=== PATIENT | male | born 1945 | race Caucasian/White ===

== ENCOUNTER 2019-09-28 17:00 | Emergency (ER) | payer MEDICARE, MEDICAID, SELFPAY ==
[2019-09-28] VITALS (25 sets, daily range): BP systolic 133–163; BP diastolic 53–72; PULSE 58–71; RESP 16–20; TEMP 37.1; O2SAT 89–98; BMI 41.8
--- NOTE | 2019-09-28 17:25 | ED_ITS ---
Entered by Viktoriya Rosado, acting as scribe for Samuel Philip DO Sep 28, 2019 17:00 HPI - General Adult General: Chief complaint: General Medical Stated complaint: Joint Pain / Hallucinations Time Seen by Provider: 09/28/19 17:14 Source: patient Mode of arrival: wheelchair Limitations: no limitations History of Present Illness: HPI narrative: 74 yo Male presents to ED with complaint of joint pain. Pt states the pain in his feet, ankles and knees. Pt states that his beavers bones hurt so bad he can barely walk. Pt states that this started years ago. Pt states that he has been having hallucinations that he thinks is from the hydrocodone he is taking for pain. Pt's family states that the patient has been having difficulty sleeping at night and has increased confusion at night. Pt's family states that the patient has had increased confusion the past few days as well. Pt states that he was seen by Dr. Alvares a few days ago and was told that it could be medication interaction. MD complaint: Joint Pain Onset (ago): year(s) Location: lower extremity Radiation: non-radiation Severity scale (1-10): 5 Quality: constant Pain Consistency: constant Relieving factors: none Exacerbating factors: none Associated symptoms: Reports other (hallucinations); Deny chest pain, dyspnea, headache(s), nausea, rash, palpitations or vomiting Review of Systems General: Reports: 10 or more systems reviewed and unremarkable except in HPI and below Const: Reports: body aches; Denies: fever or chills Eyes: Denies: change in vision, blurry vision or blind spots ENMT: Denies: throat pain, enlarged tonsils, painful swallowing, hoarseness or mouth pain Card: Reports: swelling of feet/ankles; Denies: chest pain, palpitations or irregular heart rhythm Resp: Denies: shortness of breath, productive cough or non-productive cough GI: Denies: abdominal pain, nausea or vomiting : Denies: flank pain, difficulty urinating, painful urination, urinary frequency or urinary urgency Musc: Reports: extremity pain and joint pain; Denies: neck pain or back pain Skin/Breast: Denies: rash, itching or redness Neuro: Denies: headache, numbness in extremities or weakness in extremities Psych: Reports: visual hallucinations PFSH ED PFSH: Statuses (acute, chronic, etc) shown below reflect problem list status as previously entered and may not be historically accurate Medical History (Updated 09/28/19 @ 21:27 by Samuel Philip DO) CAD (coronary artery disease) (Acute) Chronic back pain (Acute) COPD (chronic obstructive pulmonary disease) (Acute) Diabetes (Acute) Gout (Acute) Neuropathy (Acute) Renal insufficiency (Acute) Substance abuse (Acute) Surgical History (Updated 09/28/19 @ 17:32 by Viktoriya Rosado) History of cholecystectomy (Acute) History of heart artery stent (Acute) Social History (Updated 09/28/19 @ 17:50 by Viktoriya Rosado) Smoking and tobacco status: former smoker Quit status (tobacco): has quit using tobacco Year quit tobacco: 2016 Physical Exam Const: COMMON NORMALS: no apparent distress, average body habitus, oriented x3, no limitations, healthy appearing, alert and well nourished HENMT: COMMON NORMALS: normocephalic, head/scalp atraumatic, hearing grossly normal bilaterally, external ears normal, EAC's normal, TM's normal bilaterally, external nose normal, nasal mucous membranes and turbinates normal, moist oral mucous membranes, oropharynx normal, dentition normal and gingiva normal HEAD & SCALP: normocephalic and atraumatic NOSE: external nose normal and nasal mucous membranes and turbinates normal EXTERNAL EAR: Yes external ears normal EXTERNAL AUDITORY CANAL: EAC's normal TYMPANIC MEMBRANE: TM's normal bilaterally Eye: COMMON NORMALS: PERRL, EOMs intact bilaterally, conjunctivae normal, no scleral icterus, no papilledema, normal visual choudhury by confrontation and fundi normal bilaterally CONJUNCTIVA: Yes conjunctivae normal PUPIL: Yes PERRL DIRECT OPHTHALMOSCOPY: Yes no papilledema and Yes fundi normal bilaterally Neck/C-Spine: COMMON NORMALS: full ROM, no lymphadenopathy, supple, no meningeal signs, no JVD, thyroid normal and no carotid bruits THYROID: thyroid normal Chest: COMMONS NORMALS: inspection of chest normal and palpation of chest normal Resp: COMMON NORMALS: normal respiratory effort, no retractions, no use of accessory muscles, clear to auscultation bilaterally and percussion normal AUSCULTATION: clear to auscultation bilaterally PERCUSSION: percussion normal Cardio: COMMON NORMALS: no JVD, regular rate, regular rhythm, S1 normal heart sound, S2 normal heart sound, no gallops, no clicks, no murmurs, no rub and peripheral pulses 2+ throughout RATE: regular rate RHYTHM: regular rhythm HEART SOUNDS: S1 normal and S2 normal PERIPHERAL PULSES: pulses 2+ throughout GI: COMMON NORMALS: normal to inspection, nondistended, normoactive bowel sounds, soft to palpation, non-tender, no hepatosplenomegaly, no masses and no bruits PALPATION: Yes soft and Yes no hepatosplenomegaly : COMMON NORMALS: Yes no CVA tenderness BLADDER/KIDNEY EXAM: Yes no CVA tenderness Back/Pelvis: COMMON NORMALS: no CVA tenderness, thoracic and lumbar spine normal to inspection, no thoracic nor lumbar tenderness, thoraco-lumbar ROM normal and straight leg raise negative bilaterally Extremity: COMMON NORMALS: full ROM, normal capillary refill, no joint enlargement, no clubbing, cyanosis or edema and no calf tenderness; negative for normal to inspection and negative for no pedal edema GENERAL: Yes normal exam except as noted and Yes edema Neuro: COMMON NORMALS: oriented x3 SENSORIUM/ORIENTATION: Yes alert MENINGEAL SIGNS: Yes no meningeal signs Skin: COMMON NORMALS: no rashes or lesions noted, no wounds, skin turgor normal, no jaundice, no petechiae and no mottling GENERAL SKIN EXAM: no rashes or lesions noted and turgor normal Course Vital Signs: Vital signs: Vital Signs Temperature 98.7 F 09/28/19 17:14 Pulse Rate 61 09/28/19 20:45 Respiratory Rate 16 09/28/19 20:10 Blood Pressure 143/53 09/28/19 20:45 Pulse Oximetry 90 09/28/19 21:10 [facility] - General Adult Lab Data: Labs: Lab Results 09/28/19 09/28/19 09/28/19 Range/Units 18:07 18:07 18:07 WBC 8.5 (4.0-10.0) 10^3/ uL RBC 4.07 L (4.1-5.3) 10^6/u L Hgb 11.0 L (11.7-16.6) g/dL Hct 36.2 L (42.0-52.0) % MCV 88.9 (80-94) fL MCH 27.0 L (28.0-34.0) pg MCHC 30.4 (30.0-36.0) g/dL RDW 14.9 (12.1-15.1) % Plt Count 217 (130-400) 10^3/c mm MPV 10.3 (7.4-10.4) fL Neut % (Auto) 71.3 % Lymph % (Auto) 14.8 % [place] % (Auto) 9.1 % Eos % (Auto) 4.2 % Baso % (Auto) 0.4 % Neut # (Auto) 6.1 (1.8-7.7) 10^3/u L Lymph # (Auto) 1.3 (0.8-4.8) 10^3/u L [place] # (Auto) 0.8 (0.2-0.9) 10^3/u L Eos # (Auto) 0.4 (0.0-0.8) 10^3/u L Baso # (Auto) 0.0 (0.0-0.1) 10^3/u L Nucleated RBC % (a uto) 0 % Nucleated RBCs # 0.0 /100WBC Sodium 138 (136-145) mmol/L Potassium 4.0 (3.5-5.1) mmol/L Chloride 98 (98-107) mmol/L Carbon Dioxide 27 (22-29) mmol/L Anion Gap 17.0 (5-19) BUN 11 (8-23) mg/dL Creatinine 1.3 H (0.7-1.2) mg/dL Glucose 144 H (74-106) mg/dL Lactate 1.5 (0.5-2.2) mmol/L Calcium 9.4 (8.8-10.2) mg/Dl Total Bilirubin 0.3 (0.15-1.2) mg/dL AST 20 (0-40) U/L ALT 15 (0-41) U/L Alkaline Phosphata se 100 (40-130) IU/L Troponin T Baselin e (0-15) ng/mL Troponin T 120 Min humble (0-15) ng/mL Delta Troponin T (0-10) ABS# NT-Pro-B Natriuret Pep 288 H (0-125) pg/mL Total Protein 7.2 (6.6-8.7) g/dL Albumin 3.6 (3.5-5.2) g/dL Globulin 3.6 (1.3-4.6) g/dL Lipase 9 L (13-60) U/L TSH 2.72 (0.27-4.20) uIU/ mL Urine Color (Yellow) Urine Appearance (CLEAR) Urine pH (5-7) Ur Specific Gravit y (1.005-1.030) Urine Protein (Negative) Urine Glucose (UA) (Normal) Urine Ketones (Negative) Urine Occult Blood (Negative) Urine Nitrate (Negative) Urine Bilirubin (NEGATIVE) Urine Urobilinogen (Negative) mg/dL Ur Leukocyte Estephanie ase (Negative) 09/28/19 09/28/19 09/28/19 Range/Units 18:07 19:35 19:55 WBC (4.0-10.0) 10^3/ uL RBC (4.1-5.3) 10^6/u L Hgb (11.7-16.6) g/dL Hct (42.0-52.0) % MCV (80-94) fL MCH (28.0-34.0) pg MCHC (30.0-36.0) g/dL RDW (12.1-15.1) % Plt Count (130-400) 10^3/c mm MPV (7.4-10.4) fL Neut % (Auto) % Lymph % (Auto) % [place] % (Auto) % Eos % (Auto) % Baso % (Auto) % Neut # (Auto) (1.8-7.7) 10^3/u L Lymph # (Auto) (0.8-4.8) 10^3/u L [place] # (Auto) (0.2-0.9) 10^3/u L Eos # (Auto) (0.0-0.8) 10^3/u L Baso # (Auto) (0.0-0.1) 10^3/u L Nucleated RBC % (a uto) % Nucleated RBCs # /100WBC Sodium (136-145) mmol/L Potassium (3.5-5.1) mmol/L Chloride (98-107) mmol/L Carbon Dioxide (22-29) mmol/L Anion Gap (5-19) BUN (8-23) mg/dL Creatinine (0.7-1.2) mg/dL Glucose (74-106) mg/dL Lactate (0.5-2.2) mmol/L Calcium (8.8-10.2) mg/Dl Total Bilirubin (0.15-1.2) mg/dL AST (0-40) U/L ALT (0-41) U/L Alkaline Phosphata se (40-130) IU/L Troponin T Baselin e 17 H (0-15) ng/mL Troponin T 120 Min humble 16.77 H (0-15) ng/mL Delta Troponin T -0.23 L (0-10) ABS# NT-Pro-B Natriuret Pep (0-125) pg/mL Total Protein (6.6-8.7) g/dL Albumin (3.5-5.2) g/dL Globulin (1.3-4.6) g/dL Lipase (13-60) U/L TSH (0.27-4.20) uIU/ mL Urine Color Yellow (Yellow) Urine Appearance Clear (CLEAR) Urine pH 6 (5-7) Ur Specific Gravit y 1.010 (1.005-1.030) Urine Protein Neg (Negative) Urine Glucose (UA) Norm (Normal) Urine Ketones Negative (Negative) Urine Occult Blood Neg (Negative) Urine Nitrate Negative (Negative) Urine Bilirubin Neg (NEGATIVE) Urine Urobilinogen 1 H (Negative) mg/dL Ur Leukocyte Estephanie ase Negative (Negative) Imaging Data^: CXR: Radiologist's impression: [address] [address] XRay Report Signed Patient: Vega Clarke #: [id number] : 5Acct#:[id number] Age/Sex: 74 / MADM Date: 09/28/19 Loc: ERRoom/Bed: Attending Dr: Ordering Provider/Ordering MD: Samuel Philip DO Date of Service: 09/28/19 Procedure(s): XR chest 1V portable [id number] Accession Number(s): [id number] Report Number: [id number] PROCEDURE INFORMATION: Exam: XR Chest, 1 View Exam date and time: 09/28/2019 6:29 PM Age: 74 years old Clinical indication: Shortness of breath; Additional info: Chf TECHNIQUE: Imaging protocol: XR of the chest Views: 1 view. COMPARISON: CR Chest 1 [place] [id number] 07/15/2019 3:01 PM FINDINGS: Lungs: Unremarkable. No consolidation. Pleural space: Unremarkable. No pleural effusion. No pneumothorax. Heart/Mediastinum: Unremarkable. No cardiomegaly. Bones/joints: Unremarkable. XR/XR chest 1V portable [id number] IMPRESSION: No acute findings. Dictated By:Valerio White Signed By:Ana Whiteigned Date/Time:09/28/191899 DD/ 99 CT Head: Radiologist's impression: [place] [address] CT Scan Report Signed Patient: Vega Clarke #: [id number] : 5Acct#:[id number] Age/Sex: 74 / MADM Date: 09/28/19 Loc: ERRoom/Bed: Attending Dr: Ordering Provider/Ordering MD: Samuel Philip DO Date of Service: 09/28/19 Procedure(s): CT head wo con* [id number] Accession Number(s): [id number] Report Number: [id number] PROCEDURE INFORMATION: Exam: CT Head Without Contrast Exam date and time: 09/28/2019 5:55 PM Age: 74 years old Clinical indication: Altered mental status/memory loss; Age related cognitive decline; Additional info: AMS TECHNIQUE: Imaging protocol: Computed tomography of the head without contrast. Total DLP: 835.36 mGy-cm Radiation optimization: All CT scans at this facility use at least one of these dose optimization techniques: automated exposure control; mA and/or kV adjustment per patient size (includes targeted exams where dose is matched to clinical indication); or iterative reconstruction. COMPARISON: CT head wo con* [id number] 07/15/2019 5:59 PM FINDINGS: Brain: There is moderate cortical atrophy not significantly changed from previous. There is some mild patchy low-density in the white matter regions in keeping with nonspecific small vessel chronic ischemic change. There is no intracranial mass or hemorrhage. Midline shift: There is no shift of midline structures. Ventricles: Ventricles within normal limits. Bones/joints: Unremarkable. No acute fracture. Sinuses: Visualized sinuses are unremarkable. No fluid levels. Mastoid air cells: Visualized mastoid air cells are well aerated. Soft tissues: Unremarkable. CT/CT head wo con* [id number] IMPRESSION: No acute intracranial finding. Radiation Dose CTDIVOL = (mGy): DLP = 835.36 (mGy-cm) Dictated By:Valerio White Signed By:Ana Whiteigned Date/Time:09/28/191905 DD/ 05 Discharge Plan Discharge Patient Disposition: Home, Self-Care Clinical Impression: Diabetic neuropathy Qualifiers: Diabetes mellitus type: type 1 Diabetes mellitus complication detail: diabetic polyneuropathy Qualified Code(s): E10.42 - Type 1 diabetes mellitus with diabetic polyneuropathy Altered mental status Qualifiers: Altered mental status type: disorientation Qualified Code(s): R41.0 - Disorientation, unspecified Condition: Stable Discharge Orders: Discharge Order (Routine); Ordered 09/28/19 Ordered By: Samuel Philip Referrals: Christa Montes DO [Primary Care Provider] - Discharge Diet: Diabetic Activity Restrictions/Additional Instructions: DO NOT sit with your feet on the floor to help relieve peripheral edema Coding Level of Care Code ED Wet End Helper for Chg Fwd Exam Problem Focused The documentation recorded by the Alonzo pastor Carmen, accurately reflects the service I personally performed and the decisions made by Tamera lópez Donald P, DO Sep 28, 2019 17:00
--- NOTE | 2019-09-28 17:51 | CTR_ITS ---
PROCEDURE INFORMATION: Exam: CT Head Without Contrast Exam date and time: 09/28/2019 5:55 PM Age: 74 years old Clinical indication: Altered mental status/memory loss; Age related cognitive decline; Additional info: AMS TECHNIQUE: Imaging protocol: Computed tomography of the head without contrast. Total DLP: 835.36 mGy-cm Radiation optimization: All CT scans at this facility use at least one of these dose optimization techniques: automated exposure control; mA and/or kV adjustment per patient size (includes targeted exams where dose is matched to clinical indication); or iterative reconstruction. COMPARISON: CT head wo con* [id number] 07/15/2019 5:59 PM FINDINGS: Brain: There is moderate cortical atrophy not significantly changed from previous. There is some mild patchy low-density in the white matter regions in keeping with nonspecific small vessel chronic ischemic change. There is no intracranial mass or hemorrhage. Midline shift: There is no shift of midline structures. Ventricles: Ventricles within normal limits. Bones/joints: Unremarkable. No acute fracture. Sinuses: Visualized sinuses are unremarkable. No fluid levels. Mastoid air cells: Visualized mastoid air cells are well aerated. Soft tissues: Unremarkable. CT/CT head wo con* [id number] IMPRESSION: No acute intracranial finding. Radiation Dose CTDIVOL = (mGy): DLP = 835.36 (mGy-cm)
--- NOTE | 2019-09-28 17:51 | XRR_ITS ---
PROCEDURE INFORMATION: Exam: XR Chest, 1 View Exam date and time: 09/28/2019 6:29 PM Age: 74 years old Clinical indication: Shortness of breath; Additional info: Chf TECHNIQUE: Imaging protocol: XR of the chest Views: 1 view. COMPARISON: CR Chest 1 [place] [id number] 07/15/2019 3:01 PM FINDINGS: Lungs: Unremarkable. No consolidation. Pleural space: Unremarkable. No pleural effusion. No pneumothorax. Heart/Mediastinum: Unremarkable. No cardiomegaly. Bones/joints: Unremarkable. XR/XR chest 1V portable [id number] IMPRESSION: No acute findings.
[2019-09-28 18:18] LABS: Basophils % 0.4 %; Eosinophils # 0.4 10^3/uL (0.0-0.8); Eosinophils % 4.2 %; Hematocrit 36.2 % (42.0-52.0); Lymphocytes # 1.3 10^3/uL (0.8-4.8); Lymphocytes % 14.8 %; Mean Corpuscular HGB Conc 30.4 g/dL (30.0-36.0); Mean Corpuscular Volume 88.9 fL (80-94); Mean Platelet Volume 10.3 fL (7.4-10.4); Monocytes # 0.8 10^3/uL (0.2-0.9); Monocytes % 9.1 %; Neutrophils # 6.1 10^3/uL (1.8-7.7); Neutrophils % 71.3 %; Nucleated Red Blood Cells % 0 %; Platelet Count 217 10^3/cmm (130-400); Red Blood Count 4.07 10^6/uL (4.1-5.3); Red Cell Distribution Width 14.9 % (12.1-15.1); White Blood Count 8.5 10^3/uL (4.0-10.0)
[2019-09-28 18:31] LABS: Lactate (Lactic Acid level) 1.5 mmol/L (0.5-2.2)
[2019-09-28 18:42] LABS: Alanine Aminotransferase 15 U/L (0-41); Albumin Level 3.6 g/dL (3.5-5.2); Alkaline Phosphatase 100 IU/L (40-130); Aspartate Amino Transferase 20 U/L (0-40); Blood Urea Nitrogen 11 mg/dL (8-23); Calcium 9.4 mg/Dl (8.8-10.2); Carbon Dioxide 27 mmol/L (22-29); Chloride 98 mmol/L (98-107); Globulin 3.6 g/dL (1.3-4.6); Glucose 144 mg/dL (74-106); Lipase 9 U/L (13-60); NT Pro B Type Natriuretic Pept 288 pg/mL (0-125); Sodium 138 mmol/L (136-145); Thyroid Stimulating Hormone 2.72 uIU/mL (0.27-4.20); Total Bilirubin 0.3 mg/dL (0.15-1.2); Total Protein 7.2 g/dL (6.6-8.7)
[2019-09-28 19:01] LABS: Troponin(5th) Baseline 17 ng/mL (0-15)
--- NOTE | 2019-09-28 19:04 | PC.NURSE ---
REPORT RECEIVED FROM RYAN GALLAGHER AND CARE TRANSFERRED TO RYAN HALL
--- NOTE | 2019-09-28 19:54 | ECG_ITS ---
Measurements Intervals [place] Rate: 60 P: 64 [place]: 163 QRS: 74 QRSD: 97 T: 61 QT: 403 QTc: 403 SINUS RHYTHM Compared to ECG 07/15/2019 14:42:35 Sinus bradycardia no longer present Electronically Signed On 09-29-2019 9:33:45 SANDWICH ARTIST by Vic Holder M.D. [email or web address]
--- NOTE | 2019-09-28 19:55 | PC.NURSE ---
PATIENT REQUESTED BLANKET AND PATIENT GIVEN WARM BLANKET BY NURSE
[2019-09-28 20:00] LABS: Add Urine Microscopic? NO
[2019-09-28 20:24] LABS: Bilirubin Urine Neg (NEGATIVE); Blood Urine Neg (Negative); Glucose Urine UA Norm (Normal); Ketones Urine Negative (Negative); Leukocyte Esterase Urine Negative (Negative); Nitrate Urine Negative (Negative); Protein Urine Neg (Negative); Urine Appearance Clear (CLEAR); Urine Color Yellow (Yellow); Urobilinogen Urine 1 mg/dL (Negative); pH Urine 6 (5-7)
[2019-09-28 20:31] LABS: Troponin 5 2HR 16.77 ng/mL (0-15)
[2019-09-28 20:34] LABS: Troponin 5 2HR Delta -0.23 ABS# (0-10)
--- NOTE | 2019-09-28 23:54 | ECG_ITS ---
Measurements Intervals [place] Rate: 59 P: 58 TN: 190 QRS: 69 QRSD: 99 T: 57 QT: 411 QTc: 409 SINUS BRADYCARDIA Compared to ECG 07/15/2019 14:42:35 No significant changes Electronically Signed On 09-29-2019 9:33:42 ACCOUNT MANAGER SALES REPRESENTATIVE by Vic Holder M.D. [email or web address]
== END 2019-09-28 21:49 | disposition home or self-care (01) ==
PROVIDERS: Emergency Provider Family Medicine; Family Provider Family Medicine; PCP Family Medicine
DX: E10.42 Type 1 diabetes mellitus with diabetic polyneuropathy (principal); R41.0 Disorientation, unspecified; I25.10 Atherosclerotic heart disease of native coronary artery without angina pectoris; J44.9 Chronic obstructive pulmonary disease, unspecified; Z87.891 Personal history of nicotine dependence
CPT/HCPCS: 70450; 71045; 80053; 81003; 83605; 83690; 83880; 84443; 84484; 85025; 93005; 99283; A9270

== ENCOUNTER → 2019-10-14 14:05 | Outpatient (BNVA) | payer MEDICARE, MEDICAID, SELFPAY | PROVIDERS: Family Provider Family Medicine; PCP Family Medicine; Visit Provider Nurse Practitioner | DX: F33.0 Major depressive disorder, recurrent, mild (principal) | CPT/HCPCS: 99213 ==

== ENCOUNTER → 2019-10-15 14:58 | Outpatient (BNVA) | payer MEDICARE, MEDICAID, SELFPAY | PROVIDERS: Family Provider Family Medicine; PCP Family Medicine; Visit Provider Anesthesiology | DX: G89.29 Other chronic pain (principal); M54.5 Low back pain; M79.651 Pain in right thigh; M79.652 Pain in left thigh; F17.220 Nicotine dependence, chewing tobacco, uncomplicated; Z79.891 Long term (current) use of opiate analgesic | CPT/HCPCS: 99214 ==

== ENCOUNTER → 2019-10-31 16:46 | Outpatient (BNVA) | payer MEDICARE, MEDICAID, SELFPAY | PROVIDERS: Family Provider Family Medicine; PCP Nurse Practitioner; Visit Provider Nurse Practitioner | DX: E11.9 Type 2 diabetes mellitus without complications (principal); E78.5 Hyperlipidemia, unspecified | CPT/HCPCS: 80061; 82044; 83036 ==

== ENCOUNTER → 2019-12-11 12:26 | Outpatient (BNVA) | payer MEDICARE, MEDICAID, SELFPAY | PROVIDERS: Family Provider Family Medicine; PCP Nurse Practitioner; Visit Provider Nurse Practitioner | DX: Z76.89 Persons encountering health services in other specified circumstances (principal) | CPT/HCPCS: 99213 ==

== ENCOUNTER 2019-12-30 11:43 | Emergency (ER) | payer MEDICARE, MEDICAID, SELFPAY ==
[2019-12-30 11:47] VITALS: BP 100/84; PULSE 86; RESP 20; TEMP 36.8; O2SAT 95; BMI 43.0
--- NOTE | 2019-12-30 11:49 | XR_ITS ---
WS: [id number] RIBS LEFT WITH CHEST TECHNIQUE: 3 views of the left ribs with PA chest CLINICAL INFORMATION: chest pain COMPARISON: September 28, 2019 FINDINGS: Cardiomegaly. Aortic calcification. Lungs well aerated. No visualized left rib fractures XR/XR ribs LT mn 3V w CXR1V [id number] IMPRESSION: No visualized left rib fractures
--- NOTE | 2019-12-30 12:59 | ED_ITS ---
HPI - General Adult General: Chief complaint: General Medical Stated complaint: LEFT SIDE RIB PAIN Time Seen by Provider: 12/30/19 12:59 Source: patient Mode of arrival: ambulatory Limitations: no limitations History of Present Illness: HPI narrative: Patient comes in today with left anterior rib pain. 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 Patient appears well. Patient appears in moderate pain. Patient does take medication routinely for his diabetic neuropathy, diabetes, hypertension, and coronary artery disease. Patient states that he has been without his pain medicine and cannot get it refilled until the first of the month. Review of Systems General: Reports: 10 or more systems reviewed and unremarkable except in HPI and below PFSH ED PFSH: Medical History (Updated 12/30/19 @ 14:05 by KARINA Rowan) CAD (coronary artery disease) Chronic back pain Encounter for long-term use of opiate analgesic Gout Major depressive disorder, recurrent, mild (Unknown) Neuropathy Opioid contract exists Renal insufficiency Smokeless tobacco use Substance abuse Surgical History History of cholecystectomy History of heart artery stent Social History Smoking and tobacco status: former smoker Alcohol intake: never History of recent travel: No Physical Exam Const: COMMON NORMALS: no apparent distress and oriented x3 GENERAL APPEARANCE: cooperative HENMT: COMMON NORMALS: normocephalic, TM's normal bilaterally and external nose normal HEAD & SCALP: normal to inspection and normocephalic NOSE: external nose normal TYMPANIC MEMBRANE: TM's normal bilaterally MOUTH: oral and palatal mucosa normal THROAT: posterior oropharynx normal Eye: GENERAL EYE: normal appearance of both eyes Neck/C-Spine: COMMON NORMALS: full ROM Lymph: LYMPHATIC: no lymphadenopathy noted Chest: OTHER: Left anterior chest wall tenderness, no crepitus or flailing of the chest. Resp: COMMON NORMALS: normal respiratory effort EFFORT & INSPECTION: Yes able to speak in complete sentences Cardio: COMMON NORMALS: regular rate and regular rhythm RATE: regular rate RHYTHM: regular rhythm GI: COMMON NORMALS: non-tender : COMMON NORMALS: Yes no CVA tenderness BLADDER/KIDNEY EXAM: Yes no CVA tenderness Back/Pelvis: COMMON NORMALS: no CVA tenderness and thoracic and lumbar spine normal to inspection Extremity: COMMON NORMALS: normal to inspection Neuro: COMMON NORMALS: oriented x3 and moves all extremities Psych: COMMON NORMALS: mental status grossly normal and cooperative Skin: COMMON NORMALS: no rashes or lesions noted GENERAL SKIN EXAM: no dolly hes or lesions noted Course Vital Signs: Vital signs: Vital Signs Temperature 98.2 F 12/30/19 11:47 Pulse Rate 86 12/30/19 11:47 Respiratory Rate 20 H 12/30/19 11:47 Blood Pressure 100/84 12/30/19 11:47 Pulse Oximetry 95 12/30/19 11:47 MDM - General Adult MDM Narrative: Medical decision making narrative: Patient comes in for evaluation of left anterior chest wall pain. Patient reports leaning over to get his dog against the back of his chair and felt a pop in the left anterior rib area. Exam notes no abnormalities to the chest wall except tenderness with palpation. Lungs are clear to auscultation. Differential diagnosis includes but not limited to fracture, costochondritis, sprain/strain. X-ray noted no fracture. Reviewed exam with patient recommended treatment with Tylenol and ice and heat. Encourage plenty of fluids and follow-up with primary care. Recommend follow-up with primary care or pain specialist for further medication for pain. Discharge Plan Discharge Patient Disposition: Home, Self-Care Clinical Impression: Costochondritis Condition: Stable Prescriptions: No Action Viibryd 40 mg tablet 40 mg PO DAILY Qty: 30 RF: 2 metformin 1,000 mg tablet 1,000 mg PO BID Qty: 30 RF: 5 albuterol sulfate [ProAir HFA] 90 mcg/actuation HFA aerosol inhaler 1 puff INHALATION Q6H PRN (Reason: shortness of breath or wheezing) Qty: 8.5 RF: 5 carvedilol [Coreg] 12.5 mg tablet 12.5 mg PO BID Qty: 30 RF: 5 furosemide [Lasix] 80 mg tablet 80 mg PO BID Qty: 60 RF: 5 potassium chloride 20 mEq tablet extended release 20 meq PO BID Qty: 60 RF: 2 benazepril 20 mg tablet 20 mg PO QDAY Qty: 30 RF: 5 fluticasone propionate [Flonase Allergy Relief] 50 mcg/actuation spray,suspension 2 spray INTRANASAL DAILY Qty: 18.2 RF: 5 hydrocodone-acetaminophen 7.5-325 mg tablet 1 tab PO .FIVE TIMES DAILY PRN (Reason: pain) 30 Days Qty: 150 RF: 0 pregabalin [Lyrica] 200 mg capsule 200 mg PO TID Qty: 90 RF: 0 aspirin [Adult Aspirin Regimen] 81 mg tablet,delayed release (DR/EC) 81 mg PO DAILY RF: 0 atorvastatin 20 mg tablet 20 mg PO DAILY RF: 0 Narcan 4 mg/actuation spray,non-aerosol 1 spray INTRANASAL .COMPLEX RF: 0 pantoprazole [Protonix] 40 mg tablet,delayed release (DR/EC) 40 mg PO BID Qty: 60 RF: 5 nitroglycerin [Nitrostat] 0.4 mg tablet, sublingual 0.4 mg SUBLINGUAL Q5M PRN (Reason: chest pain) 90 Days Qty: 25 RF: 3 Discharge Orders: Discharge Order (Routine); Ordered 12/30/19 Ordered By: Pete Cast Referrals: Catherine Elena FNP [Primary Care Provider] - Christa Montes DO [Family Provider] - Discharge Diet: Usual diet Discharge Activity: Increase activity as tolerated Patient Instructions: Costochondritis (ED) Activity Restrictions/Additional Instructions: Activity as tolerated Jerilyn stretching and range of motion Use acetaminophen for pain Ice or heat for further comfort Follow-up with primary care as needed Return to ER for worsening symptoms or fever Coding Level of Care Code 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
[2019-12-30] MEDS: HYDROcodone-acetaminophen 10-325 mg Tablet 1 TAB PO (13:14)
[2019-12-30 14:20] VITALS: BP 102/89; PULSE 84; RESP 18; O2SAT 95
== END 2019-12-30 14:22 | disposition home or self-care (01) ==
PROVIDERS: Emergency Provider Nurse Practitioner Family; Family Provider Family Medicine; PCP Nurse Practitioner
DX: M94.0 Chondrocostal junction syndrome [Tietze] (principal); Z79.84 Long term (current) use of oral hypoglycemic drugs; Z79.82 Long term (current) use of aspirin; I25.10 Atherosclerotic heart disease of native coronary artery without angina pectoris; Z87.891 Personal history of nicotine dependence
CPT/HCPCS: 12345; 71101; 99281; 99283

== ENCOUNTER → 2020-01-22 08:31 | Outpatient (BNVA) | payer MEDICARE, MEDICAID, SELFPAY | PROVIDERS: Family Provider Family Medicine; PCP Nurse Practitioner; Visit Provider Nurse Practitioner | DX: F33.0 Major depressive disorder, recurrent, mild (principal) | CPT/HCPCS: 99213 ==

== ENCOUNTER → 2020-02-28 12:15 | Outpatient (BNVA) | payer MEDICARE, MEDICAID, SELFPAY | PROVIDERS: Family Provider Family Medicine; PCP Nurse Practitioner; Visit Provider Anesthesiology | DX: G89.29 Other chronic pain (principal); M54.9 Dorsalgia, unspecified; G62.9 Polyneuropathy, unspecified; Z79.891 Long term (current) use of opiate analgesic | CPT/HCPCS: 99214 ==

== ENCOUNTER 2020-03-04 07:22 | Outpatient (CLI) | payer MEDICARE, MEDICAID, SELFPAY ==
--- NOTE | 2020-03-04 08:55 | NMCV_ITS ---
NM ivanna perf SPECT r/s* [id number] Isaías Clarke Age: 74 Gender: M : 1945 Exam Date: 03/04/2020 09:09 Ordering Phys: Vic Holder MD ([email or web address]) Technologist: JO-ANN Antonio Exam Location: [facility] Indications: Chest pain STRESS TEST Please see separate stress test report in [facility] for full findings IMAGE PROTOCOL Rest/Stress 1 Lexiscan Day Radiopharmaceutical Dose (mCi) Administration Site Administered by Rest: Tc-99m 10.8 IV JO-ANN Antonio Sestamibi Stress:Tc-99m 32.2 IV JO-ANN Antonio Sestamibi Rest: 04-Mar-2020 60 Discovery 630 Stress: 04-Mar-2020 45 Discovery 630 0.4mg Lexiscan. Supine position only as patient was unable to lay prone. SPECT RESULTS Technical Quality: Good Raw Data Analysis: Soft tissue attenuation Image Corrections: No attenuation or motion correction applied Summed Stress Score: 1 Summed Rest Score: 5 Summed Difference Score: 1 PERFUSION FINDINGS Small sized perfusion abnormality of mild severity of basal to mid inferolateral diaz on rest images with improved tracer uptake on stress images. This is suggestive of attenuation artifact. FUNCTIONAL RESULTS (calculated via Gated SPECT) Stress Image LV EF (%): 51 Stress EDV (mL):90 TID: 0.92 Stress ESV (mL):44 FUNCTIONAL FINDINGS: The left ventricle is normal in size. Transient Ischemia Dilatation of 0.92. There is normal left ventricular systolic function. The left ventricular ejection fraction is normal with a value of 51%. There is normal left ventricular wall thickening. Normal end diastolic and end systolic volumes. IMPRESSIONS 1. Myocardial perfusion imaging is normal. Attenuation artifact noted on inferolateral wall. 2. Overall left ventricular systolic function is normal without regional wall motion abnormalities. 3. The left ventricular ejection fraction is normal with a value of 51%. 4. No coronary ischemia noted in this study. Maria Luisa Geller MD (Electronically Signed) Final Date: 04 March 2020 16:41 S
--- NOTE | 2020-03-04 08:55 | ECG_ITS ---
[facility] Test Date: 2020-03-04 Pat Name: Isaías Clarke Department: Room: Gender: Male Director Of Assisted Living: Karlee Thrasher : 1945 Requested By: Vic Holder Order Number: [id number] Beata MD: Vic Holder M.D. Interpretive Statements NAME OF STUDY: LEXISCAN SESTAMIBI STRESS TEST INDICATION: Chest Pain, LEXISCAN STRESS TEST ORDERING PHYSICIAN: Gallo CLINICAL INFORMATION: Chest pain INTERPRETATION: 1. The patient was brought to the laboratory where Lexiscan was infused over 20 seconds. The resting blood pressure was 201/89. Maximum blood pressure was 201/89. The resting heart rate was 81 beats per minute. The maximum heart rate is 87 beats per minute. 2. The baseline electrocardiogram reveals sinus rhythm with poor R wave progression but otherwise a normal tracing 3. With Lexiscan infusion, there were no ST segment changes to suggest ischemia. 4. The patient experienced no symptoms or arrhythmias during the examination. CONCLUSION: 1. Unremarkable Lexiscan infusion. 2. Nuclear imaging to follow. Electronically Signed On 03-04-2020 15:39:51 CDT by Vic Holder M.D. [id number]
[2020-03-04 08:56] VITALS: BMI 47.3
[2020-03-04 10:03] VITALS: BP 142/81; PULSE 81
[2020-03-04] MEDS: regadenoson 0.4 Mg/5 ml Syringe IVP (10:03)
== END 2020-03-04 07:23 | disposition home or self-care (01) ==
LOC: RAD 07:28
PROVIDERS: PCP Nurse Practitioner; Visit Provider Internal Medicine Cardiovascular Disease
DX: R07.9 Chest pain, unspecified (principal)
CPT/HCPCS: 78452; 93017; A9500; J2785

== ENCOUNTER → 2020-05-06 12:55 | Outpatient (BNVA) | payer MEDICARE, MEDICAID, SELFPAY | PROVIDERS: Family Provider Family Medicine; PCP Nurse Practitioner; Visit Provider Anesthesiology | DX: G89.29 Other chronic pain (principal); M54.42 Lumbago with sciatica, left side; M54.41 Lumbago with sciatica, right side; M54.9 Dorsalgia, unspecified; G62.9 Polyneuropathy, unspecified; Z79.891 Long term (current) use of opiate analgesic | CPT/HCPCS: 99213; 99214 ==

== ENCOUNTER 2020-05-25 19:18 | Inpatient (IN) | payer MEDICARE, MEDICAID, SELFPAY ==
[2020-05-25 19:35] VITALS: BP 182/92; PULSE 91; RESP 14; TEMP 36.8; O2SAT 95; BMI 38.0
--- NOTE | 2020-05-25 19:50 | CTR_ITS ---
PROCEDURE INFORMATION: Exam: CT Head Without Contrast Exam date and time: 05/25/2020 7:52 PM Age: 74 years old Clinical indication: Altered mental status/memory loss; Confusion or disorientation; Additional info: AMS TECHNIQUE: Imaging protocol: Computed tomography of the head without contrast. Radiation optimization: All CT scans at this facility use at least one of these dose optimization techniques: automated exposure control; mA and/or kV adjustment per patient size (includes targeted exams where dose is matched to clinical indication); or iterative reconstruction. COMPARISON: CT head wo con* [id number] 09/28/2019 6:46 PM RADIATION DOSE METRICS: Total DLP (mGy-cm): 622.08 FINDINGS: Brain: Moderate cerebral atrophy and ischemic leukoencephalopathy. Ventricles: No ventriculomegaly. Bones/joints: Unremarkable. No acute fracture. Paranasal sinuses: Visualized sinuses are unremarkable. No fluid levels. Mastoid air cells: Visualized mastoid air cells are well aerated. Vasculature: Severe calcified intracranial atherosclerotic vessel disease. Soft tissues: Unremarkable. CT/CT head wo con* [id number] IMPRESSION: No acute intracranial findings. Radiation Dose CTDIVOL = (mGy): DLP = 622.08 (mGy-cm)
--- NOTE | 2020-05-25 19:50 | XR_ITS ---
WS: [id number] PORTABLE CHEST HISTORY: ams COMPARISON: 12/30/2019 and 09/28/2019 Atelectasis at the LEFT costophrenic angle. No pneumonia. Mild hyperexpansion. No pleural effusion or pneumothorax. Cardiac size: Normal. Mediastinum/Aorta: Mild atherosclerosis aorta. No osseous abnormality seen. XR/XR chest 1V portable [id number] IMPRESSION: Subsegmental atelectasis at the LEFT costophrenic angle. Mild emphysema.
--- NOTE | 2020-05-25 19:51 | ECG_ITS ---
[facility] Test Date: 2020-05-25 Pat Name: Isaías Clarke Department: Room: Gender: Male Cyber Analyst: : 1945 Requested By: Kyle Antony Order Number: [id number] Beata MD: Maria Luisa Geller M.D. Measurements Intervals [place] Rate: 85 P: 35 LA: 160 QRS: 52 QRSD: 97 T: 37 QT: 361 QTc: 432 Interpretive Statements SINUS RHYTHM WITH OCCASIONAL VENTRICULAR PREMATURE COMPLEXES Compared to ECG 09/28/2019 20:05:17 Ventricular premature complex(es) now present Electronically Signed On 05-26-2020 14:49:50 CDT by Maria Luisa Geller M.D. [id number]
--- NOTE | 2020-05-25 20:21 | W.ED.AMS ---
HPI - Altered Mental Status General: Chief Complaint: Altered Mental Status Stated Complaint: AMS; Falls Time Seen by Provider: 05/25/20 19:49 Source: patient Mode of arrival: ambulatory Limitations: no limitations History of Present Illness: HPI narrative: 74-year-old male that states has been altered over the last 6 to 7 hours. She states that he has been quite confused and try to run off in the story this evening. Patient here is confused. He is able tell me his name but does not know the year or where he is. Denies any fever. Denies any headache. Patient is pleasant here. complaint: altered mental status Associated symptoms: Deny depression Review of Systems Const: Denies: fever(s), chills, body aches or change in appetite Eyes: Denies: blurry vision or eye discomfort ENMT: Denies: throat pain or dental pain Card: Denies: chest pain Resp: Denies: dyspnea GI: Denies: abdominal pain, nausea, vomiting or diarrhea : Denies: dysuria Musc: Denies: neck pain or back pain Skin/Breast: Denies: rash Neuro: Reports: confusion Psych: Denies: depression Bj/Lymph: Denies: easy bruising All/Imm: Denies: urticaria PFSH ED PFSH: Medical History CAD (coronary artery disease) Chronic back pain Dyslipidemia Encounter for long-term use of opiate analgesic Gout Major depressive disorder, recurrent, mild (Unknown) Neuropathy Opioid contract exists MALORIE (obstructive sleep apnea) Renal insufficiency Smokeless tobacco use Substance abuse Surgical History History of cholecystectomy History of heart artery stent Family History (Updated 05/26/20 @ 00:33 by Mehreen Magaña MD) Other Cancer Hypertension Social History Smoking and tobacco status: former smoker Second hand smoke exposure: No Alcohol intake: never History of recent travel: No Physical Exam Const: COMMON NORMALS: no acute distress and healthy appearing ORIENTATION/CONSCIOUSNESS: Yes oriented to person; not oriented to place and not oriented to time HENMT: COMMON NORMALS: normocephalic and atraumatic HEAD & SCALP: normocephalic and atraumatic Eye: COMMON NORMALS: Equal, round and reactive pupils present and EOMs intact bilaterally PUPIL: Yes Equal, round and reactive pupils present Neck/C-Spine: COMMON NORMALS: full ROM and supple Chest: COMMONS NORMALS: normal inspection of the chest and normal palpation of entire chest wall Resp: COMMON NORMALS: normal respiratory effort, No retractions, No use of accessory muscles and clear to auscultation bilaterally AUSCULTATION: clear to auscultation bilaterally Cardio: COMMON NORMALS: regular rate, regular rhythm and No murmurs present (Cardio) RATE: regular rate RHYTHM: regular rhythm GI: COMMON NORMALS: Normal to inspection, nondistended, normoactive bowel sounds present, Soft to palpation, non-tender and no masses PALPATION: Yes Soft to palpation Extremity: COMMON NORMALS: normal to inspection and full ROM Neuro: COMMON NORMALS: moves all extremities and no focal motor deficits SENSORIUM/ORIENTATION: Yes oriented to person, No oriented to place and No oriented to time Psych: COMMON NORMALS: mental status grossly normal, Normal thought process present and cooperative THOUGHT PROCESS: Normal thought process present Skin: COMMON NORMALS: no rashes or lesions noted and no wounds GENERAL SKIN EXAM: no rashes or lesions noted Course Vital Signs: Vital signs: Vital Signs Temperature 99.0 F 05/26/20 15:34 Pulse Rate 67 05/26/20 15:34 Respiratory Rate 22 H 05/26/20 15:34 Blood Pressure 192/80 05/26/20 15:34 Pulse Oximetry 94 05/26/20 15:34 MDM - Altered Mental Status MDM Narrative: Medical decision making narrative: Patient presents with altered mental status. Patient's head CT here is normal he has no signs of acute stroke. Patient's last known normal was over 12 hours ago. I spoke to hospitalist will admit as patient is still confused at this time. His he has no signs of any infection. Lab Data: Labs: Lab Results 05/25/20 05/25/20 05/25/20 Range/Units 19:29 21:00 21:00 WBC 11.4 H (4.0-10.0) 10^3/ uL RBC 4.69 (4.1-5.3) 10^6/u L Hgb 13.1 (11.7-16.6) g/dL Hct 41.6 L (42.0-52.0) % MCV 88.7 (80-94) fL MCH 27.9 L (28.0-34.0) pg MCHC 31.5 (30.0-36.0) g/dL RDW 14.7 (12.1-15.1) % Plt Count 288 (130-400) 10^3/c mm MPV 10.8 H (7.4-10.4) fL Neut % (Auto) 81.8 % Lymph % (Auto) 12.0 % [place] % (Auto) 5.3 % Eos % (Auto) 0.3 % Baso % (Auto) 0.3 % Neut # (Auto) 9.34 H (1.8-7.7) 10^3/u L Lymph # (Auto) 1.4 (0.8-4.8) 10^3/u L [place] # (Auto) 0.6 (0.2-0.9) 10^3/u L Eos # (Auto) 0.0 (0.0-0.8) 10^3/u L Baso # (Auto) 0.0 (0.0-0.1) 10^3/u L Nucleated RBC % (a uto) 0 % Nucleated RBCs # 0.0 /100WBC Sodium Cancelled Potassium Cancelled Chloride Cancelled Carbon Dioxide Cancelled Anion Gap Cancelled BUN Cancelled Creatinine Cancelled GFR Calculation Cancelled Glucose Cancelled POC Glucose 128 (70-110) mg/dL Calculated Osmolal ity Cancelled Calcium Cancelled Total Bilirubin Cancelled AST Cancelled ALT Cancelled Alkaline Phosphata se Cancelled Ammonia (16-60) umol/L NT-Pro-B Natriuret Pep (0-125) pg/mL Total Protein Cancelled Albumin Cancelled Globulin Cancelled Lipase Cancelled Vitamin B12 (232-1245) pg/mL Ethyl Alcohol Cancelled 05/25/20 05/25/20 05/25/20 Range/Units 21:16 23:53 23:53 WBC (4.0-10.0) 10^3/ uL RBC (4.1-5.3) 10^6/u L Hgb (11.7-16.6) g/dL Hct (42.0-52.0) % MCV (80-94) fL MCH (28.0-34.0) pg MCHC (30.0-36.0) g/dL RDW (12.1-15.1) % Plt Count (130-400) 10^3/c mm MPV (7.4-10.4) fL Neut % (Auto) % Lymph % (Auto) % [place] % (Auto) % Eos % (Auto) % Baso % (Auto) % Neut # (Auto) (1.8-7.7) 10^3/u L Lymph # (Auto) (0.8-4.8) 10^3/u L [place] # (Auto) (0.2-0.9) 10^3/u L Eos # (Auto) (0.0-0.8) 10^3/u L Baso # (Auto) (0.0-0.1) 10^3/u L Nucleated RBC % (a uto) % Nucleated RBCs # /100WBC Sodium 140 Potassium 4.0 Chloride 101 Carbon Dioxide 22 Anion Gap 21.0 H BUN 14 Creatinine 1.2 GFR Calculation Not Reportable Glucose 159 H POC Glucose 120 (70-110) mg/dL Calculated Osmolal ity 290 Calcium 9.9 Total Bilirubin 0.5 AST 24 ALT 20 Alkaline Phosphata se 89 Ammonia 36 (16-60) umol/L NT-Pro-B Natriuret Pep 260 H (0-125) pg/mL Total Protein 8.0 Albumin 4.3 Globulin 3.7 Lipase 11 L Vitamin B12 (232-1245) pg/mL Ethyl Alcohol < 10 05/26/20 Range/Units 00:00 WBC (4.0-10.0) 10^3/ uL RBC (4.1-5.3) 10^6/u L Hgb (11.7-16.6) g/dL Hct (42.0-52.0) % MCV (80-94) fL MCH (28.0-34.0) pg MCHC (30.0-36.0) g/dL RDW (12.1-15.1) % Plt Count (130-400) 10^3/c mm MPV (7.4-10.4) fL Neut % (Auto) % Lymph % (Auto) % [place] % (Auto) % Eos % (Auto) % Baso % (Auto) % Neut # (Auto) (1.8-7.7) 10^3/u L Lymph # (Auto) (0.8-4.8) 10^3/u L [place] # (Auto) (0.2-0.9) 10^3/u L Eos # (Auto) (0.0-0.8) 10^3/u L Baso # (Auto) (0.0-0.1) 10^3/u L Nucleated RBC % (a uto) % Nucleated RBCs # /100WBC Sodium Potassium Chloride Carbon Dioxide Anion Gap BUN Creatinine GFR Calculation Glucose POC Glucose (70-110) mg/dL Calculated Osmolal ity Calcium Total Bilirubin AST ALT Alkaline Phosphata se Ammonia (16-60) umol/L NT-Pro-B Natriuret Pep (0-125) pg/mL Total Protein Albumin Globulin Lipase Vitamin B12 545 (232-1245) pg/mL Ethyl Alcohol Imaging Data^: CT Head: Radiologist's impression: [place] [address] CT Scan Report Signed Patient: Isaías Clarke Unit #: [id number] : 1945 Age/Sex: 74 / M ADM Date: 05/25/20 Loc: ER Room/Bed: Attending Dr: Ordering Provider/Ordering MD: Kyle Antony MD Date of Service: 05/25/20 Procedure(s): CT head wo con* [id number] Accession Number(s): [id number] Report Number: [id number] PROCEDURE INFORMATION: Exam: CT Head Without Contrast Exam date and time: 05/25/2020 7:52 PM Age: 74 years old Clinical indication: Altered mental status/memory loss; Confusion or disorientation; Additional info: AMS TECHNIQUE: Imaging protocol: Computed tomography of the head without contrast. Radiation optimization: All CT scans at this facility use at least one of these dose optimization techniques: automated exposure control; mA and/or kV adjustment per patient size (includes targeted exams where dose is matched to clinical indication); or iterative reconstruction. COMPARISON: CT head wo con* [id number] 09/28/2019 6:46 PM RADIATION DOSE METRICS: Total DLP (mGy-cm): 622.08 FINDINGS: Brain: Moderate cerebral atrophy and ischemic leukoencephalopathy. Ventricles: No ventriculomegaly. Bones/joints: Unremarkable. No acute fracture. Paranasal sinuses: Visualized sinuses are unremarkable. No fluid levels. Mastoid air cells: Visualized mastoid air cells are well aerated. Vasculature: Severe calcified intracranial atherosclerotic vessel disease. Soft tissues: Unremarkable. CT/CT head wo con* [id number] IMPRESSION: No acute intracranial findings. CXR: Attestation: I personally reviewed and interpreted this imaging study as follows: My impression: no acute abnormality EKG Data^: EKG 1: Attestation: I personally reviewed and interpreted this EKG as follows: EKG interpretation date: 05/25/20 EKG interpretation time: 21:34 Interpretation: nsr hr [address] or t wave abnormalities qrs 97 qtc 404 Discharge Plan Discharge Patient Disposition: Admitted As Inpatient Admit Provider: Mehreen Magaña Clinical Impression: Altered mental status Qualifiers: Altered mental status type: unspecified Qualified Code(s): R41.82 - Altered mental status, unspecified Condition: Stable Discharge Date/Time: 05/26/20 04:10 Coding Level of Care Code ED Motion Picture Projectionist Apprentice for Chg Fwd Exam Comprehensive
[2020-05-25 22:00] LABS: Basophils % 0.3 %; Eosinophils % 0.3 %; Hematocrit 41.6 % (42.0-52.0); Hemoglobin 13.1 g/dL (11.7-16.6); Lymphocytes # 1.4 10^3/uL (0.8-4.8); Mean Corpuscular HGB Conc 31.5 g/dL (30.0-36.0); Mean Corpuscular Hemoglobin 27.9 pg (28.0-34.0); Mean Corpuscular Volume 88.7 fL (80-94); Mean Platelet Volume 10.8 fL (7.4-10.4); Monocytes # 0.6 10^3/uL (0.2-0.9); Monocytes % 5.3 %; Neutrophils # 9.34 10^3/uL (1.8-7.7); Neutrophils % 81.8 %; Nucleated Red Blood Cells % 0 %; Platelet Count 288 10^3/cmm (130-400); Red Blood Count 4.69 10^6/uL (4.1-5.3); Red Cell Distribution Width 14.7 % (12.1-15.1); White Blood Count 11.4 10^3/uL (4.0-10.0)
[2020-05-25 23:03] LABS: Glucose Point of Care 128 mg/dL (70-110)
--- NOTE | 2020-05-25 23:12 | PM.HP ---
Providers/Chief Complaint Chief Complaint: AMS; Falls History of Present Illness Isaías Clarke is a 74 year old male who carries history of preserved ejection fraction heart failure, coronary disease, obstructive sleep apnea, came in today with chief complaint of altered mental status. is at the bedside who is endorsing that last night he was in his usual state of health until today when he was found wandering in the story. His noticed that since morning he has not been acting himself, he has not eaten much today, his urine output is decreased, around 2 PM when she came back from a store she found him wandering in the story, he fell multiple times today and in the past as well, he finished antibiotic course for left leg cellulitis. has not noticed any fever, vomiting however patient is endorsing burning on micturition, denying diarrhea, constipation, fever, shortness of breath, chest pain. Because of combative behavior his decided to take him to the hospital Diagnosis in the ER revealed normal CBC and BMP, CT head negative, urinalysis is pending, I have requested stat bladder scan to rule out obstruction, blood gas, ammonia level, pending, EKG showing sinus rhythm, chest x-ray showing mild CHF vascular congestion with possible left lower lobe infiltrate, blood glucose normal Review of Systems Const: Reports: change in appetite; Denies: fever(s), chills, body aches or fatigue Eyes: Denies: change in vision ENMT: Denies: throat pain Card: Denies: chest pain Resp: Denies: dyspnea GI: Denies: abdominal pain, nausea or vomiting : Reports: dysuria and urinary frequency Musc: Denies: neck pain Skin/Breast: Reports: lesions Neuro: Reports: frequent falls Psych: Reports: anxiety and irritability Endo: Denies: polyuria Bj/Lymph: Denies: easy bruising All/Imm: Denies: urticaria Medications/Allergies Home Medications Medication Instructions Recorded Confirmed Last Taken Type aspirin 81 mg tablet,delayed 81 mg PO DAILY 10/15/19 05/25/20 05/25/20 History release atorvastatin 20 mg tablet 20 mg PO DAILY 10/15/19 05/25/20 12/29/19 History naloxone 4 mg/actuation nasal spray 1 spray INTRANASAL .COMPLEX 10/15/19 05/25/20 Unknown History fluticasone propionate 50 2 spray INTRANASAL DAILY #18.2 ml 11/01/19 05/25/20 Unknown Rx mcg/actuation nasal spray,suspension furosemide 80 mg tablet 80 mg PO BID #60 tab 11/01/19 05/25/20 05/25/20 Rx potassium chloride 20 mEq 20 meq PO BID #60 tab 11/01/19 05/25/20 05/25/20 Rx tablet,extended release pantoprazole 40 mg tablet,delayed 40 mg PO BID #60 tab 11/21/19 05/25/20 05/25/20 Rx release benazepril 20 mg PO DAILY 12/30/19 05/25/20 05/25/20 History nitroglycerin 0.4 mg sublingual 0.4 mg SUBLINGUAL Q5M PRN 90 Days 02/03/20 05/25/20 Unknown Rx tablet #25 tab metformin 1,000 mg tablet 1,000 mg PO BID 30 Days #60 tab 02/26/20 05/25/20 05/25/20 Rx carvedilol 12.5 mg tablet 12.5 mg PO BID 30 Days #60 tab 04/20/20 05/25/20 05/25/20 Rx vilazodone 40 mg tablet 40 mg PO DAILY #30 tab 05/04/20 05/25/20 05/25/20 Rx hydrocodone 7.5 mg-acetaminophen 1 tab PO .6 times a day PRN 30 05/06/20 05/25/20 05/25/20 14:00 Rx 325 mg tablet Days #180 tab pregabalin 300 mg capsule 300 mg PO BID 30 Days #60 cap 05/06/20 05/25/20 05/24/20 Rx ProAir HFA 1 - 2 puff INHALATION Q6H PRN 05/25/20 05/25/20 Unknown History Vitamin B-12 1 tab PO DAILY 05/25/20 05/25/20 Unknown History fluticasone propion-salmeterol 1 inh INHALATION BID 05/25/20 05/25/20 Unknown History [Wixela Inhub] trazodone 150 mg PO BEDTIME 05/25/20 05/25/20 Unknown History Allergies Allergy/AdvReac Type Severity Reaction Status Date / Time gabapentin AdvReac Mild ADR-Nausea Verified 05/25/20 20:15 PFSH Acute PFSH: Medical History CAD (coronary artery disease) Chronic back pain Dyslipidemia Encounter for long-term use of opiate analgesic Gout Major depressive disorder, recurrent, mild (Unknown) Neuropathy Opioid contract exists MALORIE (obstructive sleep apnea) Renal insufficiency Smokeless tobacco use Substance abuse Surgical History History of cholecystectomy History of heart artery stent Family History (Updated 05/26/20 @ 00:33 by Mehreen Magaña MD) Other Cancer Hypertension Social History Smoking and tobacco status: former smoker Second hand smoke exposure: No Alcohol intake: never History of recent travel: No Vitals/I&O/Wt Last Vital Signs Temp 98.3 F 05/25/20 19:35 Pulse 91 05/25/20 19:35 Resp 14 05/25/20 19:35 BP 182/92 05/25/20 19:35 Pulse Ox 95 05/25/20 19:35 Weight last 48 hrs Weight 123.831 kg Physical Exam Narrative: EXAM NARRATIVE: elderly male Sitting at the bedside He is able to tell me about burning on micturition/dysuria otherwise irritable mood and behavior, EOMI, PERRLA Oriented to himself Moving his extremities No facial asymmetry noted Short attention Bilateral lower extremity 2+ pitting edema right leg swollen as compared to the left S1, S2 signs of heart failure Bilateral breath sounds without adventitious sounds, no respiratory distress Abdomen soft, distended, visceral obesity, nontender Data : 05/25/20 21:00 05/25/20 21:00 A&P Assessment and plan (1) Acute delirium: Status: Acute (2) Altered mental status: Status: Acute Qualifiers: Altered mental status type: unspecified Qualified Code(s): R41.82 - Altered mental status, unspecified (3) MALORIE (obstructive sleep apnea): Status: Acute (4) Congestive heart failure: Status: Acute (5) Chronic back pain: Status: Acute (6) Diabetes mellitus type 2 in obese: Status: Acute Additional A&P Information Acute hyperactive delirium Likely etiology is UTI, patient is endorsing dysuria, urinanalysis is pending Patient is afebrile no leukocytosis, no signs of sepsis Concerning chest x-ray findings of left lower lobe infiltrate with underlying CHF vascular congestion Start ceftriaxone along azithromycin Check urine antigen, sputum culture, no need of blood culture, urine culture We will follow-up with ABG, lactic acid, ammonia level, urinalysis, TSH 2.7, will check B12 level One-to-one supervision Fall precaution Preserved ejection fraction heart failure without severe decompensation 2+ lower extremity edema active signs of heart failure I would switch his Lasix to Bumex Monitor output, asked nurse to do bladder scan BNP 260 Obstructive sleep apnea Auto CPAP at night Chronic back pain is noticing that he ran out of Lyrica, last dose was given yesterday And he gets 4 to 6 tablets of hydrocodone a day Not complaining of constipation Blood gases pending Full code Cardiac diet DVT prophylaxis Lovenox Attestations Medical Necessity Statement*: Anticipating discharge in less than 48 hours currently need overnight monitoring for hyperactive delirium, urinalysis pending but most likely source is UTI Time Spent in Patient Care: (>than 50% of time spent in counselling and/or direct pt care on unit). 50mins Coding Level of Care Code Acute Finishing Area Supervisor for Chg Fwd Diagnoses Acute delirium R41.0 Altered mental status R41.82 Altered mental status type: unspecified MALORIE (obstructive sleep apnea) G47.33 Congestive heart failure I50.9 Chronic back pain M54.9; G89.29 Diabetes mellitus type 2 in obese E11.69; E66.9
[2020-05-26] VITALS (10 sets, daily range): BP systolic 156–192; BP diastolic 78–90; PULSE 56–96; RESP 18–22; TEMP 36.4–37.2; O2SAT 93–97
[2020-05-26 00:15] LABS: Ammonia 36 umol/L (16-60)
[2020-05-26 00:26] LABS: Alanine Aminotransferase 20 U/L (0-41); Albumin Level 4.3 g/dL (3.5-5.2); Alcohol Level < 10 mg/dL (0-10); Alkaline Phosphatase 89 IU/L (40-130); Aspartate Amino Transferase 24 U/L (0-40); Blood Urea Nitrogen 14 mg/dL (8-23); Calcium 9.9 mg/dL (8.5-10.5); Carbon Dioxide 22 mmol/L (22-29); Chloride 101 mmol/L (98-107); Globulin 3.7 g/dL (1.3-4.6); Glucose 159 mg/dL (65-115); Lipase 11 U/L (13-60); NT Pro B Type Natriuretic Pept 260 pg/mL (0-125); Osmolality Calculated 290 mOsm/kg (285-295); Sodium 140 mmol/L (136-145); Total Bilirubin 0.5 mg/dL (0.15-1.2)
[2020-05-26 02:10] LABS: Vitamin B12 545 pg/mL (232-1245)
[2020-05-26] MEDS: ziprasidone 20 mg/mL SDV IM (02:56)
[2020-05-26] MEDS: enoxaparin 40 mg/0.4 mL Syringe SUBCUT (04:34)
--- NOTE | 2020-05-26 05:12 | PC.NURSE ---
Pt pulled out IV, doctor Gómez notified, okay given to nonadmin meds until Pt is able to be accessed.
[2020-05-26 05:28] LABS: Basophils % 0.4 %; Eosinophils % 0.1 %; Hematocrit 39.8 % (42.0-52.0); Hemoglobin 12.1 g/dL (11.7-16.6); Lymphocytes # 1.4 10^3/uL (0.8-4.8); Lymphocytes % 15.6 %; Mean Corpuscular HGB Conc 30.4 g/dL (30.0-36.0); Mean Corpuscular Hemoglobin 27.5 pg (28.0-34.0); Mean Corpuscular Volume 90.5 fL (80-94); Mean Platelet Volume 10.3 fL (7.4-10.4); Monocytes # 0.5 10^3/uL (0.2-0.9); Monocytes % 5.7 %; Neutrophils # 7.08 10^3/uL (1.8-7.7); Neutrophils % 77.9 %; Nucleated Red Blood Cells % 0 %; Platelet Count 278 10^3/cmm (130-400); Red Cell Distribution Width 14.7 % (12.1-15.1); White Blood Count 9.1 10^3/uL (4.0-10.0)
[2020-05-26 05:56] LABS: Anion Gap 16.7 (5-19); Blood Urea Nitrogen 13 mg/dL (8-23); Calcium 9.6 mg/dL (8.5-10.5); Carbon Dioxide 27 mmol/L (22-29); Chloride 105 mmol/L (98-107); Glucose 144 mg/dL (65-115); Osmolality Calculated 299 mOsm/kg (285-295); Potassium 3.7 mmol/L (3.5-5.1); Sodium 145 mmol/L (136-145)
[2020-05-26] MEDS: cefTRIAXone 1,000 MG in sodium chloride 0.9% (plus) 50 ML 100 MG IV (06:26)
--- NOTE | 2020-05-26 06:29 | PC.NURSE ---
William Christie was able to get a 24G IV in the R hand and rocephin was started.
[2020-05-26] MEDS: pantoprazole DR 40 mg Tablet PO (08:55)
[2020-05-26] MEDS: carvedilol 12.5 mg Tablet PO ×2 (08:55→17:23)
[2020-05-26] MEDS: atorvastatin 40 mg Tablet 20 MG PO (08:55)
[2020-05-26] MEDS: lisinopril 20 mg Tablet PO (08:55)
[2020-05-26] MEDS: FUROsemide 40 mg Tablet PO (08:55)
[2020-05-26] MEDS: azithromycin 250 mg Tablet 500 MG PO (08:55)
[2020-05-26] MEDS: aspirin 81 mg EC Tablet PO (08:55)
[2020-05-26] MEDS: bumetanide 1 mg Tablet PO (08:55)
[2020-05-26 11:33] LABS: Glucose Point of Care 120 mg/dL (70-110)
--- NOTE | 2020-05-26 12:56 | PM.PN ---
Subjective Subjective: Interval history: Admitted last night because of altered mental status. H&P and labs noted. Spoke to patient's myself. States he was at his baseline health since yesterday morning. Yesterday morning when she came back from the market she found him wandering in the story. He has had recurrent falls the last couple of days. He was covered in dirt yesterday and had multiple bruises. She also states he supposed to be only either on Lyrica or gabapentin at one time. But yesterday she found both the bottles of Lyrica and gabapentin were finished. On my examination patient is confused following simple commands intermittently is awake and alert complaining of vague pains more so in the back. Moving all 4 limbs, no facial deformity. Patient has remained hemodynamically stable and afebrile since admission. Vitals/I&O/Wt Last Vital Signs Temp 98.2 F 05/26/20 11:14 Pulse 69 05/26/20 11:14 Resp 19 H 05/26/20 11:14 BP 170/90 05/26/20 11:14 Pulse Ox 94 05/26/20 11:14 05/25/20 05/26/20 05/26/20 22:59 06:59 14:59 Intake Total 360 / 360 Output Total 0 / 0 Balance 0 / 0 360 / 360 Weight last 48 hrs Weight 123.831 kg Physical Exam Narrative: EXAM NARRATIVE: General: No acute distress, awake and alert but not oriented. Oriented only to self. He is not aware where he is, not aware why he is here, not aware. President. Does remember is 2019 on reorienting. HEENT: PERRLA, pupils bilaterally equal and reactive Chest: Normal vesicular breath sounds, no added sounds, equal good air entry bilaterally CVS: S1-S2 regular, no murmurs, no tachycardia, no gallops, no rubs Abdomen: Soft, obese, nontender, no organomegaly, bowel sounds present Neuro: No focal deficits, no facial deformity, AO x3, power 5/5 in all limbs Data : 05/26/20 04:48 05/26/20 04:35 A&P Assessment and plan (1) Gabapentin overdose: Status: Acute (2) Acute delirium: Status: Acute (3) Altered mental status: Status: Acute Qualifiers: Altered mental status type: unspecified Qualified Code(s): R41.82 - Altered mental status, unspecified (4) MALORIE (obstructive sleep apnea): Status: Acute (5) Congestive heart failure: Status: Acute (6) Chronic back pain: Status: Acute (7) Diabetes mellitus type 2 in obese: Status: Acute Additional A&P Information Acute hyperactive delirium: With agitation: Multiple etiologies could be playing here. Most likely because of overdose on gabapentin and Lyrica. Also could be withdrawing from pain medications as his states he takes [place] 7.5/325 at least 6 to 7 tablets/day. Cannot rule out psych disorder like bipolar disease. Patient is moving all [address] head on examination was within normal limits. Patient does not have any facial abnormality. Chances of stroke or less. Patient denies of having any headache, does not have any photophobia, neck is supple and patient has not had any fever since admission. Chances of meningitis are low. Patient was started on ceftriaxone last night for possible UTI. We will check urinalysis, drug screen, alcohol level, TSH, vitamin B12 level, procalcitonin, ABG. Ammonia level done last night within normal limits, liver panel within normal limits. Frequent reorientation. One-to-one supervision Fall precaution. Haldol 2 mg IM every 6 as needed. Continue with home dose of trazodone. We will hold off on Lyrica and gabapentin for now. For now start patient on IV fluid D5 NS at 75 cc/h. Continue to monitor for fluid overload. Cellulitis: Patient was on oral antibiotics for cellulitis recently. Patient does have some residual cellulitis and right beavers area. For now we will continue with ceftriaxone for the same. Patient does not have any concern for pneumonia. Does not have any patch or consolidation on x-ray of chest. Stop azithromycin. Hypernatremia: Sodium level 145 today morning. Most likely because of dehydration. Continue fluid as above. CAD/preserved ejection fraction heart failure without severe decompensation: Patient is euvolemic. Stop both Lasix and Bumex which are continued last night. BNP within normal limits. Monitor for fluid overload. Patient is chest pain-free. Recent stress test appreciated. Continue with home dose of aspirin, atorvastatin, lisinopril, carvedilol. Hypertension: Goal blood pressure less than 140/90 mmHg. Antihypertensives as above. Continue to monitor. Type 2 diabetes mellitus: Monitor blood sugars. Insulin sliding scale. Obstructive sleep apnea Auto CPAP at night Chronic back pain Full code Cardiac diet DVT prophylaxis Lovenox Attestations Medical Necessity Statement*: Altered mental status under evaluation. Time Spent in Patient Care: Greater than 35 minutes (>than 50% of time spent in counselling and/or direct pt care on unit). Coding Level of Care Code Acute Dice Maker for [facility] Fwd Diagnoses Gabapentin overdose T42.6X1A Acute delirium R41.0 Altered mental status R41.82 Altered mental status type: unspecified MALORIE (obstructive sleep apnea) G47.33 Congestive heart failure I50.9 Chronic back pain M54.9; G89.29 Diabetes mellitus type 2 in obese E11.69; E66.9
[2020-05-26 13:11] LABS: ABG PCO2 40.5 mmHg (35-45); ABG PH Result 7.46 (7.35-7.45); Alveolar-Arterial Oxygen Gradi 5.3 mmHg (5-10); Arterial Blood Gas Hematocrit 36.9 % (42-52); Base Excess ABG 4.4 mmol/L (-2.0-2.0); Blood Gas Allen Test Pos; Blood Gas Operator Identificat MONRO; Blood Gas Sample Site Radial, right; Blood Gas Sample Type Arterial; Carboxyhemoglobin 1.2 %THgb (0.4-20.1); HCO3 ABG 28.7 mmol/L (22-26); HGB O2 Sat 91.2 % (95-100); Ionized Calcium Level - ABG 1.2 mmol/L (1.1-1.4); Methemoglobin 0.7 % (0.4-1.5); Oxygen Device ROOM AIR; Potassium Level - ABG 3.2 mmol/L (3.5-5.0)
[2020-05-26] MEDS: sodium chloride 0.9% 1,000 ML 75 ML IV (13:31)
[2020-05-26 13:35] LABS: NT Pro B Type Natriuretic Pept 360 pg/mL (0-125); Thyroid Stimulating Hormone 1.31 uIU/mL (0.27-4.20)
[2020-05-26 14:01] LABS: Add Urine Microscopic? NO
[2020-05-26 14:04] LABS: Bilirubin Urine Neg (Negative); Blood Urine Neg (Negative); Glucose Urine UA Norm (Normal); Ketones Urine 1+ (Negative); Leukocyte Esterase Urine Negative (Negative); Nitrate Urine Negative (Negative); Protein Urine Neg (Negative); Urine Appearance Clear (CLEAR); Urine Color Yellow (Yellow); Urobilinogen Urine Neg (Negative); pH Urine 6 (5-7)
[2020-05-26 14:12] LABS: Amphetamines Screen Urine Negative (Negative); Barbiturates Screen Urine Negative (Negative); Benzodiazepines Screen Urine Negative (Negative); Cocaine Screen Urine Negative (Negative); Opiate Screen Urine Positive (Negative); PCP Screen Urine Negative (Negative); THC Screen Urine Negative (Negative)
[2020-05-26 14:20] LABS: Procalcitonin 0.12 ng/mL (0-0.5)
[2020-05-26 14:31] LABS: Iron 25 ug/dL (59-158); Percent Saturation 8.1 % (20-50); Total Iron Binding Capacity 307 mcg/dl; Unsaturated Iron Binding 282 ug/dL (112-347)
[2020-05-26] MEDS: HYDROcodone-acetaminophen 7.5-325 mg Tablet 1 TAB PO ×2 (15:08→17:23)
--- NOTE | 2020-05-26 15:53 | PC.NURSE ---
Notified Dr Jarvis that patient is aggressive. Per Dr Jarvis order Haldol 2mg IM now. Emissions Testing Technician put order in for Haldol.
--- NOTE | 2020-05-26 15:54 | PC.NURSE ---
pt attempted to get out of bed and was redirected. pt started to kick this nurse in the chest/abdomen. this nurse told the pt to stop and laid pt legs back down on the bed. pt started to aggressively scoot down to the end of the bed, kicking and yelling at this nurse and sitters. this nurse got pt settled back down and repositioned pt. pt then started to get verbally aggressive, sat up, and grabbed this nurses arm and bent it over the side rail backwards, inflicting pain. after telling him to stop, pt threw this nurse's arm back against nurse's chest, causing this nurse to lose balance, and then proceeded to grab this nurse's hand, yanking nurse forward. with pt's other hand, pt pulled on my fingers and arm, again inflicting pain. this nurse instructed pt to stop pulling on my arm and was able to move my arm from underneath pts grasp. pt was reoriented by this nurse and sitters. charge nurse, medsurg nurse biofuels production manager, housekeeping coordinator, and physician notified.
[2020-05-26] MEDS: haloperidol inj 5 mg/mL INJ 1 mL 1 MG IVP (16:07)
--- NOTE | 2020-05-26 16:11 | PC.PT ---
PT note;, PT evaluation on hold, patient remains with one-on-one sitter and is agitated with staff, and appropriate for PT evaluation at this time, will follow
--- NOTE | 2020-05-26 16:11 | PC.NURSE ---
Patient to aggressive for staff to administer IM Haldol. Talent Acquisition Partner notified Dr Jarvis and Per Dr Jarvis, give 1mg IV now.
--- NOTE | 2020-05-26 16:22 | PC.NURSE ---
Rcvd verbal order for Haldol 2mg IM Q^H PRN. Straddle Bug Operator entered order.
[2020-05-26] MEDS: haloperidol inj 5 mg/mL INJ 1 mL 2 MG IM (16:32)
[2020-05-26 16:37] LABS: Glucose Point of Care 149 mg/dL (70-110)
[2020-05-26] MEDS: dextrose 5%-sod chloride 0.9% 1,000 ML 75 ML IV (17:29)
[2020-05-26 20:52] LABS: Glucose Point of Care 181 mg/dL (70-110)
[2020-05-26] MEDS: trazodone 150 mg Tablet PO (21:37)
[2020-05-27] VITALS (8 sets, daily range): BP systolic 152–182; BP diastolic 80–97; PULSE 54–86; RESP 18–22; TEMP 36.3–37.3; O2SAT 94–100
[2020-05-27] MEDS: HYDROcodone-acetaminophen 7.5-325 mg Tablet 1 TAB PO ×4 (01:32→23:09)
[2020-05-27] MEDS: enoxaparin 40 mg/0.4 mL Syringe SUBCUT (02:11)
--- NOTE | 2020-05-27 04:31 | PC.NURSE ---
This aid reported high blood pressure to primary nurse, per primary nurse no action was needed, will continue to monitor.
[2020-05-27 05:19] LABS: Basophils # 0.1 10^3/uL (0.0-0.1); Basophils % 0.7 %; Eosinophils % 0.4 %; Hematocrit 39.2 % (42.0-52.0); Hemoglobin 12.1 g/dL (11.7-16.6); Lymphocytes # 1.7 10^3/uL (0.8-4.8); Lymphocytes % 22.6 %; Mean Corpuscular HGB Conc 30.9 g/dL (30.0-36.0); Mean Corpuscular Hemoglobin 27.8 pg (28.0-34.0); Mean Corpuscular Volume 90.1 fL (80-94); Mean Platelet Volume 10.7 fL (7.4-10.4); Monocytes # 0.6 10^3/uL (0.2-0.9); Monocytes % 8.3 %; Neutrophils # 5.03 10^3/uL (1.8-7.7); Neutrophils % 67.7 %; Nucleated Red Blood Cells % 0 %; Platelet Count 292 10^3/cmm (130-400); Red Blood Count 4.35 10^6/uL (4.1-5.3); Red Cell Distribution Width 14.8 % (12.1-15.1); White Blood Count 7.4 10^3/uL (4.0-10.0)
[2020-05-27 05:59] LABS: Chol HDL Ratio 6.83 mg/dL (1.0-5.00); Cholesterol 157 mg/dL (0-200); HDL Cholesterol 23 mg/dL (60-100); LDL Cholesterol Calculated 82 mg/dL (50-129); Triglycerides 262 mg/dL (0-150); VLDL Cholestrol Calculation 52 mg/dL (0-30)
[2020-05-27 06:03] LABS: Alanine Aminotransferase 16 U/L (0-41); Albumin Level 4.1 g/dL (3.5-5.2); Alkaline Phosphatase 80 IU/L (40-130); Anion Gap 17.2 (5-19); Aspartate Amino Transferase 19 U/L (0-40); Blood Urea Nitrogen 11 mg/dL (8-23); Calcium 9.5 mg/dL (8.5-10.5); Carbon Dioxide 26 mmol/L (22-29); Chloride 104 mmol/L (98-107); Globulin 3.4 g/dL (1.3-4.6); Glucose 149 mg/dL (65-115); Osmolality Calculated 297 mOsm/kg (285-295); Potassium 3.2 mmol/L (3.5-5.1); Sodium 144 mmol/L (136-145); Total Bilirubin 0.5 mg/dL (0.15-1.2); Total Protein 7.5 g/dL (6.6-8.7)
[2020-05-27 06:05] LABS: Estmated Average Glucose 146; Hemoglobin A1C 6.7 % (4.0-6.0)
[2020-05-27 06:32] LABS: Glucose Point of Care 135 mg/dL (70-110)
[2020-05-27] MEDS: lisinopril 20 mg Tablet PO (09:25)
[2020-05-27] MEDS: amlodipine 5 mg Tablet 10 MG PO (09:25)
[2020-05-27] MEDS: carvedilol 12.5 mg Tablet PO ×2 (09:26→17:14)
[2020-05-27] MEDS: pantoprazole DR 40 mg Tablet PO (09:26)
[2020-05-27] MEDS: atorvastatin 40 mg Tablet 20 MG PO (09:26)
[2020-05-27] MEDS: aspirin 81 mg EC Tablet PO (09:27)
[2020-05-27 10:25] LABS: Glucose Point of Care 142 mg/dL (70-110)
--- NOTE | 2020-05-27 15:56 | P.PN_ITS ---
Subjective Subjective: Interval history: No acute events overnight. Patient is a lot more awake and alert and calm today morning. Denies of any nausea, vomiting. He is oriented to self, year but is not oriented to place and is not sure why is in the hospital. On reorienting he states he only takes Lyrica and do not know when and how he took the gabapentin. He states he was prescribed gabapentin in the past. Denies of any nausea, vomiting, headache. Vitals/I&O/Wt Last Vital Signs Temp 97.4 F L 05/27/20 15:26 Pulse 62 05/27/20 15:26 Resp 18 05/27/20 15:26 BP 171/97 05/27/20 15:26 Pulse Ox 96 05/27/20 15:26 05/27/20 05/27/20 05/27/20 06:59 14:59 22:59 Intake Total 837.5 / 1677.5 480 / 480 Output Total 280 / 280 Balance 557.5 / 1397.5 480 / 480 Weight last 48 hrs Weight 123.831 kg Physical Exam Narrative: EXAM NARRATIVE: General: No acute distress,, awake and alert, oriented to self, year but not aware of place. He is a lot more calm today. Not fidgety. HEENT: PERRLA, pupils bilaterally equal and reactive Chest: Normal vesicular breath sounds, no added sounds, equal good air entry bilaterally CVS: S1-S2 regular, no murmurs, no tachycardia, no gallops, no rubs Abdomen: Soft, obese, nontender, no organomegaly, bowel sounds present Neuro: No focal deficits, no facial deformity, AO x3, power 5/5 in all limbs Data : 05/27/20 04:11 05/27/20 04:11 Micro: Microbiology 05/26/20 13:23 Blood Culture - Preliminary Blood NEGATIVE TO DATE 05/26/20 13:27 Blood Culture - Preliminary Blood NEGATIVE TO DATE 05/26/20 14:40 Gram Stain - Final Sputum - Expectorated Sputum Sputum Culture - Preliminary 05/26/20 13:20 Urine Culture - Preliminary Urine Catheterized 05/26/20 13:20 Bacterial Antigens - Final Urine,Voided 05/26/20 13:20 Legionella Urinary Antigen - Final Urine Catheterized A&P Assessment and plan (1) Gabapentin overdose: Status: Acute (2) Acute delirium: Status: Acute (3) Altered mental status: Status: Acute Qualifiers: Altered mental status type: unspecified Qualified Code(s): R41.82 - Altered mental status, unspecified (4) MALORIE (obstructive sleep apnea): Status: Acute (5) Congestive heart failure: Status: Acute (6) Chronic back pain: Status: Acute (7) Diabetes mellitus type 2 in obese: Status: Acute (8) Urinary retention: Status: Acute Additional A&P Information Acute hyperactive delirium: With agitation: Patient looking better today. More alert and oriented today. Not agitated. Most likely because of overdose from gabapentin and Lyrica. Getting complicated by withdrawal from [place]. As per the patient and his he takes around 6 to 7 tablets a day and in the hospital he was given as needed [address] head was negative for any acute ischemia. Patient does not have any facial abnormality and is moving all his limbs appropriately. Drug screen, alcohol level, TSH, vitamin B12 level, procalcitonin, ABG results appreciated. Mostly within normal limits. Ammonia level within normal limits, liver panel within normal limits. Patient denies of having any headache, does not have any photophobia, neck is supple and patient has not had any fever since admission. Chances of meningitis are low. Frequent reorientation. One-to-one supervision Fall precaution. Haldol 2 mg IM every 6 hr as needed. Continue with home dose of trazodone. We will hold off on Lyrica and gabapentin for now. Stop IV fluids as tolerating oral diet well. We will consult psychiatry to rule out bipolar disorder/manic event. Urinary retention: Could be because of over toxicity of gabapentin Lyrica. Frequent bladder scanning. Straight cath if required. Start patient on finasteride 5 mg daily, Flomax 0.4 mg nightly. Will help with blood pressures as well. Cellulitis: Patient was on oral antibiotics for cellulitis recently. Patient does have some residual cellulitis and right beavers area. For now we will continue with ceftriaxone for the same. Patient does not have any concern for pneumonia. Does not have any patch or consolidation on x-ray of chest. Stop azithromycin. Hypernatremia: Improving. 144 today. Most likely because of dehydration. Have encouraged patient to take oral fluids. CAD/preserved ejection fraction heart failure without severe decompensation: Patient is euvolemic. BNP within normal limits. Monitor for fluid overload. No fluids or diuresis for now. Patient is chest pain-free. Recent stress test appreciated. Continue with home dose of aspirin, atorvastatin, lisinopril, carvedilol. Hypertension: Goal blood pressure less than 140/90 mmHg. Pressure mildly elevated. Will increase the dose of lisinopril to 40 mg. Also continue with amlodipine 10 mg daily. Type 2 diabetes mellitus: Monitor blood sugars. Insulin sliding scale. Obstructive sleep apnea Auto CPAP at night Chronic back pain Full code Cardiac diet DVT prophylaxis Lovenox Attestations Medical Necessity Statement*: Hyperactive delirium with agitation, gabapentin toxicity Time Spent in Patient Care: Greater than 35 minutes (>than 50% of time spent in counselling and/or direct pt care on unit) . Coding Level of Care Code Acute Real Estate Firm Manager for [facility] Diagnoses Gabapentin overdose T42.6X1A Acute delirium R41.0 Altered mental status R41.82 Altered mental status type: unspecified MALORIE (obstructive sleep apnea) G47.33 Congestive heart failure I50.9 Chronic back pain M54.9; G89.29 Diabetes mellitus type 2 in obese E11.69; E66.9 Urinary retention R33.9
[2020-05-27 16:41] LABS: Glucose Point of Care 152 mg/dL (70-110)
[2020-05-27] MEDS: finasteride 5 mg Tablet PO (17:14)
--- NOTE | 2020-05-27 17:35 | PC.NURSE ---
notified Dr Jarvis that patient urinated 200ml this shift and had BM.
[2020-05-27 21:15] LABS: Glucose Point of Care 143 mg/dL (70-110)
[2020-05-27] MEDS: trazodone 150 mg Tablet PO (21:27)
[2020-05-27] MEDS: tamsulosin 0.4 mg Capsule PO (21:27)
[2020-05-28] VITALS: BP 154/84; PULSE 55; RESP 20; TEMP 37.1; O2SAT 95
[2020-05-28] MEDS: enoxaparin 40 mg/0.4 mL Syringe SUBCUT (01:49)
[2020-05-28 04:00] VITALS: BP 179/89; PULSE 63; RESP 19; TEMP 36.9; O2SAT 96
[2020-05-28 06:07] LABS: Basophils # 0.1 10^3/uL (0.0-0.1); Basophils % 0.7 %; Eosinophils # 0.1 10^3/uL (0.0-0.8); Eosinophils % 0.8 %; Hematocrit 39.1 % (42.0-52.0); Hemoglobin 11.9 g/dL (11.7-16.6); Lymphocytes # 2.2 10^3/uL (0.8-4.8); Lymphocytes % 26.2 %; Mean Corpuscular HGB Conc 30.4 g/dL (30.0-36.0); Mean Corpuscular Hemoglobin 27.5 pg (28.0-34.0); Mean Corpuscular Volume 90.3 fL (80-94); Mean Platelet Volume 10.3 fL (7.4-10.4); Monocytes # 0.6 10^3/uL (0.2-0.9); Monocytes % 7.2 %; Neutrophils # 5.33 10^3/uL (1.8-7.7); Neutrophils % 64.7 %; Nucleated Red Blood Cells % 0 %; Platelet Count 279 10^3/cmm (130-400); Red Blood Count 4.33 10^6/uL (4.1-5.3); Red Cell Distribution Width 14.6 % (12.1-15.1); White Blood Count 8.2 10^3/uL (4.0-10.0)
[2020-05-28 06:35] LABS: Alanine Aminotransferase 16 U/L (0-41); Alkaline Phosphatase 72 IU/L (40-130); Aspartate Amino Transferase 20 U/L (0-40); Blood Urea Nitrogen 10 mg/dL (8-23); Calcium 8.9 mg/dL (8.5-10.5); Carbon Dioxide 25 mmol/L (22-29); Chloride 103 mmol/L (98-107); Creatinine Clr Calc Pharmacy 95.0047; Globulin 3.5 g/dL (1.3-4.6); Glucose 136 mg/dL (65-115); Osmolality Calculated 289 mOsm/kg (285-295); Sodium 139 mmol/L (136-145); Total Bilirubin 0.5 mg/dL (0.15-1.2); Total Protein 7.5 g/dL (6.6-8.7)
[2020-05-28 06:43] LABS: Glucose Point of Care 136 mg/dL (70-110)
[2020-05-28 08:00] VITALS: BP 152/79; PULSE 62; RESP 18; TEMP 37.1; O2SAT 96
[2020-05-28] MEDS: cefTRIAXone 1,000 MG in sodium chloride 0.9% (plus) 50 ML 100 MG IV (08:49)
[2020-05-28] MEDS: atorvastatin 40 mg Tablet 20 MG PO (08:49)
[2020-05-28] MEDS: lisinopril 20 mg Tablet 40 MG PO (08:50)
[2020-05-28] MEDS: pantoprazole DR 40 mg Tablet PO (08:50)
[2020-05-28] MEDS: tamsulosin 0.4 mg Capsule PO (08:50)
[2020-05-28] MEDS: aspirin 81 mg EC Tablet PO (08:50)
[2020-05-28] MEDS: carvedilol 12.5 mg Tablet PO (08:50)
[2020-05-28] MEDS: HYDROcodone-acetaminophen 7.5-325 mg Tablet 1 TAB PO (08:50)
[2020-05-28] MEDS: finasteride 5 mg Tablet PO (08:51)
[2020-05-28] MEDS: amlodipine 5 mg Tablet 10 MG PO (08:51)
[2020-05-28 11:08] LABS: Glucose Point of Care 171 mg/dL (70-110)
[2020-05-28 11:57] VITALS: BP 191/96; PULSE 77; RESP 18; TEMP 36.6; O2SAT 96
--- NOTE | 2020-05-28 12:48 | PM.DCS ---
Discharge Providers Date of Admission: 05/26/20 12:54 Date of Discharge: May 28, 2020 Attending Provider at Admission: Mehreen Magaña MD Attending Provider at Discharge: Barak Jarvis MD Consults: Psych: Kurtis Briones Diagnoses at Discharge Discharge Diagnosis (1) Gabapentin overdose: Status: Acute (2) Acute delirium: Status: Acute (3) Altered mental status: Status: Acute Qualifiers: Altered mental status type: unspecified Qualified Code(s): R41.82 - Altered mental status, unspecified (4) MALORIE (obstructive sleep apnea): Status: Acute (5) Congestive heart failure: Status: Acute (6) Chronic back pain: Status: Acute (7) Diabetes mellitus type 2 in obese: Status: Acute (8) Urinary retention: Status: Acute Reason for Visit Reason for Visit: AMS; Falls Hospital Course Discharge Summary: Isaías Clarke is a 74 year old male who carries history of preserved ejection fraction heart failure, coronary disease, obstructive sleep apnea, came in today with chief complaint of altered mental status. is at the bedside who is endorsing that last night he was in his usual state of health until today when he was found wandering in the story. His noticed that since morning he has not been acting himself, he has not eaten much today, his urine output is decreased, around 2 PM when she came back from a store she found him wandering in the story, he fell multiple times today and in the past as well, he finished antibiotic course for left leg cellulitis. has not noticed any fever, vomiting however patient is endorsing burning on micturition, denying diarrhea, constipation, fever, shortness of breath, chest pain. Because of combative behavior his decided to take him to the hospital. Patient was admitted for further evaluation of acute hyperactive delirium. Multiple causes were ruled out with a normal drug screen, negative alcohol level, normal TSH, normal vitamin B12 level, normal procalcitonin, CT head negative for any acute ischemia. On further questioning with her she stated that she found 2 bottles empty of Lyrica and gabapentin. Given the history it is quite possible that patient's acute hyperactive delirium is because of gabapentin toxicity. Gabapentin and other pain medications were withheld while [place] was continued every 8 hours to avoid opiate withdrawal. He responded well to the treatment and eventually within next 48 hours have delirium improved and on the day of discharge he is alert oriented to time self and place. Patient has been evaluated by psychiatry to rule out bipolar or kim disorder. During hospitalization patient was found to have elevated blood pressures for which his antihypertensives were adjusted. Amlodipine, hydralazine has been added to his medication treatment. Patient requires further admission for further adjustment of blood pressure medications but he is insisting on being discharged today. Discharge has been clear through psychiatric evaluation as well. Patient is been discharged hemodynamically stable condition with advised to follow-up with pain clinic for further pain management and appointment has been made to follow-up with her primary care provider tomorrow. . Physical Exam Narrative: EXAM NARRATIVE: General: No acute distress,, awake and alert, oriented to self, year and place. He is calm and not fidgety. HEENT: PERRLA, pupils bilaterally equal and reactive Chest: Normal vesicular breath sounds, no added sounds, equal good air entry bilaterally CVS: S1-S2 regular, no murmurs, no tachycardia, no gallops, no rubs Abdomen: Soft, obese, nontender, no organomegaly, bowel sounds present Neuro: No focal deficits, no facial deformity, AO x3, power 5/5 in all limbs Discharge Data Data Completed and Pending: Completed Studies During Hospitalization Category Date Time Status CT head wo con* 7 0450 Urgent Cat Scan 05/25/20 19:50 Completed XR chest 1V ria ble [id number] Urgent Exams 05/25/20 19:50 Completed Pending at discharge Category Date Time Status Blood Culture Sta t Lab 05/26/20 13:27 Results Complete Blood Co unt w/Auto AM LABS Lab 05/29/20 04:00 Ordered Comprehensive Met abolic Panel AM LA BS Lab 05/29/20 04:00 Ordered Sputum Culture an d Gram Stain Routi ne Lab 05/26/20 14:40 Results Labs from last 24 hours 05/28/20 05/28/20 05/28/20 10:54 06:37 05:10 WBC RBC Hgb Hct MCV MCH MCHC RDW Plt Count MPV Neut % (Auto) Lymph % (Auto) [place] % (Auto) Eos % (Auto) Baso % (Auto) Neut # (Auto) Lymph # (Auto) [place] # (Auto) Eos # (Auto) Baso # (Auto) Nucleated RBC % (a uto) Nucleated RBCs # Sodium 139 Potassium 3.0 L Chloride 103 Carbon Dioxide 25 Anion Gap 14.0 BUN 10 Creatinine 0.9 GFR Calculation Not Reportable Glucose 136 H POC Glucose 171 136 Calculated Osmolal ity 289 Calcium 8.9 Total Bilirubin 0.5 AST 20 ALT 16 Alkaline Phosphata se 72 Total Protein 7.5 Albumin 4.0 Globulin 3.5 05/28/20 05/27/20 05/27/20 05:10 21:10 16:32 WBC 8.2 RBC 4.33 Hgb 11.9 Hct 39.1 L MCV 90.3 MCH 27.5 L MCHC 30.4 RDW 14.6 Plt Count 279 MPV 10.3 Neut % (Auto) 64.7 Lymph % (Auto) 26.2 [place] % (Auto) 7.2 Eos % (Auto) 0.8 Baso % (Auto) 0.7 Neut # (Auto) 5.33 Lymph # (Auto) 2.2 [place] # (Auto) 0.6 Eos # (Auto) 0.1 Baso # (Auto) 0.1 Nucleated RBC % (a uto) 0 Nucleated RBCs # 0.0 Sodium Potassium Chloride Carbon Dioxide Anion Gap BUN Creatinine GFR Calculation Glucose POC Glucose 143 152 Calculated Osmolal ity Calcium Total Bilirubin AST ALT Alkaline Phosphata se Total Protein Albumin Globulin Vitals: Last Vital Signs Temp 97.8 F 05/28/20 11:57 Pulse 77 05/28/20 11:57 Resp 18 05/28/20 11:57 BP 191/96 05/28/20 11:57 Pulse Ox 96 05/28/20 11:57 Discharge Plan Discharge Patient Disposition: Home Condition: Stable Prescriptions: New hydralazine 10 mg Tablet 10 mg PO TID Qty: 90 RF: 0 amlodipine 5 mg Tablet 10 mg PO DAILY Qty: 30 RF: 0 finasteride 5 mg Tablet 5 mg PO DAILY Qty: 30 RF: 0 Continued potassium chloride 20 mEq tablet extended release 20 meq PO BID Qty: 60 RF: 2 fluticasone propionate [Flonase Allergy Relief] 50 mcg/actuation spray,suspension 2 spray INTRANASAL DAILY Qty: 18.2 RF: 5 hydrocodone-acetaminophen 7.5-325 mg tablet 1 tab PO .6 times a day PRN (Reason: pain) 30 Days Qty: 180 RF: 0 aspirin [Adult Aspirin Regimen] 81 mg tablet,delayed release (DR/EC) 81 mg PO DAILY RF: 0 atorvastatin 20 mg tablet 20 mg PO DAILY RF: 0 Narcan 4 mg/actuation spray,non-aerosol 1 spray INTRANASAL .COMPLEX RF: 0 pantoprazole [Protonix] 40 mg tablet,delayed release (DR/EC) 40 mg PO BID Qty: 60 RF: 5 nitroglycerin [Nitrostat] 0.4 mg tablet, sublingual 0.4 mg SUBLINGUAL Q5M PRN (Reason: chest pain) 90 Days Qty: 25 RF: 3 metformin 1,000 mg tablet 1,000 mg PO BID 30 Days Qty: 60 RF: 1 carvedilol [Coreg] 12.5 mg tablet 12.5 mg PO BID 30 Days Qty: 60 RF: 1 Viibryd 40 mg tablet 40 mg PO DAILY Qty: 30 RF: 0 Wixela Inhub 500-50 mcg/dose blister with device 1 inh INHALATION BID RF: 0 Vitamin B-12 1 tab PO DAILY RF: 0 ProAir HFA 90 mcg/actuation HFA aerosol inhaler 1 - 2 puff INHALATION Q6H PRN (Reason: shortness of breath or wheezing) RF: 0 Changed furosemide [Lasix] 80 mg tablet 40 mg PO BID Qty: 60 RF: 5 benazepril 20 mg tablet 40 mg PO DAILY Qty: 30 RF: 0 Discontinued pregabalin 300 mg capsule 300 mg PO BID 30 Days Qty: 60 RF: 0 trazodone 150 mg Tablet 150 mg PO BEDTIME RF: 0 Discharge Orders: Discharge Order (Routine); Ordered 05/28/20 Ordered By: Barak Jarvis Referrals: Jesus Manuel Grande MD [Physician] - 4-7 days Andrey Milan MD [Physician] - 05/29/20 11:15 am Discharge Diet: Usual diet, Cardiac and Low Salt Discharge Activity: Resume usual activity Activity Restrictions/Additional Instructions: Patient should not be taking trazodone and Viibryd together. Together they have synergistic effect which can cause him to have elevated blood pressures. Please avoid using pregabalin and Lyrica for next 15 days because he was admitted because of gabapentin/Lyrica over toxicity. Please follow-up with your pain management clinic on the set appointment within next 4 to 7 days. Please follow-up with Dr. Balderas on the set appointment date. Your blood pressure medications have been adjusted. Benzapril has been increased to 40 mg, Lasix have been decreased to 40 mg twice daily, amlodipine has been added and hydralazine has been added for your blood pressures. Discharge Attestations Time Spent in Discharge Care*: greater than 30 min Specific Discharge Activities: Specific discharge activities: educating patient, educating and/or supporting family/caregiver, discussing with pcp/other providers, discussing with case resource manager/social workers/dc planners, documenting/other paperwork and evaluating patient/reviewing data Status at Discharge: Cognitive status at discharge: mildly impaired cognition, Behavioral status at discharge: cooperative and can be uncooperative, Functional status at discharge: independent ambulation Overall status at discharge: patient is back to baseline Quality Metrics Clinical Quality Measures During this hospital stay, did patient experience: None Coding Level of Care Code Acute Firefighting Equipment Specialist for Eric Chid Diagnoses Gabapentin overdose T42.6X1A Acute delirium R41.0 Altered mental status R41.82 Altered mental status type: unspecified MALORIE (obstructive sleep apnea) G47.33 Congestive heart failure I50.9 Chronic back pain M54.9; G89.29 Diabetes mellitus type 2 in obese E11.69; E66.9 Urinary retention R33.9
[2020-05-28] MEDS: hyDRALAzine 10 mg Tablet PO (12:52)
[2020-05-28 14:14] VITALS: BP 191/96; PULSE 77; RESP 18; TEMP 36.6; O2SAT 96
--- NOTE | 2020-05-28 14:49 | PC.CHAP ---
Pastoral Care Encounter/Spiritual Assessment Type of Contact [x] Declined litigation legal assistant visit [] Patient/Family/Request visit [] Outpatient visit [] Follow-up visit [] Physician referral [] Code/Alert [] Routine visit [] Staff referral [] Actively dying [] Patient sleeping [] Family support [] [] Out of room [] Palliative care [] [] Receiving care in room [] Pre-surgical visit [] Trauma [] Long length of stay [] ICU visit [] Other: Relational/Emotional Strength [] Patient feels connected with others/family/visitors/staff [] Distress [] Loneliness/isolation [] Abandonment Spirituality of Patient [] Person of [place] [] Attends Buddhism of their [place] [] Believes in Prayer [] Reads Bible or Methodist materials [] There are Spiritual issues to be addressed General Claims Agent Interventions [] Prayer [] Active listening [] Non-anxious presence [] Spiritual/emotional support [] Crisis/trauma care [] Spiritual counseling [] Bereavement support [] Provided bereavement packet [] Provided Bible/devotional materials [] Provided toy/stuffed animal, coloring book to patient or family member [] Provided Communion [] Anointing/[place] [] Salvation [] Completed spiritual assessment [] Other: Impact on Illness or Injury [] Angry [] Fearful [] Anxious [] Often cries [] Exhaustion [] Unable to work [] Unable to attend congregational [] Unable to walk/stand [] Unable to read [] Unable to drive [] Unable to eat/drink [] Unable to sleep [] Unable to be with family [] Patient intubated [] Other: Summary Declined litigation legal assistant visit Time spent with patient 5 mins
== END 2020-05-28 14:25 | disposition home or self-care (01) | DRG 917 ==
LOC: ER 22:49 → MEDSURG 05-26 07:32
PROVIDERS: Admitting Provider Internal Medicine; Emergency Provider Emergency Medicine; Visit Provider Student in an Organized Health Care Education/Training Program
DX: T42.6X1A Poisoning by other antiepileptic and sedative-hypnotic drugs, accidental (unintentional), initial encounter (principal); I50.31 Acute diastolic (congestive) heart failure; Y92.009 Unspecified place in unspecified non-institutional (private) residence as the place of occurrence of the external cause; G47.33 Obstructive sleep apnea (adult) (pediatric); E66.9 Obesity, unspecified; Z68.38 Body mass index [BMI] 38.0-38.9, adult; E11.9 Type 2 diabetes mellitus without complications; R33.9 Retention of urine, unspecified; G89.29 Other chronic pain; M54.9 Dorsalgia, unspecified; I25.10 Atherosclerotic heart disease of native coronary artery without angina pectoris; Z79.82 Long term (current) use of aspirin; Z79.84 Long term (current) use of oral hypoglycemic drugs; E78.5 Hyperlipidemia, unspecified; Z87.891 Personal history of nicotine dependence
CPT/HCPCS: 12345; 36415; 36416; 36600; 51702; 70450; 71045; 80048; 80051; 80053; 80061; 80306; 80307; 81003; 82140; 82607; 82810; 82962; 83036; 83540; 83550; 83690; 83880; 83986; 84145; 84443; 85025; 86403; 87040; 87070; 87086; 87205; 87449; 87641; 93005; 96372; 96375; 97161; 99283; G0378; J0696; J1630; J1650; J1815; J3486; J7030; Q0144

== ENCOUNTER 2020-07-19 11:30 | Inpatient (IN) | payer MEDICARE, MEDICAID, SELFPAY ==
[2020-07-19] VITALS (15 sets, daily range): BP systolic 147–188; BP diastolic 64–95; PULSE 54–90; RESP 14–25; TEMP 37.1–37.2; O2SAT 91–99; BMI 33.9
--- NOTE | 2020-07-19 11:44 | XRR_ITS ---
PROCEDURE INFORMATION: Exam: XR Chest, 1 View Exam date and time: 07/19/2020 11:46 AM Age: 75 years old Clinical indication: Shortness of breath; Additional info: SOB TECHNIQUE: Imaging protocol: XR of the chest Views: 1 view. 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 No consolidation. Pleural space: Unremarkable. No pleural effusion. No pneumothorax. Heart/Mediastinum: Unremarkable. No cardiomegaly. Bones/joints: Unremarkable. XR/XR chest 1V portable [id number] IMPRESSION: No acute findings.
--- NOTE | 2020-07-19 11:45 | ECG_ITS ---
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 Measurements Intervals [place] Rate: 50 P: 44 VT: 190 QRS: 36 QRSD: 104 T: 9 QT: 463 QTc: 423 Interpretive Statements SINUS BRADYCARDIA Compared to ECG 05/25/2020 21:34:15 Sinus rhythm no longer present Ventricular premature complex(es) no longer present Electronically Signed On 07-20-2020 8:05:14 TECHNICAL BUSINESS ANALYST by Maria Luisa Geller M.D. [id number] f
--- NOTE | 2020-07-19 11:46 | ED_ITS ---
HPI - Altered Mental Status General: Chief Complaint: Altered Mental Status Stated Complaint: RESP DISTRESS Time Seen by Provider: 07/19/20 11:31 Source: patient and EMS Mode of arrival: EMS Limitations: altered mental status History of Present Illness: HPI narrative: Patient is a 75-year-old male who was brought into the emergency department by EMS. The patient is confused and not able to answer all my questions although he is oriented to person and place. Most of my history is obtained from EMS he got history from his family. According to his family the patient has been confused for several days, however they have noticed increased leg and abdominal swelling for several weeks. The patient was apparently left in the driveway unattended at home when EMS found him. MD complaint: altered mental status Onset (ago): day(s) Review of Systems General: Reports: ROS unobtainable due to mental status PFS ED PFSH: Medical History (Updated 07/20/20 @ 11:24 by Dave Mcintyre MD, [facility]) CAD (coronary artery disease) Chronic back pain Diabetes mellitus type 2 in obese Dyslipidemia Encounter for long-term use of opiate analgesic Gabapentin overdose Gout Major depressive disorder, recurrent, mild (Unknown) Neuropathy Opioid contract exists MALORIE (obstructive sleep apnea) Renal insufficiency Smokeless tobacco use Substance abuse Urinary retention Surgical History History of cholecystectomy History of heart artery stent Family History Other Cancer Hypertension Social History Smoking and tobacco status: former smoker Second hand smoke exposure: No Alcohol intake: never History of recent travel: No Physical Exam Narrative: EXAM NARRATIVE: The patient is alert but confused, oriented to place and person only. He is obese, on oxygen at 3 L/min via nasal cannula. He has had amputation of several toes. Const: COMMON NORMALS: no acute distress NUTRITIONAL APPEARANCE: obese ORIENTATION/CONSCIOUSNESS: Yes oriented to person and Yes oriented to place Neck/C-Spine: COMMON NORMALS: full ROM and no meningeal signs Resp: COMMON NORMALS: normal respiratory effort and No use of accessory muscles AUSCULTATION: rales and diminished lung sounds Cardio: COMMON NORMALS: regular rate, regular rhythm, S1 normal heart sound present and S2 normal heart sound present RATE: regular rate RHYTHM: regular rhythm HEART SOUNDS: S1 normal heart sound present and S2 normal heart sound present GI: COMMON NORMALS: Soft to palpation and non-tender INSPECTION: Yes Abdominal wall edema PALPATION: Yes Soft to palpation, No Hepatomegaly present and No Splenomegaly present Extremity: GENERAL: Yes edema (3+ pitting pedal edema) Neuro: SENSORIUM/ORIENTATION: Yes oriented to person and Yes oriented to place MENINGEAL SIGNS: Yes no meningeal signs Course ED course: 75-year-old male who presented to the emergency department with altered mental status. He was also fluid overloaded and was given 80 mg of intravenous furosemide by the ambulance crew. He remained stable in the emergency department although still quite confused. He is admitted to the hospital for further evaluation and management. Consultations: Consultation #1: Discussed the patient with Dr. Marin, hospitalist. She kindly accepted the patient to her service. Time: 17:22 Vital Signs: Vital signs: Vital Signs Temperature 99.3 F 07/20/20 11:12 Pulse Rate 60 07/20/20 11:12 Respiratory Rate 18 07/20/20 11:12 Blood Pressure 156/80 07/20/20 11:12 Pulse Oximetry 96 07/20/20 11:12 MDM - Altered Mental Status MDM Narrative: Medical decision making narrative: 75-year-old male with symptoms consistent with delirium. He is admitted to the hospital for further evaluation and management Medical Records: Attestation: I reviewed the patient's medical records. Lab Data: Attestation: I reviewed the patient's lab results. Labs: Lab Results 07/19/20 07/19/20 07/19/20 Range/Units 11:36 11:36 11:36 WBC 10.2 H (4.0-10.0) 10^3/ uL RBC 4.36 (4.1-5.3) 10^6/u L Hgb 11.9 (11.7-16.6) g/dL Hct 38.4 L (42.0-52.0) % MCV 88.1 (80-94) fL MCH 27.3 L (28.0-34.0) pg MCHC 31.0 (30.0-36.0) g/dL RDW 15.2 H (12.1-15.1) % Plt Count 322 (130-400) 10^3/c mm MPV 10.8 H (7.4-10.4) fL Neut % (Auto) 74.7 % Lymph % (Auto) 17.5 % [place] % (Auto) 6.2 % Eos % (Auto) 0.3 % Baso % (Auto) 0.6 % Neut # (Auto) 7.63 (1.8-7.7) 10^3/u L Lymph # (Auto) 1.8 (0.8-4.8) 10^3/u L [place] # (Auto) 0.6 (0.2-0.9) 10^3/u L Eos # (Auto) 0.0 (0.0-0.8) 10^3/u L Baso # (Auto) 0.1 (0.0-0.1) 10^3/u L Nucleated RBC % (a uto) 0 % Nucleated RBCs # 0.0 /100WBC D-Dimer (0-0.59) ug/mIFE U Sodium Cancelled Potassium Cancelled Chloride Cancelled Carbon Dioxide Cancelled Anion Gap Cancelled BUN Cancelled Creatinine Cancelled GFR Calculation Cancelled Glucose Cancelled Calculated Osmolal ity Cancelled Lactic Acid (Sepsi s) (0.5-2.2) mmol/L Lactate Cancelled Calcium Cancelled Total Bilirubin Cancelled AST Cancelled ALT Cancelled Alkaline Phosphata se Cancelled Troponin T Baselin e Troponin T 120 Min [place] (0-15) ng/L Delta Troponin T (0-10) ABS# C-Reactive Protein Cancelled NT-Pro-B Natriuret Pep Cancelled Total Protein Cancelled Albumin Cancelled Globulin Cancelled Procalcitonin Cancelled Urine Color (Yellow) Urine Appearance (CLEAR) Urine pH (5-7) Ur Specific Gravit y (1.005-1.030) Urine Protein (Negative) Urine Glucose (UA) (Normal) Urine Ketones (Negative) Urine Blood (Negative) Urine Nitrate (Negative) Urine Bilirubin (Negative) Urine Urobilinogen (Negative) mg/dL Ur Leukocyte Estephanie ase (Negative) Urine Opiates Scre en (Negative) ng/mL Ur Barbiturates Sc reen (Negative) ng/mL Ur Phencyclidine S crn (Negative) ng/mL Ur Amphetamines Sc reen (Negative) ng/mL U Benzodiazepines Scrn (Negative) ng/mL Urine Cocaine Scre en (Negative) ng/mL U Marijuana (THC) Screen (Negative) ng/mL 07/19/20 07/19/20 07/19/20 Range/Units 11:36 11:57 11:57 WBC (4.0-10.0) 10^3/ uL RBC (4.1-5.3) 10^6/u L Hgb (11.7-16.6) g/dL Hct (42.0-52.0) % MCV (80-94) fL MCH (28.0-34.0) pg MCHC (30.0-36.0) g/dL RDW (12.1-15.1) % Plt Count (130-400) 10^3/c mm MPV (7.4-10.4) fL Neut % (Auto) % Lymph % (Auto) % [place] % (Auto) % Eos % (Auto) % Baso % (Auto) % Neut # (Auto) (1.8-7.7) 10^3/u L Lymph # (Auto) (0.8-4.8) 10^3/u L [place] # (Auto) (0.2-0.9) 10^3/u L Eos # (Auto) (0.0-0.8) 10^3/u L Baso # (Auto) (0.0-0.1) 10^3/u L Nucleated RBC % (a uto) % Nucleated RBCs # /100WBC D-Dimer (0-0.59) ug/mIFE U Sodium Potassium Chloride Carbon Dioxide Anion Gap BUN Creatinine GFR Calculation Glucose Calculated Osmolal ity Lactic Acid (Sepsi s) (0.5-2.2) mmol/L Lactate Calcium Total Bilirubin AST ALT Alkaline Phosphata se Troponin T Baselin e Cancelled Troponin T 120 [address] [place] (0-15) ng/L Delta Troponin T (0-10) ABS# C-Reactive Protein NT-Pro-B Natriuret Pep Total Protein Albumin Globulin Procalcitonin Urine Color Yellow (Yellow) Urine Appearance Clear (CLEAR) Urine pH 7 (5-7) Ur Specific Gravit y 1.010 (1.005-1.030) Urine Protein Neg (Negative) Urine Glucose (UA) Norm (Normal) Urine Ketones Negative (Negative) Urine Blood Neg (Negative) Urine Nitrate Negative (Negative) Urine Bilirubin Neg (Negative) Urine Urobilinogen Neg (Negative) mg/dL Ur Leukocyte Estephanie ase Negative (Negative) Urine Opiates Scre en Positive H (Negative) ng/mL Ur Barbiturates Sc reen Negative (Negative) ng/mL Ur Phencyclidine S crn Negative (Negative) ng/mL Ur Amphetamines Sc reen Negative (Negative) ng/mL U Benzodiazepines Scrn Negative (Negative) ng/mL Urine Cocaine Scre en Negative (Negative) ng/mL U Marijuana (THC) Screen Positive H (Negative) ng/mL 07/19/20 07/19/20 07/19/20 Range/Units 13:12 13:12 13:12 WBC (4.0-10.0) 10^3/ uL RBC (4.1-5.3) 10^6/u L Hgb (11.7-16.6) g/dL Hct (42.0-52.0) % MCV (80-94) fL MCH (28.0-34.0) pg MCHC (30.0-36.0) g/dL RDW (12.1-15.1) % Plt Count (130-400) 10^3/c mm MPV (7.4-10.4) fL Neut % (Auto) % Lymph % (Auto) % [place] % (Auto) % Eos % (Auto) % Baso % (Auto) % Neut # (Auto) (1.8-7.7) 10^3/u L Lymph # (Auto) (0.8-4.8) 10^3/u L [place] # (Auto) (0.2-0.9) 10^3/u L Eos # (Auto) (0.0-0.8) 10^3/u L Baso # (Auto) (0.0-0.1) 10^3/u L Nucleated RBC % (a uto) % Nucleated RBCs # /100WBC D-Dimer (0-0.59) ug/mIFE U Sodium 143 Potassium 4.0 Chloride 101 Carbon Dioxide 29 Anion Gap 17.0 BUN 18 Creatinine 1.2 GFR Calculation Not Reportable Glucose 162 H Calculated Osmolal ity 301 H Lactic Acid (Sepsi s) (0.5-2.2) mmol/L Lactate 1.7 Calcium 9.6 Total Bilirubin 0.4 AST 20 ALT 24 Alkaline Phosphata se 99 Troponin T Baselin e 18 H Troponin T 120 [address] [place] (0-15) ng/L Delta Troponin T (0-10) ABS# C-Reactive Protein 30.0 H NT-Pro-B Natriuret Pep 679 H Total Protein 7.7 Albumin 4.1 Globulin 3.6 Procalcitonin 0.10 Urine Color (Yellow) Urine Appearance (CLEAR) Urine pH (5-7) Ur Specific Gravit y (1.005-1.030) Urine Protein (Negative) Urine Glucose (UA) (Normal) Urine Ketones (Negative) Urine Blood (Negative) Urine Nitrate (Negative) Urine Bilirubin (Negative) Urine Urobilinogen (Negative) mg/dL Ur Leukocyte Estephanie ase (Negative) Urine Opiates Scre en (Negative) ng/mL Ur Barbiturates Sc reen (Negative) ng/mL Ur Phencyclidine S crn (Negative) ng/mL Ur Amphetamines Sc reen (Negative) ng/mL U Benzodiazepines Scrn (Negative) ng/mL Urine Cocaine Scre en (Negative) ng/mL U Marijuana (THC) Screen (Negative) ng/mL 07/19/20 07/19/20 07/19/20 Range/Units 13:12 15:55 15:55 WBC (4.0-10.0) 10^3/ uL RBC (4.1-5.3) 10^6/u L Hgb (11.7-16.6) g/dL Hct (42.0-52.0) % MCV (80-94) fL MCH (28.0-34.0) pg MCHC (30.0-36.0) g/dL RDW (12.1-15.1) % Plt Count (130-400) 10^3/c mm MPV (7.4-10.4) fL Neut % (Auto) % Lymph % (Auto) % [place] % (Auto) % Eos % (Auto) % Baso % (Auto) % Neut # (Auto) (1.8-7.7) 10^3/u L Lymph # (Auto) (0.8-4.8) 10^3/u L [place] # (Auto) (0.2-0.9) 10^3/u L Eos # (Auto) (0.0-0.8) 10^3/u L Baso # (Auto) (0.0-0.1) 10^3/u L Nucleated RBC % (a uto) % Nucleated RBCs # /100WBC D-Dimer 0.97 H (0-0.59) ug/mIFE U Sodium Potassium Chloride Carbon Dioxide Anion Gap BUN Creatinine GFR Calculation Glucose Calculated Osmolal ity Lactic Acid (Sepsi s) 1.7 (0.5-2.2) mmol/L Lactate Calcium Total Bilirubin AST ALT Alkaline Phosphata se Troponin T Baselin e Troponin T [address] [place] 16.86 H (0-15) ng/L Delta Troponin T -1.14 L (0-10) ABS# C-Reactive Protein NT-Pro-B Natriuret Pep Total Protein Albumin Globulin Procalcitonin Urine Color (Yellow) Urine Appearance (CLEAR) Urine pH (5-7) Ur Specific Gravit y (1.005-1.030) Urine Protein (Negative) Urine Glucose (UA) (Normal) Urine Ketones (Negative) Urine Blood (Negative) Urine Nitrate (Negative) Urine Bilirubin (Negative) Urine Urobilinogen (Negative) mg/dL Ur Leukocyte Estephanie ase (Negative) Urine Opiates Scre en (Negative) ng/mL Ur Barbiturates Sc reen (Negative) ng/mL Ur Phencyclidine S crn (Negative) ng/mL Ur Amphetamines Sc reen (Negative) ng/mL U Benzodiazepines Scrn (Negative) ng/mL Urine Cocaine Scre en (Negative) ng/mL U Marijuana (THC) Screen (Negative) ng/mL Imaging Data^: CXR: Attestation: I personally reviewed and interpreted this imaging study as follows: Radiologist's impression: [address] [address] XRay Report Signed Patient: Vega Clarke #: [id number] : 5Acct#:[id number] Age/Sex: 75 / MADM Date: 07/19/20 Loc: ERRoom/Bed: Attending Dr: Ordering Provider/Ordering MD: Dave Mcintyre MD, [facility] [place] Date of Service: 07/19/20 Procedure(s): XR chest 1V portable [id number] Accession Number(s): [id number] Report Number: [id number] PROCEDURE INFORMATION: Exam: XR Chest, 1 View Exam date and time: 07/19/2020 11:46 AM Age: 75 years old Clinical indication: Shortness of breath; Additional info: SOB TECHNIQUE: Imaging protocol: XR of the chest Views: 1 view. 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 No consolidation. Pleural space: Unremarkable. No pleural effusion. No pneumothorax. Heart/Mediastinum: Unremarkable. No cardiomegaly. Bones/joints: Unremarkable. XR/XR chest 1V portable [id number] IMPRESSION: No acute findings. Dictated By:Samuel Lopez Signed By:Taryn Lopez Date/Time:07/19/20 1302 DD/ 1301 CT Head: Attestation: I personally reviewed and interpreted this imaging study as follows: Radiologist's impression: [place] [address] CT Scan Report Signed Patient: Vega Clarke #: [id number] : 5Acct#:[id number] Age/Sex: 75 / MADM Date: 07/19/20 Loc: [facility]/Bed: Attending Dr: Ordering Provider/Ordering MD: Dave Mcintyre MD, [facility] [place] [facility] Date of Service: 07/19/20 Procedure(s): CT head wo con* [id number] Accession Number(s): [id number] Report Number: [id number] PROCEDURE INFORMATION: Exam: CT Head Without Contrast Exam date and time: 07/19/2020 11:46 AM Age: 75 years old Clinical indication: Altered mental status/memory loss; Additional info: AMS TECHNIQUE: Imaging protocol: Computed tomography of the head without contrast. Radiation optimization: All CT scans at this facility use at least one of these dose optimization techniques: automated exposure control; mA and/or kV adjustment per patient size (includes targeted exams where dose is matched to clinical indication); or iterative reconstruction. COMPARISON: CT head wo con* [id number] 05/25/2020 8:09 PM RADIATION DOSE METRICS: Total DLP (mGy-cm): 587.67 FINDINGS: Brain: There is moderate generalized chronic atrophy. No abnormal parenchymal densities are seen. There is no intracranial hemorrhage edema or other acute abnormality. Cerebral ventricles: Prominence of the ventricles due to atrophy. Bones/joints: Unremarkable. No acute fracture. Paranasal sinuses: Visualized sinuses are unremarkable. No fluid levels. Mastoid air cells: Visualized mastoid air cells are well aerated. Soft tissues: Unremarkable. CT/CT head wo con* [id number] IMPRESSION: Chronic atrophy. No acute abnormality. Radiation Dose CTDIVOL = (mGy): DLP = 587.67 (mGy-cm) Dictated By:Samuel Lopez Signed By:Taryn Lopez Date/Time:07/19/20 1304 DD/ 1302 EKG Data^: EKG 1: Attestation: I personally reviewed and interpreted this EKG as follows: EKG interpretation date: 07/19/20 EKG interpretation time: 12:14 Prior EKG tracings: not available for review Interpretation: Sinus bradycardia. Heart rate [address] changes. Normal axis. Discharge Plan Discharge Patient Disposition: Admitted As Inpatient Admit Provider: Bianka Marin Clinical Impression: Delirium due to general medical condition, Edema Condition: Stable Coding Level of Care Code ED Dealership General Manager for Chg Fwd Exam Detailed
[2020-07-19 12:13] LABS: Basophils # 0.1 10^3/uL (0.0-0.1); Basophils % 0.6 %; Eosinophils % 0.3 %; Hematocrit 38.4 % (42.0-52.0); Hemoglobin 11.9 g/dL (11.7-16.6); Lymphocytes # 1.8 10^3/uL (0.8-4.8); Lymphocytes % 17.5 %; Mean Corpuscular Hemoglobin 27.3 pg (28.0-34.0); Mean Corpuscular Volume 88.1 fL (80-94); Mean Platelet Volume 10.8 fL (7.4-10.4); Monocytes # 0.6 10^3/uL (0.2-0.9); Monocytes % 6.2 %; Neutrophils # 7.63 10^3/uL (1.8-7.7); Neutrophils % 74.7 %; Nucleated Red Blood Cells % 0 %; Platelet Count 322 10^3/cmm (130-400); Red Blood Count 4.36 10^6/uL (4.1-5.3); Red Cell Distribution Width 15.2 % (12.1-15.1); White Blood Count 10.2 10^3/uL (4.0-10.0)
--- NOTE | 2020-07-19 12:18 | PC.NURSE ---
Place a 16 F, peed around it, then placed a 18 F, and peed around it. Waiting for a 20 F .
--- NOTE | 2020-07-19 12:21 | PC.NURSE ---
states he was incontinent beginning at midnight. Not aware he was peeing or having a bowel movement.
[2020-07-19 12:46] LABS: Add Urine Microscopic? NO
[2020-07-19 12:50] LABS: Glucose Urine UA Norm (Normal); Ketones Urine Negative (Negative); Protein Urine Neg (Negative); Urine Appearance Clear (CLEAR); Urine Color Yellow (Yellow); pH Urine 7 (5-7)
[2020-07-19 12:51] LABS: Bilirubin Urine Neg (Negative); Blood Urine Neg (Negative); Leukocyte Esterase Urine Negative (Negative); Nitrate Urine Negative (Negative); Urobilinogen Urine Neg (Negative)
--- NOTE | 2020-07-19 13:05 | PC.NURSE ---
Finishing meal, Sitter at bedside. NO acute distress.
--- NOTE | 2020-07-19 13:06 | PC.NURSE ---
Dr Dowell at bedside
[2020-07-19 13:38] LABS: Lactate (Lactic Acid level) 1.7 mmol/L (0.5-2.2)
[2020-07-19 13:40] LABS: Troponin(5th) Baseline 18 ng/L (0-15)
--- NOTE | 2020-07-19 13:45 | ECG_ITS ---
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 Measurements Intervals [place] Rate: 71 P: 51 RI: 203 QRS: 64 QRSD: 102 T: 42 QT: 393 QTc: 428 Interpretive Statements SINUS RHYTHM Compared to ECG 07/19/2020 12:13:26 Sinus bradycardia no longer present Electronically Signed On 07-20-2020 18:58:27 DIRECTOR HOME HEALTH by Maria Luisa Geller M.D. [id number]
[2020-07-19 13:48] LABS: NT Pro B Type Natriuretic Pept 679 pg/mL (0-450)
[2020-07-19 13:59] LABS: Alanine Aminotransferase 24 U/L (0-41); Albumin Level 4.1 g/dL (3.5-5.2); Alkaline Phosphatase 99 IU/L (40-130); Aspartate Amino Transferase 20 U/L (0-40); Blood Urea Nitrogen 18 mg/dL (8-23); Calcium 9.6 mg/dL (8.5-10.5); Carbon Dioxide 29 mmol/L (22-29); Chloride 101 mmol/L (98-107); Globulin 3.6 g/dL (1.3-4.6); Glucose 162 mg/dL (65-115); Osmolality Calculated 301 mOsm/kg (285-295); Sodium 143 mmol/L (136-145); Total Bilirubin 0.4 mg/dL (0.15-1.2); Total Protein 7.7 g/dL (6.6-8.7)
[2020-07-19 14:35] LABS: D Dimer 0.97 ug/mIFEU (0-0.59)
--- NOTE | 2020-07-19 14:43 | CTR_ITS ---
PROCEDURE INFORMATION: Exam: CT Angiography Chest With Contrast Exam date and time: 07/19/2020 3:55 PM Age: 75 years old Clinical indication: Shortness of breath; Patient HX: SOB w elev d-dimer TECHNIQUE: Imaging protocol: Computed tomographic angiography of the chest with intravenous contrast. 3D rendering (Not supervised by radiologist): MIP and/or 3D reconstructed images were created by the technologist. Radiation optimization: All CT scans at this facility use at least one of these dose optimization techniques: automated exposure control; mA and/or kV adjustment per patient size (includes targeted exams where dose is matched to clinical indication); or iterative reconstruction. Contrast material: VISI 320; Contrast volume: 76 ml; Contrast route: INTRAVENOUS (IV); COMPARISON: CR (CHEST, ) 07/19/2020 12:21 PM RADIATION DOSE METRICS: Total DLP (mGy-cm): 577.62 FINDINGS: Limitations: The study is limited due to patient respiratory motion. Pulmonary arteries: Pulmonary arteries are well opacified. Pulmonary arteries are normal in caliber. No filling defects are demonstrated. No evidence of pulmonary embolism. Aorta: The thoracic aorta is mildly atherosclerotic. No thoracic aortic aneurysm or dissection. Lungs: Mild atelectasis versus fibrosis noted in the anteromedial right upper lobe and in the lingula. No consolidative pulmonary infiltrate noted. Pleural space: No pleural effusion or pneumothorax noted. Heart: No cardiomegaly. No pericardial effusion. Lymph nodes: Unremarkable. No enlarged lymph nodes. Bones/joints: Degenerative spine changes are noted. Degenerative thoracic spine changes. No acute osseous abnormality.The gallbladder is surgically absent. Soft tissues: Mild gynecomastia noted. CT/CT angio chest PE protcl [id number] IMPRESSION: 1. The study is limited due to patient respiratory motion. 2. No evidence of pulmonary embolism. 3. No evidence of aortic dissection. 4. Mild atelectasis versus fibrosis noted in the anteromedial right upper lobe and in the lingula. No consolidative pulmonary infiltrate noted. Radiation Dose CTDIVOL = (mGy): DLP = 577.62 (mGy-cm)
[2020-07-19 15:03] LABS: Reflex Lactate Order REFLEX LACTIC ORDERD
--- NOTE | 2020-07-19 15:49 | PC.NURSE ---
Pt very anxious, placed pt in a recliner for comfort. requested a bedside commode. Pt stands moves from chair to commode, back to chair from commode. very concern and frustrated, states pt has been this since noon today. Informed Dr Jensen of pt and wifes concern.
--- NOTE | 2020-07-19 16:02 | PC.NURSE ---
Pt changes from recliner to BSC. encouraging pt to sit and relax. Restless and anxious
[2020-07-19 16:23] LABS: Lactic Acid level (Lactate) 1.7 mmol/L (0.5-2.2)
[2020-07-19 16:25] LABS: Troponin 5 2HR 16.86 ng/L (0-15)
--- NOTE | 2020-07-19 16:29 | PC.NURSE ---
Pt put on Contact precautions. Placed a Isolation gown on who is at bedside.
[2020-07-19 16:31] LABS: Troponin 5 2HR Delta -1.14 ABS# (0-10)
[2020-07-19] MEDS: iodixanol 320 mg/mL 100mL Btl IV (16:32)
--- NOTE | 2020-07-19 17:45 | ECG_ITS ---
[facility] Test Date: 2020-07-19 Pat Name: Isaías Clarke Department: Room: 279 Gender: Male Rhia: : 1945 Requested By: Dave Mcintyre I Order Number: [id number] Beata MD: Maria Luisa Geller M.D. Measurements Intervals [place] Rate: 59 P: 42 CO: 189 QRS: 62 QRSD: 105 T: 40 QT: 439 QTc: 435 Interpretive Statements SINUS BRADYCARDIA Compared to ECG 07/19/2020 14:37:20 Sinus rhythm no longer present Electronically Signed On 07-20-2020 8:22:56 MANAGER LAN by Maria Luisa Geller M.D. [id number]
--- NOTE | 2020-07-19 17:45 | PC.NURSE ---
Restless, wont keep BP, pulse ox or Oxygen on , at bedside with isolation gown on. Sits and stands , sits and stand, scratches at archibald cath. Moans with pain. Restless and anxious.
--- NOTE | 2020-07-19 17:49 | PC.NURSE ---
informs me that he has not taken any meds today. Lyrica 300 mg x TID, Luxora 7.5mg PRN q 6 hrs.
[2020-07-19 18:19] LABS: Amphetamines Screen Urine Negative (Negative); Barbiturates Screen Urine Negative (Negative); Benzodiazepines Screen Urine Negative (Negative); Cocaine Screen Urine Negative (Negative); Opiate Screen Urine Positive (Negative); PCP Screen Urine Negative (Negative); THC Screen Urine Positive (Negative)
[2020-07-19 19:32] LABS: Troponin 5 6HR 16.61 ng/L (0-15)
[2020-07-19 19:33] LABS: Troponin 5 6HR Delta -1.39 ng/L (0-12)
--- NOTE | 2020-07-19 20:48 | PM.HP ---
Providers/Chief Complaint Admitting Physician: Bianka Marin MD Primary Care Provider: Galindo Carson DO Chief Complaint: RESP DISTRESS History of Present Illness Isaías Clarke is a 75 year old male with a past medical history of insulin-dependent type 2 diabetes mellitus, CAD status post stenting x1, heart failure with preserved ejection fraction, obstructive sleep apnea, hypertension, hyperlipidemia, GERD, bilateral extreme edema, who presents to [facility] due to altered mental status. Currently patient was examined on the general medical floors, he is alert, oriented to person, not to place nor to time, he follows commands, but is quite delayed and somnolent in his responses, he has no particular complaints, does not know why he is at the hospital, denies chest pain, denies shortness of breath, denies lightheadedness, denies dizziness, denies nausea, denies vomiting, all he says is that he is really cold and he wants to be wrapped up back in his blanket. When asked direct questions such as if he is taken too much of his medications, he fails to respond. A significant portion of the history was obtained by patient's , who tells me that for the last few months, patient has had increased generalized weakness, fatigue, weakness, she has to take food to him at bed, denies any history of food poisoning, denies any history of eating spoiled meat, raw food, only reason I asked was stools were positive for Shiga toxin. She does tell me that patient has chronic pain, has severe diabetic peripheral neuropathy, he is always in pain, he is on Lyrica 200 3 times daily, she does admit that he has been using more than prescribed, he takes [place] 5 every 4 hours as needed for chronic pain, and she admits he has been using more than prescribed. Patient had a hospital admission not too long ago for altered mental status secondary to Lyrica overdose. On admissions patient's hemoglobin was 11.9, glucose 162, baseline troponin XVIII, CRP 30, BNP 679, urine positive for opiates, positive for marijuana, head CT showing chronic atrophy, CTA of the chest no acute pulmonary emboli. Review of Systems Const: Denies: fever(s) or chills Eyes: Denies: change in vision or blurry vision ENMT: Denies: nasal congestion Resp: Denies: dyspnea, productive cough, non-productive cough or wheezing GI: Denies: abdominal pain, nausea, vomiting, hematemesis, diarrhea, constipation, hematochezia or melena : Denies: flank pain, difficulty urinating, dysuria or urinary frequency Musc: Denies: neck pain or back pain Skin/Breast: Denies: rash Neuro: Denies: headache(s), dizziness or vertigo Psych: Denies: anxiety or depression Endo: Denies: polyuria or polydipsia Medications/Allergies Home Medications Medication Instructions Recorded Confirmed Last Taken Type aspirin 81 mg tablet,delayed 81 mg PO DAILY 10/15/19 07/19/20 07/18/20 History release atorvastatin 20 mg tablet 20 mg PO DAILY 10/15/19 07/19/20 07/18/20 History naloxone 4 mg/actuation nasal spray 1 spray INTRANASAL .COMPLEX 10/15/19 07/19/20 Unknown History potassium chloride 20 mEq 20 meq PO BID #60 tab 11/01/19 07/19/20 07/18/20 Rx tablet,extended release pantoprazole 40 mg tablet,delayed 40 mg PO BID #60 tab 11/21/19 07/19/20 07/18/20 Rx release nitroglycerin 0.4 mg sublingual 0.4 mg SUBLINGUAL Q5M PRN 90 Days 02/03/20 07/19/20 Unknown Rx tablet #25 tab metformin 1,000 mg tablet 1,000 mg PO BID 30 Days #60 tab 02/26/20 07/19/20 07/18/20 Rx carvedilol 12.5 mg tablet 12.5 mg PO BID 30 Days #60 tab 04/20/20 07/19/20 07/18/20 Rx vilazodone 40 mg tablet 40 mg PO DAILY #30 tab 05/04/20 07/19/20 05/25/20 Rx albuterol sulfate [ProAir HFA] 1 - 2 puff INHALATION Q6H PRN 05/25/20 07/19/20 Unknown History cyanocobalamin (vitamin B-12) 1,000 mcg PO DAILY #0 05/25/20 07/19/20 07/18/20 History [Vitamin B-12] fluticasone propion-salmeterol 1 inh INHALATION BID 05/25/20 07/19/20 07/18/20 History [Wixela Inhub] amlodipine 10 mg PO DAILY #30 tab 05/28/20 07/19/20 07/18/20 Rx benazepril 40 mg PO DAILY #30 tab 05/28/20 07/19/20 07/18/20 Rx finasteride 5 mg PO DAILY #30 tab 05/28/20 07/19/20 07/18/20 Rx furosemide [Lasix] 40 mg PO BID #60 tab 05/28/20 07/19/20 07/18/20 Rx hydralazine 10 mg PO TID #90 tab 05/28/20 07/19/20 07/18/20 Rx fluticasone propionate 50 2 spray INTRANASAL DAILY #15.8 ml 06/29/20 07/19/20 Unknown Rx mcg/actuation nasal spray,suspension Lyrica 200 mg PO TID 07/19/20 07/19/20 07/18/20 History hydrocodone-acetaminophen 1 tab PO Q4H PRN 07/19/20 07/19/20 07/18/20 History Allergies Allergy/AdvReac Type Severity Reaction Status Date / Time gabapentin AdvReac Mild ADR-Nausea Verified 05/29/20 11:36 PFSH Acute PFSH: Medical History CAD (coronary artery disease) Chronic back pain Diabetes mellitus type 2 in obese Dyslipidemia Encounter for long-term use of opiate analgesic Gabapentin overdose Gout Major depressive disorder, recurrent, mild (Unknown) Neuropathy Opioid contract exists MALORIE (obstructive sleep apnea) Renal insufficiency Smokeless tobacco use Substance abuse Urinary retention Surgical History History of cholecystectomy History of heart artery stent Family History Other Cancer Hypertension Social History Smoking and tobacco status: former smoker Second hand smoke exposure: No Alcohol intake: never History of recent travel: No Vitals/I&O/Wt Last Vital Signs Temp 98.7 F 07/19/20 20:00 Pulse 66 07/19/20 20:00 Resp 14 07/19/20 20:00 BP 153/72 07/19/20 20:00 Pulse Ox 96 07/19/20 20:00 Weight last 48 hrs Weight 113.398 kg Physical Exam Const: COMMON NORMALS: no acute distress GENERAL APPEARANCE: cooperative and comfortable NUTRITIONAL APPEARANCE: obese ORIENTATION/CONSCIOUSNESS: Yes awake, Yes oriented to person and Yes confused; not oriented to place and not oriented to time HENMT: COMMON NORMALS: normocephalic HEAD & SCALP: normocephalic Eye: COMMON NORMALS: Equal, round and reactive pupils present, EOMs intact bilaterally and no papilledema GENERAL EYE: appearance normal, both eyes and all related structures PUPIL: Yes Equal, round and reactive pupils present DIRECT OPHTHALMOSCOPY: Yes no papilledema Neck/C-Spine: COMMON NORMALS: full ROM, no lymphadenopathy, no JVD and Thyroid normal THYROID: Thyroid normal Lymph: LYMPHATIC: no lymphadenopathy noted Resp: COMMON NORMALS: normal respiratory effort, No retractions, No use of accessory muscles and clear to auscultation bilaterally AUSCULTATION: clear to auscultation bilaterally Cardio: COMMON NORMALS: no JVD, regular rate, regular rhythm, S1 normal heart sound present, S2 normal heart sound present, No gallops present (Cardio), No clicks present (Cardio) and No murmurs present (Cardio) RATE: regular rate RHYTHM: regular rhythm HEART SOUNDS: S1 normal heart sound present and S2 normal heart sound present GI: COMMON NORMALS: Normal to inspection, nondistended, normoactive bowel sounds present, Soft to palpation, non-tender and No hepatosplenomegaly present PALPATION: Yes Soft to palpation and Yes No hepatosplenomegaly present Extremity: COMMON NORMALS: normal to inspection and full ROM NARRATIVE EXTREMITY EXAM: 2+ pitting edema, right lower extremity, has big toe amputation GENERAL: Yes edema Neuro: COMMON NORMALS: CN's II-XII intact bilaterally, moves all extremities and no focal motor deficits SENSORIUM/ORIENTATION: Yes alert, Yes oriented to person, No oriented to place, No oriented to time and Yes somnolent SPEECH: speech normal Psych: COMMON NORMALS: mental status grossly normal, Normal thought process present and cooperative THOUGHT PROCESS: Normal thought process present Urinary Catheter Management^: Cabrera: Cath Placed During This Visit: yes Reason for Continuing Indwelling Catheter: Accurate Measurement of Urinary Output in Critically Ill Patients Urinary Catheter Date of Insertion: 07/19/20 Urinary Catheter Time of Insertion: 12:10 Data : 07/19/20 11:36 07/19/20 13:12 Micro: Microbiology 07/19/20 11:55 Enteric Pathogens (PCR) - Final Stool - Stool Aspirate 07/19/20 11:55 C.difficile Toxin B Gene (PCR) - Final Stool A&P Assessment and plan (1) Altered mental status: -Secondary to polypharmacy, hypercarbia -Likely Lyrica overdose, [place] overdose -Patient has sleep apnea has COPD,, no ABG was obtained in the ER, but his PCO2 has been 60 in the past, currently on room air PLAN: -Neurochecks -Continue CPAP, obtain ABG -Hold Lyrica, hold [place] -Continue telemetry monitoring, serial EKGs -We will order cardiac echocardiogram, carotid ultrasound -Monitor mental status closely -Lovenox for DVT prophylaxis -Full code Status: Acute (2) Bilateral lower extremity edema: -Bilateral lower extremity edema, 2+ -Lasix 40 mg IV twice daily, monitor urine output, monitor creatinine, monitor potassium Status: Acute (3) Polypharmacy: Status: Acute (4) MALORIE (obstructive sleep apnea): Status: Acute (5) Dyslipidemia: Continue medication Status: Acute (6) Chronic GERD: Continue home medication Status: Acute (7) Hypertension: Continue home medication Status: Acute (8) Congestive heart failure: Status: Acute (9) Diabetes mellitus type 2 in obese: Low-dose sliding scale Status: Acute (10) Chronic back pain: Status: Acute (11) CAD (coronary artery disease): Status: Acute (12) Neuropathy: Status: Acute (13) COPD (chronic obstructive pulmonary disease): Status: Acute Attestations Medical Necessity Statement*: Patient requires hospitalization, outpatient with observation, for altered mental status secondary to polypharmacy, hypercarbia Coding Level of Care Code Acute 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
[2020-07-19 21:23] LABS: ABG PCO2 40.4 mmHg (35-45); ABG PH Result 7.48 (7.35-7.45); Alveolar-Arterial Oxygen Gradi 4.3 mmHg (5-10); Arterial Blood Gas Hematocrit 36.2 % (42-52); Base Excess ABG 6.2 mmol/L (-2.0-2.0); Blood Gas Allen Test Pos; Blood Gas Sample Type Arterial; Carboxyhemoglobin 1.2 %THgb (0.4-20.1); HCO3 ABG 30.2 mmol/L (22-26); HGB O2 Sat 92.2 % (95-100); Ionized Calcium Level - ABG 1.2 mmol/L (1.1-1.4); Methemoglobin 0.9 % (0.4-1.5); Oxygen Saturation ABG 94.2; PO2 ABG 67.5 mmHg (80.0-100.0); Potassium Level - ABG 3.6 mmol/L (3.5-5.0); Total Hemoglobin 11.8 g/dL (14-18)
[2020-07-19 21:24] LABS: Blood Gas Sample Site Radial, left; Oxygen Device ROOM AIR
[2020-07-19] MEDS: enoxaparin 40 mg/0.4 mL Syringe SUBCUT (23:17)
[2020-07-19] MEDS: FUROsemide 10 mg/mL SDV 4mL 40 MG IVP (23:17)
[2020-07-19 23:30] LABS: Procalcitonin 0.08 ng/mL (0-0.5)
[2020-07-19] MEDS: hyDRALAzine 10 mg Tablet PO (23:40)
[2020-07-20] VITALS (10 sets, daily range): BP systolic 138–170; BP diastolic 74–80; PULSE 55–60; RESP 14–19; TEMP 36.7–37.4; O2SAT 93–96
[2020-07-20 05:03] LABS: Alanine Aminotransferase 18 U/L (0-41); Albumin Level 3.7 g/dL (3.5-5.2); Alkaline Phosphatase 85 IU/L (40-130); Anion Gap 14.7 (5-19); Aspartate Amino Transferase 22 U/L (0-40); Blood Urea Nitrogen 19 mg/dL (8-23); Calcium 9.3 mg/dL (8.5-10.5); Carbon Dioxide 30 mmol/L (22-29); Chloride 105 mmol/L (98-107); Globulin 3.1 g/dL (1.3-4.6); Glucose 160 mg/dL (65-115); Magnesium 2.1 mg/dL (1.7-2.3); Osmolality Calculated 308 mOsm/kg (285-295); Phosphorus 3.7 mg/dL (2.5-4.5); Potassium 3.7 mmol/L (3.5-5.1); Sodium 146 mmol/L (136-145); Total Bilirubin 0.4 mg/dL (0.15-1.2); Total Protein 6.8 g/dL (6.6-8.7)
--- NOTE | 2020-07-20 07:00 | USCV_ITS ---
Isaías Clarke Age: 75 Gender: M : 1945 Exam Date: 07/20/2020 06:35 Ordering Phys: Josias Silva MD Technologist: Saji Bojorquez [place]am [place] [facility] [place]: ama BP: 143 / 76 HR: 62 Rhythm: Sinus Technical Quality: Adequate MEASUREMENTS (Male / Female) Normal Values 2D ECHO LV Diastolic Diameter PLAX 3.3 cm 4.2 - 5.9 / 3.9 - 5.3 cm LV Systolic Diameter PLAX 2.5 cm IVS Diastolic Thickness 0.8 cm 0.6 - 1.0 / 0.6 - 0.9 cm IVS Systolic Thickness 1.2 cm LVPW Diastolic Thickness 0.9 cm 0.6 - 1.0 / 0.6 - 0.9 cm LVPW Systolic Thickness 1.2 cm LVOT Diameter 2.0 cm LV Ejection Fraction 2D Teich 32.9 % LV Ejection Fraction MOD 2C 57.3 % LV Ejection Fraction 2C AL 58.4 % LA Diameter 4.7 cm LA Width 4.1 cm LA Height 4.8 cm RA Width 3.4 cm RA Height 4.6 cm M-MODE LV Diastolic Diameter MM 6.1 cm 4.2 - 5.9 / 3.9 - 5.3 cm LV Systolic Diameter MM 4.3 cm LV Ejection Fraction MM Teich 56.7 % IVS Diastolic Thickness MM 1.7 cm 0.6 - 1.0 / 0.6 - 0.9 cm IVS Systolic Thickness MM 1.8 cm LVPW Diastolic Thickness MM 1.4 cm 0.6 - 1.0 / 0.6 - 0.9 cm LVPW Systolic Thickness MM 1.8 cm RV Diastolic Diameter MM 2.5 cm Aortic Annulus Diameter 3.8 cm LA Ao Ratio MM 1.3 MV E Point Septal Separation 0.7 cm DOPPLER AV Peak Velocity 191.3 cm/s LVOT Peak Velocity 114.0 cm/s AV Area Cont Eq vti 2.0 cm squared AV Area Cont Eq pk 2.0 cm squared MV Area PHT 5.0 cm squared Mitral E to A Ratio 1.0 MV E' Velocity 60.5 cm/s Mitral E to LV E' Lateral Ratio 12.4 TR Peak Velocity 149.0 cm/s TR Peak Gradient 8.9 mmHg TV Peak E Velocity 87.0 cm/s Right Atrial Pressure 3.0 mmHg Pulmonary Artery Systolic Pressu 11.9 mmHg PV Peak Velocity 125.0 cm/s FINDINGS Left Ventricle Normal left ventricular size and systolic function, EF 62 %. No regional wall motion abnormalities. Grade I/IV diastolic dysfunction (abnormal relaxation filling pattern), normal to mildly elevated filling pressures. Right Ventricle Normal right ventricular size and systolic function. Right Atrium Normal right atrial size. Left Atrium Mildly increased left atrial size. Mitral Valve Mild mitral annular calcification. Aortic Valve Thickened aortic valve. Tricuspid Valve No gross abnormalities noted Pulmonic Valve Pulmonic valve not well visualized. Pericardium No pericardial effusion. Aorta Normal aortic annulus size. CONCLUSIONS Normal left ventricular size and systolic function, EF 62 %. No regional wall motion abnormalities. Grade I/IV diastolic dysfunction (abnormal relaxation filling pattern), normal to mildly elevated filling pressures. Mildly increased left atrial size. Mild mitral annular calcification. Thickened aortic valve. There is no pericardial effusion. There are no intracardiac masses. No previous study is available for comparison. Dr Alfonso Khan MD FACC (Electronically Signed) Final Date: 20 July 2020 15:31 S
--- NOTE | 2020-07-20 07:00 | USCV_ITS ---
Isaías Clarke Age: 75 Gender: M : 1945 Exam Date: 07/20/2020 06:49 Ordering Phys: Josias Silva MD Technologist: Saji Bojorquez [place] [facility] [place]: ama Risk Factors: Unknown Previous Vascular Surgery: Right Brachial BP: / Left Brachial BP: / Right Left Velocity (cm/s) Spectral Plaque Velocity (cm/s) Spectral Plaque Syst/Diast Broadening Syst/Diast Broadening 105.30/14.30 Prox CCA 79.40 / 11.00 102.50/17.60 Mid CCA 76.60 / 13.20 90.40/ 13.20 Hetro Distal CCA 73.90 / 11.00 Hetro 115.10/12.60 Hetro Prox ICA 76.10 / 15.40 Hetro 76.90/ 12.40 Mid ICA 217.10/ 24.10 Hetro 77.70/ 13.20 Distal ICA 205.10/ 30.20 97.00 ECA 114.70 1.12 ICA/CCA 2.74 Antegrade Vertebral Antegrade 74.60/ 10.10 cm/s 66.20/ 23.20 cm/s Bi Subclavian Tri 120.2 149.9 0 0 FINDINGS Moderate to heavy plaques at the mid and distal internal carotid artery on the left side which was also found to be tortuous. Mild to moderate diffuse plaques at the right bifurcation and proximal internal carotid artery. Antegrade flow in the vertebral arteries bilaterally Normal Doppler flow velocities in the external carotid arteries bilaterally CONCLUSIONS Moderate to heavy plaques at the mid and distal internal carotid artery on the left side suggestive of hemodynamically significant stenosis. Mild to moderate diffuse plaques at the right bifurcation and proximal internal carotid arterywith velocity elevation consistent with 16-49% stenosis. Since the lesion on the left side was in the mid to distal internal carotid artery, degree of stenosis could not be assessed. Consider CTA to better evaluate the distal arteries Dr Alfonso Khan MD FACC (Electronically Signed) Final Date: 20 July 2020 15:37 S
[2020-07-20 07:12] LABS: Basophils % 0.1 %; Hematocrit 36.5 % (42.0-52.0); Hemoglobin 11.1 g/dL (11.7-16.6); Lymphocytes # 1.7 10^3/uL (0.8-4.8); Lymphocytes % 11.2 %; Mean Corpuscular HGB Conc 30.4 g/dL (30.0-36.0); Mean Corpuscular Hemoglobin 27.3 pg (28.0-34.0); Mean Corpuscular Volume 89.9 fL (80-94); Monocytes # 0.9 10^3/uL (0.2-0.9); Monocytes % 6.1 %; Neutrophils # 12.23 10^3/uL (1.8-7.7); Neutrophils % 81.7 %; Nucleated Red Blood Cells % 0 %; Platelet Count 287 10^3/cmm (130-400); Red Blood Count 4.06 10^6/uL (4.1-5.3); Red Cell Distribution Width 15.4 % (12.1-15.1)
[2020-07-20 08:03] LABS: Thyroid Stimulating Hormone 0.49 uIU/mL (0.27-4.20)
[2020-07-20 08:05] LABS: Glucose Point of Care 163 mg/dL (70-110)
[2020-07-20] MEDS: hyDRALAzine 10 mg Tablet PO ×3 (08:10→20:52)
[2020-07-20] MEDS: amlodipine 10 mg Tablet PO (08:10)
[2020-07-20] MEDS: carvedilol 12.5 mg Tablet PO ×2 (08:10→18:18)
[2020-07-20] MEDS: pantoprazole DR 40 mg Tablet PO ×2 (08:10→18:18)
[2020-07-20] MEDS: finasteride 5 mg Tablet PO (08:10)
[2020-07-20] MEDS: potassium chloride ER 20 mEq Tablet PO ×2 (08:10→18:18)
[2020-07-20] MEDS: aspirin 81 mg EC Tablet PO (08:11)
[2020-07-20] MEDS: lisinopril 20 mg Tablet 40 MG PO (08:11)
[2020-07-20] MEDS: cyanocobalamin 1,000 mcg Tablet 1000 MCG PO (08:11)
[2020-07-20] MEDS: atorvastatin 40 mg Tablet 20 MG PO (08:11)
[2020-07-20] MEDS: fluticasone nasal spray 16gm Btl 2 SPRAY INTRANASAL (08:11)
[2020-07-20 08:24] LABS: Add Urine Microscopic? YES; Bilirubin Urine Neg (Negative); Blood Urine 3+ (Negative); Glucose Urine UA Norm (Normal); Ketones Urine 1+ (Negative); Leukocyte Esterase Urine 1+ (Negative); Nitrate Urine Negative (Negative); Protein Urine 2+ (Negative); Specific Gravity, Urine 1.015 (1.005-1.030); Urine Appearance Bloody (CLEAR); Urine Color Yellow (Yellow); Urobilinogen Urine Norm (Negative); pH Urine 5 (5-7)
[2020-07-20 08:26] LABS: Bacteria Urine 1+ /hpf; RBC Urine TOO NUMEROUS TO CNT /hpf (0-2); Squamous Epithelial Cell Urine 0-4 /hpf (0-5)
[2020-07-20 08:27] LABS: Add Urine Culture? Yes; Mucus Urine 1+ /hpf; WBC Urine 25-40 /hpf (0-5)
[2020-07-20] MEDS: albuterol 8 gm MDI INHALATION ×2 (08:37→21:00)
--- NOTE | 2020-07-20 09:20 | US_ITS ---
WS: [id number] RENAL ULTRASOUND REASON FOR EXAM: hematuria TECHNIQUE: Grayscale and Doppler ultrasound examination of the kidneys. FINDINGS: Right kidney: Right kidney measures 9.5 cm x 5.1 cm x 4.3 cm. No mass, calculus, or hydronephrosis. Left kidney: Left kidney measures 11.9 cm x 6.2 cm x 5.5 cm. No mass, calculus, or hydronephrosis. Cabrera catheter within the urinary bladder. US/US renal BI* [id number] IMPRESSION: No renal abnormality identified.
[2020-07-20] MEDS: FUROsemide 10 mg/mL SDV 4mL 40 MG IVP (10:29)
[2020-07-20] MEDS: acetaminophen 325 mg Tablet 650 MG PO (10:41)
[2020-07-20] MEDS: cefTRIAXone 1,000 MG in sodium chloride 0.9% (plus) 50 ML 100 MG IV (10:50)
[2020-07-20 12:04] LABS: Glucose Point of Care 163 mg/dL (70-110)
--- NOTE | 2020-07-20 14:35 | P.PN_ITS ---
Subjective Subjective: Interval history: History and physical reviewed. Patient without any specific complaints currently. States he feels better. Describes some dysuria. Seems slightly confused. Medications: Reviewed: Yes Vitals/I&O/Wt Last Vital Signs Temp 99.3 F 07/20/20 11:12 Pulse 60 07/20/20 11:12 Resp 18 07/20/20 11:12 BP 156/80 07/20/20 11:12 Pulse Ox 96 07/20/20 11:12 07/19/20 07/20/20 07/20/20 22:59 06:59 14:59 Intake Total 60 / 60 1020 / 1020 Output Total 800 / 800 500 / 500 Balance -740 / -740 520 / 520 Weight last 48 hrs Weight 113.398 kg Physical Exam Narrative: EXAM NARRATIVE: General exam is no apparent distress Cardiovascular regular rate and rhythm without murmur Lungs clear Abdomen is soft with positive bowel sounds Extremities no cyanosis clubbing or edema Urinary Catheter Management^: Cabrera: Cath Placed During This Visit: yes Reason for Continuing Indwelling Catheter: Accurate Measurement of Urinary Output in Critically Ill Patients Urinary Catheter Date of Insertion: 07/19/20 Urinary Catheter Time of Insertion: 12:10 Data : 07/20/20 02:53 07/20/20 02:53 Micro: Microbiology 07/19/20 11:55 Enteric Pathogens (PCR) - Final Stool - Stool Aspirate 07/19/20 11:55 C.difficile Toxin B Gene (PCR) - Final Stool A&P Assessment and plan (1) Altered mental status: Concerned this may be related to medication. Lyrica discontinued on admission. Will need to restart this back at a low level. Head CT no acute changes Status: Acute (2) Edema: Placed on Lasix IV on admission. Currently he does not appear to have significant fluid overload. Discontinue IV Lasix and restart his p.o. Status: Acute Qualifiers: Edema type: unspecified Qualified Code(s): R60.9 - Edema, unspecified (3) Diarrhea: Positive Shiga toxin C. difficile negative On Cipro by mouth secondary to UTI Status: Acute (4) UTI (urinary tract infection): Check renal ultrasound Received a dose of Rocephin. Initiate Cipro p.o. Await urine culture results Status: Acute Additional A&P Information Coronary artery disease, asymptomatic Type 2 diabetes. Sliding scale insulin Chronic back pain Depression Obstructive sleep apnea History of urinary retention Chest x-ray no acute findings. CTA no pulmonary embolism. Full code Lovenox for DVT prophylaxis Change to regular admission Attestations Medical Necessity Statement*: Needs continued hospital stay for close monitoring secondary to mental status change, UTI, diarrhea with Shiga toxin positive pending further studies. Coding Level of Care Code Acute Geoint Analyst for Chg Fwd Diagnoses Altered mental status R41.82 Edema R60.9 Edema type: unspecified Diarrhea R19.7 UTI (urinary tract infection) N39.0
[2020-07-20 17:09] LABS: Glucose Point of Care 181 mg/dL (70-110)
[2020-07-20] MEDS: pregabalin 50 mg Capsule PO (18:18)
[2020-07-20] MEDS: HYDROcodone-acetaminophen 5-325 mg Tablet 1 TAB PO (18:18)
[2020-07-20] MEDS: ciprofloxacin 500 mg Tablet PO (18:18)
[2020-07-20 21:28] LABS: Glucose Point of Care 175 mg/dL (70-110)
[2020-07-20] MEDS: enoxaparin 40 mg/0.4 mL Syringe SUBCUT (22:42)
[2020-07-21] VITALS (10 sets, daily range): BP systolic 125–173; BP diastolic 53–84; PULSE 54–68; RESP 16–18; TEMP 36.6–37; O2SAT 94–97
[2020-07-21] MEDS: HYDROcodone-acetaminophen 5-325 mg Tablet 1 TAB PO ×3 (04:18→17:25)
[2020-07-21 05:44] LABS: Basophils % 0.4 %; Eosinophils % 0.1 %; Hematocrit 37.7 % (42.0-52.0); Hemoglobin 11.5 g/dL (11.7-16.6); Lymphocytes # 1.8 10^3/uL (0.8-4.8); Lymphocytes % 15.6 %; Mean Corpuscular HGB Conc 30.5 g/dL (30.0-36.0); Mean Corpuscular Hemoglobin 27.1 pg (28.0-34.0); Mean Corpuscular Volume 88.9 fL (80-94); Mean Platelet Volume 10.6 fL (7.4-10.4); Monocytes # 0.9 10^3/uL (0.2-0.9); Monocytes % 7.8 %; Neutrophils # 8.43 10^3/uL (1.8-7.7); Neutrophils % 75.3 %; Nucleated Red Blood Cells % 0 %; Platelet Count 252 10^3/cmm (130-400); Red Blood Count 4.24 10^6/uL (4.1-5.3); Red Cell Distribution Width 15.4 % (12.1-15.1); White Blood Count 11.2 10^3/uL (4.0-10.0)
[2020-07-21 06:11] LABS: Alanine Aminotransferase 16 U/L (0-41); Albumin Level 3.7 g/dL (3.5-5.2); Alkaline Phosphatase 82 IU/L (40-130); Anion Gap 15.4 (5-19); Aspartate Amino Transferase 21 U/L (0-40); Blood Urea Nitrogen 19 mg/dL (8-23); Calcium 9.4 mg/dL (8.5-10.5); Carbon Dioxide 29 mmol/L (22-29); Chloride 103 mmol/L (98-107); Globulin 3.5 g/dL (1.3-4.6); Glucose 152 mg/dL (65-115); Magnesium 2.1 mg/dL (1.7-2.3); Osmolality Calculated 303 mOsm/kg (285-295); Potassium 3.4 mmol/L (3.5-5.1); Sodium 144 mmol/L (136-145); Total Bilirubin 0.4 mg/dL (0.15-1.2); Total Protein 7.2 g/dL (6.6-8.7)
[2020-07-21 06:27] LABS: Glucose Point of Care 174 mg/dL (70-110)
[2020-07-21] MEDS: lisinopril 20 mg Tablet 40 MG PO (08:59)
[2020-07-21] MEDS: cyanocobalamin 1,000 mcg Tablet 1000 MCG PO (08:59)
[2020-07-21] MEDS: ciprofloxacin 500 mg Tablet PO ×2 (09:00→17:25)
[2020-07-21] MEDS: finasteride 5 mg Tablet PO (09:00)
[2020-07-21] MEDS: aspirin 81 mg EC Tablet PO (09:00)
[2020-07-21] MEDS: albuterol 8 gm MDI INHALATION ×3 (09:00→20:47)
[2020-07-21] MEDS: atorvastatin 40 mg Tablet 20 MG PO (09:00)
[2020-07-21] MEDS: potassium chloride ER 20 mEq Tablet PO ×2 (09:01→17:25)
[2020-07-21] MEDS: FUROsemide 40 mg Tablet PO ×2 (09:01→17:25)
[2020-07-21] MEDS: pregabalin 50 mg Capsule PO ×2 (09:02→17:25)
[2020-07-21] MEDS: carvedilol 12.5 mg Tablet PO ×2 (09:02→17:25)
[2020-07-21] MEDS: pantoprazole DR 40 mg Tablet PO ×2 (09:02→17:25)
[2020-07-21] MEDS: amlodipine 10 mg Tablet PO (09:02)
[2020-07-21] MEDS: fluticasone nasal spray 16gm Btl 2 SPRAY INTRANASAL (11:16)
[2020-07-21] MEDS: hyDRALAzine 10 mg Tablet PO ×3 (11:21→20:58)
[2020-07-21 12:00] LABS: Glucose Point of Care 172 mg/dL (70-110)
--- NOTE | 2020-07-21 16:58 | P.PN_ITS ---
Subjective Subjective: Interval history: Isaías reports he is doing okay. He denies being confused. His catheter was removed this morning. When it was removed he had some significant bleeding. He has urinated one time, although was incontinent during that episode. Bladder scan was done this afternoon with only 150 cc. He has not been able to urinate again since that time. He did pass vicente e blood clots at that time. Medications: Reviewed: Yes Vitals/I&O/Wt Last Vital Signs Temp 97.9 F 07/21/20 14:19 Pulse 60 07/21/20 15:18 Resp 17 07/21/20 15:18 BP 145/81 07/21/20 14:19 Pulse Ox 97 07/21/20 15:18 07/21/20 07/21/20 07/21/20 06:59 14:59 22:59 Intake Total 360 / 360 Output Total 250 / 1100 Balance -250 / 160 360 / 360 Physical Exam Narrative: EXAM NARRATIVE: General exam is no apparent distress Cardiovascular regular rate and rhythm without murmur Lungs clear Abdomen is soft with positive bowel sounds Extremities no cyanosis clubbing or edema Urinary Catheter Management^: Cabrera: Cath Placed During This Visit: yes Reason for Continuing Indwelling Catheter: Accurate Measurement of Urinary Output in Critically Ill Patients Urinary Catheter Date of Insertion: 07/19/20 Urinary Catheter Time of Insertion: 12:10 Data : 07/21/20 04:18 07/21/20 04:18 Micro: Microbiology 07/20/20 06:15 Urine Culture - Preliminary Urine,Clean Catch A&P Assessment and plan (1) Altered mental status: Concerned this may be related to medication. Lyrica was restarted at a lower amount which she is tolerating Head CT no acute changes Overall confusion appears improved Status: Acute (2) Edema: Placed on Lasix IV on admission. Currently he does not appear to have significant fluid overload. He is currently on his p.o. Lasix Status: Acute Qualifiers: Edema type: unspecified Qualified Code(s): R60.9 - Edema, unspecified (3) Diarrhea: Positive Shiga toxin C. difficile negative On Cipro by mouth secondary to UTI Status: Acute (4) UTI (urinary tract infection): Check renal ultrasound Received a dose of Rocephin. Initiate Cipro p.o. Await urine culture results. Preliminary is no growth Status: Acute Additional A&P Information Mild hypokalemia, supplement coronary artery disease, asymptomatic Type 2 diabetes. Sliding scale insulin Chronic back pain Depression Obstructive sleep apnea History of urinary retention. Catheter removed today. We have not been able to ascertain whether he can urinate adequately so discharge will be held. Concern is also that hematuria could impede bladder emtying secondary to clots or preexisting urinary retention. Another bladder scan will be performed around 8 PM. Cabrera may need to be replaced. Discharge likely tomorrow secondary to this. Chest x-ray no acute findings. CTA no pulmonary embolism. Full code SCDs for DVT prophylaxis. 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
[2020-07-21 17:08] LABS: Glucose Point of Care 150 mg/dL (70-110)
[2020-07-22] VITALS: BP 156/78; PULSE 54; RESP 20; TEMP 36.5; O2SAT 92
[2020-07-22] MEDS: HYDROcodone-acetaminophen 5-325 mg Tablet 1 TAB PO ×2 (00:19→08:36)
[2020-07-22 04:00] VITALS: BP 177/91; PULSE 84; RESP 18; TEMP 36.4; O2SAT 93
[2020-07-22 04:51] LABS: Basophils # 0.1 10^3/uL (0.0-0.1); Basophils % 0.6 %; Eosinophils # 0.1 10^3/uL (0.0-0.8); Eosinophils % 0.7 %; Hematocrit 36.5 % (42.0-52.0); Hemoglobin 11.1 g/dL (11.7-16.6); Lymphocytes # 1.7 10^3/uL (0.8-4.8); Lymphocytes % 19.6 %; Mean Corpuscular HGB Conc 30.4 g/dL (30.0-36.0); Mean Corpuscular Hemoglobin 26.7 pg (28.0-34.0); Mean Corpuscular Volume 87.7 fL (80-94); Mean Platelet Volume 10.5 fL (7.4-10.4); Monocytes # 0.9 10^3/uL (0.2-0.9); Monocytes % 10.1 %; Neutrophils # 5.89 10^3/uL (1.8-7.7); Neutrophils % 68.2 %; Nucleated Red Blood Cells % 0 %; Platelet Count 222 10^3/cmm (130-400); Red Blood Count 4.16 10^6/uL (4.1-5.3); Red Cell Distribution Width 15.2 % (12.1-15.1); White Blood Count 8.6 10^3/uL (4.0-10.0)
[2020-07-22 05:18] LABS: Alanine Aminotransferase 14 U/L (0-41); Albumin Level 3.7 g/dL (3.5-5.2); Alkaline Phosphatase 76 IU/L (40-130); Anion Gap 13.5 (5-19); Aspartate Amino Transferase 16 U/L (0-40); Blood Urea Nitrogen 16 mg/dL (8-23); Calcium 8.9 mg/dL (8.5-10.5); Carbon Dioxide 30 mmol/L (22-29); Chloride 102 mmol/L (98-107); Creatinine Clr Calc Pharmacy 82.9826; Globulin 3.1 g/dL (1.3-4.6); Glucose 170 mg/dL (65-115); Osmolality Calculated 299 mOsm/kg (285-295); Potassium 3.5 mmol/L (3.5-5.1); Sodium 142 mmol/L (136-145); Total Bilirubin 0.4 mg/dL (0.15-1.2); Total Protein 6.8 g/dL (6.6-8.7)
[2020-07-22 07:22] LABS: Glucose Point of Care 166 mg/dL (70-110)
[2020-07-22 07:39] VITALS: BP 148/72; PULSE 58; RESP 16; TEMP 37.2; O2SAT 97
[2020-07-22 08:10] VITALS: PULSE 59; RESP 18; O2SAT 94
[2020-07-22 08:20] VITALS: PULSE 61
[2020-07-22] MEDS: finasteride 5 mg Tablet PO (08:36)
[2020-07-22] MEDS: carvedilol 12.5 mg Tablet PO (08:36)
[2020-07-22] MEDS: cyanocobalamin 1,000 mcg Tablet 1000 MCG PO (08:36)
[2020-07-22] MEDS: atorvastatin 40 mg Tablet 20 MG PO (08:36)
[2020-07-22] MEDS: amlodipine 10 mg Tablet PO (08:36)
[2020-07-22] MEDS: ciprofloxacin 500 mg Tablet PO (08:37)
[2020-07-22] MEDS: FUROsemide 40 mg Tablet PO (08:37)
[2020-07-22] MEDS: hyDRALAzine 10 mg Tablet PO (08:37)
[2020-07-22] MEDS: lisinopril 20 mg Tablet 40 MG PO (08:37)
[2020-07-22] MEDS: potassium chloride ER 20 mEq Tablet PO (08:37)
[2020-07-22] MEDS: pantoprazole DR 40 mg Tablet PO (08:37)
[2020-07-22] MEDS: albuterol 8 gm MDI INHALATION (08:43)
[2020-07-22] MEDS: fluticasone nasal spray 16gm Btl 2 SPRAY INTRANASAL (08:52)
[2020-07-22] MEDS: pregabalin 50 mg Capsule PO (09:03)
--- NOTE | 2020-07-22 09:57 | PM.DCS ---
Discharge Providers Date of Admission: 07/20/20 14:46 Date of Discharge: July 22, 2020 Attending Provider at Admission: Bianka Marin MD Attending Provider at Discharge: Xander Carlos MD Primary Care Provider: Galindo Carson DO Diagnoses at Discharge Discharge Diagnosis (1) Altered mental status: Status: Acute Permanent problem details: Resolved. Likely secondary to medication over usage (2) Edema: Status: Acute Qualifiers: Edema type: unspecified Qualified Code(s): R60.9 - Edema, unspecified (3) Diarrhea: Status: Acute Permanent problem details: Tested positive for Shiga toxin. Will receive total of 5 days of Cipro. (4) UTI (urinary tract infection): Status: Acute Permanent problem details: Ultimately urine culture negative Reason for Visit Reason for Visit: RESP DISTRESS Hospital Course Hospital Course Isaías is a 75-year-old white male presenting on July 19 with altered mental status. There was concern about overmedication. He sometimes took more than prescribed for pain according to family and patient. He had had previous hospitalizations for this as well. There was concern of UTI. He was placed in the hospital and Lyrica and Axton held initially. Urinary catheter was placed for urinary retention. Hydration was given. Rocephin is given for UTI. CTA was performed demonstrating no pulmonary embolism. Stool studies were done secondary to diarrhea and this demonstrated Shiga toxin positive. C. difficile was negative. While in the hospital his Rocephin was changed to Cipro. Urine culture ultimately grew an organism. Mental status returned to baseline quickly. Lyrica was readded at a lower dose, as well as Axton to prevent withdrawal. Axton was changed to every 6 hours as needed instead of every 4 hours. Catheter was removed, and patient had some hematuria following this. He was monitored closely overnight until the at which time he was able to go home. At that time his mental status was at baseline. He was able to urinate without difficulty and without any evidence of gross hematuria. He will finish 3 more days of ciprofloxacin. Echocardiogram was performed while in the hospital demonstrating preserved EF, 1/4 diastolic dysfunction. Renal ultrasound demonstrated no abnormality. CTA of neck ordered from admission demonstrated plaque both carotids, unable to estimate on the left the degree of stenosis in CTA could be considered. This will be arranged as an outpatient. Patient will resume low-dose aspirin, as well as statin on discharge. Physical Exam Narrative: EXAM NARRATIVE: General exam no apparent distress Cardiovascular regular rate and rhythm without murmur Lungs clear Abdomen is soft with positive bowel sounds Extremities no cyanosis clubbing. 1+ edema noted. Urinary Catheter Management^: Cabrera: Cath Placed During This Visit: yes, but has since been removed by the nurse Reason for Continuing Indwelling Catheter: Decision to DC Catheter Urinary Catheter Date of Insertion: 07/19/20 Urinary Catheter Time of Insertion: 12:10 Date Urinary Catheter Removed: 07/21/20 Time Urinary Catheter Discontinued: 12:51 Discharge Data Data Completed and Pending: Completed Studies During Hospitalization Category Date Time Status CT angio chest PE protcl [id number] Stat Cat Scan 07/19/20 14:[address] head wo con* [id number] Urgent Cat Scan 07/19/20 11:44 Completed XR chest 1V ria ble [id number] Urgent Exams 07/19/20 11:44 Completed CV carotid duplex BI* [id number] Routine Ultrasound 07/20/20 07:00 Completed CV echo complete* [id number] Routine Ultrasound 07/20/20 07:00 Completed US renal BI* [id number] Routine Ultrasound 07/20/20 09:20 Completed Labs from last 24 hours 07/22/20 07/22/20 07/22/20 07:18 04:38 04:38 WBC 8.6 RBC 4.16 Hgb 11.1 L Hct 36.5 L MCV 87.7 MCH 26.7 L MCHC 30.4 RDW 15.2 H Plt Count 222 MPV 10.5 H Neut % (Auto) 68.2 Lymph % (Auto) 19.6 [place] % (Auto) 10.1 Eos % (Auto) 0.7 Baso % (Auto) 0.6 Neut # (Auto) 5.89 Lymph # (Auto) 1.7 [place] # (Auto) 0.9 Eos # (Auto) 0.1 Baso # (Auto) 0.1 Nucleated RBC % (a uto) 0 Nucleated RBCs # 0.0 Sodium 142 Potassium 3.5 Chloride 102 Carbon Dioxide 30 H Anion Gap 13.5 BUN 16 Creatinine 1.0 GFR Calculation Not Reportable Glucose 170 H POC Glucose 166 Calculated Osmolal ity 299 H Calcium 8.9 Total Bilirubin 0.4 AST 16 ALT 14 Alkaline Phosphata se 76 Total Protein 6.8 Albumin 3.7 Globulin 3.1 07/21/20 07/21/20 17:05 11:52 WBC RBC Hgb Hct MCV MCH MCHC RDW Plt Count MPV Neut % (Auto) Lymph % (Auto) [place] % (Auto) Eos % (Auto) Baso % (Auto) Neut # (Auto) Lymph # (Auto) [place] # (Auto) Eos # (Auto) Baso # (Auto) Nucleated RBC % (a uto) Nucleated RBCs # Sodium Potassium Chloride Carbon Dioxide Anion Gap BUN Creatinine GFR Calculation Glucose POC Glucose 150 172 Calculated Osmolal ity Calcium Total Bilirubin AST ALT Alkaline Phosphata se Total Protein Albumin Globulin Vitals: Last Vital Signs Temp 99.0 F 07/22/20 07:39 Pulse 61 07/22/20 08:20 Resp 18 07/22/20 08:10 BP 148/72 07/22/20 07:39 Pulse Ox 94 07/22/20 08:10 Discharge Plan Discharge Patient Disposition: Home Condition: Stable Prescriptions: New Lyrica 50 mg capsule 50 mg PO TID Qty: 90 RF: 0 ciprofloxacin HCl 500 mg Tablet 500 mg PO BID Qty: 6 RF: 0 Continued potassium chloride 20 mEq tablet extended release 20 meq PO BID Qty: 60 RF: 2 aspirin [Adult Aspirin Regimen] 81 mg tablet,delayed release (DR/EC) 81 mg PO DAILY RF: 0 atorvastatin 20 mg tablet 20 mg PO DAILY RF: 0 Narcan 4 mg/actuation spray,non-aerosol 1 spray INTRANASAL .COMPLEX RF: 0 pantoprazole [Protonix] 40 mg tablet,delayed release (DR/EC) 40 mg PO BID Qty: 60 RF: 5 nitroglycerin [Nitrostat] 0.4 mg tablet, sublingual 0.4 mg SUBLINGUAL Q5M PRN (Reason: chest pain) 90 Days Qty: 25 RF: 3 metformin 1,000 mg tablet 1,000 mg PO BID 30 Days Qty: 60 RF: 1 carvedilol [Coreg] 12.5 mg tablet 12.5 mg PO BID 30 Days Qty: 60 RF: 1 Viibryd 40 mg tablet 40 mg PO DAILY Qty: 30 RF: 0 fluticasone propionate [Flonase Allergy Relief] 50 mcg/actuation spray,suspension 2 spray INTRANASAL DAILY Qty: 15.8 RF: 5 cyanocobalamin (vitamin B-12) [Vitamin B-12] 1,000 mcg Tablet 1,000 mcg PO DAILY Qty: 0 RF: 0 fluticasone propion-salmeterol [Wixela Inhub] 500-50 mcg/dose blister with device 1 inh INHALATION BID RF: 0 albuterol sulfate [ProAir HFA] 90 mcg/actuation HFA aerosol inhaler 1 - 2 puff INHALATION Q6H PRN (Reason: shortness of breath or wheezing) RF: 0 hydralazine 10 mg Tablet 10 mg PO TID Qty: 90 RF: 0 amlodipine 5 mg Tablet 10 mg PO DAILY Qty: 30 RF: 0 finasteride 5 mg Tablet 5 mg PO DAILY Qty: 30 RF: 0 furosemide [Lasix] 80 mg tablet 40 mg PO BID Qty: 60 RF: 5 benazepril 20 mg tablet 40 mg PO DAILY Qty: 30 RF: 0 Changed hydrocodone-acetaminophen 7.5-325 mg tablet 1 tab PO Q6H PRN (Reason: Pain) Qty: 0 RF: 0 Discontinued Lyrica 200 mg capsule 200 mg PO TID RF: 0 Discharge Orders: Discharge Order (Routine); Ordered 07/22/20 Ordered By: Xander Carlos Referrals: [facility] [Outside] Galindo Carson DO [Primary Care Provider] - 4-7 days Discharge Diet: Cardiac and Diabetic Discharge Activity: Increase activity as tolerated Activity Restrictions/Additional Instructions: Take all medicine as prescribed. Note that your Lyrica dose has been reduced. Change her hydrocodone to every 6 hours as needed. Do not take more of your medicine as prescribed. 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
--- NOTE | 2020-07-22 11:55 | PC.NURSE ---
pt iv taken out and intact. Explained pt discharge instructions and all questions answered. pt taken to surgical services entrance via wheelchair.
[2020-07-22 11:57] VITALS: BP 148/72; PULSE 61; RESP 16; TEMP 37.2; O2SAT 97
== END 2020-07-22 11:55 | disposition home health service (06) | DRG 372 ==
LOC: ER 17:31 → MEDSURG 07-20 02:46
PROVIDERS: Family Medicine; Admitting Provider Family Medicine; Emergency Provider Family Medicine; PCP Family Medicine; Visit Provider Internal Medicine
DX: A03.0 Shigellosis due to Shigella dysenteriae (principal); I13.0 Hypertensive heart and chronic kidney disease with heart failure and stage 1 through stage 4 chronic kidney disease, or unspecified chronic kidney disease; I50.30 Unspecified diastolic (congestive) heart failure; N39.0 Urinary tract infection, site not specified; R41.82 Altered mental status, unspecified; T42.6X5A Adverse effect of other antiepileptic and sedative-hypnotic drugs, initial encounter; E11.42 Type 2 diabetes mellitus with diabetic polyneuropathy; Z79.4 Long term (current) use of insulin; I25.10 Atherosclerotic heart disease of native coronary artery without angina pectoris; Z95.5 Presence of coronary angioplasty implant and graft; G47.33 Obstructive sleep apnea (adult) (pediatric); E11.22 Type 2 diabetes mellitus with diabetic chronic kidney disease; N18.9 Chronic kidney disease, unspecified; E78.5 Hyperlipidemia, unspecified; K21.9 Gastro-esophageal reflux disease without esophagitis; G89.29 Other chronic pain; F12.90 Cannabis use, unspecified, uncomplicated; E66.9 Obesity, unspecified; Z68.39 Body mass index [BMI] 39.0-39.9, adult; Z79.891 Long term (current) use of opiate analgesic; M10.9 Gout, unspecified; F32.9 Major depressive disorder, single episode, unspecified; F17.220 Nicotine dependence, chewing tobacco, uncomplicated; R33.9 Retention of urine, unspecified; Z79.82 Long term (current) use of aspirin; R31.9 Hematuria, unspecified; E87.5 Hyperkalemia; R60.0 Localized edema; J44.9 Chronic obstructive pulmonary disease, unspecified; I65.23 Occlusion and stenosis of bilateral carotid arteries
CPT/HCPCS: 12345; 36415; 36416; 36600; 51702; 70450; 71045; 71275; 76770; 80051; 80053; 80306; 81001; 81003; 82330; 82805; 82962; 83605; 83735; 83880; 84100; 84145; 84443; 84484; 85025; 85378; 86140; 87086; 87493; 87506; 93005; 93306; 93880; 94640; 94660; 96372; 96375; 97116; 97161; 97165; 99283; G0378; J0696; J1650; J1815; J1940; J3535; Q9967

== ENCOUNTER 2021-04-07 12:00 | Outpatient (CLI) | payer MEDICARE, MEDICAID, SELFPAY ==
--- NOTE | 2021-04-07 12:07 | US_ITS ---
WS: [id number] ULTRASOUND RENAL TECHNIQUE: Ultrasound examination of both kidneys. CLINICAL INFORMATION: CKD STAGE 3B COMPARISON: None. FINDINGS: RIGHT: Right kidney is normal in size and appearance. Echogenicity: Normal. Cortical thickness: 1.6 cm; Normal. Hydronephrosis: None. Perinephric fluid: None. Right kidney measures: 12.5 cm x 5.4 cm x 4.7 cm. LEFT: Left kidney is normal in size and appearance. Echogenicity: Normal. Cortical thickness: 1.9 cm; Normal. Hydronephrosis: None. Perinephric fluid: None. Left kidney measures: 12.4 cm x 4.8 cm x 3.8 cm. Normal visualized aorta. Bladder is partially decompressed. Prostate measures 4.4 x 4.1 x 3.2 cm US/US renal BI* [id number] IMPRESSION: 1. No hydronephrosis in either kidney. 2. Enlarged prostate measuring 4.4 x 4.1 x 3.2 CM. Recommend correlation PSA.
== END 2021-04-07 12:01 | disposition home or self-care (01) ==
PROVIDERS: PCP Family Medicine; Visit Provider Internal Medicine Nephrology
DX: N18.32 Chronic kidney disease, stage 3b (principal); N40.0 Benign prostatic hyperplasia without lower urinary tract symptoms
CPT/HCPCS: 76770

== ENCOUNTER 2021-05-02 13:07 | Emergency (ER) | payer MEDICARE, MEDICAID, SELFPAY ==
[2021-05-02 13:26] VITALS: BP 142/71; PULSE 84; RESP 22; TEMP 36.8; O2SAT 96; BMI 35.2
--- NOTE | 2021-05-02 13:29 | ECG_ITS ---
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 Measurements Intervals [place] Rate: 80 P: 46 NE: 193 QRS: 52 QRSD: 98 T: 52 QT: 374 QTc: 434 Interpretive Statements SINUS RHYTHM Compared to ECG 07/19/2020 18:29:45 Sinus bradycardia no longer present Electronically Signed On 05-03-2021 13:11:38 CDT by Maria Luisa Geller M.D. [email or web address]
--- NOTE | 2021-05-02 13:29 | XRR_ITS ---
PROCEDURE INFORMATION: Exam: XR Chest Exam date and time: 05/02/2021 1:29 PM Age: 75 years old Clinical indication: Pain; Patient HX: C/O chest pressure; Additional info: Chest pain TECHNIQUE: Imaging protocol: XR of the chest. Views: 1 view. COMPARISON: CR XR chest 1V portable [id number] 07/19/2020 12:21 PM FINDINGS: Lungs: Unremarkable. No consolidation. Pleural spaces: Unremarkable. No pleural effusion. No pneumothorax. Heart/Mediastinum: Unremarkable. No cardiomegaly. Bones/joints: No acute findings. XR/XR chest 1V portable [id number] IMPRESSION: No acute findings.
[2021-05-02 13:38] VITALS: BP 142/71; PULSE 82; RESP 18; O2SAT 96
--- NOTE | 2021-05-02 14:05 | W.ED.CHESTPA ---
HPI - Chest Pain General: Chief Complaint: Chest Pain Stated Complaint: tightness in chest, Time Seen by Provider: 05/02/21 13:29 Source: patient Mode of arrival: ambulatory Limitations: no limitations History of Present Illness: HPI narrative: Patient is a 75-year-old male who presents to ED today with complaints of chest heaviness and anxiety. Patient tells me he ran out of his Lyrica yesterday and began experiencing symptoms when he was due for his next dose. Patient tells me he does have one cardiac stent placed almost a decade ago. He used to see Dr. Holder for cardiology however when he retired he has yet to follow-up with a new provider. Patient has not having any shortness of breath or difficulty breathing. He seems to think that all of his symptoms are related to running out of his Lyrica. MD complaint: chest pain Pertinent past history: coronary artery disease Onset (ago): hour(s) Pain location: substernal Pain radiation: none Quality: heaviness Relieving factors: nothing Exacerbating factors: nothing Associated symptoms: Deny abdominal pain, dyspnea, fever(s), nausea, palpitations, syncope or vomiting Treatment prior to arrival: none Review of Systems Const: Denies: fever(s), chills, body aches, fatigue or malaise Eyes: Denies: change in vision or blurry vision Card: Reports: chest pain; Denies: palpitations, irregular heart rhythm, edema, swelling of feet/ankles, lightheadedness, syncope, pre-syncope, dyspnea on exertion, orthopnea, leg pain with exertion or acrocyanosis Resp: Denies: dyspnea, productive cough or pain on inspiration GI: Denies: abdominal pain, nausea, vomiting, heartburn or diarrhea : Denies: difficulty urinating or dysuria Musc: Denies: neck pain, back pain or joint pain Skin/Breast: Denies: rash Neuro: Denies: headache(s), numbness in extremities, weakness in extremities, sensory changes or dizziness Psych: Reports: anxiety PFS ED PFSH: Medical History (Updated 05/02/21 @ 16:32 by ROSARIO Delacruz) CAD (coronary artery disease) Chronic back pain Diabetes mellitus type 2 in obese Dyslipidemia Encounter for long-term use of opiate analgesic Gabapentin overdose Gout Major depressive disorder, recurrent, mild (Unknown) Neuropathy Opioid contract exists MALORIE (obstructive sleep apnea) Renal insufficiency Smokeless tobacco use Substance abuse Urinary retention Surgical History History of cholecystectomy History of heart artery stent Family History Other Cancer Hypertension Social History Smoking and tobacco status: former smoker Second hand smoke exposure: No Alcohol intake: never History of recent travel: No Physical Exam Const: COMMON NORMALS: patient oriented x3, no limitations and alert GENERAL APPEARANCE: cooperative and anxious NUTRITIONAL APPEARANCE: obese ORIENTATION/CONSCIOUSNESS: Yes awake, Yes oriented to person, Yes oriented to place and Yes oriented to time HENMT: COMMON NORMALS: normocephalic and atraumatic HEAD & SCALP: normocephalic and atraumatic Chest: COMMONS NORMALS: normal inspection of the chest and normal palpation of entire chest wall Resp: COMMON NORMALS: normal respiratory effort and clear to auscultation bilaterally AUSCULTATION: clear to auscultation bilaterally Cardio: COMMON NORMALS: regular rate and regular rhythm RATE: regular rate RHYTHM: regular rhythm GI: COMMON NORMALS: Normal to inspection, nondistended, normoactive bowel sounds present, Soft to palpation, non-tender, No hepatosplenomegaly present and no masses PALPATION: Yes Soft to palpation and Yes No hepatosplenomegaly present Extremity: COMMON NORMALS: capillary refill normal, no joint enlargement, no clubbing, cyanosis or edema, no calf tenderness and no pedal edema Neuro: TREY COMA SCALE: document GCS findings Trey coma scale eye opening: Spontaneous [place] coma scale verbal response: Orientated [place] coma scale motor response: Obey commands [place] coma scale total score: 15 COMMON NORMALS: patient oriented x3, CN's II-XII intact bilaterally, moves all extremities, no focal motor deficits and no sensory deficits noted SENSORIUM/ORIENTATION: Yes alert, Yes oriented to person, Yes oriented to place and Yes oriented to time Skin: COMMON NORMALS: no rashes or lesions noted GENERAL SKIN EXAM: no rashes or lesions noted Course Vital Signs: Vital signs: Vital Signs Temperature 98.3 F 05/02/21 13:26 Pulse Rate 70 05/02/21 15:52 Respiratory Rate 18 05/02/21 15:52 Blood Pressure 145/77 08/22/21 15:52 Pulse Oximetry 95 05/02/21 15:52 MDM - Chest Pain MDM Narrative: Medical decision making narrative: Patient here for chest pain and some anxiety-like symptoms that he feels was secondary to running out of his Lyrica. He states symptoms started when he was due for a dose. Patient does have a prescription waiting at the pharmacy but his pharmacy is closed until tomorrow. Initial troponin was mildly elevated at 21. He has had some mild elevations to his troponins previously. He has a negative delta. EKG without ischemic changes. Patient reports all of his symptoms have completely alleviated after his normal dose of Lyrica (takes 150 mg 3 times daily). Patient will be discharged home with a dose for this evening and recommend he fill his prescription tomorrow. Strict return to ED precautions given. We will have case management set him up with a reliner as he used to see Dr. Holder and has not seen anybody after his snf. Lab Data: Labs: Lab Results 05/02/21 05/02/21 05/02/21 Range/Units 13:49 13:49 13:49 WBC 12.9 H (4.0-10.0) 10^3/ uL RBC 4.01 L (4.1-5.3) 10^6/u L Hgb 11.5 L (11.7-16.6) g/dL Hct 36.8 L (42.0-52.0) % MCV 91.8 (80-94) fl MCH 28.7 (28.0-34.0) pg MCHC 31.3 (30.0-36.0) g/dL RDW 16.5 H (12.1-15.1) % Plt Count 233 (130-400) 10^3/c mm MPV 11.2 H (7.4-10.4) fL Neut % (Auto) 82.9 % Lymph % (Auto) 10.7 % [place] % (Auto) 4.5 % Eos % (Auto) 0.6 % Baso % (Auto) 0.5 % Neut # (Auto) 10.66 H (1.8-7.7) 10^3/u L Lymph # (Auto) 1.4 (0.8-4.8) 10^3/u L [place] # (Auto) 0.6 (0.2-0.9) 10^3/u L Eos # (Auto) 0.1 (0.0-0.8) 10^3/u L Baso # (Auto) 0.1 (0.0-0.1) 10^3/u L Nucleated RBC % (a uto) 0 % Nucleated RBCs # 0.0 /100WBC Sodium 137 (136-145) mmol/L Potassium 4.3 (3.5-5.1) mmol/L Chloride 99 (98-107) mmol/L Carbon Dioxide 23 (22-29) mmol/L Anion Gap 19.3 H (5-19) BUN 18 (8-23) mg/dL Creatinine 1.4 H (0.7-1.2) mg/dL GFR Calculation Not Reportable Glucose 166 H (65-115) mg/dL Calculated Osmolal ity 290 (285-295) mOsm/k g Calcium 8.9 (8.5-10.5) mg/dL Total Bilirubin 0.5 (0.15-1.2) mg/dL AST 15 (0-40) U/L ALT 12 (0-41) U/L Alkaline Phosphata se 115 (40-130) IU/L Troponin T Baselin e 21 H (0-15) ng/L Troponin T 120 Min [place] (0-15) ng/L Delta Troponin T (0-10) ABS# NT-Pro-B Natriuret Pep 145 (0-450) pg/mL Total Protein 7.2 (6.6-8.7) g/dL Albumin 4.1 (3.5-5.2) g/dL Globulin 3.1 (1.3-4.6) g/dL 05/02/21 Range/Units 15:51 WBC (4.0-10.0) 10^3/ uL RBC (4.1-5.3) 10^6/u L Hgb (11.7-16.6) g/dL Hct (42.0-52.0) % MCV (80-94) fl MCH (28.0-34.0) pg MCHC (30.0-36.0) g/dL RDW (12.1-15.1) % Plt Count (130-400) 10^3/c mm MPV (7.4-10.4) fL Neut % (Auto) % Lymph % (Auto) % [place] % (Auto) % Eos % (Auto) % Baso % (Auto) % Neut # (Auto) (1.8-7.7) 10^3/u L Lymph # (Auto) (0.8-4.8) 10^3/u L [place] # (Auto) (0.2-0.9) 10^3/u L Eos # (Auto) (0.0-0.8) 10^3/u L Baso # (Auto) (0.0-0.1) 10^3/u L Nucleated RBC % (a uto) % Nucleated RBCs # /100WBC Sodium (136-145) mmol/L Potassium (3.5-5.1) mmol/L Chloride (98-107) mmol/L Carbon Dioxide (22-29) mmol/L Anion Gap (5-19) BUN (8-23) mg/dL Creatinine (0.7-1.2) mg/dL GFR Calculation Glucose (65-115) mg/dL Calculated Osmolal ity (285-295) mOsm/k g Calcium (8.5-10.5) mg/dL Total Bilirubin (0.15-1.2) mg/dL AST (0-40) U/L ALT (0-41) U/L Alkaline Phosphata se (40-130) IU/L Troponin T Baselin e (0-15) ng/L Troponin T 120 Min [place] 17.28 H (0-15) ng/L Delta Troponin T -3.72 L (0-10) ABS# NT-Pro-B Natriuret Pep (0-450) pg/mL Total Protein (6.6-8.7) g/dL Albumin (3.5-5.2) g/dL Globulin (1.3-4.6) g/dL Imaging Data^: CXR: Radiologist's impression: [address] [id number] ReportSigned Patient: Vega Clarke #: [id number]: 5Acct#:[id number]/Sex: 75 / MADM Date: 05/02/21Loc: ERRoom/Bed:Attending Dr: Ordering Provider/Ordering MD: Faiza Nuñez Date of Service: 05/02/21 Procedure(s): XR chest 1V portable [id number] Accession Number(s): [id number] Report Number: [id number] PROCEDURE INFORMATION: Exam: XR Chest Exam date and time: 05/02/2021 1:29 PM Age: 75 years old Clinical indication: Pain; Patient HX: C/O chest pressure; Additional info: Chest pain TECHNIQUE: Imaging protocol: XR of the chest. Views: 1 view. COMPARISON: CR XR chest 1V portable [id number] 07/19/2020 12:21 PM FINDINGS: Lungs: Unremarkable. No consolidation. Pleural spaces: Unremarkable. No pleural effusion. No pneumothorax. Heart/Mediastinum: Unremarkable. No cardiomegaly. Bones/joints: No acute findings. XR/XR chest 1V portable [id number] IMPRESSION: No acute findings. Dictated By:Simone Dorsey MDSigned By:Simone Dorsey MDSigned Date/Time:05/02/211428DD/ 26 EKG Data^: EKG 1: EKG interpretation date: 05/02/21 EKG interpretation time: 13:38 Interpretation: Sinus rhythm Rate [address] elevation or depression changes noted Also reviewed by Dr. Rose Discharge Plan Discharge Patient Disposition: Home Clinical Impression: Drug withdrawal, Non-cardiac chest pain Condition: Stable Prescriptions: No Action potassium chloride 20 mEq tablet extended release 20 meq PO BID Qty: 60 RF: 2 aspirin [Adult Aspirin Regimen] 81 mg tablet,delayed release (DR/EC) 81 mg PO DAILY RF: 0 atorvastatin 20 mg tablet 20 mg PO DAILY RF: 0 Narcan 4 mg/actuation spray,non-aerosol 1 spray INTRANASAL .COMPLEX RF: 0 pantoprazole [Protonix] 40 mg tablet,delayed release (DR/EC) 40 mg PO BID Qty: 60 RF: 5 nitroglycerin [Nitrostat] 0.4 mg tablet, sublingual 0.4 mg SUBLINGUAL Q5M PRN (Reason: chest pain) 90 Days Qty: 25 RF: 3 metformin 1,000 mg tablet 1,000 mg PO BID 30 Days Qty: 60 RF: 1 carvedilol [Coreg] 12.5 mg tablet 12.5 mg PO BID 30 Days Qty: 60 RF: 1 fluticasone propionate [Flonase Allergy Relief] 50 mcg/actuation spray,suspension 2 spray INTRANASAL DAILY 30 Days Qty: 15.8 RF: 1 hydrocodone-acetaminophen 7.5-325 mg tablet 1 tab PO Q6H PRN (Reason: Pain) Qty: 0 RF: 0 cyanocobalamin (vitamin B-12) [Vitamin B-12] 1,000 mcg Tablet 1,000 mcg PO DAILY Qty: 0 RF: 0 fluticasone propion-salmeterol [Wixela Inhub] 500-50 mcg/dose blister with device 1 inh INHALATION BID RF: 0 albuterol sulfate [ProAir HFA] 90 mcg/actuation HFA aerosol inhaler 1 - 2 puff INHALATION Q6H PRN (Reason: shortness of breath or wheezing) RF: 0 furosemide [Lasix] 80 mg tablet 40 mg PO BID Qty: 60 RF: 5 benazepril 20 mg tablet 40 mg PO DAILY Qty: 30 RF: 0 pregabalin 150 mg capsule 150 mg PO TID RF: 0 allopurinol 300 mg tablet 300 mg PO DAILY RF: 0 Discharge Orders: Discharge ED (Routine); Ordered 05/02/21 Ordered By: Faiza Nuñez Referrals: Galindo Carson DO [Primary Care Provider] - Activity Restrictions/Additional Instructions: As we discussed you need to return to the emergency department for onset of chest pain, shortness of breath, difficulty breathing, vomiting, or any other concerns you may have. As we discussed you may picker packer your Lyrica prescription tomorrow. I will place information with case management to get you set back up with a reliner for routine care. Coding Level of Care Code ED Human Resources Benefits Manager for Eric Fwd Exam Comprehensive
[2021-05-02 14:08] LABS: Basophils # 0.1 10^3/uL (0.0-0.1); Basophils % 0.5 %; Eosinophils # 0.1 10^3/uL (0.0-0.8); Eosinophils % 0.6 %; Hematocrit 36.8 % (42.0-52.0); Hemoglobin 11.5 g/dL (11.7-16.6); Lymphocytes # 1.4 10^3/uL (0.8-4.8); Lymphocytes % 10.7 %; Mean Corpuscular HGB Conc 31.3 g/dL (30.0-36.0); Mean Corpuscular Hemoglobin 28.7 pg (28.0-34.0); Mean Corpuscular Volume 91.8 fl (80-94); Mean Platelet Volume 11.2 fL (7.4-10.4); Monocytes # 0.6 10^3/uL (0.2-0.9); Monocytes % 4.5 %; Neutrophils # 10.66 10^3/uL (1.8-7.7); Neutrophils % 82.9 %; Nucleated Red Blood Cells % 0 %; Platelet Count 233 10^3/cmm (130-400); Red Blood Count 4.01 10^6/uL (4.1-5.3); Red Cell Distribution Width 16.5 % (12.1-15.1); White Blood Count 12.9 10^3/uL (4.0-10.0)
[2021-05-02 14:34] LABS: Troponin(5th) Baseline 21 ng/L (0-15)
[2021-05-02] MEDS: pregabalin 50 mg Capsule PO (14:36)
[2021-05-02 14:43] LABS: Alanine Aminotransferase 12 U/L (0-41); Albumin Level 4.1 g/dL (3.5-5.2); Alkaline Phosphatase 115 IU/L (40-130); Anion Gap 19.3 (5-19); Aspartate Amino Transferase 15 U/L (0-40); Blood Urea Nitrogen 18 mg/dL (8-23); Calcium 8.9 mg/dL (8.5-10.5); Carbon Dioxide 23 mmol/L (22-29); Chloride 99 mmol/L (98-107); Creatinine Clr Calc Pharmacy 60.4433; Globulin 3.1 g/dL (1.3-4.6); Glucose 166 mg/dL (65-115); NT Pro B Type Natriuretic Pept 145 pg/mL (0-450); Osmolality Calculated 290 mOsm/kg (285-295); Potassium 4.3 mmol/L (3.5-5.1); Sodium 137 mmol/L (136-145); Total Bilirubin 0.5 mg/dL (0.15-1.2); Total Protein 7.2 g/dL (6.6-8.7)
[2021-05-02 15:52] VITALS: BP 145/77; PULSE 70; RESP 18; O2SAT 95
[2021-05-02] MEDS: pregabalin 100 mg Capsule PO (15:57)
[2021-05-02 16:00] VITALS: BP 129/88; PULSE 71; RESP 18; O2SAT 94
[2021-05-02 16:23] LABS: Troponin 5 2HR 17.28 ng/L (0-15)
[2021-05-02 16:27] LABS: Troponin 5 2HR Delta -3.72 ABS# (0-10)
[2021-05-02 16:30] VITALS: BP 140/94; PULSE 71; RESP 18; O2SAT 94
[2021-05-02 17:15] VITALS: BP 142/84; PULSE 74; RESP 18; O2SAT 96
[2021-05-02] MEDS: pregabalin 150 mg Capsule PO (17:15)
--- NOTE | 2021-05-04 14:44 | DCPLANNER ---
pharmacy benefit manager had message to schedule a follow up appointment for patient with [facility]. pharmacy benefit manager called [facility], spoke with Kathy, gave clinic patients information. A follow up appointment was scheduled for Monday, May 12, 2021 at 2:[address] Raines. pharmacy benefit manager called and spoke with patients , gave her the appointment information.
--- NOTE | 2021-06-04 09:20 | DCPLANNER ---
Patient had a follow up appointment scheduled for 05.12.21 with [facility] - patient did attend appointment.
== END 2021-05-02 17:15 | disposition home or self-care (01) ==
PROVIDERS: Emergency Provider Physician Assistant; PCP Family Medicine
DX: F19.239 Other psychoactive substance dependence with withdrawal, unspecified (principal); R07.89 Other chest pain; I25.10 Atherosclerotic heart disease of native coronary artery without angina pectoris; E11.9 Type 2 diabetes mellitus without complications; E66.9 Obesity, unspecified; Z68.35 Body mass index [BMI] 35.0-35.9, adult; E78.5 Hyperlipidemia, unspecified; Z79.82 Long term (current) use of aspirin; Z79.84 Long term (current) use of oral hypoglycemic drugs; Z95.5 Presence of coronary angioplasty implant and graft; Z87.891 Personal history of nicotine dependence
CPT/HCPCS: 71045; 80053; 83880; 84484; 85025; 93005; 99284

== ENCOUNTER → 2021-05-26 11:30 | Outpatient (BNVA) | payer MEDICARE, MEDICAID, SELFPAY | PROVIDERS: PCP Family Medicine; Visit Provider Nurse Practitioner | DX: F33.0 Major depressive disorder, recurrent, mild (principal) | CPT/HCPCS: 99214 ==

== ENCOUNTER → 2021-07-07 12:13 | Outpatient (BNVA) | payer MEDICARE, MEDICAID, SELFPAY | PROVIDERS: PCP Family Medicine; Visit Provider Nurse Practitioner | DX: F33.0 Major depressive disorder, recurrent, mild (principal) | CPT/HCPCS: 99214 ==

== ENCOUNTER 2021-08-05 17:34 | Observation (INO) | payer MEDICARE, MEDICAID, SELFPAY ==
[2021-08-05] VITALS (17 sets, daily range): BP systolic 155–197; BP diastolic 72–97; PULSE 71–88; RESP 18–24; TEMP 36.7–37.1; O2SAT 90–97; BMI 40.6
--- NOTE | 2021-08-05 17:36 | CTR_ITS ---
PROCEDURE INFORMATION: Exam: CT Head Without Contrast Exam date and time: 08/05/2021 5:36 PM Age: 76 years old Clinical indication: Altered mental status/memory loss; Additional info: AMS TECHNIQUE: Imaging protocol: Computed tomography of the head without contrast. Total images: 207 Radiation optimization: All CT scans at this facility use at least one of these dose optimization techniques: automated exposure control; mA and/or kV adjustment per patient size (includes targeted exams where dose is matched to clinical indication); or iterative reconstruction. COMPARISON: CT head wo con* [id number] 07/19/2020 12:33 PM RADIATION DOSE METRICS: Total DLP (mGy-cm): 1163.79 FINDINGS: Brain: No evidence of active or acute intracranial pathologic process, hemorrhage, or trauma. No hyperdense MCA or insular ribbon sign. No mass effect. No midline shift. Cerebral arteriosclerosis. Atrophic changes considered greater than that anticipated for patient's chronological age. Cerebral ventricles: No ventriculomegaly. Paranasal sinuses: Visualized sinuses are unremarkable. No fluid levels. Mastoid air cells: Visualized mastoid air cells are well aerated. Bones/joints: Unremarkable. No acute fracture. Soft tissues: Unremarkable. CT/CT head wo con* [id number] IMPRESSION: No evidence of active or acute intracranial pathologic process, hemorrhage, or trauma. Radiation Dose CTDIVOL = (mGy): DLP = 1163.79 (mGy-cm)
--- NOTE | 2021-08-05 17:36 | XRR_ITS ---
PROCEDURE INFORMATION: Exam: XR Chest Exam date and time: 08/05/2021 5:36 PM Age: 76 years old Clinical indication: Other: AMS TECHNIQUE: Imaging protocol: XR of the chest. Views: 1 view. Total images: 1 COMPARISON: CR XR chest 1V portable [id number] 05/02/2021 1:41 PM FINDINGS: Lungs: No visible active interstitial or alveolar airspace disease. Pleural spaces: No pleural effusion. No pneumothorax. Heart/Mediastinum: Cardiac structures and configuration with arteriosclerosis. Bones/joints: Mild scoliotic curvature. Other findings: Obesity. XR/XR chest 1V portable [id number] IMPRESSION: Nonacute. Radiation Dose CTDIVOL = (mGy): DLP = (mGy-cm)
[2021-08-05 17:48] LABS: Basophils # 0.1 10^3/uL (0.0-0.1); Basophils % 0.5 %; Eosinophils % 0.2 %; Hemoglobin 13.1 g/dL (11.7-16.6); Lymphocytes # 3.5 10^3/uL (0.8-4.8); Lymphocytes % 31.2 %; Mean Corpuscular HGB Conc 31.2 g/dL (30.0-36.0); Mean Corpuscular Hemoglobin 28.7 pg (28.0-34.0); Mean Corpuscular Volume 92.1 fl (80-94); Mean Platelet Volume 11.4 fL (7.4-10.4); Monocytes # 0.6 10^3/uL (0.2-0.9); Monocytes % 5.1 %; Neutrophils # 6.96 10^3/uL (1.8-7.7); Neutrophils % 62.6 %; Nucleated Red Blood Cells % 0 %; Platelet Count 302 10^3/cmm (130-400); Red Blood Count 4.56 10^6/uL (4.1-5.3); Red Cell Distribution Width 14.1 % (12.1-15.1); White Blood Count 11.1 10^3/uL (4.0-10.0)
[2021-08-05 18:04] LABS: Troponin(5th) Baseline 24 ng/L (0-15)
[2021-08-05 18:10] LABS: Alanine Aminotransferase 11 U/L (0-41); Albumin Level 4.7 g/dL (3.5-5.2); Alkaline Phosphatase 123 IU/L (40-130); Anion Gap 20.8 (5-19); Aspartate Amino Transferase 13 U/L (0-40); Blood Urea Nitrogen 17 mg/dL (8-23); Carbon Dioxide 26 mmol/L (22-29); Chloride 102 mmol/L (98-107); Globulin 3.1 g/dL (1.3-4.6); Glucose 136 mg/dL (65-115); Lipase 18 U/L (13-60); Osmolality Calculated 304 mOsm/kg (285-295); Potassium 3.8 mmol/L (3.5-5.1); Sodium 145 mmol/L (136-145); Total Bilirubin 0.5 mg/dL (0.15-1.2); Total Protein 7.8 g/dL (6.6-8.7)
[2021-08-05 18:13] LABS: NT Pro B Type Natriuretic Pept 195 pg/mL (0-450)
--- NOTE | 2021-08-05 18:14 | W.ED.GENADLT ---
HPI - General Adult General: Chief complaint: Altered Mental Status Stated complaint: AMS, INCREASED CONFUSION Time Seen by Provider: 08/05/21 17:35 History of Present Illness: HPI narrative: CC: AMS HPI: [76]yo patient w/ hx of chronic pain, DM, HLD, CAD presenting to the emergency room for altered mental status. Patient's , patient has become increasingly confused since Monday at which point time, he has been off of Lyrica because his was in the hospital and he was unable to refill it. Patient is not able to take care of himself and is confused. At baseline, patient is able to perform his ADLs and have cover conversation. Currently, patient is agitated and not following commands. She is unable to obtain. Per family, patient did not have any chest pain, shortness breath, palpitation, fever/chills, diarrhea, abdominal pain or other focal complaints. Family denies any active hallucination, suicidal homicidal ideation. Onset: Unknown Duration: ongoing, unclear duration Location: home Severity: severe Review of Systems Narrative: REVIEW OF SYSTEMS unable to obtain due to current cognitive status PFSH ED PFSH: Medical History CAD (coronary artery disease) Chronic back pain Diabetes mellitus type 2 in obese Dyslipidemia Encounter for long-term use of opiate analgesic Gabapentin overdose Gout Major depressive disorder, recurrent, mild (Unknown) Neuropathy Opioid contract exists MALORIE (obstructive sleep apnea) Psychiatric care Renal insufficiency Smokeless tobacco use Substance abuse Urinary retention Surgical History History of cholecystectomy History of heart artery stent Family History Other Cancer Hypertension Social History Smoking and tobacco status: former smoker Second hand smoke exposure: No Alcohol intake: never History of recent travel: No Physical Exam Narrative: EXAM NARRATIVE: Head: Atraumatic Eyes: PERRL, conjunctiva without injection ENT: Mucous membrane moist NECK: Supple without lymphadenopathy LUNGS: LCTAB CV: RRR ABDOMEN: Soft, nontender EXTREMITY: Normal ROM SKIN: No rash or erythema, no signs of track rodriguez, no visible patches, no noticeable cellulitis NEURO: Somnolent but arousable, moving all extremities, GCS of 13 (confusion and incomprehensible speech) PSYCH: Occasionally agitated and confused, unable to fully assess Course Vital Signs: Vital signs: Vital Signs Temperature 98.1 F 08/05/21 17:35 Pulse Rate 75 08/05/21 17:35 Respiratory Rate 18 08/05/21 17:35 Blood Pressure 197/97 08/05/21 17:35 Pulse Oximetry 96 08/05/21 17:35 MDM - General Adult MDM Narrative: Medical decision making narrative: [76]yo patient w/ hx of chronic pain, CAD, HLD, HTN BIBA for AMS since monday. GCS of 13, rest of exam wnl. EKG: EKG: Normal Sinus Rhythm. No overt ischemic findings and no prolongation of QTc or QRS intervals. No signs of hyperkalemia (peaked T waves, QRS widening, and AK prolongation) Workup: CBC, CMP, acetaminophen level, salicylate level, VBG, CK, UA, ECG, UA/UDS, CT brain, XR Chest Intervention:IVF, observation, and pregabalin 150mg On reassessment, imaging study negative for any acute findings. Laboratory evaluation within normal limit. Patient continues to be confused and altered. I discussed case with Dr. Peña in regards to her Lyrica use and possible withdrawal symptoms. However altered renal status is not been associated with Baird withdrawal. Patient admitted to hospital for AMS work-up. Disposition: admission Lab Data: Labs: Lab Results 08/05/21 08/05/21 08/05/21 17:12 17:12 17:12 WBC 11.1 10^3/uL H 10 ^3/uL (4.0-10.0) RBC 4.56 10^6/uL 10^6 /uL (4.1-5.3) Hgb 13.1 g/dL g/dL (11.7-16.6) Hct 42.0 % % (42.0-52.0) MCV 92.1 fl fl (80-94) MCH 28.7 pg pg (28.0-34.0) MCHC 31.2 g/dL g/dL (30.0-36.0) RDW 14.1 % % (12.1-15.1) Plt Count 302 10^3/cmm 10^3 /cmm (130-400) MPV 11.4 fL H fL (7.4-10.4) Neut % (Auto) 62.6 % % Lymph % (Auto) 31.2 % % [place] % (Auto) 5.1 % % Eos % (Auto) 0.2 % % Baso % (Auto) 0.5 % % Neut # (Auto) 6.96 10^3/uL 10^3 /uL (1.8-7.7) Lymph # (Auto) 3.5 10^3/uL 10^3/ uL (0.8-4.8) [place] # (Auto) 0.6 10^3/uL 10^3/ uL (0.2-0.9) Eos # (Auto) 0.0 10^3/uL 10^3/ uL (0.0-0.8) Baso # (Auto) 0.1 10^3/uL 10^3/ uL (0.0-0.1) Nucleated RBC % (a uto) 0 % % Nucleated RBCs # 0.0 /100WBC /100W BC Sodium 145 mmol/L mmol/L (136-145) Potassium 3.8 mmol/L mmol/L (3.5-5.1) Chloride 102 mmol/L mmol/L (98-107) Carbon Dioxide 26 mmol/L mmol/L (22-29) Anion Gap 20.8 H (5-19) BUN 17 mg/dL mg/dL (8-23) Creatinine 1.4 mg/dL H mg/dL (0.7-1.2) GFR Calculation Not Reportable Glucose 136 mg/dL H mg/dL (65-115) Calculated Osmolal ity 304 mOsm/kg H mOs m/kg (285-295) Calcium 10.0 mg/dL mg/dL (8.5-10.5) Total Bilirubin 0.5 mg/dL mg/dL (0.15-1.2) AST 13 U/L U/L (0-40) ALT 11 U/L U/L (0-41) Alkaline Phosphata se 123 IU/L IU/L (40-130) Troponin T Baselin e 24 ng/L H ng/L (0-15) NT-Pro-B Natriuret Pep 195 pg/mL pg/mL (0-450) Total Protein 7.8 g/dL g/dL (6.6-8.7) Albumin 4.7 g/dL g/dL (3.5-5.2) Globulin 3.1 g/dL g/dL (1.3-4.6) Lipase 18 U/L U/L (13-60) Imaging Data^: Other Imaging: Radiologist's impression: [id number] [place], [place] [address]MU Scan ReportSigned Patient: Isaías ClarkeUnit #: [id number]: 5Acct#:[id number]/Sex: 76 / MADM Date: 08/05/21Loc: ERRoom/Bed:Attending Dr: Ordering Provider/Ordering MD: Juan Rose MD Date of Service: 08/05/21 Procedure(s): CT head wo con* [id number] Accession Number(s): [id number] Report Number: [id number] PROCEDURE INFORMATION: Exam: CT Head Without Contrast Exam date and time: 08/05/2021 5:36 PM Age: 76 years old Clinical indication: Altered mental status/memory loss; Additional info: AMS TECHNIQUE: Imaging protocol: Computed tomography of the head without contrast. Total images: 207 Radiation optimization: All CT scans at this facility use at least one of these dose optimization techniques: automated exposure control; mA and/or kV adjustment per patient size (includes targeted exams where dose is matched to clinical indication); or iterative reconstruction. COMPARISON: CT head wo con* [id number] 07/19/2020 12:33 PM RADIATION DOSE METRICS: Total DLP (mGy-cm): 1163.79 FINDINGS: Brain: No evidence of active or acute intracranial pathologic process, hemorrhage, or trauma. No hyperdense MCA or insular ribbon sign. No mass effect. No midline shift. Cerebral arteriosclerosis. Atrophic changes considered greater than that anticipated for patient's chronological age. Cerebral ventricles: No ventriculomegaly. Paranasal sinuses: Visualized sinuses are unremarkable. No fluid levels. Mastoid air cells: Visualized mastoid air cells are well aerated. Bones/joints: Unremarkable. No acute fracture. Soft tissues: Unremarkable. CT/CT head wo con* [id number] IMPRESSION: No evidence of active or acute intracranial pathologic process, hemorrhage, or trauma. Radiation Dose CTDIVOL = (mGy): DLP = 1163.79 (mGy-cm) Dictated By:Deep Martinez By:Deep Martinez Date/Time:08/05/21 1902DD/ [address] [address]YIfe ReportSigned Patient: Vega Clarke #: [id number]: 5Acct#:[id number]/Sex: 76 / MADM Date: 08/05/21Loc: ERRoom/Bed:Attending Dr: Ordering Provider/Ordering MD: Juan Rose MD Date of Service: 08/05/21 Procedure(s): XR chest 1V portable [id number] Accession Number(s): [id number] Report Number: [id number] PROCEDURE INFORMATION: Exam: XR Chest Exam date and time: 08/05/2021 5:36 PM Age: 76 years old Clinical indication: Other: AMS TECHNIQUE: Imaging protocol: XR of the chest. Views: 1 view. Total images: 1 COMPARISON: CR XR chest 1V portable [id number] 05/02/2021 1:41 PM FINDINGS: Lungs: No visible active interstitial or alveolar airspace disease. Pleural spaces: No pleural effusion. No pneumothorax. Heart/Mediastinum: Cardiac structures and configuration with arteriosclerosis. Bones/joints: Mild scoliotic curvature. Other findings: Obesity. XR/XR chest 1V portable [id number] IMPRESSION: Nonacute. Radiation Dose CTDIVOL = (mGy): DLP = (mGy-cm) Dictated By:Deep Martinez By:Deep Martinez Date/Time:08/05/21 1903DD/ 35 Discharge Plan Discharge Patient Disposition: Admitted As Inpatient Clinical Impression: Altered mental status Condition: Stable Coding Level of Care Code ED Children[employer] Club Attendant for Eric Martin
[2021-08-05 19:18] LABS: Lactate (Lactic Acid level) 1.5 mmol/L (0.5-2.2)
[2021-08-05 19:23] LABS: Acetaminophen < 5.0 ug/mL (10-30); Salicylate < 0.3 mg/dL (3-10)
[2021-08-05 19:36] LABS: Add Urine Microscopic? NO; Charge for UA Resulting for Rev
--- NOTE | 2021-08-05 19:36 | ECG_ITS ---
[facility] Test Date: 2021-08-05 Pat Name: Isaías Clarke Department: Room: Gender: Male Obstetrician Gynecologist: : 1945 Requested By: Juan Rose Order Number: [id number] Reading MD: ADALID CALVO Measurements Intervals [place] Rate: 78 P: 71 [place]: 181 QRS: 63 QRSD: 105 T: 61 QT: 395 QTc: 451 Interpretive Statements SINUS RHYTHM Compared to ECG 05/02/2021 13:38:00 No significant changes Electronically Signed On 08-06-2021 14:35:09 WEB MARKETING ANALYST by ADALID CALVO [id number]
--- NOTE | 2021-08-05 19:36 | PC.NURSE ---
EKG done at 1736
[2021-08-05 19:42] LABS: Bilirubin Urine Neg (Negative); Blood Urine Neg (Negative); Glucose Urine UA Norm (Normal); Ketones Urine Negative (Negative); Leukocyte Esterase Urine Negative (Negative); Nitrate Urine Negative (Negative); Protein Urine Neg (Negative); Specific Gravity, Urine 1.015 (1.005-1.030); Urine Appearance Clear (CLEAR); Urine Color Yellow (Yellow); Urobilinogen Urine Norm (Negative); pH Urine 5 (5-7)
[2021-08-05] MEDS: LORazepam 2 mg/mL INJ 1 mL IVP (19:54)
[2021-08-05] MEDS: sodium chloride 0.9% 1,000 ML 999 ML IV (19:54)
[2021-08-05] MEDS: pregabalin 150 mg Capsule PO (19:56)
[2021-08-05 19:59] LABS: Influenza A by IFA Negative (Negative); Influenza B by IFA Negative (Negative)
[2021-08-05 20:01] LABS: Amphetamines Screen Urine Negative (Negative); Barbiturates Screen Urine Negative (Negative); Benzodiazepines Screen Urine Negative (Negative); Cocaine Screen Urine Negative (Negative); Opiate Screen Urine Positive (Negative); PCP Screen Urine Negative (Negative); THC Screen Urine Positive (Negative)
[2021-08-05 20:35] LABS: Troponin 5 2HR 34.78 ng/L (0-15)
[2021-08-05 20:44] LABS: Troponin 5 2HR Delta 10.78 ABS# (0-10)
--- NOTE | 2021-08-05 22:27 | PM.HP ---
Providers/Chief Complaint Admitting Physician: Erika Doll Primary Care Provider: Galindo Carson DO Chief Complaint: AMS, INCREASED CONFUSION History of Present Illness 76-year-old man with past medical history of coronary artery disease s/p stenting of distal RCA in May [address] Holder, type 2 diabetes mellitus, dyslipidemia, depression, obstructive sleep apnea, chronic back pain who was brought in to ER for altered mental status. Patient was not able to provide history due to this. was not at bedside during my examination. In review of records apparently patient had been confused for past few days. at attributed this to missing Lyrica dose. No reported fevers, respiratory distress or chest pain at home. No nausea or vomiting. Similar admission in the past during which time he was noted to have diarrhea with shiga toxin however no diarrhea was noted this time. Upon arrival to ER His laboratory workup showed a WBC of 11.1, hemoglobin 13.1, hematocrit 42.0 and a platelet count of 302. Sodium 145, potassium 3.8, chloride 102, bicarb 26, BUN 17 and creatinine of 1.4. Similar creatinine in April of 2021. Glucose of 136. Troponin t baseline 24, Repeat at 2hr of 34.7 and 6hr of 57.5. Probnp of 195. UA negative, UDS positive for opiates and marijuana. Flu A/B negative. In ER was given aspirin 325 mg PO x1 and Lyrica 150 mg PO x 1. Review of Systems General: Reports: ROS unobtainable due to mental status Medications/Allergies Home Medications Medication Instructions Recorded Confirmed Last Taken Type aspirin 81 mg tablet,delayed 81 mg PO DAILY 10/15/19 07/07/21 05/02/21 History release atorvastatin 20 mg tablet 20 mg PO DAILY 10/15/19 07/07/21 05/01/21 History naloxone 4 mg/actuation nasal spray 1 spray INTRANASAL .COMPLEX 10/15/19 07/07/21 Unknown History potassium chloride 20 mEq 20 meq PO BID #60 tab 11/01/19 07/07/21 05/02/21 Rx tablet,extended release pantoprazole 40 mg tablet,delayed 40 mg PO BID #60 tab 11/21/19 07/07/21 05/02/21 Rx release nitroglycerin 0.4 mg sublingual 0.4 mg SUBLINGUAL Q5M PRN 90 Days 02/03/20 07/07/21 Unknown Rx tablet #25 tab metformin 1,000 mg tablet 1,000 mg PO BID 30 Days #60 tab 02/26/20 07/07/21 05/02/21 Rx carvedilol 12.5 mg tablet 12.5 mg PO BID 30 Days #60 tab 04/20/20 07/07/21 05/02/21 Rx albuterol sulfate [ProAir HFA] 1 - 2 puff INHALATION Q6H PRN 05/25/20 07/07/21 Unknown History cyanocobalamin (vitamin B-12) 1,000 mcg PO DAILY #0 05/25/20 07/07/21 05/02/21 History [Vitamin B-12] furosemide [Lasix] 40 mg PO BID #60 tab 05/28/20 07/07/21 05/02/21 Rx hydrocodone-acetaminophen 1 tab PO Q6H PRN #0 tab 07/22/20 07/07/21 07/18/20 Rx fluticasone propionate 50 2 spray INTRANASAL DAILY 30 Days 09/16/20 07/07/21 Unknown Rx mcg/actuation nasal #15.8 ml spray,suspension allopurinol 300 mg PO DAILY 05/02/21 07/07/21 05/02/21 History pregabalin 150 mg PO TID 05/02/21 07/07/21 04/29/21 History benazepril 10 mg tablet 10 mg PO DAILY #90 tab 05/12/21 07/07/21 Unknown Rx isosorbide mononitrate 30 mg 30 mg PO DAILY #30 tab 05/12/21 07/07/21 Unknown Rx tablet,extended release 24 hr trazodone 150 mg tablet 150 mg PO .HS #30 tab 07/07/21 07/07/21 Unknown Rx vilazodone 40 mg tablet 40 mg PO DAILY #30 tab 07/07/21 07/07/21 Unknown Rx Allergies Allergy/AdvReac Type Severity Reaction Status Date / Time gabapentin AdvReac Mild ADR-Nausea Verified 07/07/21 12:46 PFSH Acute PFSH: Medical History CAD (coronary artery disease) Chronic back pain Diabetes mellitus type 2 in obese Dyslipidemia Encounter for long-term use of opiate analgesic Gabapentin overdose Gout Major depressive disorder, recurrent, mild (Unknown) Neuropathy Opioid contract exists MALORIE (obstructive sleep apnea) Psychiatric care Renal insufficiency Smokeless tobacco use Substance abuse Urinary retention Surgical History History of cholecystectomy History of heart artery stent Family History Other Cancer Hypertension Social History Smoking and tobacco status: former smoker Second hand smoke exposure: No Alcohol intake: never History of recent travel: No Vitals/I&O/Wt Last Vital Signs Temp 98.4 F 08/06/21 00:00 Pulse 76 08/06/21 00:00 Resp 18 08/06/21 00:00 BP 170/62 08/06/21 00:00 Pulse Ox 97 08/06/21 00:00 08/05/21 08/05/21 08/06/21 14:59 22:59 06:59 Intake Total 1000 / 1000 Balance 1000 / 1000 Weight last 48 hrs Weight 136.078 kg Physical Exam Narrative: EXAM NARRATIVE: General: Sleepy, confused HEENT: Grossly unremarkable CVS; RRR Chest; Non-labored respiration Abd; Soft, NT,ND Ext; No edema Data : 08/05/21 17:12 08/05/21 17:12 Micro: Microbiology 08/05/21 18:45 Blood Culture - Preliminary Blood SPECIMEN COLLECTED 08/05/21 17:50 Blood Culture - Preliminary Blood SPECIMEN COLLECTED A&P Assessment and plan (1) Altered mental status: Status: Acute (2) Elevated troponin: Status: Acute Additional A&P Information Altered Mental Status Etiology unclear Baseline unknown No clear evidence of infectious process UA negative Possible due to THC vs HTN encephalopathy Dysphagia bedside screen NPO Possible drug induced Elevated Troponin hx of CAD s/p dRCA stent Delta trop 33.57 with mild ANAT Heparin drip started Aspirin / Statin / B-nico ECHO ordered Consider cardiology consult in am Cardiac telemetry Acute kidney injury Creatinine 1.4 Likely underlying CKD Repeat BMP in am Monitor u/o NS at 75cc/hr Chronic Obstructive pulmonary disease Stable Supplemental o2 as needed Duoneb q6hr PRN Obstructive sleep apnea Unclear if on CPAP Diabetes Mellitus with neuropathy Sliding scale insulin Q6hr glucose checks while npc A1c in am Lyrica Dyslipidemia Lipid panel Statin DVT ppx Heparin drip. Attestations Medical Necessity Statement*: Less than 2 midnight stay in hospital for eval and treatment Time Spent in Patient Care: Greater than 35 minutes (>than 50% of time spent in counselling and/or direct pt care on unit). Coding Level of Care Code Acute Tin Pourer for [place] Fwd Diagnoses Altered mental status R41.82 Elevated troponin R77.8
--- NOTE | 2021-08-05 23:36 | ECG_ITS ---
[facility] Test Date: 2021-08-05 Pat Name: Isaías Clarke Department: Room: 263 Gender: Male Compensation/Benefits Specialist: : 1945 Requested By: Juan Rose Order Number: [id number] Reading MD: ADALID CALVO Measurements Intervals [place] Rate: 64 P: 62 [place]: 172 QRS: 53 QRSD: 107 T: 37 QT: 418 QTc: 434 Interpretive Statements SINUS RHYTHM Compared to ECG 08/05/2021 19:40:01 No significant changes Electronically Signed On 08-06-2021 14:34:00 METAL TRIM ERECTOR by ADALID CALVO [id number]
[2021-08-06] VITALS: BP 170/62; PULSE 76; RESP 18; TEMP 36.9; O2SAT 97
[2021-08-06 00:16] LABS: Glucose Point of Care 143 mg/dL (70-110)
[2021-08-06 00:23] LABS: Troponin 5 6HR 57.57 ng/L (0-15)
[2021-08-06 00:29] LABS: Troponin 5 6HR Delta 33.57 ng/L (0-12)
--- NOTE | 2021-08-06 02:45 | ECG_ITS ---
Test Date: 2021-08-06 Pat Name: Isaías Clarke Department: Room: 263 Gender: Male Cafe Associate: : 1945 Requested By: Juan Rose Order Number: [id number] Reading MD: ADALID CALVO Measurements Intervals [place] Rate: 66 P: 58 MD: 202 QRS: 66 QRSD: 105 T: 64 QT: 418 QTc: 438 Interpretive Statements SINUS RHYTHM Compared to ECG 08/05/2021 23:34:43 No significant changes Electronically Signed On 08-06-2021 14:31:35 DOPE MIXER by ADALID CALVO [id number]
[2021-08-06 04:27] VITALS: BP 163/74; PULSE 72; RESP 19; TEMP 36.9; O2SAT 94
--- NOTE | 2021-08-06 05:17 | USCV_ITS ---
Isaías Clarke Age: 76 Gender: M : 1945 Exam Date: 08/06/2021 13:00 Ordering Phys: Erika Doll MD Technologist: Riddhi Bedolla [place]am [place] [facility] [place]: NSTEMI BP: 163 / 74 HR: 53 Rhythm: Sinus Technical Quality: Technically difficult study MEASUREMENTS (Male / Female) Normal Values 2D ECHO LV Diastolic Diameter PLAX 3.1 cm 4.2 - 5.9 / 3.9 - 5.3 cm LV Systolic Diameter PLAX 1.6 cm LV Chamber Size 4.1 cm IVS Diastolic Thickness 1.3 cm 0.6 - 1.0 / 0.6 - 0.9 cm IVS Systolic Thickness 1.8 cm LVPW Diastolic Thickness 0.9 cm 0.6 - 1.0 / 0.6 - 0.9 cm LVPW Systolic Thickness 1.2 cm RV Chamber Size 4.0 cm LVOT Diameter 2.1 cm LV Ejection Fraction 2D Teich 80.7 % LV Ejection Fraction MOD 2C 66.4 % LV Ejection Fraction 2C AL 67.9 % LA Diameter 4.3 cm LA Width 3.2 cm LA Height 5.8 cm RA Width 3.6 cm RA Height 5.4 cm Aorta at Sinotubular Diameter 2.8 cm M-MODE LV Diastolic Diameter MM 6.0 cm 4.2 - 5.9 / 3.9 - 5.3 cm LV Systolic Diameter MM 4.5 cm LV Ejection Fraction MM Teich 50.5 % IVS Diastolic Thickness MM 1.6 cm 0.6 - 1.0 / 0.6 - 0.9 cm IVS Systolic Thickness MM 1.6 cm LVPW Diastolic Thickness MM 1.6 cm 0.6 - 1.0 / 0.6 - 0.9 cm LVPW Systolic Thickness MM 1.9 cm RV Diastolic Diameter MM 1.7 cm Aortic Annulus Diameter 3.6 cm LA Ao Ratio MM 1.5 DOPPLER AV Peak Velocity 137.0 cm/s LVOT Peak Velocity 93.0 cm/s AV Area Cont Eq vti 2.5 cm squared AV Area Cont Eq pk 2.3 cm squared MV Area PHT 2.7 cm squared Mitral E to A Ratio 0.7 MV E' Velocity 41.5 cm/s Mitral E to MV E' Ratio 10.5 Mitral E to LV E' Lateral Ratio 8.6 Mitral E to LV E' Septal Ratio 13.7 TV Peak E Velocity 53.0 cm/s Right Atrial Pressure 3.0 mmHg PV Peak Velocity 113.0 cm/s RV Acceleration Time 0.1 s RV Ejection Time 0.4 s RV AcT/ET 0.2 FINDINGS Left Ventricle Normal left ventricular cavity size. Normal left ventricular systolic function. No regional wall motion abnormalities. Left ventricular ejection fraction is estimated at 60 %. Grade I/IV diastolic dysfunction (abnormal relaxation filling pattern), normal to mildly elevated filling pressures. Right Ventricle The right ventricle is normal in size and function. RVSP could not be calculated due to incomplete tricuspid regurgitation velocity profile. Right Atrium The right atrium is normal in size. Left Atrium The left atrium is normal in size. Mitral Valve Moderately thickened mitral valve. No mitral valve stenosis. Mild mitral annular calcification. Trace mitral valve regurgitation. Aortic Valve Moderate aortic valve calcification. No aortic valve stenosis. Trace aortic valve regurgitation. Tricuspid Valve Structurally normal tricuspid valve without significant stenosis or regurgitation. Pulmonic Valve Structurally normal pulmonic valve without significant stenosis. There is no pulmonic regurgitation. Pericardium Normal pericardium without effusion. Aorta Normal ascending aorta dimension. CONCLUSIONS 1-Normal left ventricular cavity size. Normal left ventricular systolic function. No regional wall motion abnormalities. Left ventricular ejection fraction is estimated at 60 %. Grade I/IV diastolic dysfunction (abnormal relaxation filling pattern), normal to mildly elevated filling pressures. 2-Moderately thickened mitral valve. No mitral valve stenosis. Mild mitral annular calcification. Trace mitral valve regurgitation. 3-Moderate aortic valve calcification. No aortic valve stenosis. Trace aortic valve regurgitation. 4-There is no pericardial effusion. 5-Right atrial pressure is around 5 mm of mercury. 6-No significant change since the prior echocardiogram study of 07/20/2020. Mehreen Muñoz MD (Electronically Signed) Final Date: 06 August 2021 14:57 S
[2021-08-06] MEDS: sodium chloride 0.9% 1,000 ML 75 ML IV (05:18)
[2021-08-06] MEDS: heparin 5,000 unit/mL INJ 1 mL IV ×2 (06:28→13:42)
[2021-08-06] MEDS: heparin drip 25,000 UNIT/500 ML PREMIX 34 UNIT IV (06:30)
[2021-08-06 07:05] LABS: Basophils % 0.5 %; Eosinophils % 0.4 %; Hematocrit 37.2 % (42.0-52.0); Hemoglobin 11.7 g/dL (11.7-16.6); Lymphocytes % 25.8 %; Mean Corpuscular HGB Conc 31.5 g/dL (30.0-36.0); Mean Corpuscular Hemoglobin 28.7 pg (28.0-34.0); Mean Corpuscular Volume 91.2 fl (80-94); Mean Platelet Volume 11.3 fL (7.4-10.4); Monocytes # 0.5 10^3/uL (0.2-0.9); Monocytes % 5.7 %; Neutrophils # 5.24 10^3/uL (1.8-7.7); Nucleated Red Blood Cells % 0 %; Platelet Count 224 10^3/cmm (130-400); Red Blood Count 4.08 10^6/uL (4.1-5.3); Red Cell Distribution Width 13.8 % (12.1-15.1); White Blood Count 7.8 10^3/uL (4.0-10.0)
[2021-08-06 07:39] LABS: Partial Thromboplastin Time > 250.0 SECONDS (23.9-36.7)
[2021-08-06 07:44] LABS: Procalcitonin 0.05 ng/mL (0-0.5); Thyroid Stimulating Hormone 0.57 uIU/mL (0.27-4.20)
[2021-08-06 07:57] LABS: Alanine Aminotransferase 9 U/L (0-41); Albumin Level 3.7 g/dL (3.5-5.2); Alkaline Phosphatase 92 IU/L (40-130); Anion Gap 16.6 (5-19); Aspartate Amino Transferase 12 U/L (0-40); Blood Urea Nitrogen 16 mg/dL (8-23); Calcium 8.6 mg/dL (8.5-10.5); Carbon Dioxide 22 mmol/L (22-29); Chloride 110 mmol/L (98-107); Globulin 2.7 g/dL (1.3-4.6); Glucose 111 mg/dL (65-115); Osmolality Calculated 302 mOsm/kg (285-295); Potassium 3.6 mmol/L (3.5-5.1); Sodium 145 mmol/L (136-145); Total Bilirubin 0.4 mg/dL (0.15-1.2); Total Protein 6.4 g/dL (6.6-8.7)
[2021-08-06 08:00] VITALS: BP 189/81; PULSE 70; RESP 18; TEMP 36.8; O2SAT 96
--- NOTE | 2021-08-06 09:17 | PC.PHAR ---
pts calixto [phone] verified pts medications-states she is unsure if the pt is taking coreg 12.5mg bid last filled on 05/03/21 90d/s
[2021-08-06] MEDS: pantoprazole DR 40 mg Tablet PO (10:14)
[2021-08-06] MEDS: carvedilol 12.5 mg Tablet PO ×2 (10:14→17:12)
[2021-08-06 11:37] VITALS: BP 171/82; PULSE 61; RESP 18; TEMP 36.6; O2SAT 94
--- NOTE | 2021-08-06 11:54 | PC.CHAP ---
Pastoral Care Encounter/Spiritual Assessment Type of Contact [] Declined solar sales rep visit [] Patient/Family/Request visit [] Outpatient visit [] Follow-up visit [] Physician referral [] Code/Alert [xx] Routine visit [] Staff referral [] Actively dying [] Patient sleeping [] Family support [] [] Out of room [] Palliative care [] [] Receiving care in room [] Pre-surgical visit [] Trauma [] Long length of stay [] ICU visit [] Other: Relational/Emotional Strength [xx] Patient feels connected with others/family/visitors/staff [] Distress [] Loneliness/isolation [] Abandonment Spirituality of Patient [xx] Person of [place] [] Attends Congregational of their [place] [xx] Believes in Prayer [] Reads Bible or Buddhism materials [] There are Spiritual issues to be addressed Freezer Tunnel Operator Interventions [xx] Prayer [xx] Active listening [xx] Non-anxious presence [] Spiritual/emotional support [] Crisis/trauma care [] Spiritual counseling [] Bereavement support [] Provided bereavement packet [] Provided Bible/devotional materials [] Provided toy/stuffed animal, coloring book to patient or family member [] Provided Communion [] Anointing/[place] [] Salvation [xx] Completed spiritual assessment [] Other: Impact on Illness or Injury [] Angry [] Fearful [] Anxious [] Often cries [] Exhaustion [] Unable to work [] Unable to attend zoroastrianism [] Unable to walk/stand [] Unable to read [] Unable to drive [] Unable to eat/drink [] Unable to sleep [] Unable to be with family [] Patient intubated [xx] Other: mobility difficulties Summary Patient said he feels a bit better but has pain in his back. Freezer Tunnel Operator offered to ask nurse for help in repositioning him for comfort. He wanted this help so solar sales rep found his nurse who said she would be right in to help and also give him prescribed medications. Time spent with patient 5 minutes
[2021-08-06 13:11] LABS: Partial Thromboplastin Time 122.1 SECONDS (23.9-36.7)
[2021-08-06 16:00] VITALS: BP 189/83; PULSE 62; RESP 18; TEMP 36.4; O2SAT 90
--- NOTE | 2021-08-06 17:02 | PM.CONSULT ---
Providers/Reason For Consult Consulting Physician/Specialty*: Abnormal cardiac markers Reason for Consult*: Cardiology Attending Physician: Emil Weaver MD Primary Care Provider: Gailndo Carson DO History of Present Illness History of Present Illness Isaías Clarke is a 76 year old male past medical history significant for coronary artery disease history of stent in 2009 hypertension hyperlipidemia was admitted with confusion however he was noted to have mildly elevated cardiac markers. Patient has been denying worsening of chest pain according to him in the past he has chest pressure with some shortness of breath and Dr. Geller optimize his medicine including isosorbide mononitrate after that he did not have any more episodes. Sometimes seems like he forgets but overall he is pretty sure that this time he did not come in with chest pain most likely reason for his admission was confusion he was noted to have elevated cardiac markers most likely type II, blood pressure moderately elevated. Review of Systems General: Reports: ROS unobtainable due to mental status Narrative: REVIEW OF SYSTEMS unable to obtain due to current cognitive status Eyes: Denies: photophobia ENMT: Denies: enlarged tonsils Psych: Denies: sleeping more Meds/Allergies Home Medications and Allergies Home Medications Medication Instructions Recorded Confirmed Last Taken Type aspirin 81 mg tablet,delayed 81 mg PO DAILY 10/15/19 08/06/21 05/02/21 History release atorvastatin 20 mg tablet 20 mg PO DAILY 10/15/19 08/06/21 05/01/21 History naloxone 4 mg/actuation nasal spray 1 spray INTRANASAL .COMPLEX 10/15/19 08/06/21 Unknown History potassium chloride 20 mEq 20 meq PO BID #60 tab 11/01/19 08/06/21 05/02/21 Rx tablet,extended release pantoprazole 40 mg tablet,delayed 40 mg PO BID #60 tab 11/21/19 08/06/21 05/02/21 Rx release nitroglycerin 0.4 mg sublingual 0.4 mg SUBLINGUAL Q5M PRN 90 Days 02/03/20 08/06/21 Unknown Rx tablet #25 tab metformin 1,000 mg tablet 1,000 mg PO BID 30 Days #60 tab 02/26/20 08/06/21 05/02/21 Rx albuterol sulfate [ProAir HFA] 1 - 2 puff INHALATION Q6H PRN 05/25/20 08/06/21 Unknown History cyanocobalamin (vitamin B-12) 1,000 mcg PO DAILY #0 05/25/20 08/06/21 05/02/21 History [Vitamin B-12] furosemide [Lasix] 40 mg PO BID #60 tab 05/28/20 08/06/21 05/02/21 Rx hydrocodone-acetaminophen 1 tab PO Q6H PRN #0 tab MDD 5 tabs 07/22/20 08/06/21 07/18/20 Rx per day allopurinol 300 mg PO DAILY 05/02/21 08/06/21 05/02/21 History pregabalin 150 mg PO TID 05/02/21 08/06/21 04/29/21 History isosorbide mononitrate 30 mg 30 mg PO DAILY #30 tab 05/12/21 08/06/21 Unknown Rx tablet,extended release 24 hr vilazodone 40 mg tablet 40 mg PO DAILY #30 tab 07/07/21 08/06/21 Unknown Rx baclofen 5 mg PO BID 08/06/21 08/06/21 Unknown History benazepril 5 mg PO BID 08/06/21 08/06/21 Unknown History carvedilol [Coreg] 12.5 mg PO BID 08/06/21 08/06/21 Unknown History fluticasone propion-salmeterol 1 inh INHALATION BID 08/06/21 08/06/21 Unknown History [Advair Diskus] fluticasone propionate [Flonase 2 spray INTRANASAL DAILY PRN 08/06/21 08/06/21 Unknown History Allergy Relief] trazodone 150 mg PO BEDTIME 08/06/21 08/06/21 Unknown History triamcinolone acetonide See Rx Instructions .ROUTE .COMPLEX 08/06/21 08/06/21 Unknown History aspirin [Adult Aspirin Regimen] 81 mg PO DAILY #30 tab 08/07/21 Unknown Rx clopidogrel [Plavix] 75 mg PO DAILY #30 tab 08/07/21 Unknown Rx Allergies Allergy/AdvReac Type Severity Reaction Status Date / Time gabapentin AdvReac Mild ADR-Nausea Verified 08/06/21 09:15 Current Medications Current Medications Generic Name Dose Route Start Last Admin Trade Name Freq PRN Reason Stop Dose Admin Carvedilol 12.5 mg 08/06/21 09:00 08/06/21 10:14 Carvedilol 12.5 Mg Tablet PO 12.5 mg BID NICHOLAS Administration Heparin Sodium (Porcine) 0 unit 08/06/21 05:16 08/06/21 13:42 Heparin 5,000 Unit/Ml Inj 1 Ml IV 11 unit PRN PRN Administration Heparin weight-base protocol Protocol Sodium Chloride 1,000 mls @ 75 mls/hr 08/06/21 04:30 08/06/21 05:18 Sodium Chloride 0.9% IV 75 mls/hr .[id number] NICHOLAS Administration Heparin Sodium/Sodium Chloride 25,000 unit in 500 mls @ 0 mls/hr 08/06/21 05:30 08/06/21 06:30 Heparin Drip IV 12.49 unit/kg/hr .Q0M NICHOLAS 34 mls/hr Administration Protocol Per Protocol Pantoprazole Sodium 40 mg 08/06/21 09:00 08/06/21 10:[address] 40 Mg Tablet PO 40 mg DAILY NICHOLAS Administration PFSH Acute PFSH: Medical History CAD (coronary artery disease) Chronic back pain Diabetes mellitus type 2 in obese Dyslipidemia Encounter for long-term use of opiate analgesic Gabapentin overdose Gout Major depressive disorder, recurrent, mild (Unknown) Neuropathy Opioid contract exists MALORIE (obstructive sleep apnea) Psychiatric care Renal insufficiency Smokeless tobacco use Substance abuse Urinary retention Surgical History History of cholecystectomy History of heart artery stent Family History Other Cancer Hypertension Social History Smoking and tobacco status: former smoker Second hand smoke exposure: No Alcohol intake: never History of recent travel: No Dietary Habits: Current diet type/program: regular Caffeine: Yes Caffeine intake frequency: carbonated beverages, coffee and tea Vitals/I&O/Wt Last Vital Signs Temp 97.6 F 08/06/21 16:00 Pulse 62 08/06/21 16:00 Resp 18 08/06/21 16:00 BP 189/83 08/06/21 16:00 Pulse Ox 90 08/06/21 16:00 08/06/21 08/06/21 08/06/21 06:59 14:59 22:59 Intake Total 200 / 1200 240 / 240 Balance 200 / 1200 240 / 240 Weight last 48 hrs Weight 300 lb Physical Exam Narrative: EXAM NARRATIVE: GENERAL: Patient is alert, awake and oriented x3. NECK: No jugular vein distension. HEENT: No cyanosis. No icterus. No pallor. HEART: Regular S1 and S2. No murmur, rub or gallop. LUNGS: Clear to auscultate bilaterally. ABDOMEN: Soft, nontender and nondistended. Positive bowel sounds. No guarding, rebound or tenderness. CENTRAL NERVOUS SYSTEM: Grossly nonfocal. EXTREMITIES: Lower extremities without edema bilaterally. Data Micro: Micro: Microbiology 08/05/21 18:45 Blood Culture - Pr eliminary Blood SPE[facility]IMEN [facility] 08/05/21 17:50 Blood Culture - Pr eliminary Blood SPECIMEN [facility] EKG^: EKG 1: I personally reviewed and interpreted this EKG as follows: My Interpretation: Sinus rhythm otherwise no significant ST-T ST changes normal QT intervals normal QRS interval A&P Assessment and plan (1) Elevated troponin: Patient has history of coronary artery disease with prior stent in 2009. Last stress test was negative last year despite of that patient continues to have stable angina his medicine were optimized according to the patient his major complaint is not the chest pain or chest pressure he think he is doing fine from a cardiac perspective he thinks that since isosorbide was started he did not have any more chest pain history is not very reliable but since he is not complaining of any chest pain and would like to discuss only tomorrow morning I will come back tomorrow morning and talk to him about it. We will optimize his medicine further. Status: Acute (2) Hypertension: Well-controlled continue medicine Status: Acute Qualifiers: Hypertension type: primary hypertension Qualified Code(s): I10 - Essential (primary) hypertension (3) CAD (coronary artery disease): History of coronary artery disease now with abnormal cardiac markers and chest pressure suspicious for angina. As above we offered patient stress test versus left heart cath at this point he is not interested in it. He would like to talk about it tomorrow Status: Acute Qualifiers: Associated angina: with unspecified form of angina Coronary Disease-Associated Artery/Lesion type: [place] artery [place] vs. transplanted heart: [place] heart Qualified Code(s): I25.119 - Atherosclerotic heart disease of [place] coronary artery with unspecified angina pectoris (4) Dyslipidemia: Continue statin. Status: Acute (5) Altered mental status: Appear to be stable now. Status: Acute Qualifiers: Altered mental status type: unspecified Qualified Code(s): R41.82 - Altered mental status, unspecified Consult Attestations Medical Necessity Statement: Patient require continuation hospitalization for above defined care. Coding Level of Care Code New Pt Acute Any Commodity Buyer for Chg Fwd Patient Type New History Detailed Exam Detailed Medical Decision Making Moderate Complexity Diagnoses Elevated troponin R77.8 Hypertension I10 Hypertension type: primary hypertension CAD (coronary artery disease) I25.119 Associated angina: with unspecified form of angina Coronary Disease-Associated Artery/Lesion type: [place] artery [place] vs. transplanted heart: [place] heart Dyslipidemia E78.5 Altered mental status R41.82 Altered mental status type: unspecified
[2021-08-06] MEDS: isosorbide mononitrate ER 30 mg Tablet PO (17:12)
[2021-08-06] MEDS: hyDRALAzine 25 mg Tablet PO ×2 (17:12→20:17)
[2021-08-06] MEDS: clopidogrel 300 mg Tablet PO (18:03)
[2021-08-06 20:00] VITALS: BP 189/89; PULSE 59; RESP 27; TEMP 36.3; O2SAT 94
--- NOTE | 2021-08-06 20:08 | P.PN_ITS ---
Vitals/I&O/Wt Last Vital Signs Temp 97.4 F L 08/06/21 20:00 Pulse 59 L 08/06/21 20:00 Resp 27 H 08/06/21 20:00 BP 189/89 08/06/21 20:00 Pulse Ox 94 08/06/21 20:00 08/06/21 08/06/21 08/06/21 06:59 14:59 22:59 Intake Total 200 / 1200 240 / 240 680 / 920 Balance 200 / 1200 240 / 240 680 / 920 Weight last 48 hrs Weight 136.078 kg Physical Exam Const: COMMON NORMALS: patient oriented x3 HENMT: COMMON NORMALS: normocephalic and atraumatic HEAD & SCALP: normocephalic and atraumatic Resp: COMMON NORMALS: clear to auscultation bilaterally AUSCULTATION: clear to auscultation bilaterally Cardio: COMMON NORMALS: regular rate, regular rhythm, S1 normal heart sound present, S2 normal heart sound present, No gallops present (Cardio), No murmurs present (Cardio), No rub (Cardio) and Peripheral pulses 2+ throughout RATE: regular rate RHYTHM: regular rhythm HEART SOUNDS: S1 normal heart sound present and S2 normal heart sound present PERIPHERAL PULSES: Peripheral puls es 2+ throughout GI: COMMON NORMALS: Normal to inspection, nondistended, normoactive bowel sounds present, Soft to palpation, non-tender, No hepatosplenomegaly present and no masses AUSCULTATION: Yes normoactive bowel sounds PALPATION: Yes Soft to palpation and Yes No hepatosplenomegaly present RECTAL EXAM: Yes deferred Extremity: COMMON NORMALS: no clubbing, cyanosis or edema and no pedal edema Neuro: COMMON NORMALS: patient oriented x3 Data : 08/06/21 06:42 08/06/21 06:42 Micro: Microbiology 08/05/21 18:45 Blood Culture - Preliminary Blood NEGATIVE TO DATE 08/05/21 17:50 Blood Culture - Preliminary Blood NEGATIVE TO DATE A&P Assessment and plan (1) NSTEMI (non-ST elevated myocardial infarction): NSTEMI type I versus type II. Troponin trend with significant delta Patient has history of coronary artery disease status post stenting RCA, patient has been complaining of chest pain and dizziness, and currently Imdur titration was being done as an outpatient, by his office support clerk. Nuclear stress stress done in the February last year: Has failed to show any ischemia. 2D echo: Done during this hospital stay: Normal LV cavity size, normal LV systolic function,no RWMA, LVEF 60%, no gross valvular abnormality. Currently on heparin drip, aspirin Plavix and statin. Appreciate cardiology input. Status: Acute (2) Altered mental status: Acute encephalopathy : Likely secondary to marijuana use. Currently resolved. Urinalysis is clean, x-ray chest has failed to show any infiltrate, leukocytosis has resolved, procalcitonin normal, saturating well on room air, TSH normal. U tox positive for marijuana. Status: Acute Qualifiers: Altered mental status type: unspecified Qualified Code(s): R41.82 - Altered mental status, unspecified Additional A&P Information Altered Mental Status Etiology unclear Baseline unknown No clear evidence of infectious process UA negative Possible due to THC vs HTN encephalopathy Dysphagia bedside screen NPO Possible drug induced Elevated Troponin hx of CAD s/p dRCA stent Delta trop 33.57 with mild ANAT Heparin drip started Aspirin / Statin / B-nico ECHO ordered Cardiac telemetry Acute kidney injury Creatinine 1.4 Likely underlying CKD Repeat BMP in am Monitor u/o NS at 75cc/hr Chronic Obstructive pulmonary disease Stable Supplemental o2 as needed Duoneb q6hr PRN Obstructive sleep apnea Unclear if on CPAP Diabetes Mellitus with neuropathy Sliding scale insulin Q6hr glucose checks while npc A1c in am Lyrica Dyslipidemia Lipid panel Statin DVT ppx Heparin drip. Attestations Medical Necessity Statement*: Patient needs to be in hospital for management of NSTEMI. Coding Level of Care Code Acute Member Services Coordinator for Eric Martin Diagnoses NSTEMI (non-ST elevated myocardial infarction) I21.4 Altered mental status R41.82 Altered mental status type: unspecified
[2021-08-06] MEDS: trazodone 150 mg Tablet PO (20:17)
[2021-08-06 20:46] LABS: Partial Thromboplastin Time 119.7 SECONDS (23.9-36.7)
[2021-08-07] VITALS: BP 143/65; PULSE 55; RESP 18; TEMP 36.6; O2SAT 94
[2021-08-07 03:21] LABS: Basophils # 0.1 10^3/uL (0.0-0.1); Basophils % 0.8 %; Eosinophils % 0.5 %; Hematocrit 34.8 % (42.0-52.0); Hemoglobin 10.7 g/dL (11.7-16.6); Lymphocytes % 25.2 %; Mean Corpuscular HGB Conc 30.7 g/dL (30.0-36.0); Mean Corpuscular Hemoglobin 28.9 pg (28.0-34.0); Mean Corpuscular Volume 94.1 fl (80-94); Mean Platelet Volume 11.1 fL (7.4-10.4); Monocytes # 0.5 10^3/uL (0.2-0.9); Neutrophils # 5.33 10^3/uL (1.8-7.7); Neutrophils % 67.1 %; Nucleated Red Blood Cells % 0 %; Platelet Count 200 10^3/cmm (130-400); Red Cell Distribution Width 14.1 % (12.1-15.1); White Blood Count 7.9 10^3/uL (4.0-10.0)
[2021-08-07 03:57] LABS: Alanine Aminotransferase 11 U/L (0-41); Albumin Level 3.5 g/dL (3.5-5.2); Alkaline Phosphatase 87 IU/L (40-130); Anion Gap 18.4 (5-19); Aspartate Amino Transferase 17 U/L (0-40); Blood Urea Nitrogen 13 mg/dL (8-23); Calcium 8.3 mg/dL (8.5-10.5); Carbon Dioxide 18 mmol/L (22-29); Chloride 110 mmol/L (98-107); Globulin 2.4 g/dL (1.3-4.6); Glucose 114 mg/dL (65-115); Osmolality Calculated 297 mOsm/kg (285-295); Potassium 3.4 mmol/L (3.5-5.1); Sodium 143 mmol/L (136-145); Total Bilirubin 0.4 mg/dL (0.15-1.2); Total Protein 5.9 g/dL (6.6-8.7)
[2021-08-07 04:00] VITALS: BP 134/72; PULSE 76; RESP 18; TEMP 36.9; O2SAT 90
[2021-08-07] MEDS: isosorbide mononitrate ER 30 mg Tablet PO (08:24)
[2021-08-07] MEDS: carvedilol 12.5 mg Tablet PO (08:24)
[2021-08-07] MEDS: allopurinol 300 mg Tablet PO (08:24)
[2021-08-07] MEDS: atorvastatin 40 mg Tablet 20 MG PO (08:24)
[2021-08-07] MEDS: hyDRALAzine 25 mg Tablet PO (08:24)
[2021-08-07] MEDS: aspirin 81 mg EC Tablet PO (08:24)
[2021-08-07] MEDS: pantoprazole DR 40 mg Tablet PO (08:24)
--- NOTE | 2021-08-07 09:45 | P.DS_ITS ---
Discharge Providers Date of Admission: 08/05/21 20:40 Date of Discharge: August 07, 2021 Attending Provider at Admission: Erika Doll Attending Provider at Discharge: Emil Weaver MD Primary Care Provider: Galindo Carson DO Diagnoses at Discharge Discharge Diagnosis (1) NSTEMI (non-ST elevated myocardial infarction): (2) Altered mental status: Qualifiers: Altered mental status type: unspecified Qualified Code(s): R41.82 - Altered mental status, unspecified Reason for Visit Reason for Visit: AMS, INCREASED CONFUSION Hospital Course Hospital Course 76-year-old man with past medical history of coronary artery disease s/p stenting of distal RCA in [place] [address] Holder, type 2 diabetes mellitus, dyslipidemia, depression, obstructive sleep apnea, chronic back pain who was bro ught in to ER for altered mental status. Patient was not able to provide history due to this. was not at bedside during my examination. In review of records apparently patient had been confused for past few days. at attributed this to missing Lyrica dose. No reported fevers, respiratory distress or chest pain at home. No nausea or vomiting. Similar admission in the past during which time he was noted to have diarrhea with shiga toxin however no diarrhea was noted this time. Upon arrival to ER His laboratory workup showed a WBC of 11.1, hemoglobin 13.1, hematocrit 42.0 and a platelet count of 302. Sodium 145, potassium 3.8, chloride 102, bicarb 26, BUN 17 and creatinine of 1.4. Similar creatinine in April of 2021. Glucose of 136. Troponin t baseline 24, Repeat at 2hr of 34.7 and 6hr of 57.5. Probnp of 195. UA negative, UDS positive for opiates and marijuana. Flu A/B negative. In ER was given aspirin 325 mg PO x1 and Lyrica 150 mg PO x 1.C.T head without contrast was negative for any acute intracranial pathology. He was admitted for the management of Acute metabolic encephalopathty likely 2/2 to marijuana use as well as NSTEMI.Patient at the time of discharge was AO*3,For his NSTEMI he was kept on ACS protocol, 2d echo was done which showed Normal left ventricular cavity size. Normal left ventricular systolic function. No regional wall motion abnormalities. Left ventricular ejection fraction is estimated at 60 %. Grade I/IV diastolic dysfunction (abnormal relaxation filling pattern), normal to mildly elevated filling pressures. Moderately thickened mitral valve. No mitral valve stenosis. Mild mitral annular calcification. Trace mitral valve regurgitation. Moderate aortic valve calcification. No aortic valve stenosis. Trace aortic valve regurgitation. There is no pericardial effusion.EKg Failed to show any acute ST-T Wave changes.Cardiology was involved in the care of patient as the patient was complaining of ongoing intermittent chest pain characteristic of which pointed towards cardiac etiology,patient IMDUR was also being titarted as outpatient by his compressor stations superintendent.Initial plan was do CAG +- pci,but since patient remained chest pain free during the hospital stay, he decided not to pursue any intervention for now and wanted to continue to follow with his compressor stations superintendent as outpatient,aspirin and plavix was initiated IMDUR Was continued as well as his other cardiac medications.Patient was also manged for pre ANAT Likely 2/2 to dehydration, SCR was at its baselien on discharge.Patient responded well to above medical management and was discharged in stable condition to home. Physical Exam Const: COMMON NORMALS: patient oriented x3 HENMT: COMMON NORMALS: normocephalic and atraumatic HEAD & SCALP: normocephalic and atraumatic Resp: COMMON NORMALS: clear to auscultation bilaterally AUSCULTATION: clear to auscultation bilaterally Cardio: COMMON NORMALS: regular rate, regular rhythm, S1 normal heart sound present, S2 normal heart sound present, No gallops present (Cardio), No murmurs present (Cardio), No rub (Cardio) and Peripheral pulses 2+ throughout RATE: regular rate RHYTHM: regular rhythm HEART SOUNDS: S1 normal heart sound present and S2 normal heart sound present PERIPHERAL PULSES: Peripheral pulses 2+ throughout GI: COMMON NORMALS: Normal to inspection, nondistended, normoactive bowel sounds present, Soft to palpation, non-tender, No hepatosplenomegaly present and no masses AUSCULTATION: Yes normoactive bowel sounds PALPATION: Yes Soft to palpation and Yes No hepatosplenomegaly present RECTAL EXAM: Yes deferred Extremity: COMMON NORMALS: no clubbing, cyanosis or edema and no pedal edema Neuro: COMMON NORMALS: patient oriented x3 Discharge Data Data Completed and Pending: Completed Studies During Hospitalization Category Date Time Status CT head wo con* 7 0450 Urgent Cat Scan 08/05/21 17:36 Completed XR chest 1V ria ble [id number] Urgent Exams 08/05/21 17:36 Completed CV. echo complete * [id number] Routine Ultrasound 08/06/21 05:17 Completed Pending at discharge Category Date Time Status Blood Culture Sta t Lab 08/05/21 18:45 Results Complete Blood Co unt w/Auto AM LABS Lab 08/08/21 04:00 Ordered Complete Blood Co unt w/Auto AM LABS Lab 08/09/21 04:00 Ordered Comprehensive Met abolic Panel AM LA BS Lab 08/08/21 04:00 Ordered Comprehensive Met abolic Panel AM LA BS Lab 08/09/21 04:00 Ordered PTT [Partial Thro mboplastin Time] T imed Lab 08/07/21 09:00 Ordered Platelet Count Q2 D Lab 08/08/21 04:00 Ordered Platelet Count Q2 D Lab 08/10/21 04:00 Ordered Labs from last 24 hours 08/07/21 08/07/21 08/07/21 03:08 03:08 03:08 WBC 7.9 RBC 3.70 L Hgb 10.7 L Hct 34.8 L MCV 94.1 H MCH 28.9 MCHC 30.7 RDW 14.1 Plt Count 200 MPV 11.1 H Neut % (Auto) 67.1 Lymph % (Auto) 25.2 [place] % (Auto) 6.0 Eos % (Auto) 0.5 Baso % (Auto) 0.8 Neut # (Auto) 5.33 Lymph # (Auto) 2.0 [place] # (Auto) 0.5 Eos # (Auto) 0.0 Baso # (Auto) 0.1 Nucleated RBC % (a uto) 0 Nucleated RBCs # 0.0 APTT 68.0 H Sodium 143 Potassium 3.4 L Chloride 110 H Carbon Dioxide 18 L Anion Gap 18.4 BUN 13 Creatinine 0.9 GFR Calculation Not Reportable Glucose 114 Calculated Osmolal ity 297 H Calcium 8.3 L Total Bilirubin 0.4 AST 17 ALT 11 Alkaline Phosphata se 87 Total Protein 5.9 L Albumin 3.5 Globulin 2.4 08/06/21 08/06/21 20:10 12:32 WBC RBC Hgb Hct MCV MCH MCHC RDW Plt Count MPV Neut % (Auto) Lymph % (Auto) [place] % (Auto) Eos % (Auto) Baso % (Auto) Neut # (Auto) Lymph # (Auto) [place] # (Auto) Eos # (Auto) Baso # (Auto) Nucleated RBC % (a uto) Nucleated RBCs # APTT 119.7 H 122.1 H D Sodium Potassium Chloride Carbon Dioxide Anion Gap BUN Creatinine GFR Calculation Glucose Calculated Osmolal ity Calcium Total Bilirubin AST ALT Alkaline Phosphata se Total Protein Albumin Globulin Vitals: Last Vital Signs Temp 98.4 F 08/07/21 04:00 Pulse 76 08/07/21 04:00 Resp 18 08/07/21 04:00 BP 134/72 08/07/21 04:00 Pulse Ox 90 08/07/21 04:00 Discharge Plan Discharge Patient Disposition: Home Condition: Stable Prescriptions: New Adult Aspirin Regimen 81 mg tablet,delayed release (DR/EC) 81 mg PO DAILY Qty: 30 RF: 3 Plavix 75 mg tablet 75 mg PO DAILY Qty: 30 RF: 1 Continued isosorbide mononitrate 30 mg tablet extended release 24 hr 30 mg PO DAILY Qty: 30 RF: 3 aspirin [Adult Aspirin Regimen] 81 mg tablet,delayed release (DR/EC) 81 mg PO DAILY RF: 0 atorvastatin 20 mg tablet 20 mg PO DAILY RF: 0 Narcan 4 mg/actuation spray,non-aerosol 1 spray INTRANASAL .COMPLEX RF: 0 Viibryd 40 mg tablet 40 mg PO DAILY Qty: 30 RF: 2 pantoprazole [Protonix] 40 mg tablet,delayed release (DR/EC) 40 mg PO BID Qty: 60 RF: 5 nitroglycerin [Nitrostat] 0.4 mg tablet, sublingual 0.4 mg SUBLINGUAL Q5M PRN (Reason: chest pain) 90 Days Qty: 25 RF: 3 metformin 1,000 mg tablet 1,000 mg PO BID 30 Days Qty: 60 RF: 1 hydrocodone-acetaminophen 7.5-325 mg tablet 1 tab PO Q6H MDD 5 tabs per day PRN (Reason: Pain) Qty: 0 RF: 0 cyanocobalamin (vitamin B-12) [Vitamin B-12] 1,000 mcg Tablet 1,000 mcg PO DAILY Qty: 0 RF: 0 albuterol sulfate [ProAir HFA] 90 mcg/actuation HFA aerosol inhaler 1 - 2 puff INHALATION Q6H PRN (Reason: shortness of breath or wheezing) RF: 0 pregabalin 150 mg capsule 150 mg PO TID RF: 0 allopurinol 300 mg tablet 300 mg PO DAILY RF: 0 fluticasone propion-salmeterol [Advair Diskus] 250-50 mcg/dose Blister With Device 1 inh INHALATION BID RF: 0 baclofen 10 mg tablet 5 mg PO BID RF: 0 triamcinolone acetonide 0.1 % ointment See Rx Instructions .ROUTE .COMPLEX RF: 0 carvedilol [Coreg] 12.5 mg tablet 12.5 mg PO BID RF: 0 trazodone 150 mg tablet 150 mg PO BEDTIME RF: 0 benazepril 10 mg tablet 5 mg PO BID RF: 0 fluticasone propionate [Flonase Allergy Relief] 50 mcg/actuation spray,suspension 2 spray INTRANASAL DAILY PRN (Reason: Allergy Symptoms) RF: 0 Held potassium chloride 20 mEq tablet extended release 20 meq PO BID Qty: 60 RF: 2 Hold Instructions: Resume on 08/10/21. furosemide [Lasix] 80 mg tablet 40 mg PO BID Qty: 60 RF: 5 Hold Instructions: Resume on 08/10/21. Discharge Orders: Discharge Order (Routine); Ordered 08/07/21 Ordered By: Emil Weaver Referrals: Sonia Horton FNP [Nurse Practitioner] - Galindo Carson DO [Primary Care Provider] - 1 month (PLEASE CALL FOR APPOINTMENT ) Maria Luisa Geller MD [Physician] - 08/30/21 10:45 am (PLEASE CALL FOR APPOINTMENT) Discharge Diet: Diabetic Discharge Activity: Resume usual activity Patient Instructions: Aspirin (By mouth), Clopidogrel (By mouth), Heart Attack (DC), Heart Healthy Diet (DC), Opioid Safety Discharge Attestations Time Spent in Discharge Care*: less than 30 min Specific Discharge Activities: educating patient, educating and/or supporting family/caregiver, discussing with pcp/other providers, discussing with case work aide/social workers/dc planners, documenting/other paperwork and evaluating patient/reviewing data Status at Discharge: Cognitive status at discharge: mildly impaired cognition , Behavioral status at discharge: cooperative and can be uncooperative , Quality Metrics Clinical Quality Measures During this hospital stay, did patient experience: None Coding Level of Care Code Acute Chg FW DC note Diagnoses NSTEMI (non-ST elevated myocardial infarction) I21.4 Altered mental status R41.82 Altered mental status type: unspecified
[2021-08-07 10:12] LABS: Partial Thromboplastin Time 58.7 SECONDS (23.9-36.7)
--- NOTE | 2021-08-07 11:28 | P.PN_ITS ---
Subjective Subjective: Interval history: Patient denies chest pain. He appeared to be oriented to time and space. He says he would not like to proceed with left heart cath and would like to be treated only medically. He understand the consequences such as acute coronary syndrome arrhythmia and heart failure. Medications: Reviewed: Yes Vitals/I&O/Wt Last Vital Signs Temp 98.4 F 08/07/21 04:00 Pulse 76 08/07/21 04:00 Resp 18 08/07/21 04:00 BP 134/72 08/07/21 04:00 Pulse Ox 90 08/07/21 04:00 08/06/21 08/07/21 08/07/21 22:59 06:59 14:59 Intake Total 680 / 920 500 / 1420 Output Total 200 / 200 200 / 400 Balance 480 / 720 300 / 1020 Weight last 48 hrs Weight 300 lb Physical Exam Narrative: EXAM NARRATIVE: GENERAL: Patient is alert, awake and oriented x3. NECK: No jugular vein distension. HEENT: No cyanosis. No icterus. No pallor. HEART: Regular S1 and S2. No murmur, rub or gallop. LUNGS: Clear to auscultate bilaterally. ABDOMEN: Soft, nontender and nondistended. Positive bowel sounds. No guarding, rebound or tenderness. CENTRAL NERVOUS SYSTEM: Grossly nonfocal. EXTREMITIES: Lower extremities without edema bilaterally. Data : 08/07/21 03:08 08/07/21 03:08 Micro: Microbiology 08/05/21 18:45 Blood Culture - Preliminary Blood NEGATIVE TO DATE 08/05/21 17:50 Blood Culture - Preliminary Blood NEGATIVE TO DATE A&P Assessment and plan (1) Elevated troponin: Patient was offered left heart cath he declined at and would not like to proceed with it. He would like to treated medically at this point continue aspirin statin beta-nico isosorbide mononitrate and Plavix. Advised to follow-up with Dr. Geller as an outpatient. May need a stress test if continues to have anginal Status: Acute (2) Hypertension: Well-controlled continue medicine Status: Acute Qualifiers: Hypertension type: primary hypertension Qualified Code(s): I10 - Essential (primary) hypertension (3) CAD (coronary artery disease): Patient would like to be treated medically we will continue medical management as defined above. Status: Acute Qualifiers: Associated angina: with unspecified form of angina Coronary Disease- Associated Artery/Lesion type: [place] artery [place] vs. transplanted heart: [place] heart Qualified Code(s): I25.119 - Atherosclerotic heart disease of [place] coronary artery with unspecified angina pectoris (4) Dyslipidemia: Continue statin. Status: Acute (5) Altered mental status: Appear to be stable now. Status: Acute Qualifiers: Altered mental status type: unspecified Qualified Code(s): R41.82 - Altered mental status, unspecified Attestations Medical Necessity Statement*: From a cardiac perspective patient can be discharged home Coding Level of Care Code Established Pt Acute Deburring Technician for g Fwd Patient Type Established History Detailed Exam Detailed Medical Decision Making Moderate Complexity Diagnoses Elevated troponin R77.8 Hypertension I10 Hypertension type: primary hypertension CAD (coronary artery disease) I25.119 Associated angina: with unspecified form of angina Coronary Disease-Associated Artery/Lesion type: [place] artery [place] vs. transplanted heart: [place] heart Dyslipidemia E78.5 Altered mental status R41.82 Altered mental status type: unspecified
[2021-08-07 12:10] VITALS: BP 149/74; PULSE 53; RESP 18; TEMP 36.7; O2SAT 94
== END 2021-08-07 14:28 | disposition home or self-care (01) ==
LOC: ER 20:14 → MEDSURG 20:41
PROVIDERS: Admitting Provider Hospitalist; Emergency Provider Emergency Medicine; PCP Family Medicine; Visit Provider Internal Medicine
DX: I21.4 Non-ST elevation (NSTEMI) myocardial infarction (principal); I25.119 Atherosclerotic heart disease of native coronary artery with unspecified angina pectoris; N17.9 Acute kidney failure, unspecified; E78.5 Hyperlipidemia, unspecified; I10 Essential (primary) hypertension; R77.8 Other specified abnormalities of plasma proteins; R41.82 Altered mental status, unspecified; G47.33 Obstructive sleep apnea (adult) (pediatric); J44.9 Chronic obstructive pulmonary disease, unspecified; E11.40 Type 2 diabetes mellitus with diabetic neuropathy, unspecified; Z79.4 Long term (current) use of insulin; Z79.82 Long term (current) use of aspirin; Z79.84 Long term (current) use of oral hypoglycemic drugs; Z87.891 Personal history of nicotine dependence
CPT/HCPCS: 36415; 36416; 70450; 71045; 80053; 80306; 80307; 81003; 82962; 83605; 83690; 83880; 84145; 84443; 84484; 85025; 85730; 87040; 87804; 93005; 93306; 96361; 96365; 96375; 97116; 97161; 97165; 97535; 99285; G0378; J1644; J2060; J7030

== ENCOUNTER → 2021-09-29 12:54 | Outpatient (BNVA) | payer MEDICARE, MEDICAID, SELFPAY | PROVIDERS: PCP Family Medicine; Visit Provider Nurse Practitioner | DX: F33.0 Major depressive disorder, recurrent, mild (principal) | CPT/HCPCS: 99214 ==

== ENCOUNTER 2022-02-19 18:00 | Inpatient (IN) | payer MEDICARE, MEDICAID, SELFPAY ==
[2022-02-19 18:03] VITALS: BP 105/70; PULSE 99; RESP 18; TEMP 36.5; BMI 31.8
--- NOTE | 2022-02-19 18:20 | XRR_ITS ---
PROCEDURE INFORMATION: Exam: XR Chest Exam date and time: 02/19/2022 6:36 PM Age: 76 years old Clinical indication: Cough; Prior surgery; Surgery date: 6+ months; Surgery type: Stent; Additional info: AMS TECHNIQUE: Imaging protocol: XR of the chest. Views: 1 view. COMPARISON: CR XR chest 1V portable [id number] 08/05/2021 5:43 PM FINDINGS: Lungs: Unremarkable. No consolidation. Pleural spaces: Unremarkable. No pleural effusion. No pneumothorax. Heart/Mediastinum: Unremarkable. No cardiomegaly. Bones/joints: Unremarkable. XR/XR chest 1V portable [id number] IMPRESSION: No acute findings.
--- NOTE | 2022-02-19 18:20 | W.ED.AMS ---
HPI - Altered Mental Status General: Chief Complaint: Altered Mental Status Stated Complaint: INCREASED CONFUSION Time Seen by Provider: 02/19/22 18:15 Source: patient and family (Spouse and daughter) Mode of arrival: EMS Limitations: no limitations History of Present Illness: This patient was transported to the emergency department via EMS at the request of his family. They state over the past 2 days he is been very confused and had decreased intake of both foods and liquids. They report that he has not had any fevers or chills that they are aware. He is not any injury. They states that he wandered off from the house yesterday and an area that he would not normally attempt to traverse due to its uneven terrain. Said no history of nausea vomiting. Has had some loose stools but that is not uncommon. He does have a history of diabetes. MD complaint: altered mental status and confusion Timing confirmed by: spouse and family member Severity: moderate Consistency of symptoms: Waxing and Waning Review of Systems Const: Reports: change in appetite; Denies: fever(s), chills or body aches Eyes: Denies: change in vision ENMT: Denies: throat pain or odynophagia Card: Denies: chest pain, palpitations or edema Resp: Denies: dyspnea, productive cough or non-productive cough GI: Denies: abdominal pain, nausea, vomiting or diarrhea : Denies: flank pain, difficulty urinating or dysuria Musc: Denies: back pain, extremity pain or extremity swelling Skin/Breast: Denies: rash Neuro: Reports: confusion; Denies: headache(s), numbness in extremities, weakness in extremities or seizure-like activity Psych: Denies: mood swings Endo: Denies: polyuria or polydipsia Bj/Lymph: Denies: easy bruising or easy bleeding All/Imm: Denies: urticaria PFSH ED PFSH: Medical History CAD (coronary artery disease) Chronic back pain Diabetes mellitus type 2 in obese Dyslipidemia Encounter for long-term use of opiate analgesic Gabapentin overdose Gout Major depressive disorder, recurrent, mild (Unknown) Neuropathy Opioid contract exists MALORIE (obstructive sleep apnea) Psychiatric care Renal insufficiency Smokeless tobacco use Substance abuse Urinary retention Surgical History History of cholecystectomy History of heart artery stent Family History Other Cancer Hypertension Social History Smoking and tobacco status: former smoker Second hand smoke exposure: No Alcohol intake: never History of recent travel: No Physical Exam Narrative: He appears comfortable makes good eye contact and is alert. He is somewhat incomplete with answers to some questions other questions he can answer in entirety. Const: COMMON NORMALS: no acute distress, average body habitus and alert GENERAL APPEARANCE: cooperative and comfortable ORIENTATION/CONSCIOUSNESS: Yes oriented to person and Yes oriented to place HENMT: COMMON NORMALS: normocephalic, atraumatic, Normal nasal mucous membranes and turbinates present, moist oral mucous membranes and oropharynx normal HEAD & SCALP: normocephalic and atraumatic NOSE: Normal nasal mucous membranes and turbinates present Eye: COMMON NORMALS: Equal, round and reactive pupils present, EOMs intact bilaterally and conjunctivae normal CONJUNCTIVA: Yes conjunctivae normal PUPIL: Yes Equal, round and reactive pupils present Neck/C-Spine: COMMON NORMALS: full ROM, no lymphadenopathy, supple and no meningeal signs Lymph: LYMPHATIC: no lymphadenopathy noted Chest: COMMONS NORMALS: normal inspection of the chest Resp: COMMON NORMALS: normal respiratory effort, No retractions, No use of accessory muscles and clear to auscultation bilaterally AUSCULTATION: clear to auscultation bilaterally Cardio: COMMON NORMALS: regular rate, regular rhythm, No murmurs present (Cardio) and Peripheral pulses 2+ throughout RATE: regular rate RHYTHM: regular rhythm PERIPHERAL PULSES: Peripheral pulses 2+ throughout GI: COMMON NORMALS: Normal to inspection, nondistended, normoactive bowel sounds present, Soft to palpation, non-tender and no masses PALPATION: Yes Soft to palpation : COMMON NORMALS: Yes no CVA tenderness BLADDER/KIDNEY EXAM: Yes no CVA tenderness Back/Pelvis: COMMON NORMALS: no CVA tenderness, thoracic and lumbar spine normal to inspection, no thoracic nor lumbar tenderness and thoraco-lumbar ROM normal Extremity: COMMON NORMALS: full ROM, capillary refill normal and no calf tenderness NARRATIVE EXTREMITY EXAM: Pitting edema he had some peripheral edema noted both lower extremities left possibly greater than right. Good capillary refill. Peripheral pulses palpable and equal. Neuro: COMMON NORMALS: moves all extremities, no focal motor deficits and no sensory deficits noted SENSORIUM/ORIENTATION: Yes alert, Yes oriented to person and Yes oriented to place MENINGEAL SIGNS: Yes no meningeal signs CRANIAL NERVES: Yes CN normal except as noted SPEECH: speech normal Course Reevaluation(s): Reevaluation #1: Initial troponin noted. A repeat EKG done shortly thereafter does not reveal any acute ST-T wave changes at this time. Normal intervals normal axis. Time: 20:12 Reevaluation #2: Patient was reexamined. He denies any chest pain. He does have some wheezing at this time which was not present earlier. This may represent some myocardial dysfunction given his elevated troponin verses COPD. Patient states that he used to use an inhaler and has had history of wheezing issues. Time: 22:07 Reevaluation #3: Lungs are totally clear at this point after single DuoNeb. He is very comfortable. No chest pain or other symptoms. Time: :46 Consultations: Consultation #1: Discussed with Dr. Khan director river restoration. We reviewed his history current findings EKG etc. Certainly no evidence at this time that acute intervention is necessary. We will treat him with antiplatelet agents and continued serial enzymes and serial EKGs. Time: 22:27 Consultation #2: Discussed with hospitalist who agreed to place him in the hospital for continued work-up. Time: 22:46 Vital Signs: Vital signs: Vital Signs Temperature 97.7 F 02/19/22 18:03 Pulse Rate 95 02/19/22 22:34 Respiratory Rate 18 02/19/22 22:29 Blood Pressure 126/62 02/19/22 21:48 Pulse Oximetry 93 02/19/22 22:29 MDM - Altered Mental Status Medical Decision Making Patient presents accompanied by his family with a history of confusion over the last couple days and decreased intake of both foods and liquids. No other symptoms to include fever, chest pain shortness of breath cough etc. No known exposure to infectious disease. His evaluation tonight reveals him to be pleasant but slightly confused his work-up revealed a CTA head which was negative a initial chest x-ray which did not show any infiltrates did show mild cardiomegaly. His initial troponin was significantly elevated with an unremarkable EKG. He was given hydration and a second EKG was obtained which was again unremarkable. Repeat troponin is actually fallen from his first troponin. He still has some mild confusion without any identifiable cause at this point. Unclear but it certainly with his history of CAD likely represents occult ACS. Medical Records I reviewed the patient's medical records. Lab Data I reviewed the patient's lab results. : 02/19/22 17:40 02/19/22 17:40 Radiology Impressions Chest X-Ray 02/19/22 18:20 IMPRESSION: No acute findings. Head CT 02/19/22 18:30 IMPRESSION: No acute intracranial abnormality. Laboratory Results WBC 16.4 10^3/uL (4.0-10.0) H 02/19/22 17:40 RBC 4.34 10^6/uL (4.1-5.3) 02/19/22 17:40 Hgb 12.8 g/dL (11.7-16.6) 02/19/22 17:40 Hct 38.1 % (42.0-52.0) L 02/19/22 17:40 MCV 87.8 fl (80-94) 02/19/22 17:40 MCH 29.5 pg (28.0-34.0) 02/19/22 17:40 MCHC 33.6 g/dL (30.0-36.0) 02/19/22 17:40 RDW 15.5 % (12.1-15.1) H 02/19/22 17:40 Plt Count 253 10^3/cmm (130-400) 02/19/22 17:40 MPV 12.1 fL (7.4-10.4) H 02/19/22 17:40 Neut % (Auto) 80.4 % 02/19/22 17:40 Lymph % (Auto) 12.0 % 02/19/22 17:40 [place] % (Auto) 6.9 % 02/19/22 17:40 Eos % (Auto) 0.0 % 02/19/22 17:40 Baso % (Auto) 0.2 % 02/19/22 17:40 Neut # (Auto) 13.21 10^3/uL (1.8-7.7) H 02/19/22 17:40 Lymph # (Auto) 2.0 10^3/uL (0.8-4.8) 02/19/22 17:40 [place] # (Auto) 1.1 10^3/uL (0.2-0.9) H 02/19/22 17:40 Eos # (Auto) 0.0 10^3/uL (0.0-0.8) 02/19/22 17:40 Baso # (Auto) 0.0 10^3/uL (0.0-0.1) 02/19/22 17:40 Nucleated RBC % (auto) 0 % 02/19/22 17:40 Nucleated RBCs # 0.0 /100WBC 02/19/22 17:40 Sodium 139 mmol/L (136-145) 02/19/22 17:40 Potassium 4.2 mmol/L (3.5-5.1) 02/19/22 17:40 Chloride 104 mmol/L (98-107) 02/19/22 17:40 Carbon Dioxide 21 mmol/L (22-29) L 02/19/22 17:40 Anion Gap 18.2 (5-19) 02/19/22 17:40 BUN 25 mg/dL (8-23) H 02/19/22 17:40 Creatinine 2.3 mg/dL (0.7-1.2) H 02/19/22 17:40 GFR Calculation Not Reportable 02/19/22 17:40 Glucose 146 mg/dL (65-115) H 02/19/22 17:40 Calculated Osmolality 295 mOsm/kg (285-295) 02/19/22 17:40 Calcium 8.9 mg/dL (8.5-10.5) 02/19/22 17:40 Total Bilirubin 0.6 mg/dL (0.15-1.2) 02/19/22 17:40 AST 54 U/L (0-40) H 02/19/22 17:40 ALT 12 U/L (0-41) 02/19/22 17:40 Alkaline Phosphatase 105 IU/L (40-130) 02/19/22 17:40 Troponin T Gen 5 ng/L 1744 ng/L (0-15) H* 02/19/22 17:40 Troponin T 120 Minute 1434 ng/L (0-15) H 02/19/22 21:43 Delta Troponin T -310 ABS# (0-10) L 02/19/22 21:43 Total Protein 7.0 g/dL (6.6-8.7) 02/19/22 17:40 Albumin 3.8 g/dL (3.5-5.2) 02/19/22 17:40 Globulin 3.2 g/dL (1.3-4.6) 02/19/22 17:40 Urine Color Yellow (Yellow) 02/19/22 20:50 Urine Appearance Clear (CLEAR) 02/19/22 20:50 Urine pH 5 (5-7) 02/19/22 20:50 Ur Specific Delta 1.010 (1.005-1.030) 02/19/22 20:50 Urine Protein Neg (Negative) 02/19/22 20:50 Urine Glucose (UA) Norm (Normal) 02/19/22 20:50 Urine Ketones 1+ (Negative) H 02/19/22 20:50 Urine Blood Neg (Negative) 02/19/22 20:50 Urine Nitrate Negative (Negative) 02/19/22 20:50 Urine Bilirubin Neg (Negative) 02/19/22 20:50 Urine Urobilinogen Norm mg/dL (Negative) 02/19/22 20:50 Ur Leukocyte Esterase Negative (Negative) 02/19/22 20:50 EKG Data EKG 1: I personally reviewed and interpreted this EKG as follows: EKG interpretation time: 19:03 Interpretation: EKG reveals a sinus rhythm ventricular rate of 90 bpm. Has normal [place] interval QRS duration and QTc interval. Normal axis noted. No acute ST-T wave changes noted. EKG 2: I personally reviewed and interpreted this EKG as follows: EKG interpretation time: 20:06 Interpretation: Repeat EKG this date reveals sinus rhythm with ventricular rate of 96 bpm. No change from prior tracing this date. Discharge Plan Discharge Patient Disposition: Admitted As Inpatient Clinical Impression: Volume depletion, ANAT (acute kidney injury), Elevated troponin, COPD (chronic obstructive pulmonary disease) Condition: Stable Prescriptions: No Action potassium chloride 20 mEq tablet extended release 20 meq PO BID Qty: 60 2RF Hold Instructions: Resume on 08/10/21. isosorbide mononitrate 30 mg tablet extended release 24 hr 30 mg PO DAILY Qty: 30 3RF aspirin [Adult Aspirin Regimen] 81 mg tablet,delayed release (DR/EC) 81 mg PO DAILY 0RF atorvastatin 20 mg tablet 20 mg PO DAILY 0RF Narcan 4 mg/actuation spray,non-aerosol 1 spray INTRANASAL .COMPLEX 0RF Rx Instructions: 1 SPRAY INTRA NASAL NEEDED FOR OVERDOSE Viibryd 40 mg tablet 40 mg PO DAILY Qty: 30 2RF Rx Instructions: must administer with a meal/food trazodone 150 mg tablet 150 mg PO BEDTIME Qty: 30 2RF pantoprazole [Protonix] 40 mg tablet,delayed release (DR/EC) 40 mg PO BID Qty: 60 5RF nitroglycerin [Nitrostat] 0.4 mg tablet, sublingual 0.4 mg SUBLINGUAL Q5M PRN (Reason: chest pain) 90 Days Qty: 25 3RF Rx Instructions: refilling in the absence of Catherine martinez metformin 1,000 mg tablet 1,000 mg PO BID 30 Days Qty: 60 1RF hydrocodone-acetaminophen 7.5-325 mg tablet 1 tab PO Q6H MDD 5 tabs per day PRN (Reason: Pain) Qty: 0 0RF Rx Instructions: may take one extra tab per day-max 5 tabs per day-must last 28 days cyanocobalamin (vitamin B-12) [Vitamin B-12] 1,000 mcg Tablet 1,000 mcg PO DAILY Qty: 0 0RF albuterol sulfate [ProAir HFA] 90 mcg/actuation HFA aerosol inhaler 1 - 2 puff INHALATION Q6H PRN (Reason: shortness of breath or wheezing) 0RF furosemide [Lasix] 80 mg tablet 40 mg PO BID Qty: 60 5RF Hold Instructions: Resume on 08/10/21. pregabalin 150 mg capsule 150 mg PO TID 0RF allopurinol 300 mg tablet 300 mg PO DAILY 0RF fluticasone propion-salmeterol [Advair Diskus] 250-50 mcg/dose Blister With Device 1 inh INHALATION BID 0RF baclofen 10 mg tablet 5 mg PO BID 0RF triamcinolone acetonide 0.1 % ointment See Rx Instructions .ROUTE .COMPLEX 0RF Rx Instructions: as directed topically as needed carvedilol [Coreg] 12.5 mg tablet 12.5 mg PO BID 0RF Rx Instructions: rx filled 05/03/21 90d/s pts states she is unsure if pt is still taking benazepril 10 mg tablet 5 mg PO BID 0RF fluticasone propionate [Flonase Allergy Relief] 50 mcg/actuation spray,suspension 2 spray INTRANASAL DAILY PRN (Reason: Allergy Symptoms) 0RF Rx Instructions: administer into each nostril filling in Dr Milan absence Adult Aspirin Regimen 81 mg tablet,delayed release (DR/EC) 81 mg PO DAILY Qty: 30 3RF Plavix 75 mg tablet 75 mg PO DAILY Qty: 30 1RF Referrals: Galindo Carson DO [Primary Care Provider] - Coding Level of Care Code ED Pairer Inspector for Chg Fwd Exam Comprehensive
--- NOTE | 2022-02-19 18:21 | ECG_ITS ---
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 Measurements Intervals [place] Rate: 90 P: 57 TX: 155 QRS: 52 QRSD: 102 T: 78 QT: 332 QTc: 408 Interpretive Statements SINUS RHYTHM LOW QRS VOLTAGE IN PRECORDIAL LEADS [QRS DEFLECTION < 1.0 mV IN CHEST LEADS] NONSPECIFIC ST & T-WAVE ABNORMALITY Compared to ECG 08/06/2021 03:06:43 Low QRS voltage now present T-wave abnormality now present Electronically Signed On 02-20-2022 21:10:21 CDT by Alfonso Khan M.D. [id number] f
[2022-02-19 18:27] LABS: Basophils % 0.2 %; Hematocrit 38.1 % (42.0-52.0); Hemoglobin 12.8 g/dL (11.7-16.6); Mean Corpuscular HGB Conc 33.6 g/dL (30.0-36.0); Mean Corpuscular Hemoglobin 29.5 pg (28.0-34.0); Mean Corpuscular Volume 87.8 fl (80-94); Mean Platelet Volume 12.1 fL (7.4-10.4); Monocytes # 1.1 10^3/uL (0.2-0.9); Monocytes % 6.9 %; Neutrophils # 13.21 10^3/uL (1.8-7.7); Neutrophils % 80.4 %; Nucleated Red Blood Cells % 0 %; Platelet Count 253 10^3/cmm (130-400); Red Blood Count 4.34 10^6/uL (4.1-5.3); Red Cell Distribution Width 15.5 % (12.1-15.1); White Blood Count 16.4 10^3/uL (4.0-10.0)
--- NOTE | 2022-02-19 18:30 | CTR_ITS ---
PROCEDURE INFORMATION: Exam: CT Head Without Contrast Exam date and time: 02/19/2022 6:44 PM Age: 76 years old Clinical indication: Altered mental status/memory loss; Confusion or disorientation; Additional info: AMS TECHNIQUE: Imaging protocol: Computed tomography of the head without contrast. Radiation optimization: All CT scans at this facility use at least one of these dose optimization techniques: automated exposure control; mA and/or kV adjustment per patient size (includes targeted exams where dose is matched to clinical indication); or iterative reconstruction. COMPARISON: CT head wo con* [id number] 08/05/2021 5:57 PM RADIATION DOSE METRICS: Total DLP (mGy-cm): 729.41 FINDINGS: Brain: Normal. No hemorrhage. Unremarkable white matter. No mass effect. Cerebral ventricles: No ventriculomegaly. Paranasal sinuses: Visualized sinuses are unremarkable. No fluid levels. Mastoid air cells: Visualized mastoid air cells are well aerated. Bones/joints: Unremarkable. No acute fracture. Soft tissues: Unremarkable. CT/CT head wo con* [id number] IMPRESSION: No acute intracranial abnormality.
[2022-02-19 18:43] LABS: Alanine Aminotransferase 12 U/L (0-41); Albumin Level 3.8 g/dL (3.5-5.2); Alkaline Phosphatase 105 IU/L (40-130); Anion Gap 18.2 (5-19); Aspartate Amino Transferase 54 U/L (0-40); Blood Urea Nitrogen 25 mg/dL (8-23); Calcium 8.9 mg/dL (8.5-10.5); Carbon Dioxide 21 mmol/L (22-29); Chloride 104 mmol/L (98-107); Globulin 3.2 g/dL (1.3-4.6); Glucose 146 mg/dL (65-115); Osmolality Calculated 295 mOsm/kg (285-295); Potassium 4.2 mmol/L (3.5-5.1); Sodium 139 mmol/L (136-145); Total Bilirubin 0.6 mg/dL (0.15-1.2)
[2022-02-19] MEDS: sodium chloride 0.9% 1,000 ML 999 ML IV (18:48)
[2022-02-19 19:36] LABS: Troponin T (5th) Once 1744 ng/L (0-15)
--- NOTE | 2022-02-19 19:55 | ECG_ITS ---
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 Measurements Intervals [place] Rate: 88 P: 57 GA: 153 QRS: 47 QRSD: 105 T: 146 QT: 382 QTc: 462 Interpretive Statements SINUS RHYTHM POSSIBLE LEFT ATRIAL ENLARGEMENT [-0.1mV P-WAVE IN V1/V2] LOW QRS VOLTAGE IN PRECORDIAL LEADS [QRS DEFLECTION < 1.0 mV IN CHEST LEADS] NONSPECIFIC T-WAVE ABNORMALITY Compared to ECG 02/19/2022 20:05:35 No significant changes Electronically Signed On 02-20-2022 21:12:57 CDT by Alfonso Khan M.D. [id number]
[2022-02-19] MEDS: lactated ringers 1,000 ML 150 ML IV (20:20)
[2022-02-19 21:48] VITALS: BP 126/62; PULSE 92; RESP 18; O2SAT 92
[2022-02-19 21:49] LABS: Add Urine Microscopic? NO; Charge for UA Resulting for Rev
[2022-02-19 21:55] LABS: Bilirubin Urine Neg (Negative); Blood Urine Neg (Negative); Glucose Urine UA Norm (Normal); Ketones Urine 1+ (Negative); Leukocyte Esterase Urine Negative (Negative); Nitrate Urine Negative (Negative); Protein Urine Neg (Negative); Urine Appearance Clear (CLEAR); Urine Color Yellow (Yellow); Urobilinogen Urine Norm (Negative); pH Urine 5 (5-7)
[2022-02-19 22:12] LABS: Troponin 5 2HR Delta -310 ABS# (0-10)
[2022-02-19 22:13] LABS: Troponin 5 2HR 1434 ng/L (0-15)
[2022-02-19] MEDS: aspirin 81 mg Chew Tablet 324 MG PO (22:26)
[2022-02-19] MEDS: ipratropium-albuterol 3 mL Neb INHALATION (22:27)
[2022-02-19 22:29] VITALS: PULSE 97; RESP 18; O2SAT 93
[2022-02-19 22:34] VITALS: PULSE 95
[2022-02-19 22:58] LABS: D Dimer 0.79 ug/mIFEU (0-0.59)
--- NOTE | 2022-02-19 23:08 | ECG_ITS ---
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 Measurements Intervals [place] Rate: 96 P: 31 [place]: 138 QRS: 25 QRSD: 97 T: 81 QT: 332 QTc: 421 Interpretive Statements SINUS RHYTHM LOW QRS VOLTAGE IN PRECORDIAL LEADS [QRS DEFLECTION < 1.0 mV IN CHEST LEADS] NONSPECIFIC T-WAVE ABNORMALITY Compared to ECG 02/19/2022 18:59:07 No significant changes Electronically Signed On 02-20-2022 21:14:15 CDT by Alfonso Khan M.D. [id number]
[2022-02-20] VITALS (40 sets, daily range): BP systolic 90–120; BP diastolic 56–77; PULSE 83–111; RESP 8–32; TEMP 36.6–36.8; O2SAT 87–100
--- NOTE | 2022-02-20 00:21 | USCV_ITS ---
Isaías Clarke Age: 76 Gender: M : 1945 Exam Date: 02/20/2022 07:02 Ordering Phys: Emil Weaver MD Technologist: BRAIN [place]am [place] [facility] [place]: CHEST PAIN BP: 100 / 63 HR: 111 Rhythm: Atrial fibrillation Technical Quality: Adequate MEASUREMENTS (Male / Female) Normal Values 2D ECHO LV Diastolic Diameter PLAX 6.2 cm 4.2 - 5.9 / 3.9 - 5.3 cm LV Systolic Diameter PLAX 4.7 cm IVS Diastolic Thickness 1.9 cm 0.6 - 1.0 / 0.6 - 0.9 cm IVS Systolic Thickness 2.0 cm LVPW Diastolic Thickness 1.7 cm 0.6 - 1.0 / 0.6 - 0.9 cm LVPW Systolic Thickness 2.2 cm LVOT Diameter 2.0 cm LV Ejection Fraction 2D Teich 46.9 % LV Ejection Fraction MOD 2C 26.9 % LV Ejection Fraction 2C AL 29.7 % LA Diameter 5.1 cm LA Width 4.2 cm LA Height 5.5 cm RA Width 4.2 cm RA Height 4.8 cm Aorta at Sinotubular Diameter 2.3 cm M-MODE Aortic Annulus Diameter 3.5 cm LA Ao Ratio MM 1.3 MV E Point Septal Separation 1.1 cm DOPPLER AV Peak Velocity 137.0 cm/s LVOT Peak Velocity 67.0 cm/s AV Area Cont Eq vti 1.6 cm squared AV Area Cont Eq pk 1.5 cm squared MV Peak Velocity 130.0 cm/s MV Area PHT 3.6 cm squared Mitral E to A Ratio 2.7 MV E' Velocity 100.0 cm/s TR Peak Velocity 369.5 cm/s TR Peak Gradient 54.6 mmHg TR Mean Velocity 268.5 cm/s TR Mean Gradient 33.1 mmHg TR Velocity Time Integral 97.3 cm TV Peak E Velocity 85.0 cm/s FINDINGS Left Ventricle Severe diffuse hypokinesia of the mid and apical septum, anteroseptum, anterior and inferolateral wall segments with an LV ejection fraction of 30-35 %. Mildly dilated LV cavity . Right Ventricle Normal RV size ejection fraction Right Atrium Mildly dilated right atrium Left Atrium Mildly increased left atrial size. Mitral Valve Mild mitral valve regurgitation. Minimally thickened mitral valve Aortic Valve Thickened aortic valve. Tricuspid Valve Possibly severe tricuspid regurgitation. Estimated pulmonary artery peak systolic pressure of around 70 mmHg Pulmonic Valve No gross abnormalities noted Pericardium Aorta IVC Not visualized CONCLUSIONS Severe diffuse hypokinesia of the mid and apical septum, anteroseptum, anterior and inferolateral wall segments with an LV ejection fraction of 30-35 %. Mildly dilated LV cavity . Possibly severe tricuspid regurgitation. Severe pulmonary hypertension with estimated pulmonary artery peak systolic pressure of 70 mmHg, mean PA pressure 48 mmHg. Mild biatrial enlargement Mild mitral valve regurgitation. Minimally thickened mitral valve Thickened aortic valve. There is no pericardial effusion. There are no intracardiac masses. Echo contrast was used to delineate the segments and for the LV ejection fraction estimation. Compared to the study from 08/06/2021, there is a significant drop in the LV ejection fraction from 60% to 35%. The wall motion abnormality appears to be new Tricuspid regurgitation also appears to be new Dr Alfonso Khan MD FACC (Electronically Signed) Final Date: 20 February 2022 09:11 S
--- NOTE | 2022-02-20 00:22 | P.HP_ITS ---
Providers/Chief Complaint Admitting Physician: Emil Weaver MD Primary Care Provider: Galindo Carson DO Chief Complaint: INCREASED CONFUSION History of Present Illness Isaías Clarke is a 76 year old male with past medical history of coronary artery disease s/p stenting of distal RCA [place] [address] Holder, type 2 diabetes mellitus, dyslipidemia, depression, obstructive sleep apnea, chronic back pain who was brought in to ER for altered mental status as well as decreas ed p.o. intake for the last 2 days. When I examined the patient he was alert oriented x3. was at bedside According to her patient has not been eating and drinking well for the last 2 days,patient is also complaining of on and off longstanding chest pain going on for the last 6 months, he describes the pain as substernal At times very severe. I know the patient from the past admission, during the last admission he was evaluated by cardiology and since he is complaining of ongoing chest pain, coronary angiogram was discussed, at that time patient opted for medical management, as his last stress test was normal, and patient was responding to medical management during the hospital stay, he was continued on medical management to see cardiology as an outpatient, I do not think he has followed cardiology as outpatient. He is being worked up for above-mentioned complaints. Pertinent imaging studies: CT head without contrast: No acute intracranial pathology XR chest: No acute findings. EKG : Sinus rhythm, low QRS voltage, nonspecific ST-T wave changes. Pertinent labs WBC: 16.4 , H&H : 12/38 , PLT : 253 , serum sodium 139 , serum potassium 4.2, BUN/SCR : 25/2.3 , Troponin: 1744, 1434 , D-dimer 0.79 Review of Systems General: Reports: 10 or more systems reviewed and unremarkable except in HPI and below Const: Denies: fever(s), chills, body aches, change in appetite or diaphoresis Card: Denies: palpitations, edema, swelling of feet/ankles, dyspnea on exertion, orthopnea or leg pain with exertion Resp: Denies: dyspnea, productive cough, wheezing or pain on inspiration GI: Denies: abdominal pain, nausea, vomiting, diarrhea or constipation : Denies: flank pain or difficulty urinating Musc: Denies: back pain, extremity pain or extremity swelling Neuro: Denies: headache(s), difficulty walking or confusion Medications/Allergies Home Medications Medication Instructions Recorded Confirmed Last Taken Type aspirin 81 mg tablet,delayed 81 mg PO DAILY 10/15/19 09/29/21 05/02/21 History release (Adult Aspirin Regimen) atorvastatin 20 mg tablet 20 mg PO DAILY 10/15/19 09/29/21 05/01/21 History naloxone 4 mg/actuation nasal 1 spray INTRANASAL .COMPLEX 10/15/19 09/29/21 Unknown History spray (Narcan) potassium chloride 20 mEq 20 meq PO BID #60 tab 11/01/19 09/29/21 05/02/21 Rx tablet,extended release pantoprazole 40 mg tablet,delayed 40 mg PO BID #60 tab 11/21/19 09/29/21 05/02/21 Rx release (Protonix) nitroglycerin 0.4 mg sublingual 0.4 mg SUBLINGUAL Q5M PRN 90 Days 02/03/20 09/29/21 Unknown Rx tablet (Nitrostat) #25 tab metformin 1,000 mg tablet 1,000 mg PO BID 30 Days #60 tab 02/26/20 09/29/21 05/02/21 Rx albuterol sulfate 90 mcg/actuation 1 - 2 puff INHALATION Q6H PRN 05/25/20 09/29/21 Unknown History aerosol inhaler (ProAir HFA) cyanocobalamin (vitamin B-12) 1,000 mcg PO DAILY #0 05/25/20 09/29/21 05/02/21 History 1,000 mcg tablet (Vitamin B-12) furosemide 80 mg tablet (Lasix) 40 mg PO BID #60 tab 05/28/20 09/29/21 05/02/21 Rx hydrocodone 7.5 mg-acetaminophen 1 tab PO Q6H PRN #0 tab MDD 5 tabs 07/22/20 09/29/21 07/18/20 Rx 325 mg tablet per day allopurinol 300 mg tablet 300 mg PO DAILY 05/02/21 09/29/21 05/02/21 History pregabalin 150 mg capsule 150 mg PO TID 05/02/21 09/29/21 04/29/21 History isosorbide mononitrate 30 mg 30 mg PO DAILY #30 tab 05/12/21 09/29/21 Unknown Rx tablet,extended release 24 hr baclofen 10 mg tablet 5 mg PO BID 08/06/21 09/29/21 Unknown History benazepril 10 mg tablet 5 mg PO BID 08/06/21 09/29/21 Unknown History carvedilol 12.5 mg tablet (Coreg) 12.5 mg PO BID 08/06/21 09/29/21 Unknown History fluticasone 250 mcg-salmeterol 50 1 inh INHALATION BID 08/06/21 09/29/21 Unknown History mcg/dose blistr powdr for inhalation (Advair Diskus) fluticasone propionate 50 2 spray INTRANASAL DAILY PRN 08/06/21 09/29/21 Unknown History mcg/actuation nasal spray,suspension (Flonase Allergy Relief) triamcinolone acetonide 0.1 % See Rx Instructions .ROUTE .COMPLEX 08/06/21 09/29/21 Unknown History topical ointment aspirin 81 mg tablet,delayed 81 mg PO DAILY #30 tab 08/07/21 09/29/21 Unknown Rx release (Adult Aspirin Regimen) clopidogrel 75 mg tablet (Plavix) 75 mg PO DAILY #30 tab 08/07/21 09/29/21 Unknown Rx trazodone 150 mg tablet 150 mg PO BEDTIME #30 tab 09/29/21 09/29/21 Unknown Rx vilazodone 40 mg tablet (Viibryd) 40 mg PO DAILY #30 tab 09/29/21 09/29/21 Unknown Rx Allergies Allergy/AdvReac Type Severity Reaction Status Date / Time gabapentin AdvReac Mild ADR-Nausea Verified 02/19/22 18:03 PFSH Acute PFSH: Medical History CAD (coronary artery disease) Chronic back pain Diabetes mellitus type 2 in obese Dyslipidemia Encounter for long-term use of opiate analgesic Gabapentin overdose Gout Major depressive disorder, recurrent, mild (Unknown) Neuropathy Opioid contract exists MALORIE (obstructive sleep apnea) Psychiatric care Renal insufficiency Smokeless tobacco use Substance abuse Urinary retention Surgical History History of cholecystectomy History of heart artery stent Family History Other Cancer Hypertension Social History Smoking and tobacco status: former smoker Second hand smoke exposure: No Alcohol intake: never History of recent travel: No Vitals/I&O/Wt Last Vital Signs Temp 97.7 F 02/19/22 18:03 Pulse 90 02/20/22 00:09 Resp 19 H 02/20/22 00:09 BP 94/60 02/20/22 00:09 Pulse Ox 92 02/20/22 00:09 Weight last 48 hrs Weight 106.594 kg Physical Exam Const: COMMON NORMALS: patient oriented x3 HENMT: COMMON NORMALS: normocephalic and atraumatic HEAD & SCALP: normocephalic and atraumatic Resp: COMMON NORMALS: normal respiratory effort, No retractions, No use of accessory muscles and clear to auscultation bilaterally EFFORT & INSPECTION: Yes symmetric chest movement AUSCULTATION: clear to auscultation bilaterally Cardio: COMMON NORMALS: regular rate, regular rhythm, S1 normal heart sound present, S2 normal heart sound present, No gallops present (Cardio), No murmurs present (Cardio), No rub (Cardio) and Peripheral pulses 2+ throughout RATE: regular rate RHYTHM: regular rhythm HEART SOUNDS: S1 normal heart sound present and S2 normal heart sound present PERIPHERAL PULSES: Peripheral pulses 2+ throughout GI: COMMON NORMALS: Normal to inspection, nondistended, normoactive bowel sounds present, Soft to palpation, non-tender, No hepatosplenomegaly present and no masses AUSCULTATION: Yes normoactive bowel sounds PALPATION: Yes Soft to palpation and Yes No hepatosplenomegaly present RECTAL EXAM: Yes deferred Extremity: COMMON NORMALS: no clubbing, cyanosis or edema and no pedal edema Neuro: COMMON NORMALS: patient oriented x3 Data : 02/19/22 17:40 02/19/22 17:40 A&P Assessment and plan (1) ANAT (acute kidney injury): Status: Acute (2) Elevated troponin: Status: Acute (3) Major depressive disorder, recurrent, mild: Status: Acute (4) Chest pain: Status: Acute Qualifiers: Chest pain type: unspecified Qualified Code(s): R07.9 - Chest pain, unspecified (5) Diabetes mellitus type 2 in obese: Status: Acute (6) MALORIE (obstructive sleep apnea): Status: Acute (7) COPD (chronic obstructive pulmonary disease): Status: Acute (8) Altered mental status: Status: Acute Plan 76 year old male with past medical history of coronary artery disease s/p stenting of distal RCA [place] [address] Holder, type 2 diabetes mellitus, dyslipidemia, depression, obstructive sleep apnea, chronic back pain who was brought in to ER for altered mental status as well as decreased p.o. intake for the last 2 days. Assessment: Altered mental status: Likely secondary to ANAT , dehydration , NSTEMI likely type II. CAD S/P Stent DM MALORIE COPD DLD Leukocytosis likely secondary to dehydration Plan: Follow 2D echo Continue aspirin, Plavix, statin , beta-nico, Imdur, Ranexa can be added. Continue IV hydration with normal saline Monitor BMP Intake output charting Random urine sodium Random urine creatinine Random urine protein FENA UPCR Avoid nephrotoxic's Follow Blood Culture SSI, monitor fingerstick glucose Continue albuterol and Advair inhaler Cardiology has been consulted for possible intervention. CODE STATUS; full code DVT prophylaxis: On heparin Attestations Medical Necessity Statement*: Patient is to be in hospital for management of N STEMI, dehydration, ANAT.Anticipated length of stay greater than 2 midnights. Time Spent in Patient Care: Greater than 35 minutes (>than 50% of time spent in counselling and/or direct pt care on unit) . Coding Level of Care Code Acute Auger Machine Offbearer for Chg Fwd Exam Detailed Diagnoses ANAT (acute kidney injury) N17.9 Elevated troponin R77.8 Major depressive disorder, recurrent, mild F33.0 Chest pain R07.9 Chest pain type: unspecified Diabetes mellitus type 2 in obese E11.69; E66.9 MALORIE (obstructive sleep apnea) G47.33 COPD (chronic obstructive pulmonary disease) J44.9 Altered mental status R41.82
[2022-02-20] MEDS: sodium chloride 0.9% 1,000 ML 100 ML IV ×2 (01:14→13:22)
[2022-02-20] MEDS: heparin 5,000 unit/mL INJ 1 mL 5000 UNIT SUBCUT ×2 (01:14→13:06)
--- NOTE | 2022-02-20 01:24 | PC.NURSE ---
Dr. Weaver notified of blood pressure of 86/48.
[2022-02-20] MEDS: sodium chloride 0.9% 1,000 ML 999 ML IV (01:41)
[2022-02-20 02:40] LABS: Troponin 5 6HR 1331 ng/L (0-15)
[2022-02-20 02:47] LABS: Glucose Point of Care 137 mg/dL (70-110)
--- NOTE | 2022-02-20 03:08 | ECG_ITS ---
[facility] Test Date: 2022-02-20 Pat Name: Isaías Clarke Department: Room: 250 Gender: Male Jira Administrator: : 1945 Requested By: Nicola Orourke Order Number: [id number] Beata MD: Alfonso Khan M.D. Measurements Intervals [place] Rate: 96 P: 62 DE: 149 QRS: 68 QRSD: 104 T: 183 QT: 386 QTc: 488 Interpretive Statements SINUS RHYTHM WITH SINUS ARRHYTHMIA POSSIBLE LEFT ATRIAL ENLARGEMENT [-0.1mV P-WAVE IN V1/V2] MODERATE T-WAVE ABNORMALITY, CONSIDER LATERAL ISCHEMIA [-0.1+ mV T-WAVE IN I/aVL/V5/V6] MODERATE T-WAVE ABNORMALITY, CONSIDER INFERIOR ISCHEMIA [-0.1+ mV T-WAVE IN II/aVF] Compared to ECG 02/20/2022 01:05:13 Possible ischemia now present T-wave abnormality still present Electronically Signed On 02-21-2022 19:42:24 CDT by Alfonso Khan M.D. [email or web address]
[2022-02-20 06:47] LABS: Glucose Point of Care 114 mg/dL (70-110)
[2022-02-20] MEDS: perflutren protein-a microsphr 0.22 mg/mL SDV 3 mL IV (07:54)
--- NOTE | 2022-02-20 09:23 | PM.MISC ---
Miscellaneous Note Purpose of Documentation: Transferred to ICU Note: Patient was seen today. Continuously trying to get out of bed. One-to-one observation was ordered for him. Denies having any chest pain at this time. Patient does have borderline low blood pressures. He is fluid overloaded. Has crackles bilaterally at bases. Troponins consistent with recent NSTEMI. I will start Lasix 40 IV daily. I will stop his IV fluids at this time. We will monitor him closely in the ICU. Transfer patient to ICU. Avoid antihypertensives at this time. He may need a milrinone drip along with Lasix for diuresis. We will monitor. Respiratory che patient is stable. We will repeat chest x-ray tomorrow morning. Echo does show wall motion abnormalities and EF of 30 to 35%. Patient definitely needs an angiogram once his volume status is improved. Encephalopathy etiology unsure at this time. Will check B12, ammonia. It could be medication induced. There is a history of gabapentin overdose in the past. I will hold some of his home medications to see if patient improves. I will discussed this with Dr. Khan.
[2022-02-20] MEDS: aspirin 81 mg EC Tablet PO (09:26)
[2022-02-20] MEDS: isosorbide mononitrate ER 30 mg Tablet PO (09:27)
[2022-02-20] MEDS: carvedilol 12.5 mg Tablet PO (09:27)
[2022-02-20] MEDS: cyanocobalamin 1,000 mcg Tablet 1000 MCG PO (09:27)
[2022-02-20] MEDS: pantoprazole DR 40 mg Tablet PO ×2 (09:27→17:55)
[2022-02-20] MEDS: atorvastatin 40 mg Tablet 20 MG PO (09:27)
[2022-02-20] MEDS: clopidogrel 75 mg Tablet PO (09:27)
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
[2022-02-20 12:38] LABS: Glucose Point of Care 131 mg/dL (70-110)
[2022-02-20 13:01] LABS: Glucose Point of Care 139 mg/dL (70-110)
[2022-02-20] MEDS: FUROsemide 10 mg/mL SDV 4mL 40 MG IVP (15:51)
--- NOTE | 2022-02-20 16:22 | PC.NURSE ---
Talked with MD regarding just administering a dose of furosemide 40 when 60 mg was ordered. Order obtained to give additional 20mg. Reported to Miguelina LEGAL DOCUMENT ASSISTANT.
[2022-02-20] MEDS: FUROsemide 10 mg/mL SDV 2mL 20 MG IVP (16:40)
[2022-02-20 17:28] LABS: Glucose Point of Care 142 mg/dL (70-110)
[2022-02-20 17:42] LABS: Platelet Count 245 10^3/cmm (130-400)
[2022-02-20 21:39] LABS: Glucose Point of Care 145 mg/dL (70-110)
[2022-02-20] MEDS: trazodone 150 mg Tablet PO (21:45)
[2022-02-20] MEDS: insulin lispro 100 unit/1 mL SUBCUT (21:45)
[2022-02-21] VITALS (26 sets, daily range): BP systolic 97–141; BP diastolic 56–90; PULSE 78–108; RESP 14–30; TEMP 36.8–37.2; O2SAT 86–97
[2022-02-21] MEDS: albuterol 8 gm MDI 2 PUFF INHALATION ×2 (03:58→08:06)
[2022-02-21 04:09] LABS: Basophils % 0.3 %; Eosinophils % 0.1 %; Hematocrit 33.6 % (42.0-52.0); Hemoglobin 11.1 g/dL (11.7-16.6); Lymphocytes # 1.9 10^3/uL (0.8-4.8); Lymphocytes % 18.5 %; Mean Corpuscular Volume 87.7 fl (80-94); Mean Platelet Volume 11.9 fL (7.4-10.4); Monocytes # 0.8 10^3/uL (0.2-0.9); Neutrophils # 7.41 10^3/uL (1.8-7.7); Neutrophils % 72.8 %; Nucleated Red Blood Cells % 0 %; Platelet Count 200 10^3/cmm (130-400); Red Blood Count 3.83 10^6/uL (4.1-5.3); Red Cell Distribution Width 15.3 % (12.1-15.1); White Blood Count 10.2 10^3/uL (4.0-10.0)
[2022-02-21 04:30] LABS: Anion Gap 14.8 (5-19); Blood Urea Nitrogen 26 mg/dL (8-23); Calcium 8.6 mg/dL (8.5-10.5); Carbon Dioxide 23 mmol/L (22-29); Chloride 110 mmol/L (98-107); Glucose 105 mg/dL (65-115); Osmolality Calculated 303 mOsm/kg (285-295); Potassium 3.8 mmol/L (3.5-5.1); Sodium 144 mmol/L (136-145)
[2022-02-21 05:53] LABS: Partial Thromboplastin Time 54.1 SECONDS (23.9-36.7)
[2022-02-21] MEDS: ondansetron 2 mg/ML SDV 2 mL 4 MG IVP (06:32)
[2022-02-21] MEDS: heparin drip 25,000 UNIT/500 ML PREMIX 35.96 UNIT IV (06:33)
[2022-02-21 07:29] LABS: Glucose Point of Care 121 mg/dL (70-110)
[2022-02-21] MEDS: atorvastatin 40 mg Tablet 20 MG PO (08:20)
[2022-02-21] MEDS: cyanocobalamin 1,000 mcg Tablet 1000 MCG PO (08:20)
[2022-02-21] MEDS: aspirin 81 mg EC Tablet PO (08:20)
[2022-02-21] MEDS: pantoprazole DR 40 mg Tablet PO ×2 (08:20→17:41)
[2022-02-21] MEDS: isosorbide mononitrate ER 30 mg Tablet PO (08:20)
[2022-02-21] MEDS: clopidogrel 75 mg Tablet PO (08:20)
[2022-02-21] MEDS: FUROsemide 10 mg/mL SDV 4mL 40 MG IVP ×2 (09:08→20:48)
[2022-02-21 09:20] LABS: Procalcitonin 0.28 ng/mL (0-0.5)
[2022-02-21 09:21] LABS: Thyroid Stimulating Hormone 0.35 uIU/mL (0.27-4.20)
[2022-02-21] MEDS: budesonide 0.5 mg/2 mL Neb INHALATION ×2 (09:22→20:06)
[2022-02-21 09:33] LABS: Iron 23 ug/dL (59-158); Percent Saturation 14.1 % (20-50); Total Iron Binding Capacity 162 mcg/dl; Unsaturated Iron Binding 139 ug/dL (112-347)
--- NOTE | 2022-02-21 11:52 | PC.CHAP ---
Pastoral Care Encounter/Spiritual Assessment Type of Contact [] Declined door slinger visit [] Patient/Family/Request visit [] Outpatient visit [] Follow-up visit [] Physician referral [] Code/Alert [x] Routine visit [] Staff referral [] Actively dying [x] Patient sleeping [] Family support [] [] Out of room [] Palliative care [] [] Receiving care in room [] Pre-surgical visit [] Trauma [] Long length of stay [x] ICU visit [] Other: Relational/Emotional Strength [] Patient feels connected with others/family/visitors/staff [] Distress [] Loneliness/isolation [] Abandonment Spirituality of Patient [] Person of [place] [] Attends Islam of their [place] [] Believes in Prayer [] Reads Bible or Baptism materials [] There are Spiritual issues to be addressed Seamless Hosiery Knitter Interventions [x] Prayer [] Active listening [] Non-anxious presence [] Spiritual/emotional support [] Crisis/trauma care [] Spiritual counseling [] Bereavement support [] Provided bereavement packet [] Provided Bible/devotional materials [] Provided toy/stuffed animal, coloring book to patient or family member [] Provided Communion [] Anointing/Kenefic [] Salvation [x] Completed spiritual assessment [] Other: Impact on Illness or Injury [] Angry [] Fearful [] Anxious [] Often cries [] Exhaustion [] Unable to work [] Unable to attend adventism [] Unable to walk/stand [] Unable to read [] Unable to drive [] Unable to eat/drink [] Unable to sleep [] Unable to be with family [] Patient intubated [] Other: Summary Time spent with patient
[2022-02-21 12:15] LABS: Glucose Point of Care 155 mg/dL (70-110)
--- NOTE | 2022-02-21 12:25 | P.PN_ITS ---
Subjective Subjective: Patient denies any chest pains. states he was having chest pains this morning. Intermittent confusion at home. Medications: Reviewed: Yes Vitals/I&O/Wt Last Vital Signs Temp 98.9 F 02/21/22 04:00 Pulse 88 02/21/22 08:00 Resp 16 02/21/22 08:00 BP 121/69 02/21/22 08:00 Pulse Ox 92 02/21/22 08:00 02/20/22 02/21/22 02/21/22 22:59 06:59 14:59 Intake Total 0 / 1120 Output Total 950 / 950 350 / 1300 Balance -950 / 170 -350 / -180 Weight last 48 hrs Weight 283 lb 1.6 oz Weight 235 lb Physical Exam Const: COMMON NORMALS: no acute distress, patient oriented x3 and alert GENERAL APPEARANCE: cooperative, comfortable, well kempt and well hydrated HENMT: COMMON NORMALS: hearing grossly normal bilaterally, external ears normal and moist oral mucous membranes FACE & SINUS: normal facial exam EXTERNAL EAR: Yes external ears normal Eye: COMMON NORMALS: EOMs intact bilaterally and no scleral icterus GENERAL EYE: appearance normal, both eyes and all related structures Neck/C-Spine: COMMON NORMALS: supple and no JVD GENERAL: Yes normal visual inspection CAROTIDS: Yes normal carotid upstroke Chest: COMMONS NORMALS: normal inspection of the chest and normal palpation of entire chest wall CHEST: Yes Symmetrical chest wall rise and No tenderness Resp: COMMON NORMALS: clear to auscultation bilaterally AUSCULTATION: clear to auscultation bilaterally, no crackles, no rales, no rhonchi and no wheezes Cardio: COMMON NORMALS: no JVD, regular rate, regular rhythm, S1 normal heart sound present, S2 normal heart sound present and Peripheral pulses 2+ throughout PALPATION: normal PMI RATE: regular rate RHYTHM: regular rhythm HEART SOUNDS: S1 normal heart sound present, S2 normal heart sound present, no gallops and no murmurs BRUITS: no carotid bruits PERIPHERAL PULSES: Peripheral pulses 2+ throughout, radial pulses present, posterior tibial pulses present and dorsalis pedis present Extremity: GENERAL: No cyanosis, Yes edema (trace-1+ bilateral edema) and No p allor Neuro: COMMON NORMALS: patient oriented x3 SENSORIUM/ORIENTATION: Yes alert Psych: COMMON NORMALS: Normal thought process present and speech normal APPEARANCE: Yes well kempt SPEECH: Yes normal speech MOOD & AFFECT: Yes euthymic mood THOUGHT PROCESS: Normal thought process present THOUGHT CONTENT: Yes Normal thought content present Data : 02/21/22 03:58 02/21/22 03:58 Micro: Microbiology 02/20/22 05:35 Blood Culture - Preliminary Blood NEGATIVE TO DATE 02/20/22 05:30 Blood Culture - Preliminary Blood NEGATIVE TO DATE Other data: TTE (02/19/22) CONCLUSIONS ?Severe diffuse hypokinesia of the mid and apical septum, ?anteroseptum, anterior and inferolateral wall segments with an ?LV? ejection fraction of 30-35 %.? Mildly dilated LV cavity . ?Possibly severe tricuspid regurgitation. ?Severe pulmonary hypertension with estimated pulmonary artery ?peak systolic pressure of 70 mmHg, mean PA pressure 48 mmHg. ?Mild biatrial enlargement ?Mild mitral valve regurgitation.? Minimally thickened mitral ?valve ?Thickened aortic valve. ?There is no pericardial effusion. ?There are no intracardiac masses. ?Echo contrast was used to delineate the segments and for the LV ?ejection fraction estimation. ?Compared to the study from 08/06/2021, there is a significant ?drop in the LV ejection fraction from 60% to 35%. ?The wall motion abnormality appears to be new ?Tricuspid regurgitation also appears to be new 02/17/2010 Left heart catheterization IMPRESSIONS: 1. 80% stenosis of the distal right coronary artery. 2. 40% stenosis of the ostial right coronary artery. 3. 30% stenosis of the proximal right coronary artery.? . Left ventricular function. 1.Normal left ventricular wall motion. 2.Estimated ejection fraction of 60-65%. Interventions. Angioplasty and stenting of the? distal right coronary artery. A&P Assessment and plan (1) NSTEMI (non-ST elevated myocardial infarction): -Patient is a poor historian, no chest pain endorsed to by patient but states he was having chest pains on and off -Troponin T 1744->1434-->1331 -Concern for recent NSTEMI. Echo with drop in LV function. RWMA may represent multivessel CAD or takotsubo cardiomyopathy if CAD is ruled out. -will proceed with [facility] once renal function normalizes possibly Monday/.Creatinine 1.5 this morning. -continue with DAPT, imdur statin and heparin gtt. -Risks and benefits were discussed with the patient and . Possible comp lications including risk of heart attack stroke and , coronary perforation, arrhythmia, cardiac tamponade in urgent CABG were discussed with the patient as well. Status: Acute (2) Ischemic cardiomyopathy: BP runs soft. restart coreg at low dose in morning Status: Acute (3) Atherosclerotic heart disease of [place] coronary artery with other forms of angina pectoris: Patient had PCI of the right coronary artery in 2009. He had some mild disease in the other vessels. Status: Acute (4) MALORIE (obstructive sleep apnea): May continue on the CPAP. Status: Acute (5) Altered mental status: Status: Acute (6) Acute kidney injury superimposed on chronic kidney disease: Need to be carefully treated with IV diuretics. Status: Acute (7) Carotid artery narrowing: Patient had less than 50 per stenosis by carotid duplex. The distal left ICA may have some hemodynamically significant stenosis. This needs to be further e valuated with a CTA Status: Inactive (8) Pulmonary hypertension: Severe pulm hypertension, could be related to the COPD/sleep apnea. Other etiologies cannot be excluded. Status: Acute Plan Other problems are Obesity Type 2 diabetes Altered mental status/agitation Based on the patient's clinical progress and the results of the above, further recommendations will be made. Thank you for the opportunity to evaluate this patient and make these recommendations. Attestations Medical Necessity Statement*: Requires hospitalization for non-ST elevation [place], ischemic cardiomyopathy, ANAT on CKD Time Spent in Patient Care: Greater than 35 minutes Coding Level of Care Code Acute Ux Ui Designer for g Fwd Exam Comprehensive Diagnoses Ischemic cardiomyopathy I25.5 Atherosclerotic heart disease of [place] coronary artery with other forms of angina pectoris I25.118 MALORIE (obstructive sleep apnea) G47.33 Altered mental status R41.82 Acute kidney injury superimposed on chronic kidney disease N17.9; N18.9 Carotid artery narrowing I65.29 Pulmonary hypertension I27.20 NSTEMI (non-ST elevated myocardial infarction) I21.4
[2022-02-21] MEDS: insulin lispro 100 unit/1 mL SUBCUT ×2 (12:29→20:49)
[2022-02-21] MEDS: ipratropium-albuterol 3 mL Neb INHALATION ×2 (14:19→20:06)
--- NOTE | 2022-02-21 16:14 | P.PN_ITS ---
Subjective Subjective: Hospital course, labs appreciated. Today morning seen with sitter at bedside. Patient sitting up in chair. Patient is alert and oriented to self, place, year, date of , spouse. Denies of having any chest pain. Complaining of back pain. Denies of having any difficulty in breathing. Patient does seem slightly confused and slow to respond. Vitals/I&O/Wt Last Vital Signs Temp 98.9 F 02/21/22 04:00 Pulse 83 02/21/22 14:19 Resp 16 02/21/22 14:19 BP 125/83 02/21/22 12:00 Pulse Ox 92 02/21/22 14:19 02/21/22 02/21/22 02/21/22 06:59 14:59 22:59 Intake Total 480 / 480 308.057 / 788.057 Output Total 350 / 1300 575 / 575 Balance -350 / -180 -95 / -95 308.057 / 213.057 Weight last 48 hrs Weight 128.412 kg Weight 106.594 kg Physical Exam Narrative: General: No acute distress, AO x3, slightly confused and slow to respond HEENT: PERRLA, pupils bilaterally equal and reactive Chest: Normal vesicular breath sounds, no added sounds, equal good air entry bilaterally CVS: S1-S2 regular, pansystolic murmur at fourth intercostal left retrosternal, no tachycardia, no gallops, no rubs Abdomen: Soft, nontender, no organomegaly, bowel sounds present Neuro: No focal deficits, no facial deformity, AO x3, Data : 02/21/22 03:58 02/21/22 03:58 Micro: Microbiology 02/20/22 05:35 Blood Culture - Preliminary Blood NEGATIVE TO DATE 02/20/22 05:30 Blood Culture - Preliminary Blood NEGATIVE TO DATE A&P Assessment and plan (1) NSTEMI (non-ST elevated myocardial infarction): Status: Acute (2) Ischemic cardiomyopathy: Status: Acute (3) Congestive heart failure: Status: Acute Qualifiers: Heart failure type: combined systolic and diastolic Heart failure chronicity: acute on chronic Qualified Code(s): I50.43 - Acute on chronic combined systolic (congestive) and diastolic (congestive) heart failure (4) Altered mental status: Status: Acute (5) ANAT (acute kidney injury): Status: Acute (6) Diabetes mellitus type 2 in obese: Status: Acute (7) Severe tricuspid regurgitation: Status: Acute (8) Pulmonary hypertension: Status: Acute (9) Acute kidney injury superimposed on chronic kidney disease: Status: Acute (10) COPD (chronic obstructive pulmonary disease): Status: Acute (11) MALORIE (obstructive sleep apnea): Status: Acute (12) Major depressive disorder, recurrent, mild: Status: Acute Plan Non-ST elevation [place]: Troponin on admission more than 1700 with negative trend. Patient denies any chest pain. Cardiology on board. Check lipid panel, A1c. Continue with aspirin, statin, Plavix. Continue with heparin drip. Most likely patient will need a cardiac angiogram once renal function stabilizes. Ischemic cardiomyopathy: New EF of 30 to 35% with severe TR, biatrial enlargement. Strict input output charting, daily weights. Fluid restriction up to 1500 cc. Lasix 40 mg IV twice daily. Saturation over 90%. Altered mental status: Most likely secondary to dehydration and ANAT on CKD. Resolving. Cannot rule out underlying dementia. Continue with sitter. Frequent reorientation. No electrolyte abnormality. Check ammonia, vitamin B12, folate levels. Check TSH. ANAT on CKD: Most likely CRS. Trending down. Baseline creatinine around 1. Check urine lites, urine creatinine, urine eosinophils, urinalysis. Check renal ultrasound. Type 2 diabetes mellitus: Check A1c. Sliding scale. Check lower limb Dopplers for left leg swelling. Analgesia: Tylenol, Glycemic control: Insulin sliding scale at low-dose protocol. Nutrition: Renal cardiac carb consistent diet CODE STATUS: Full code PUD prophylaxis: Protonix DVT prophylaxis: Heparin drip will suffice for DVT prophylaxis Discharge planning: Most likely discharge home with home health. Check physical therapy Transfer from ICU to CSU care. 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 Diagnoses ANAT (acute kidney injury) N17.9 Major depressive disorder, recurrent, mild F33.0 Diabetes mellitus type 2 in obese E11.69; E66.9 MALORIE (obstructive sleep apnea) G47.33 COPD (chronic obstructive pulmonary disease) J44.9 Altered mental status R41.82 NSTEMI (non-ST elevated myocardial infarction) I21.4 Severe tricuspid regurgitation I07.1 Pulmonary hypertension I27.20 Acute kidney injury superimposed on chronic kidney disease N17.9; N18.9 Ischemic cardiomyopathy I25.5 Congestive heart failure I50.43 Heart failure type: combined systolic and diastolic Heart failure chronicity: acute on chronic
[2022-02-21 16:51] LABS: Partial Thromboplastin Time 114.7 SECONDS (23.9-36.7)
[2022-02-21 17:41] LABS: Glucose Point of Care 123 mg/dL (70-110)
[2022-02-21] MEDS: baclofen 10 mg Tablet 5 MG PO (17:41)
[2022-02-21 20:40] LABS: Glucose Point of Care 145 mg/dL (70-110)
[2022-02-21] MEDS: acetaminophen 325 mg Tablet 650 MG PO (20:49)
[2022-02-21] MEDS: trazodone 150 mg Tablet PO (20:49)
[2022-02-21 21:53] LABS: Urine Creatinine 86 mg/dL (39-259)
[2022-02-21 22:07] LABS: Add Urine Microscopic? NO; Charge for UA Resulting for Rev
[2022-02-21 22:09] LABS: Bilirubin Urine Neg (Negative); Blood Urine Neg (Negative); Glucose Urine UA Norm (Normal); Ketones Urine Negative (Negative); Leukocyte Esterase Urine Negative (Negative); Nitrate Urine Negative (Negative); Protein Urine Neg (Negative); Urine Appearance Clear (CLEAR); Urine Color Yellow (Yellow); Urobilinogen Urine Norm (Negative); pH Urine 5 (5-7)
[2022-02-21 22:20] LABS: Potassium, Radom Urine 26 mmol/L; Urine Random Chloride 72 mmol/L; Urine Random Sodium 50 mmol/L
[2022-02-21 22:24] LABS: Amphetamines Screen Urine Negative (Negative); Barbiturates Screen Urine Negative (Negative); Benzodiazepines Screen Urine Negative (Negative); Cocaine Screen Urine Negative (Negative); Opiate Screen Urine Positive (Negative); PCP Screen Urine Negative (Negative); THC Screen Urine Positive (Negative)
[2022-02-21 22:26] LABS: Eosinophil Urine No Eosinophils Seen; Urine Eosinophil Count 0 (0-0)
[2022-02-21] MEDS: HYDROcodone-acetaminophen 7.5-325 mg Tablet 1 TAB PO (22:34)
[2022-02-21 22:59] LABS: Partial Thromboplastin Time 172.9 SECONDS (23.9-36.7)
--- NOTE | 2022-02-21 23:20 | PC.NURSE ---
report called to RYAN garcia @ [phone]
[2022-02-22] VITALS (12 sets, daily range): BP systolic 105–121; BP diastolic 66–80; PULSE 70–106; RESP 16–18; TEMP 36.4–36.7; O2SAT 91–95
[2022-02-22] MEDS: temazepam 15 mg Capsule PO (01:07)
[2022-02-22] MEDS: heparin drip 25,000 UNIT/500 ML PREMIX 20 UNIT IV (01:07)
--- NOTE | 2022-02-22 01:13 | USCV_ITS ---
Isaías Clarke Age: 76 Gender: M : 1945 Exam Date: 02/22/2022 01:25 Ordering Phys: Barak Jarvis MD Technologist: XAVIER [place] [facility] [place]: Swollen Legs PROCEDURES: Venous duplex imaging was performed in bilateral lower extremities. The following venous structures were evaluated: common femoral vein, profunda vein, proximal portion of the greater saphenous vein, superficial femoral vein, and the popliteal vein. In addition, the posterior tibial and peroneal trunk were evaluated. Serial compression, augmentation maneuvers, and spectral Doppler flow evaluation were performed. FINDINGS: No evidence of DVT seen in any vessel visualized at this time. The veins were found to be easily compressible with spontaneous blood flow. Non pulsatile flow pattern. CONCLUSIONS No evidence of DVT in the above-mentioned identifiable veins. Dr Alfonso Khan MD [facility] (Electronically Signed) Final Date: 23 February 2022 07:52 S
--- NOTE | 2022-02-22 01:13 | PC.NURSE ---
This RN called MD Avila about critical PTT level at 2306 02/21/2022. Per hold heparin 2 hrs and restart heparin gtts at 20ml/hr.
--- NOTE | 2022-02-22 02:07 | US_ITS ---
WS: [id number] RENAL ULTRASOUND HISTORY: david on ckd COMPARISON: 04/07/2021 TECHNIQUE: 2-D and color Doppler imaging of the kidney submitted. Right kidney: 10.1 cm x 5.0 cm x 4.3 cm. Normal size and echogenicity. Minimal filling of the cortex. No solid mass or hydronephrosis. Left kidney: 14.1 cm x 4.5 cm x 6.7 cm. Kidney is mildly enlarged. No hydronephrosis or mass identified. Aorta: Not well visualized. Mild atherosclerosis. Urinary Bladder: Well-distended urinary bladder. No intraluminal mass. US/US renal BI* [id number] IMPRESSION: 1. No hydronephrosis or solid mass. 2. Well-distended urinary bladder.
[2022-02-22] MEDS: ipratropium-albuterol 3 mL Neb INHALATION ×3 (03:26→20:49)
[2022-02-22] MEDS: nitroglycerin 0.4 mg sublingual Tablet SUBLINGUAL ×2 (04:50→06:13)
[2022-02-22 06:34] LABS: Glucose Point of Care 118 mg/dL (70-110)
[2022-02-22] MEDS: HYDROcodone-acetaminophen 7.5-325 mg Tablet 1 TAB PO ×2 (08:07→17:11)
[2022-02-22 08:42] LABS: Basophils # 0.1 10^3/uL (0.0-0.1); Basophils % 0.4 %; Eosinophils % 0.3 %; Hematocrit 33.2 % (42.0-52.0); Hemoglobin 11.3 g/dL (11.7-16.6); Lymphocytes # 1.5 10^3/uL (0.8-4.8); Lymphocytes % 11.5 %; Mean Corpuscular Hemoglobin 29.5 pg (28.0-34.0); Mean Corpuscular Volume 86.7 fl (80-94); Mean Platelet Volume 11.8 fL (7.4-10.4); Monocytes # 0.7 10^3/uL (0.2-0.9); Monocytes % 5.5 %; Neutrophils # 10.59 10^3/uL (1.8-7.7); Neutrophils % 81.9 %; Nucleated Red Blood Cells % 0 %; Platelet Count 243 10^3/cmm (130-400); Red Blood Count 3.83 10^6/uL (4.1-5.3); Red Cell Distribution Width 15.2 % (12.1-15.1); White Blood Count 12.9 10^3/uL (4.0-10.0)
[2022-02-22 08:54] LABS: Partial Thromboplastin Time 32.6 SECONDS (23.9-36.7)
[2022-02-22 09:02] LABS: Chol HDL Ratio 4.32 mg/dL (1.0-5.00); Cholesterol 95 mg/dL (0-200); HDL Cholesterol 22 mg/dL (60-100); LDL Cholesterol Calculated 43 mg/dL (50-129); Triglycerides 152 mg/dL (0-150); VLDL Cholestrol Calculation 30 mg/dL (0-30)
[2022-02-22 09:03] LABS: Alanine Aminotransferase 18 U/L (0-41); Albumin Level 3.2 g/dL (3.5-5.2); Alkaline Phosphatase 86 IU/L (40-130); Anion Gap 18.5 (5-19); Aspartate Amino Transferase 31 U/L (0-40); Blood Urea Nitrogen 23 mg/dL (8-23); Calcium 8.5 mg/dL (8.5-10.5); Carbon Dioxide 21 mmol/L (22-29); Chloride 104 mmol/L (98-107); Globulin 3.4 g/dL (1.3-4.6); Glucose 182 mg/dL (65-115); Osmolality Calculated 298 mOsm/kg (285-295); Potassium 3.5 mmol/L (3.5-5.1); Sodium 140 mmol/L (136-145); Total Bilirubin 0.8 mg/dL (0.15-1.2); Total Protein 6.6 g/dL (6.6-8.7)
[2022-02-22 09:04] LABS: Estmated Average Glucose 114; Hemoglobin A1C 5.6 % (4.0-6.0)
[2022-02-22] MEDS: FUROsemide 10 mg/mL SDV 4mL 40 MG IVP (09:50)
[2022-02-22] MEDS: aspirin 81 mg EC Tablet PO (09:51)
[2022-02-22] MEDS: pantoprazole DR 40 mg Tablet PO ×2 (09:51→17:11)
[2022-02-22] MEDS: isosorbide mononitrate ER 30 mg Tablet PO (09:51)
[2022-02-22] MEDS: clopidogrel 75 mg Tablet PO (09:51)
[2022-02-22] MEDS: cyanocobalamin 1,000 mcg Tablet 1000 MCG PO (09:51)
[2022-02-22] MEDS: baclofen 10 mg Tablet 5 MG PO ×2 (09:52→17:11)
[2022-02-22] MEDS: atorvastatin 40 mg Tablet 20 MG PO (09:52)
[2022-02-22] MEDS: budesonide 0.5 mg/2 mL Neb INHALATION ×2 (10:32→20:49)
--- NOTE | 2022-02-22 11:09 | PC.SOCIAL ---
IMM Update pg 2 of IMM updated and reviewed w/ patient. Copy provided and Copy placed in chart.
[2022-02-22 11:13] LABS: Glucose Point of Care 163 mg/dL (70-110)
[2022-02-22] MEDS: insulin lispro 100 unit/1 mL SUBCUT (11:26)
--- NOTE | 2022-02-22 11:59 | P.PN_ITS ---
Subjective Subjective: Patient denies any chest pains. Transferred out of ICU Medications: Reviewed: Yes Vitals/I&O/Wt Last Vital Signs Temp 97.8 F 02/22/22 11:31 Pulse 87 02/22/22 11:31 Resp 18 02/22/22 11:31 BP 108/72 02/22/22 11:31 Pulse Ox 94 02/22/22 11:31 02/21/22 02/22/22 02/22/22 22:59 06:59 14:59 Intake Total 309.983 / 789.983 670.024 / 1460.007 120 / 120 Output Total 750 / 1325 Balance -440.017 / -535.017 670.024 / 135.007 120 / 120 Physical Exam Const: COMMON NORMALS: no acute distress, patient oriented x3 and alert GENERAL APPEARANCE: cooperative, comfortable, well kempt and well hydrated HENMT: COMMON NORMALS: hearing grossly normal bilaterally, external ears normal and moist oral mucous membranes FACE & SINUS: normal facial exam EXTERNAL EAR: Yes external ears normal Eye: COMMON NORMALS: EOMs intact bilaterally and no scleral icterus GENERAL EYE: appearance normal, both eyes and all related structures Neck/C-Spine: COMMON NORMALS: supple and no JVD GENERAL: Yes normal visual inspection CAROTIDS: Yes normal carotid upstroke Chest: COMMONS NORMALS: normal inspection of the chest and normal palpation of entire chest wall CHEST: Yes Symmetrical chest wall rise and No tenderness Resp: COMMON NORMALS: clear to auscultation bilaterally AUSCULTATION: clear to auscultation bilaterally, no crackles, no rales, no rhonchi and no wheezes Cardio: COMMON NORMALS: no JVD, regular rate, regular rhythm, S1 normal heart sound present, S2 normal heart sound present and Peripheral pulses 2+ throughout PALPATION: normal PMI RATE: regular rate RHYTHM: regular rhythm HEART SOUNDS: S1 normal heart sound present, S2 normal heart sound present, no gallops and no murmurs BRUITS: no carotid bruits PERIPHERAL PULSES: Peripheral pulses 2+ throughout, radial pulses present, posterior tibial pulses present and dorsalis pedis present Extremity: GENERAL: No cyanosis, Yes edema (trace-1+ bilateral edema) and No pallor Neuro: COMMON NORMALS: patient oriented x3 SENSORIUM/ORIENTATION: Yes alert Psych: COMMON NORMALS: Normal thought process present and speech normal APPEARANCE: Yes well kempt SPEECH: Yes normal speech MOOD & AFFECT: Yes euthymic mood THOUGHT PROCESS: Normal thought process present THOUGHT CONTENT: Yes Normal thought content present Data : 02/22/22 08:27 02/22/22 08:27 A&P Assessment and plan (1) NSTEMI (non-ST elevated myocardial infarction): -Patient is a poor historian, no chest pain endorsed to by patient but states he was having chest pains on and off -Troponin T 1744->1434-->1331 -Concern for recent NSTEMI. Echo with drop in LV function. RWMA may represent multivessel CAD or tak[place]ubo cardiomyopathy if CAD is ruled out. -will proceed with [facility] once renal function normalizes possibly tomorrow .Creatinine 1.4 this morning. -continue with DAPT, imdur statin and heparin gtt. -Risks and benefits were discussed with the patient and . Possible complications including risk of heart attack stroke and , coronary perforation, arrhythmia, cardiac tamponade in urgent CABG were discussed with the patient as well. Status: Acute (2) Ischemic cardiomyopathy: BP runs soft. restart coreg at low dose in morning Status: Acute (3) Atherosclerotic heart disease of [place] coronary artery with other forms of angina pectoris: Patient had PCI of the right coronary artery in 2009. He had some mild disease in the other vessels. Status: Acute (4) MALORIE (obstructive sleep apnea): May continue on the CPAP. Status: Acute (5) Altered mental status: Status: Acute (6) Acute kidney injury superimposed on chronic kidney disease: agree with PO lasix Status: Acute (7) Carotid artery narrowing: Status: Inactive (8) Pulmonary hypertension: Status: Acute Plan Other problems are Obesity Type 2 diabetes Altered mental status/agitation Based on the patient's clinical progress and the results of the above, further recommendations will be made. Thank you for the opportunity to evaluate this patient and make these recommendations. 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
--- NOTE | 2022-02-22 12:24 | P.PN_ITS ---
Subjective Subjective: No events overnight. [facility] Sitter at bedside. Patient is comfortable, sitting at bedside. Denies any nausea, vomiting, headache. Denies any chest pain. States he feels his breathing is better. He is awake and alert to self, place, date of . Seems to be at his baseline mentation currently. Vitals/I&O/Wt Last Vital Signs Temp 97.8 F 02/22/22 11:31 Pulse 87 02/22/22 11:31 Resp 18 02/22/22 11:31 BP 108/72 02/22/22 11:31 Pulse Ox 94 02/22/22 11:31 02/21/22 02/22/22 02/22/22 22:59 06:59 14:59 Intake Total 309.983 / 789.983 670.024 / 1460.007 120 / 120 Output Total 750 / 1325 Balance -440.017 / -535.017 670.024 / 135.007 120 / 120 Physical Exam Narrative: General: No acute distress, AO x3, slightly confused and slow to respond HEENT: PERRLA, pupils bilaterally equal and reactive Chest: Normal vesicular breath sounds, no added sounds, equal good air entry bilaterally CVS: S1-S2 regular, pansystolic murmur at fourth intercostal left retrosternal, no tachycardia, no gallops, no rubs Abdomen: Soft, nontender, no organomegaly, bowel sounds present Neuro: No focal deficits, no facial deformity, AO x3, Data : 02/22/22 08:27 02/22/22 08:27 A&P Assessment and plan (1) NSTEMI (non-ST elevated myocardial infarction): Status: Acute (2) Ischemic cardiomyopathy: Status: Acute (3) Congestive heart failure: Status: Acute Qualifiers: Heart failure type: combined systolic and diastolic Heart failure chronicity: acute on chronic Qualified Code(s): I50.43 - Acute on chronic com bined systolic (congestive) and diastolic (congestive) heart failure (4) Altered mental status: Status: Acute (5) ANAT (acute kidney injury): Status: Acute (6) Diabetes mellitus type 2 in obese: Status: Acute (7) Severe tricuspid regurgitation: Status: Acute (8) Pulmonary hypertension: Status: Acute (9) Acute kidney injury superimposed on chronic kidney disease: Status: Acute (10) COPD (chronic obstructive pulmonary disease): Status: Acute (11) MALORIE (obstructive sleep apnea): Status: Acute (12) Major depressive disorder, recurrent, mild: Status: Acute Plan Non-ST elevation [place]: Troponin on admission more than 1700 with negative trend. Patient denies any chest pain. Cardiology on board. Appreciate lipid panel, A1c. Continue with aspirin, statin, Plavix. Continue with heparin drip. Most likely patient will need a cardiac angiogram once renal function stabilizes. Ischemic cardiomyopathy: New EF of 30 to 35% with severe TR, biatrial enlargement. Strict input output charting, daily weights. Fluid restriction up to 1500 cc. Swith from IV to oral Lasix 40 mg IV twice daily. Keep Saturation over 90%. Will restart his HF regimen but at lower dose for now. Start Coreg at 3.125 BID. Decrease Imdur to 15 mg PO Daily. Altered mental status: Most likely secondary to dehydration and ANAT on CKD. Resolving. Cannot rule out underlying dementia. Reomve sitter. Frequent reorientation. No electrolyte abnormality. Start on Celexa, aricept. ANAT on CKD: Most likely CRS. Trending down. Baseline creatinine around 1. Urine studies, renal USG appreciated. Fena- 0.6. Prerenal. Type 2 diabetes mellitus: Check A1c. Sliding scale. Analgesia: Tylenol, Glycemic control: Insulin sliding scale at low-dose protocol. Nutrition: Renal cardiac carb consistent diet CODE STATUS: Full code PUD prophylaxis: Protonix DVT prophylaxis: Heparin drip will suffice for DVT prophylaxis Discharge planning: Most likely discharge home with home health. Check physical therapy Continue with CSU care. 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 Diagnoses NSTEMI (non-ST elevated myocardial infarction) I21.4 Ischemic cardiomyopathy I25.5 Congestive heart failure I50.43 Heart failure type: combined systolic and diastolic Heart failure chronicity: acute on chronic Altered mental status R41.82 ANAT (acute kidney injury) N17.9 Diabetes mellitus type 2 in obese E11.69; E66.9 Severe tricuspid regurgitation I07.1 Pulmonary hypertension I27.20 Acute kidney injury superimposed on chronic kidney disease N17.9; N18.9 COPD (chronic obstructive pulmonary disease) J44.9 MALORIE (obstructive sleep apnea) G47.33 Major depressive disorder, recurrent, mild F33.0
[2022-02-22 13:32] LABS: Magnesium 0.9 mg/dL (1.7-2.3)
[2022-02-22] MEDS: citalopram 20 mg Tablet 30 MG PO (14:40)
[2022-02-22] MEDS: magnesium sulfate premix 2 GM/50 ML PIGGYBACK IV (14:40)
[2022-02-22 16:59] LABS: Glucose Point of Care 129 mg/dL (70-110)
[2022-02-22] MEDS: potassium chloride ER 20 mEq Tablet PO (17:11)
[2022-02-22] MEDS: FUROsemide 40 mg Tablet PO (17:12)
[2022-02-22 18:29] LABS: Partial Thromboplastin Time 235.9 SECONDS (23.9-36.7)
[2022-02-22] MEDS: donepezil 5 MG Tablet 10 MG PO (20:17)
[2022-02-22 21:20] LABS: Partial Thromboplastin Time 62.2 SECONDS (23.9-36.7)
[2022-02-22 21:53] LABS: Glucose Point of Care 136 mg/dL (70-110)
[2022-02-23] VITALS (29 sets, daily range): BP systolic 102–153; BP diastolic 70–103; PULSE 72–99; RESP 12–27; TEMP 36.4–36.9; O2SAT 85–100
[2022-02-23] MEDS: HYDROcodone-acetaminophen 7.5-325 mg Tablet 1 TAB PO ×2 (03:08→13:15)
[2022-02-23] MEDS: ipratropium-albuterol 3 mL Neb INHALATION ×3 (03:17→20:24)
[2022-02-23] MEDS: heparin drip 25,000 UNIT/500 ML PREMIX 24 UNIT IV (03:32)
[2022-02-23 05:11] LABS: Basophils % 0.4 %; Eosinophils # 0.1 10^3/uL (0.0-0.8); Eosinophils % 0.7 %; Hematocrit 31.3 % (42.0-52.0); Hemoglobin 10.7 g/dL (11.7-16.6); Lymphocytes # 1.2 10^3/uL (0.8-4.8); Lymphocytes % 13.8 %; Mean Corpuscular HGB Conc 34.2 g/dL (30.0-36.0); Mean Corpuscular Hemoglobin 29.1 pg (28.0-34.0); Mean Corpuscular Volume 85.1 fl (80-94); Mean Platelet Volume 11.7 fL (7.4-10.4); Monocytes # 0.6 10^3/uL (0.2-0.9); Monocytes % 7.3 %; Neutrophils # 6.53 10^3/uL (1.8-7.7); Neutrophils % 77.3 %; Nucleated Red Blood Cells % 0 %; Platelet Count 249 10^3/cmm (130-400); Red Blood Count 3.68 10^6/uL (4.1-5.3); Red Cell Distribution Width 14.6 % (12.1-15.1); White Blood Count 8.5 10^3/uL (4.0-10.0)
[2022-02-23 05:27] LABS: Partial Thromboplastin Time 80.1 SECONDS (23.9-36.7)
[2022-02-23 05:32] LABS: Alanine Aminotransferase 16 U/L (0-41); Albumin Level 3.1 g/dL (3.5-5.2); Alkaline Phosphatase 77 IU/L (40-130); Anion Gap 17.8 (5-19); Aspartate Amino Transferase 28 U/L (0-40); Blood Urea Nitrogen 20 mg/dL (8-23); Calcium 8.6 mg/dL (8.5-10.5); Carbon Dioxide 18 mmol/L (22-29); Chloride 105 mmol/L (98-107); Globulin 3.4 g/dL (1.3-4.6); Glucose 139 mg/dL (65-115); Magnesium 1.5 mg/dL (1.7-2.3); Osmolality Calculated 289 mOsm/kg (285-295); Potassium 3.8 mmol/L (3.5-5.1); Sodium 137 mmol/L (136-145); Total Bilirubin 0.7 mg/dL (0.15-1.2); Total Protein 6.5 g/dL (6.6-8.7)
--- NOTE | 2022-02-23 05:39 | XACV_ITS ---
Exam Room: [facility] Ht: 183 cm Wt: 128 kg BSA: 2.60 m2 Gender: Male : 1945 Any Known Allergies: Other Exam Priority: Routine Procedure(s): Procedure Description: Diagnostic procedure Procedure Description: PCI procedure Procedure Description: Left Heart Catheterization Procedure Description: PTCA Procedure Description: Miscellaneous Procedure Description: ACT Procedure Description: Coronary Angiography Procedure Description: Pressure Wire Bill GROVE; Diagnostic Cath Status: Urgent Diagnostic Findings * 76-year-old man with past medical history of CAD s/p distal RCA stent in 2009, hypertension, type 2 diabetes mellitus and hypertension. He was admitted with vague complaints of confusion, ANAT and sweating. His troponin T was increased on arrival at [address]-T wave changes in lateral leads. Echocardiogram with moderately decreased LV function with severe hypokinesis of mid to apical septal anteroseptal anterior and inferolateral segments. Decision was made to proceed with cardiac catheterization. * Normal caliber left main with no significant stenosis. It trifurcates into left anterior descending, circumflex and ramus intermedius arteries. * Normal caliber left anterior descending artery that wraps around the apex. Proximal 60 to 70% calcified stenosis in aneurysmal segment of LAD. Minor irregularities in distal LAD. * Small ramus intermedius without significant stenosis. * Dominant right coronary artery. Proximal right coronary artery with 70% stenosis. Chronic total occlusion of mid right coronary artery. Distal right coronary artery fills via left to right collaterals. * Small caliber circumflex with mild stenosis in mid circumflex artery. * Case was discussed and images were reviewed with Dr. De Anda. PCI Status: Urgent PCI Indication: NSTE - ACS Interventional Findings * Procedure detail: We engaged left main artery with XB 3.5 guide catheter. After normalization IFR wire was advanced into the distal LAD. iFR value of 0.66 was obtained that was highly ischemic. We decided to proceed with PCI of LAD. It was calcified lesion. Patient was uncomfortable throughout the procedure. He was noncooperative and kept moving. We advanced 3.0 x 12 mm noncompliant balloon and performed balloon angioplasty however the balloon would not cross the stenosis completely and did not expand well. Patient told us that he is not going to stay on the table and is going to get up. He also started moving his arm to untape it. As it was a complex, calcified lesion, we decided to abort the procedure as patient was uncooperative.. * Proximal Left Anterior Descendin% stenosis treated with a AB TREK 3.00X12 RX BALLOON. Conclusions 1. Severe proximal LAD 2. , heavily calcified stenosis confirmed to be ischemic with IFR value of 0.66. Balloon angioplasty of LAD lesion performed however it is heavily calcified, balloon did not expand well and could not cross the stenosis completely. As patient was uncooperative during the procedure, we had to abort further attempts for revascularization.. 3. Chronic total occlusion of mid right coronary artery. 4. Proximal Left Anterior Descending was treated with a Balloon. Recommendations * Continue aspirin and Plavix.. * High intensity statin therapy. * If patient agrees to proceed with revascularization, patient will need arthrectomy given heavily calcified stenosis. He will also need anesthesia support as he is not cooperative during the procedure. Interventional RX Recommendation: PCI w/o planned CABG Diagnostic RX Recommendation: PCI w/o planned CABG Anticoagulation: Heparin LV EDP: 41 mmHg Left Ventriculography Findings: * Left Ventriculogram not performed to minimize contrast use. Pressures Phase:Rest AO : 103 / 69 ( 83 ) @ 5:14:00 PM 99 / 66 ( 82 ) @ 5:16:00 PM 106 / 71 ( 88 ) @ 5:19:00 PM 114 / 75 ( 93 ) @ 5:22:00 PM 131 / 44 ( 80 ) @ 5:34:00 PM 130 / 69 ( 95 ) @ 5:34:00 PM 108 / 62 ( 82 ) @ 5:47:00 PM 118 / 71 ( 92 ) @ 5:51:00 PM 100 / 62 ( 79 ) @ 5:53:00 PM LV : 138 / 14 / 41 @ 5:34:00 PM 136 / 14 / 44 @ 5:34:00 PM Valves Phase:DefaultPhase AV : 13.0 @ 5:06:15 PM AV Mean Gradient: 6.0 @ 5:06:15 PM Clinical Evaluation EBL: 5mL-10mL Procedural Details Procedure Consent Obtained. Current Diagnosis : NSTEMI. Pre-Procedure Time Out. Identified patient by full name and date of as verbalized by the patient/guarantor. Does the consent match the physician's order: Yes. Accurate & Complete Informed Consent: Yes. Inpatient/Outpatient History & Physical on Chart: Yes. If H&P is completed, is and addenduem needed: No; If yes, is the addendum complete: N/A. Visualize and Verify Site with Patient/Guarantor: N/A. Relevant Radiology Images available: Yes. Pre-op teaching completed and patient verbalized understanding. The risks, benefits, and alternatives of sedation and/or procedure were discussed by physician. The patient agrees to continue. Procedure started. [facility] Clinical Fraility Score: 5: Mildly Frail. Immunology Teacher Indications: ACS > 24 hours. Chest Pain Symptom Assessment: Atypical Angina. Correct patient, site and procedure confirmed by cath team. Current diagnosis: NSTEMI. PERRLA. Strong, equal hand clinical rehabilitation specialist bilaterally. Lungs clear x 5 lobes. IV Site on Arrival: 18 gauge in the left anticubital. IV Fluids: 0.9% NaCl at KVO. 0 mL infused prior to medical laboratory specialist. Oxygen started at 2liters/min via nasal canula. right groin was prepped with chloroprep then draped in the usual sterile fashion. right radial was prepped with chloroprep then draped in the usual sterile fashion. Physician arrived. Baseline sample Acquired. HR: 91 BPM. Physician scrubbed in. Immediate Pre-Procedure Time Out. Correct Patient: Yes; Correct Procedure: Yes; Correct Site: Yes; Correct Patient Position: Yes; Correct Supplies: Yes; Dried Flammable Prep: Yes; Blood Products Available: N/A;. Lidocaine 1% infiltrated to the right radial. Arterial access obtained. A 5 bolivian TIG catheter in over wire. Multiple views taken of left coronary artery. Catheter redirected to the RCA. Catheter removed over the standard wire. A 5 bolivian JR4 catheter in over wire. Multiple views taken of right coronary artery. Dr. De Anda called to review films. EDP Sample taken: LV 138/14,41; HR: 85 BPM; SpO2: 97%. Pullback taken: LV 136/14,44; AO 131/44(80); Mean: 6mmHg, Peak to Peak: 13mmHg, SEP: 23sec/min; HR: 84 BPM; SpO2: 95%. Catheter removed over the standard wire. Physician scrubbed out. Dr. De Anda arrived. Dr. De Anda scrubbed in to perform intervention. Sheath upsized to a 6 Fr. ACT drawn. Results 201 seconds. Therapeutic limits - pre-heparin administration 90-150 seconds and monitoring heparin during a vascular procedure >250 seconds. IFR guidewire was advanced through the guide catheter to lesion in the prox LAD. IFR results: 0.66. Wire out. Runthrough guidewire was advanced through the guide catheter to lesion in the prox LAD. Inflation number : 1 A AB TREK 3.00X12 RX BALLOON was prepped and advanced across the Prox LAD , then inflated to 8 GIRISH for 0:25 seconds. Balloon out. Wire out. Guide catheter out. A TR Band was successful obtaining hemostatsis at the Right Radial artery insertion site. Post Procedure: Pulses reassessed and unchanged. PERRLA. Strong, equal hand clinical rehabilitation specialist bilaterally. No VTE prophylaxis required. Medication's Wasted: Lidocaine 1% = 3 mL. Total IV fluids: 87 mL. Medication's Wasted: Heparin = 500 units. Medication's Wasted: Nitro = 49.8 mg. Contrast type used: Omnipaque 300 mgI/mL, 500 mL bottle. PCI Indication: NSTE. Complications: None. Estimated blood loss: 5mL-10mL. Responsiveness - Normal response to verbal stimuli; alert and oriented, PERRLA. Airway - Unaffected, no intervention required; spontaneous ventilation. Circulation: W/N/L, pulses unchanged. Nausea/Vomiting: No. Vital chart was stopped. Procedure completed. Patient transferred by wheelchair to [facility]. Access Site Site: Right Radial artery Sheath Size: 6 Fr Hemostasis Method: TR Band Hemostasis Success: Successful Procedure Medications Start: 4:00 PM Stop: 4:00 PM Medication: Benadryl Amount: 50 mg Route: I.V. Start: 4:03 PM Stop: 4:03 PM Medication: Versed 1 mg and Fentanyl 25 mcg Amount: 1 Route: I.V. Start: 4:12 PM Stop: 4:12 PM Medication: Nitrogylcerin Amount: 200 mcg Route: I.A. Start: 4:22 PM Stop: 4:22 PM Medication: Fentanyl Amount: 25 mcg Route: I.V. Start: 4:40 PM Stop: 4:40 PM Medication: Versed Amount: 1 mg Route: I.V. Start: 4:44 PM Stop: 4:44 PM Medication: Heparin Amount: 2500 units Route: I.V. Start: 4:47 PM Stop: 4:47 PM Medication: Heparin Amount: 1000 units Route: I.V. Start: 4:49 PM Stop: 4:49 PM Medication: Fentanyl Amount: 25 mcg Route: I.V. Start: 4:51 PM Stop: 4:51 PM Medication: Versed Amount: 1 mg Route: I.V. Start: 4:55 PM Stop: 4:55 PM Medication: Fentanyl Amount: 25 mcg Route: I.V. Start: 4:57 PM Stop: 4:57 PM Medication: Fentanyl Amount: 25 mcg Route: I.V. Start: 4:58 PM Stop: 4:58 PM Medication: Versed Amount: 1 mg Route: I.V. I, the attending physician, have reviewed and verified all procedure medications. Yes, all medications given per verbal order History/Risk Factors Hypertension: Yes Dyslipidemia: Yes Peripheral Arterial Disease (PAD): No Myocardial Infarction (GA): No Obesity: Yes Renal Disease: No Tobacco Use: Former Prior Interventions PCI: Yes CABG: No Valve Surgery: No Date of PCI: 02/17/2010 Report Signatures Interventional Workflow Finalized by Gerald De Anda MD on 02/27/2022 10:04 PM Diagnostic Workflow Finalized by Maria Luisa Geller MD on 02/24/2022 04:52 PM
[2022-02-23] MEDS: nitroglycerin 0.4 mg sublingual Tablet SUBLINGUAL ×5 (05:42→13:15)
[2022-02-23 06:30] LABS: Glucose Point of Care 139 mg/dL (70-110)
[2022-02-23] MEDS: magnesium sulfate premix 2 GM/50 ML PIGGYBACK IV (07:02)
[2022-02-23] MEDS: diphenhydrAMINE 50 mg Capsule PO (07:33)
[2022-02-23] MEDS: cyanocobalamin 1,000 mcg Tablet 1000 MCG PO (10:39)
[2022-02-23] MEDS: potassium chloride ER 20 mEq Tablet PO ×2 (10:39→18:11)
[2022-02-23] MEDS: pantoprazole DR 40 mg Tablet PO ×2 (10:39→18:13)
[2022-02-23] MEDS: isosorbide mononitrate ER 30 mg Tablet 15 MG PO (10:39)
[2022-02-23] MEDS: aspirin 81 mg EC Tablet PO (10:39)
[2022-02-23] MEDS: baclofen 10 mg Tablet 5 MG PO ×2 (10:40→18:11)
[2022-02-23] MEDS: citalopram 20 mg Tablet 30 MG PO (10:40)
[2022-02-23] MEDS: atorvastatin 40 mg Tablet PO (10:41)
[2022-02-23] MEDS: carvedilol 3.125 mg Tablet PO ×2 (10:41→18:11)
[2022-02-23] MEDS: FUROsemide 40 mg Tablet PO ×2 (10:42→18:11)
[2022-02-23 11:31] LABS: Glucose Point of Care 162 mg/dL (70-110)
[2022-02-23] MEDS: insulin lispro 100 unit/1 mL SUBCUT (11:46)
[2022-02-23 11:57] LABS: Partial Thromboplastin Time 78.7 SECONDS (23.9-36.7)
--- NOTE | 2022-02-23 12:30 | P.PN_ITS ---
Subjective Subjective: No acute events overnight. Patient has remained hemodynamically stable and afebrile. Today morning on examination patient is sitting up in chair. No episodes of confusion overnight. Patient was angry today morning because his Schedule was bumped to the evening because of an emergency. Patient complaining of mild chest heaviness during aggravation. Treated with nitro. Otherwise denies any dizziness. Medications: Reviewed: Yes Vitals/I&O/Wt Last Vital Signs Temp 97.9 F 02/23/22 07:54 Pulse 75 02/23/22 09:32 Resp 18 02/23/22 09:32 BP 119/76 02/23/22 07:54 Pulse Ox 96 02/23/22 09:32 02/22/22 02/23/22 02/23/22 22:59 06:59 14:59 Intake Total 410 / 650 550.8 / 1200.8 Output Total 500 / 500 300 / 800 Balance -90 / 150 250.8 / 400.8 Physical Exam Narrative: General: No acute distress, AO x3, slightly confused and slow to respond HEENT: PERRLA, pupils bilaterally equal and reactive Chest: Normal vesicular breath sounds, no added sounds, equal good air entry bilaterally CVS: S1-S2 regular, pansystolic murmur at fourth intercostal left retrosternal, no tachycardia, no gallops, no rubs Abdomen: Soft, nontender, no organomegaly, bowel sounds present Neuro: No focal deficits, no facial deformity, AO x3, Data : 02/23/22 04:45 02/23/22 04:45 A&P Assessment and plan (1) NSTEMI (non-ST elevated myocardial infarction): Status: Acute (2) Ischemic cardiomyopathy: Status: Acute (3) Congestive heart failure: Status: Acute Qualifiers: Heart failure type: combined systolic and diastolic Heart failure chronicity: acute on chronic Qualified Code(s): I50.43 - Acute on chronic combined systolic (congestive) and diastolic (congestive) heart failure (4) Altered mental status: Status: Acute (5) ANAT (acute kidney injury): Status: Acute (6) Diabetes mellitus type 2 in obese: Status: Acute (7) Severe tricuspid regurgitation: Status: Acute (8) Pulmonary hypertension: Status: Acute (9) Acute kidney injury superimposed on chronic kidney disease: Status: Acute (10) COPD (chronic obstructive pulmonary disease): Status: Acute (11) MALORIE (obstructive sleep apnea): Status: Acute (12) Major depressive disorder, recurrent, mild: Status: Acute Plan Non-ST elevation RI: Troponin on admission more than 1700 with negative trend. Patient denies any chest pain. Cardiology on board. Appreciate lipid panel, A1c. Continue with aspirin, statin, Plavix. Continue with heparin drip. Most likely patient will need a cardiac angiogram once renal function stabilizes. Ischemic cardiomyopathy: New EF of 30 to 35% with severe TR, biatrial enlargement. Strict input output charting, daily weights. Fluid restriction up to 1500 cc. Swith from IV to oral Lasix 40 mg IV twice daily. Keep Saturation over 90%. Will restart his HF regimen but at lower dose for now. Start Coreg at 3.125 BID. Decrease Imdur to 15 mg PO Daily. Altered mental status: Most likely secondary to dehydration and ANAT on CKD. Resolving. Cannot rule out underlying dementia. Reomve sitter. Frequent reorientation. No electrolyte abnormality. Start on Celexa, aricept. ANAT on CKD: Most likely CRS. Trending down. Baseline creatinine around 1. Urine studies, renal USG appreciated. Fena- 0.6. Prerenal. Type 2 diabetes mellitus: A1c 5.6. Sliding scale. Analgesia: Tylenol, Glycemic control: Insulin sliding scale at low-dose protocol. Nutrition: N.p.o., post cardiac cath restart renal cardiac carb consistent diet CODE STATUS: Full code PUD prophylaxis: Protonix DVT prophylaxis: Heparin drip will suffice for DVT prophylaxis Discharge planning: Discharge within next 24 hours if remains hemodynamically stable post cardiac cath with home health. Continue with CSU care. Plan for the day: Plan for cardiac angiogram today. Continue with heparin drip till then. Lasix 40 mg twice daily. Continue with Coreg and Imdur changes done yesterday. Monitor BMP daily. 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 Diagnoses NSTEMI (non-ST elevated myocardial infarction) I21.4 Ischemic cardiomyopathy I25.5 Congestive heart failure I50.43 Heart failure type: combined systolic and diastolic Heart failure chronicity: acute on chronic Altered mental status R41.82 ANAT (acute kidney injury) N17.9 Diabetes mellitus type 2 in obese E11.69; E66.9 Severe tricuspid regurgitation I07.1 Pulmonary hypertension I27.20 Acute kidney injury superimposed on chronic kidney disease N17.9; N18.9 COPD (chronic obstructive pulmonary disease) J44.9 MALORIE (obstructive sleep apnea) G47.33 Major depressive disorder, recurrent, mild F33.0
[2022-02-23] MEDS: clopidogrel 75 mg Tablet PO (15:01)
--- NOTE | 2022-02-23 15:50 | W.PM.OPSUD ---
Surgery/Procedure H&P Update DATE OF PROCEDURE: February 23, 2022 DATE H&P PERFORMED: 02/22/22 H&P UPDATE INFORMATION: I have reviewed H&P completed within last 30 days, I have examined patient prior to procedure and No changes to prior documentation PREOP DIAGNOSIS: NSTEMI, cardiomyopathy PLANNED PROCEDURE: Operation Date: 02/23/22 08:30 Proposed Procedures p Cardiac Catheterization(Left) - Maria Luisa Geller MD
[2022-02-23 18:46] LABS: Partial Thromboplastin Time 121.7 SECONDS (23.9-36.7)
--- NOTE | 2022-02-23 19:34 | PC.NURSE ---
notified dr Geller of PTT results. orders received to redraw PTT in 4h and initiate heparin gtt without bolus if PTT </= 60.
[2022-02-23] MEDS: donepezil 5 MG Tablet 10 MG PO (20:46)
[2022-02-23 23:48] LABS: Partial Thromboplastin Time 34.3 SECONDS (23.9-36.7)
[2022-02-24] VITALS (9 sets, daily range): BP systolic 108–142; BP diastolic 76–89; PULSE 84–99; RESP 16–19; TEMP 36.3–36.8; O2SAT 94–99
[2022-02-24] MEDS: heparin drip 25,000 UNIT/500 ML PREMIX 36 UNIT IV (01:33)
[2022-02-24 04:31] LABS: Basophils % 0.2 %; Eosinophils % 0.2 %; Hematocrit 32.7 % (42.0-52.0); Hemoglobin 10.9 g/dL (11.7-16.6); Lymphocytes # 1.1 10^3/uL (0.8-4.8); Lymphocytes % 8.1 %; Mean Corpuscular HGB Conc 33.3 g/dL (30.0-36.0); Mean Corpuscular Hemoglobin 29.2 pg (28.0-34.0); Mean Corpuscular Volume 87.7 fl (80-94); Mean Platelet Volume 11.3 fL (7.4-10.4); Monocytes # 0.8 10^3/uL (0.2-0.9); Monocytes % 6.1 %; Neutrophils # 10.95 10^3/uL (1.8-7.7); Neutrophils % 84.9 %; Nucleated Red Blood Cells % 0 %; Platelet Count 308 10^3/cmm (130-400); Red Blood Count 3.73 10^6/uL (4.1-5.3); Red Cell Distribution Width 14.9 % (12.1-15.1); White Blood Count 12.9 10^3/uL (4.0-10.0)
[2022-02-24 05:02] LABS: Alanine Aminotransferase 22 U/L (0-41); Albumin Level 3.5 g/dL (3.5-5.2); Alkaline Phosphatase 87 IU/L (40-130); Blood Urea Nitrogen 19 mg/dL (8-23); Calcium 9.2 mg/dL (8.5-10.5); Carbon Dioxide 21 mmol/L (22-29); Chloride 103 mmol/L (98-107); Globulin 3.3 g/dL (1.3-4.6); Glucose 123 mg/dL (65-115); Magnesium 1.5 mg/dL (1.7-2.3); Osmolality Calculated 292 mOsm/kg (285-295); Sodium 139 mmol/L (136-145); Total Bilirubin 0.8 mg/dL (0.15-1.2); Total Protein 6.8 g/dL (6.6-8.7)
[2022-02-24 05:07] LABS: Anion Gap 18.7 (5-19); Aspartate Amino Transferase 28 U/L (0-40); Potassium 3.7 mmol/L (3.5-5.1)
[2022-02-24 05:27] LABS: NT Pro B Type Natriuretic Pept 43076 pg/mL (0-450)
--- NOTE | 2022-02-24 07:14 | PM.PN ---
Subjective Subjective: Patient denies any chest pain this morning He got [facility] yesterday with severe px stenosis in calcified and aneurysmal LAD. Significant by iFR. Balloon angioplasty attempted by Dr. De Adna with plan to stent. Balloon was difficult to cross and could not be expanded completely. Patient became agitated and kept moving his arm and stated he was going to sit up. Procedure was aborted. Vitals/I&O/Wt Last Vital Signs Temp 98.0 F 02/24/22 04:00 Pulse 91 02/24/22 06:00 Resp 19 H 02/24/22 04:00 BP 124/78 02/24/22 04:00 Pulse Ox 95 02/24/22 04:00 02/23/22 02/24/22 02/24/22 22:59 06:59 14:59 Intake Total 120 / 170 449.2 / 619.2 Output Total 620 / 620 500 / 1120 Balance -500 / -450 -50.8 / -500.8 Physical Exam Const: COMMON NORMALS: no acute distress, patient oriented x3 and alert GENERAL APPEARANCE: cooperative, comfortable, well kempt and well hydrated HENMT: COMMON NORMALS: hearing grossly normal bilaterally, external ears normal and moist oral mucous membranes FACE & SINUS: normal facial exam EXTERNAL EAR: Yes external ears normal Eye: COMMON NORMALS: EOMs intact bilaterally and no scleral icterus GENERAL EYE: appearance normal, both eyes and all related structures Neck/C-Spine: COMMON NORMALS: supple and no JVD GENERAL: Yes normal visual inspection CAROTIDS: Yes normal carotid upstroke Chest: COMMONS NORMALS: normal inspection of the chest and normal palpation of entire chest wall CHEST: Yes Symmetrical chest wall rise and No tenderness Resp: COMMON NORMALS: clear to auscultation bilaterally AUSCULTATION: clear to auscultation bilaterally, no crackles, no rales, no rhonchi and no wheezes Cardio: COMMON NORMALS: no JVD, regular rate, regular rhythm, S1 normal heart sound present, S2 normal heart sound present and Peripheral pulses 2+ throughout PALPATION: normal PMI RATE: regular rate RHYTHM: regular rhythm HEART SOUNDS: S1 normal heart sound present, S2 normal heart sound present, no gallops and no murmurs BRUITS: no carotid bruits PERIPHERAL PULSES: Peripheral pulses 2+ throughout, radial pulses present, posterior tibial pulses present and dorsalis pedis present Extremity: GENERAL: No cyanosis, Yes edema (trace-1+ bilateral edema) and No pallor Neuro: COMMON NORMALS: patient oriented x3 SENSORIUM/ORIENTATION: Yes alert Psych: COMMON NORMALS: Normal thought process present and speech normal APPEARANCE: Yes well kempt SPEECH: Yes normal speech MOOD & AFFECT: Yes euthymic mood THOUGHT PROCESS: Normal thought process present THOUGHT CONTENT: Yes Normal thought content present Data : 02/24/22 04:06 02/24/22 04:06 A&P Assessment and plan (1) NSTEMI (non-ST elevated myocardial infarction): -Patient is a poor historian, no chest pain endorsed to by patient but states he was having chest pains on and off -Troponin T 1744->1434-->1331 -Concern for recent NSTEMI. Echo with drop in LV function. RWMA may represent multivessel CAD. 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 Significant by iFR. Balloon angioplasty attempted by Dr. De Anda with plan to stent. Balloon was difficult to cross and could not be expanded completely. Patient became agitated and kept moving his arm and stated he was going to sit up. Procedure was aborted. LVEDP of 40. -Creatinine 1.4 this morning. -continue with DAPT, imdur statin -will consider atherectomy and PCI of px LAD outpatient if patient is symptomatic. 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 He had some mild disease in the other vessels. Status: Acute (4) MALORIE (obstructive sleep apnea): May continue on the CPAP. Status: Acute (5) Acute kidney injury superimposed on chronic kidney disease: Status: Acute (6) Carotid artery narrowing: Status: Inactive (7) Pulmonary hypertension: Status: Acute Plan Other problems are Obesity Type 2 diabetes Altered mental status/agitation Based on the patient's clinical progress and the results of the above, further recommendations will be made. Thank you for the opportunity to evaluate this patient and make these recommendations. 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
--- NOTE | 2022-02-24 08:16 | P.MISC_ITS ---
Miscellaneous Note Purpose of Documentation: Brief procedure note (02/23/2022) Note: Dr. Geller performed diagnostic angiogram. It showed moderate to severe proximal LAD stenosis. I did IFR of proximal LAD stenosis that was calcified and had aneurysmal segment. Plan was to perform PCI of proximal LAD as IFR was significantly abnormal. It was found to be heavily calcified lesion and balloon had difficulty to cross. Balloon angioplasty was performed however balloon did not expand fully. Patient was very uncomfortable throughout the procedure and told us that he is going to sit up and kept moving his hand and arm. Given complexity of lesion and noncooperative patient, we assessed that it is not safe to proceed with attempts at PCI at this time. Procedure was aborted and guidewire and guide catheters were removed. Patient left the Accounting Advisory Services Manager in a stable condition. If he agrees to future attempts at revascularization of LAD, it will have to be with anesthesia support. Also we have to determine the appropriate timing as he may need arthrectomy of heavily calcified lesion. We do not have CT surgery backup available at this time. Full procedure report to follow.
[2022-02-24] MEDS: ipratropium-albuterol 3 mL Neb INHALATION (08:19)
[2022-02-24] MEDS: budesonide 0.5 mg/2 mL Neb INHALATION (08:19)
[2022-02-24 09:22] LABS: Glucose Point of Care 175 mg/dL (70-110)
[2022-02-24] MEDS: citalopram 20 mg Tablet 30 MG PO (10:13)
[2022-02-24] MEDS: potassium chloride ER 20 mEq Tablet PO (10:14)
[2022-02-24] MEDS: clopidogrel 75 mg Tablet PO (10:14)
[2022-02-24] MEDS: aspirin 81 mg EC Tablet PO (10:14)
[2022-02-24] MEDS: isosorbide mononitrate ER 30 mg Tablet 15 MG PO (10:14)
[2022-02-24] MEDS: atorvastatin 40 mg Tablet PO (10:14)
[2022-02-24] MEDS: pantoprazole DR 40 mg Tablet PO (10:15)
[2022-02-24] MEDS: baclofen 10 mg Tablet 5 MG PO (10:15)
[2022-02-24] MEDS: nicotine 14 mg Patch 1 PATCH TRANSDERMA (10:15)
[2022-02-24] MEDS: cyanocobalamin 1,000 mcg Tablet 1000 MCG PO (10:15)
[2022-02-24] MEDS: carvedilol 3.125 mg Tablet PO (10:15)
[2022-02-24 11:02] LABS: Partial Thromboplastin Time 217.5 SECONDS (23.9-36.7)
[2022-02-24] MEDS: FUROsemide 10 mg/mL SDV 4mL 40 MG IVP (11:16)
[2022-02-24 12:17] LABS: Glucose Point of Care 138 mg/dL (70-110)
--- NOTE | 2022-02-24 12:29 | P.DS_ITS ---
Discharge Providers Date of Admission: 02/19/22 22:49 Date of Discharge: February 24, 2022 Attending Provider at Admission: Emil Weaver MD Attending Provider at Discharge: Barak Jarvis MD Consults: Cardiology: Dr. Geller Primary Care Provider: Galindo Carson DO Diagnoses at Discharge Discharge Diagnosis (1) NSTEMI (non-ST elevated myocardial infarction): Status: Acute (2) Ischemic cardiomyopathy: Status: Acute (3) Atherosclerotic heart disease of [place] coronary artery with other forms of angina pectoris: Status: Acute (4) MALORIE (obstructive sleep apnea): Status: Acute (5) Acute kidney injury superimposed on chronic kidney disease: Status: Acute (6) Carotid artery narrowing: Status: Inactive (7) Pulmonary hypertension: Status: Acute Reason for Visit Reason for Visit: INCREASED CONFUSION Brief History: History as per HPI: Isaías Clarke is a 76 year old male? with past medical history of coronary artery disease s/p stenting of distal RCA in May [address] Holder, type 2 diabetes mellitus, dyslipidemia, depression, obstructive sleep apnea, chronic back pain who was brought in to ER for altered mental status as well as decreased p.o. intake for the last 2 days. was at bedside according to her patient has not been eating and drinking well for the last 2 days,patient is also complaining of on and off longstanding chest pain going on for the last 6 months, he describes the pain as substernal which at times very severe.? On the last admission he was evaluated by cardiology and since he is complaining of ongoing chest pain, coronary angiogram was discussed, at that time patient opted for medical management, as his last stress test was normal, and patient was responding to medical management during the hospital stay, he was continued on medical management to see cardiology as an outpatient. Hospital Course Hospital Course Patient was admitted to the hospital for further evaluation and management of altered mental status thought to be secondary to dehydration and acute kidney injury. He was also found to be in non-ST elevation NE. On admission patient was in fluid overload which was treated with IV diuresis. With IV diuresis his kidney functions also trended down and stabilized. It is believed his acute kidney injury is most likely from cardiorenal syndrome. Echocardiogram was done which showed severe diffuse hypokinesia of mid and apical septum, anteroseptum, anterior inferior lateral wall with EF of 30 to 35%, dilated LV cavity with severe TR and severe pulmonary hypertension with PASP of 70 mmHg. Patient was started on heparin drip. Patient's mentation improved with improvement in renal functions. He has been at his baseline mentation without sitter for more than 72 hours. Once patient achieved euvolemia he underwent left heart catheterization which showed RCA TAPE MAKER and severe px stenosis in calcified and aneurysmal LAD. Significant by iFR. Balloon angioplasty attempted by Dr. De Anda with plan to stent. Balloon was difficult to cross and could not be expanded completely. Patient became agitated and kept moving his arm and stated he was going to sit up.? Procedure was aborted. LVEDP of 40. Given all the above decision was made to treat patient medically. He is been discharged in hemodynamically stable condition on adjusted antihypertensives, diuretics with advised to follow-up with cardiology within next 1 week and primary care provider within the next 10 days for further adjustment of medications and repeat BMP. Physical Exam Narrative: General: No acute distress, AO x3, slightly confused and slow to respond HEENT: PERRLA, pupils bilaterally equal and reactive Chest: Normal vesicular breath sounds, no added sounds, equal good air entry bilaterally CVS: S1-S2 regular, pansystolic murmur at fourth intercostal left retrosternal, no tachycardia, no gallops, no rubs Abdomen: Soft, nontender, no organomegaly, bowel sounds present Neuro: No focal deficits, no facial deformity, AO x3, Discharge Data Studies Completed and Pending Completed Studies During Hospitalization Category Date Time Status CT head wo con* [id number] Urgent Cat Scan 02/19/22 18:30 Completed XR chest 1V portable [id number] Urgent Exams 02/19/22 18:20 [place] [id number] Routine Ultrasound 02/22/22 01:13 Completed CV. echo wo/w contrast [id number] Routine Ultrasound 02/20/22 00:21 Completed US renal BI* [id number] Routine Ultrasound 02/22/22 02:07 Completed Pending at discharge Category Date Time Status [employer] request for service Routine Exams 02/23/22 05:39 Taken Blood Culture AM LABS Lab 02/20/22 05:30 Results Platelet Count Q2D Lab 02/26/22 04:00 Ordered Platelet Count Q2D Lab 02/28/22 04:00 Ordered Radiology Impressions Chest X-Ray 02/19/22 18:20 IMPRESSION: No acute findings. Head CT 02/19/22 18:30 IMPRESSION: No acute intracranial abnormality. Renal Ultrasound 02/22/22 02:07 IMPRESSION: 1. No hydronephrosis or solid mass. 2. Well-distended urinary bladder. Echocardiogram: CONCLUSIONS ?Severe diffuse hypokinesia of the mid and apical septum,?anteroseptum, anterior and inferolateral wall segments with an?LV? ejection fraction of 30-35 %.? Mildly dilated LV cavity . Possibly severe tricuspid regurgitation. ?Severe pulmonary hypertension with estimated pulmonary artery?peak systolic pressure of 70 mmHg, mean PA pressure 48 mmHg. ?Mild biatrial enlargement ?Mild mitral valve regurgitation.? Minimally thickened mitral?valve ?Thickened aortic valve. ?There is no pericardial effusion. ?There are no intracardiac masses. ?Echo contrast was used to delineate the segments and for the LV?ejection fraction estimation. ?Compared to the study from 08/06/2021, there is a significant?drop in the LV ejection fraction from 60% to 35%. ?The wall motion abnormality appears to be new?Tricuspid regurgitation also appears to be new ?Dr Alfonso Khan MD [facility] ?(Electronically Signed) ?Final Date:? ? ? 20 February 2022 ? 09:11 Laboratory Results WBC 12.9 10^3/uL (4.0-10.0) H 02/24/22 04:06 RBC 3.73 10^6/uL (4.1-5.3) L 02/24/22 04:06 Hgb 10.9 g/dL (11.7-16.6) L 02/24/22 04:06 Hct 32.7 % (42.0-52.0) L 02/24/22 04:06 MCV 87.7 fl (80-94) 02/24/22 04:06 MCH 29.2 pg (28.0-34.0) 02/24/22 04:06 MCHC 33.3 g/dL (30.0-36.0) 02/24/22 04:06 RDW 14.9 % (12.1-15.1) 02/24/22 04:06 Plt Count 308 10^3/cmm (130-400) 02/24/22 04:06 MPV 11.3 fL (7.4-10.4) H 02/24/22 04:06 Neut % (Auto) 84.9 % 02/24/22 04:06 Lymph % (Auto) 8.1 % 02/24/22 04:06 Dukes % (Auto) 6.1 % 02/24/22 04:06 Eos % (Auto) 0.2 % 02/24/22 04:06 Baso % (Auto) 0.2 % 02/24/22 04:06 Neut # (Auto) 10.95 10^3/uL (1.8-7.7) H 02/24/22 04:06 Lymph # (Auto) 1.1 10^3/uL (0.8-4.8) 02/24/22 04:06 Dukes # (Auto) 0.8 10^3/uL (0.2-0.9) 02/24/22 04:06 Eos # (Auto) 0.0 10^3/uL (0.0-0.8) 02/24/22 04:06 Baso # (Auto) 0.0 10^3/uL (0.0-0.1) 02/24/22 04:06 Nucleated RBC % (auto) 0 % 02/24/22 04:06 Nucleated RBCs # 0.0 /100WBC 02/24/22 04:06 APTT 217.5 SECONDS (23.9-36.7) H* D 02/24/22 10:07 D-Dimer 0.79 ug/mIFEU (0-0.59) H 02/19/22 22:38 Sodium 139 mmol/L (136-145) 02/24/22 04:06 Potassium 3.7 mmol/L (3.5-5.1) 02/24/22 04:06 Chloride 103 mmol/L (98-107) 02/24/22 04:06 Carbon Dioxide 21 mmol/L (22-29) L 02/24/22 04:06 Anion Gap 18.7 (5-19) 02/24/22 04:06 BUN 19 mg/dL (8-23) 02/24/22 04:06 Creatinine 1.4 mg/dL (0.7-1.2) H 02/24/22 04:06 GFR Calculation Not Reportable 02/24/22 04:06 Glucose 123 mg/dL (65-115) H 02/24/22 04:06 POC Glucose 138 mg/dL (70-110) H 02/24/22 11:56 Estimat Average Glucose 114 02/22/22 08:27 Hemoglobin A1c 5.6 % (4.0-6.0) 02/22/22 08:27 Calculated Osmolality 292 mOsm/kg (285-295) 02/24/22 04:06 Calcium 9.2 mg/dL (8.5-10.5) 02/24/22 04:06 Magnesium 1.5 mg/dL (1.7-2.3) L 02/24/22 04:06 Magnesium Cancelled 02/24/22 04:06 Iron 23 ug/dL (59-158) L 02/21/22 03:58 TIBC 162 mcg/dl 02/21/22 03:58 % Saturation 14.1 % (20-50) L 02/21/22 03:58 Unsat Iron Binding 139 ug/dL (112-347) 02/21/22 03:58 Total Bilirubin 0.8 mg/dL (0.15-1.2) 02/24/22 04:06 AST 28 U/L (0-40) 02/24/22 04:06 ALT 22 U/L (0-41) 02/24/22 04:06 Alkaline Phosphatase 87 IU/L (40-130) 02/24/22 04:06 Troponin T Gen 5 ng/L 1744 ng/L (0-15) H* 02/19/22 17:40 Troponin T 120 Minute 1434 ng/L (0-15) H 02/19/22 21:43 Delta Troponin T -310 ABS# (0-10) L 02/19/22 21:43 Troponin T Hi Sens 6Hr 1331 ng/L (0-15) H 02/20/22 01:47 Troponin T Hi Sens 6Hr Delta -413 ng/L (0-12) L 02/20/22 01:47 NT-Pro-B Natriuret Pep 28505 pg/mL (0-450) H 02/24/22 04:06 NT-Pro-B Natriuret Pep Cancelled 02/24/22 04:06 Total Protein 6.8 g/dL (6.6-8.7) 02/24/22 04:06 Albumin 3.5 g/dL (3.5-5.2) 02/24/22 04:06 Globulin 3.3 g/dL (1.3-4.6) 02/24/22 04:06 Triglycerides 152 mg/dL (0-150) H 02/22/22 08:27 Cholesterol 95 mg/dL (0-200) 02/22/22 08:27 LDL Cholesterol, Calc 43 mg/dL (50-129) L 02/22/22 08:27 Total VLDL Cholesterol 30 mg/dL (0-30) 02/22/22 08:27 HDL Cholesterol 22 mg/dL (60-100) L 02/22/22 08:27 Cholesterol/HDL Ratio 4.32 mg/dL (1.0-5.00) 02/22/22 08:27 Procalcitonin 0.28 ng/mL (0-0.5) 02/21/22 03:58 TSH 0.35 uIU/mL (0.27-4.20) 02/21/22 03:58 Urine Color Yellow (Yellow) 02/21/22 21:30 Urine Appearance Clear (CLEAR) 02/21/22 21:30 Urine pH 5 (5-7) 02/21/22 21:30 Ur Specific [place] 1.010 (1.005-1.030) 02/21/22 21:30 Urine Protein Neg (Negative) 02/21/22 21:30 Urine Glucose (UA) Norm (Normal) 02/21/22 21:30 Urine Ketones Negative (Negative) 02/21/22 21:30 Urine Blood Neg (Negative) 02/21/22 21:30 Urine Nitrate Negative (Negative) 02/21/22 21:30 Urine Bilirubin Neg (Negative) 02/21/22 21:30 Urine Urobilinogen Norm mg/dL (Negative) 02/21/22 21:30 Ur Leukocyte Esterase Negative (Negative) 02/21/22 21:30 Ur Eosinophil Smear 0 (0-0) 02/21/22 21:30 Urine Eosinophils No eosinophils seen 02/21/22 21:30 Ur Random Sodium 50 mmol/L 02/21/22 21:30 Ur Random Potassium 26 mmol/L 02/21/22 21:30 Ur Random Chloride 72 mmol/L 02/21/22 21:30 Urine Creatinine 86 mg/dL (39-259) 02/21/22 21:30 Urine Opiates Screen Positive ng/mL (Negative) H 02/21/22 21:30 Ur Barbiturates Screen Negative ng/mL (Negative) 02/21/22 21:30 Ur Phencyclidine Scrn Negative ng/mL (Negative) 02/21/22 21:30 Ur Amphetamines Screen Negative ng/mL (Negative) 02/21/22 21:30 U Benzodiazepines Scrn Negative ng/mL (Negative) 02/21/22 21:30 Urine Cocaine Screen Negative ng/mL (Negative) 02/21/22 21:30 U Marijuana (THC) Screen Positive ng/mL (Negative) H 02/21/22 21:30 Vitals Last Vital Signs Temp 97.7 F 02/24/22 12:00 Pulse 92 02/24/22 12:00 Resp 16 02/24/22 12:00 BP 119/80 02/24/22 12:00 Pulse Ox 98 02/24/22 12:00 Discharge Plan Discharge Patient Disposition: Home Condition: Stable Prescriptions: New aspirin 81 mg Tablet,Delayed Release (Dr/Ec) 81 mg PO DAILY Qty: 90 0RF citalopram 20 mg Tablet 30 mg PO DAILY Qty: 45 0RF donepezil 5 mg Tablet 10 mg PO BEDTIME Qty: 60 0RF Continued potassium chloride 20 mEq tablet extended release 20 meq PO BID Qty: 60 2RF Hold Instructions: Resume on 08/10/21. Narcan 4 mg/actuation spray,non-aerosol 1 spray INTRANASAL .COMPLEX 0RF Rx Instructions: 1 SPRAY INTRA NASAL NEEDED FOR OVERDOSE Viibryd 40 mg tablet 40 mg PO DAILY Qty: 30 2RF Rx Instructions: must administer with a meal/food pantoprazole [Protonix] 40 mg tablet,delayed release (DR/EC) 40 mg PO BID Qty: 60 5RF nitroglycerin [Nitrostat] 0.4 mg tablet, sublingual 0.4 mg SUBLINGUAL Q5M PRN (Reason: chest pain) 90 Days Qty: 25 3RF Rx Instructions: refilling in the absence of Catherine martinez metformin 1,000 mg tablet 1,000 mg PO BID 30 Days Qty: 60 1RF hydrocodone-acetaminophen 7.5-325 mg tablet 1 tab PO Q6H MDD 5 tabs per day PRN (Reason: Pain) Qty: 0 0RF Rx Instructions: may take one extra tab per day-max 5 tabs per day-must last 28 days cyanocobalamin (vitamin B-12) [Vitamin B-12] 1,000 mcg Tablet 1,000 mcg PO DAILY Qty: 0 0RF albuterol sulfate [ProAir HFA] 90 mcg/actuation HFA aerosol inhaler 1 - 2 puff INHALATION Q6H PRN (Reason: shortness of breath or wheezing) 0RF furosemide [Lasix] 80 mg tablet 40 mg PO BID Qty: 60 5RF Hold Instructions: Resume on 08/10/21. pregabalin 150 mg capsule 150 mg PO TID 0RF allopurinol 300 mg tablet 300 mg PO DAILY 0RF fluticasone propion-salmeterol [Advair Diskus] 250-50 mcg/dose Blister With Device 1 inh INHALATION BID 0RF baclofen 10 mg tablet 5 mg PO BID 0RF triamcinolone acetonide 0.1 % ointment See Rx Instructions .ROUTE .COMPLEX 0RF Rx Instructions: as directed topically as needed fluticasone propionate [Flonase Allergy Relief] 50 mcg/actuation spray,suspension 2 spray INTRANASAL DAILY PRN (Reason: Allergy Symptoms) 0RF Rx Instructions: administer into each nostril filling in Dr Milan absence clopidogrel [Plavix] 75 mg tablet 75 mg PO DAILY Qty: 30 1RF Changed atorvastatin 20 mg tablet 40 mg PO DAILY Qty: 0 0RF isosorbide mononitrate 30 mg tablet extended release 24 hr 15 mg PO DAILY Qty: 30 3RF carvedilol [Coreg] 12.5 mg tablet 6.25 mg PO BID Qty: 0 0RF benazepril 20 mg tablet 10 mg PO DAILY Qty: 0 0RF Discontinued aspirin [Adult Aspirin Regimen] 81 mg tablet,delayed release (DR/EC) 81 mg PO DAILY 0RF trazodone 150 mg tablet 150 mg PO BEDTIME Qty: 30 2RF Discharge Orders: Discharge Order (Routine); Ordered 02/24/22 Ordered By: Barak Jarvis Referrals: [facility] [Outside] Galindo Carson DO [Primary Care Provider] - 4-7 days Maria Luisa Geller MD [Physician] - 2 weeks Discharge Diet: Cardiac and Diabetic Discharge Activity: Resume usual activity and Increase activity as tolerated Patient Instructions: Opioid Safety Activity Restrictions/Additional Instructions: Repeat BMP with a primary care provider within next 1 week. Multiple medication changes have been done. Dose of carvedilol has been decreased to 6.25 mg daily. Dose of Imdur has been decreased to 50 mg daily. Take aspirin 81 mg daily. Dose of Benadryl has been changed to 10 mg daily. Trazodone has been stopped. Also takes Celexa and donepezil daily. Please check your blood pressure daily at home and maintain a blood pressure and follow-up with a primary care provider within next 1 week for further adjustments of antihypertensives. Please follow-up with cardiology within next 2 weeks. Discharge Attestations Time Spent in Discharge Care*: greater than 30 min Specific Discharge Activities: educating patient, discussing with pcp/other providers, discussing with adult protective caseworker/social workers/dc planners, documenting/other paperwork and evaluating patient/reviewing data Status at Discharge: Cognitive status at discharge: mildly impaired cognition , Behavioral status at discharge: cooperative and can be uncooperative , Functional status at discharge: independent ambulation , Overall status at discharge: patient is back to baseline Quality Metrics Clinical Quality Measures [ No reported AMI, CVA or VTE this stay] Coding Level of Care Code Acute Chg FW DC note History Comprehensive Exam Comprehensive Medical Decision Making High Complexity Diagnoses NSTEMI (non-ST elevated myocardial infarction) I21.4 Ischemic cardiomyopathy I25.5 Atherosclerotic heart disease of [place] coronary artery with other forms of angina pectoris I25.118 MALORIE (obstructive sleep apnea) G47.33 Acute kidney injury superimposed on chronic kidney disease N17.9; N18.9 Carotid artery narrowing I65.29 Pulmonary hypertension I27.20
--- NOTE | 2022-02-24 14:00 | PC.NURSE ---
Discharge Note Patient discharged to Home via Private vehicle accompanied by Spouse. Discharge instructions reviewed with patient and/or passenger relations representative. Mobile pharmacy medications and/or prescriptions provided. Belongings/home medications returned.
--- NOTE | 2022-02-24 16:07 | PC.SOCIAL ---
IMM UPDATED IMM dated and initialed, copy placed in chart and copy given to patient
== END 2022-02-24 14:00 | disposition home health service (06) | DRG 250 ==
LOC: ER 23:03 → MEDSURG 23:35 → ICU 02-20 16:06 → MEDSURG 02-21 23:42
PROVIDERS: Internal Medicine; Internal Medicine Cardiovascular Disease; Admitting Provider Internal Medicine; Emergency Provider Emergency Medicine; PCP Family Medicine; Visit Provider Student in an Organized Health Care Education/Training Program
PROC: 02703ZZ Dilation of Coronary Artery, One Artery, Percutaneous Approach (ICD-10-PCS; 2022-02-23 08:30)
DX: I21.4 Non-ST elevation (NSTEMI) myocardial infarction (principal); I50.43 Acute on chronic combined systolic (congestive) and diastolic (congestive) heart failure; I13.0 Hypertensive heart and chronic kidney disease with heart failure and stage 1 through stage 4 chronic kidney disease, or unspecified chronic kidney disease; F33.9 Major depressive disorder, recurrent, unspecified; N17.9 Acute kidney failure, unspecified; E11.22 Type 2 diabetes mellitus with diabetic chronic kidney disease; N18.9 Chronic kidney disease, unspecified; E11.42 Type 2 diabetes mellitus with diabetic polyneuropathy; I25.118 Atherosclerotic heart disease of native coronary artery with other forms of angina pectoris; I25.84 Coronary atherosclerosis due to calcified coronary lesion; G89.29 Other chronic pain; M54.9 Dorsalgia, unspecified; E66.9 Obesity, unspecified; Z68.38 Body mass index [BMI] 38.0-38.9, adult; E78.5 Hyperlipidemia, unspecified; M10.9 Gout, unspecified; G47.33 Obstructive sleep apnea (adult) (pediatric); F17.220 Nicotine dependence, chewing tobacco, uncomplicated; Z79.02 Long term (current) use of antithrombotics/antiplatelets; Z79.51 Long term (current) use of inhaled steroids; Z79.891 Long term (current) use of opiate analgesic; Z79.84 Long term (current) use of oral hypoglycemic drugs; F03.90 Unspecified dementia, unspecified severity, without behavioral disturbance, psychotic disturbance, mood disturbance, and anxiety; I07.1 Rheumatic tricuspid insufficiency; I25.5 Ischemic cardiomyopathy; I27.20 Pulmonary hypertension, unspecified; E86.0 Dehydration; J44.9 Chronic obstructive pulmonary disease, unspecified; Z79.82 Long term (current) use of aspirin
CPT/HCPCS: 36415; 36416; 70450; 71045; 76770; 80048; 80053; 80061; 80306; 81003; 82436; 82570; 82962; 83036; 83540; 83550; 83735; 83880; 84133; 84145; 84300; 84443; 84484; 85025; 85049; 85347; 85378; 85730; 85999; 87040; 92920; 93005; 93452; 93458; 93571; 93970; 94640; 96360; 96372; 97161; 99152; 99153; 99285; C1725; C1769; C1887; C1894; C8929; J1644; J1815; J1940; J2250; J2405; J3010; J3475; J3490; J3535; J7030; J7626; Q0163; Q9956; Q9967

== ENCOUNTER 2022-04-08 13:30 | Outpatient (CLI) | payer MEDICARE, MEDICAID, SELFPAY ==
[2022-04-08 14:48] LABS: Basophils # 0.1 10^3/uL (0.0-0.1); Basophils % 0.7 %; Eosinophils # 0.1 10^3/uL (0.0-0.8); Eosinophils % 1.9 %; Hematocrit 33.6 % (42.0-52.0); Hemoglobin 10.8 g/dL (11.7-16.6); Lymphocytes # 1.6 10^3/uL (0.8-4.8); Mean Corpuscular HGB Conc 32.1 g/dL (30.0-36.0); Mean Corpuscular Hemoglobin 29.3 pg (28.0-34.0); Mean Corpuscular Volume 91.3 fl (80-94); Mean Platelet Volume 11.5 fL (7.4-10.4); Monocytes # 0.5 10^3/uL (0.2-0.9); Neutrophils # 4.39 10^3/uL (1.8-7.7); Neutrophils % 65.3 %; Nucleated Red Blood Cells % 0 %; Platelet Count 194 10^3/cmm (130-400); Red Blood Count 3.68 10^6/uL (4.1-5.3); Red Cell Distribution Width 14.9 % (12.1-15.1); White Blood Count 6.7 10^3/uL (4.0-10.0)
[2022-04-08 15:09] LABS: Albumin Level 3.7 g/dL (3.5-5.2); Anion Gap 12.7 (5-19); Blood Urea Nitrogen 11 mg/dL (8-23); Calcium 8.8 mg/dL (8.5-10.5); Carbon Dioxide 29 mmol/L (22-29); Chloride 104 mmol/L (98-107); Glucose 107 mg/dL (65-115); Phosphorus 2.8 mg/dL (2.5-4.5); Potassium 3.7 mmol/L (3.5-5.1); Sodium 142 mmol/L (136-145)
[2022-04-08 15:14] LABS: Calcium 8.8 mg/dL (8.5-10.5)
[2022-04-08 15:19] LABS: Parathyroid Hormone 79.4 pg/mL (15-65)
[2022-04-08 17:49] LABS: Creatinine Urine, Random 101 mg/dL (39-259); Microalbum Creatinine Ratio Ur 20 mg/dL (0-20); Microalbumin Random Urine 2 ug/dL (0-20)
== END 2022-04-08 13:31 | disposition home or self-care (01) ==
PROVIDERS: PCP Family Medicine; Visit Provider Internal Medicine Nephrology
DX: N18.32 Chronic kidney disease, stage 3b (principal)
CPT/HCPCS: 36415; 80069; 82044; 82310; 83970; 85025

== ENCOUNTER 2022-06-02 12:43 | Observation (INO) | payer MEDICARE, MEDICAID, SELFPAY ==
[2022-06-02] VITALS (12 sets, daily range): BP systolic 134–174; BP diastolic 68–93; PULSE 60–85; RESP 14–19; TEMP 36.3–36.9; O2SAT 94–97; BMI 33.7
--- NOTE | 2022-06-02 12:48 | XR_ITS ---
WS: [id number] Portable AP upright chest, 06/02/2022 Clinical Data: htn Comparison: Portable chest, 02/19/2022. Findings: No nodules, masses or effusions are seen. The heart is normal. The pulmonary vascularity is not increased. No pneumonia or pneumothorax is seen. The aortic arch and descending thoracic aorta s how tortuosity. XR/XR chest 1V portable [id number] Impression: Atherosclerosis.
--- NOTE | 2022-06-02 12:53 | ED_ITS ---
HPI - General Adult General: Chief complaint: General Medical Stated complaint: htn Time Seen by Provider: 06/02/22 12:47 Source: patient and EMS Mode of arrival: EMS History of Present Illness: 77-year-old male brought in by EMS. Chief complaint for the primary called to the residence was elevated blood pressure. However he is disoriented. He has some altered mental status according to baseline he usually has per his . At the scene he was unable to tell date or time or identify people his says he usually is very coherent and cognizant of things. This was a new finding for him. When I asked him what he could called the ambulance for his toes because they thought he was having a heart attack but he denies having any chest pain. Did not strike his head there is no evidence of loss consciousness. He does have a history of coronary artery disease on clopidogrel medication list reviewed also include hydrocodone he is awake and alert answers questions but cannot provide correct answers to the objective questions posed to him he has no focal neurologic deficits noted. Onset (ago): hour(s) Location: chest Associated symptoms: Reports confusion, malaise and weakness; Deny chest pain, cough, diaphoresis, decreased appetite, dyspnea, fevers/chills, headache(s), nausea, rash, palpitations, seizures, short of breath, syncope or vomiting Treatments prior to arrival: none Review of Systems Const: Reports: malaise; Denies: fever(s), chills, fatigue or diaphoresis ENMT: Denies: throat pain, ear or mastoid pain, nasal discharge or nasal congestion Card: Denies: chest pain, palpitations or syncope Resp: Denies: dyspnea GI: Denies: abdominal pain, nausea or vomiting : Denies: flank pain, difficulty urinating, dysuria, urinary frequency or urinary urgency Skin/Breast: Denies: rash Neuro: Reports: confusion; Denies: headache(s) PFS ED PFSH: Medical History (Updated 06/04/22 @ 09:30 by Iain Alvares DO) Acute decompensated heart failure Altered mental status Atherosclerotic heart disease of [place] coronary artery with other forms of angina pectoris CAD (coronary artery disease) Carotid artery narrowing Chronic back pain CKD (chronic kidney disease) Congestive heart failure COPD (chronic obstructive pulmonary disease) Diabetes mellitus type 2 in obese Dyslipidemia Elevated troponin Encephalopathy, hypertensive Encounter for long-term use of opiate analgesic Gabapentin overdose Gout Hypertension Major depressive disorder, recurrent, mild (Unknown) Neuropathy NSTEMI (non-ST elevated myocardial infarction) Opioid contract exists MALORIE (obstructive sleep apnea) Psychiatric care Pulmonary hypertension Renal insufficiency Severe tricuspid regurgitation Smokeless tobacco use Substance abuse Urinary retention Surgical History History of cholecystectomy History of heart artery stent Family History Other Cancer Hypertension Social History Smoking and tobacco status: former smoker Second hand smoke exposure: No Alcohol intake: never History of recent travel: No Physical Exam Const: GENERAL APPEARANCE: cooperative and comfortable ORIENTATION/CONSCIOUSNESS: Yes awake HENMT: COMMON NORMALS: normocephalic, atraumatic and hearing grossly normal bilaterally HEAD & SCALP: normocephalic and atraumatic Resp: COMMON NORMALS: normal respiratory effort, No retractions, No use of accessory muscles and clear to auscultation bilaterally AUSCULTATION: clear to auscultation bilaterally Cardio: COMMON NORMALS: regular rate, regular rhythm and No murmurs present (Cardio) RATE: regular rate RHYTHM: regular rhythm GI: COMMON NORMALS: Soft to palpation and No hepatosplenomegaly present AUSCULTATION: Yes normoactive bowel sounds PALPATION: Yes Soft to palpation, No Tenderness to palpation present (GI), No Guarding due to palpation present (GI) and Yes No hepatosplenomegaly present Extremity: COMMON NORMALS: normal to inspection, capillary refill normal, no clubbing, cyanosis or edema, no calf tenderness and no pedal edema Skin: COMMON NORMALS: no rashes or lesions noted GENERAL SKIN EXAM: no rashes or lesions noted Course Vital Signs: Vital signs: Vital Signs Temperature 97.8 F 06/04/22 07:38 Pulse Rate 55 L 06/04/22 07:53 Respiratory Rate 16 06/04/22 07:53 Blood Pressure 173/77 06/04/22 07:38 Pulse Oximetry 94 06/04/22 07:53 Oxygen Delivery Me thod 06/04/22 07:53 Oxygen Flow Rate 2 06/03/22 20:00 [facility] - General Adult Medical Decision Making No significant finding of the patient's CT head negative labs and imaging reviewed. He has a very mild elevation of his creatinine but generally in about the range he usually is. Discussed with she is very frustrated with him she cannot manage him at home she cannot get him to take his pills and he will not really follow anything this seems to come on over the last couple of days. Not finding any source of infection. Discussed with hospitalist will place on observation for acute encephalopathy. Lab Data : 06/04/22 08:00 06/04/22 08:00 Radiology Impressions Chest X-Ray 06/02/22 12:48 Impression: Atherosclerosis. Head CT 06/02/22 12:55 IMPRESSION: 1. No evidence of intracranial hemorrhage or mass effect. 2. Mild small vessel changes with moderate parenchymal volume loss. 3. No acute intracranial findings. Laboratory Results WBC 7.4 10^3/uL (4.0-10.0) 06/02/22 13:13 RBC 4.22 10^6/uL (4.1-5.3) 06/02/22 13:13 Hgb 12.1 g/dL (11.7-16.6) 06/02/22 13:13 Hct 39.2 % (42.0-52.0) L 06/02/22 13:13 MCV 92.9 fl (80-94) 06/02/22 13:13 MCH 28.7 pg (28.0-34.0) 06/02/22 13:13 MCHC 30.9 g/dL (30.0-36.0) 06/02/22 13:13 RDW 13.5 % (12.1-15.1) 06/02/22 13:13 Plt Count 197 10^3/cmm (130-400) 06/02/22 13:13 MPV 11.3 fL (7.4-10.4) H 06/02/22 13:13 Neut % (Auto) 78.3 % 06/02/22 13:13 Lymph % (Auto) 15.1 % 06/02/22 13:13 Wink[place] % (Auto) 3.5 % 06/02/22 13:13 Eos % (Auto) 2.3 % 06/02/22 13:13 Baso % (Auto) 0.5 % 06/02/22 13:13 Neut # (Auto) 5.80 10^3/uL (1.8-7.7) 06/02/22 13:13 Lymph # (Auto) 1.1 10^3/uL (0.8-4.8) 06/02/22 13:13 Winkler # (Auto) 0.3 10^3/uL (0.2-0.9) 06/02/22 13:13 Eos # (Auto) 0.2 10^3/uL (0.0-0.8) 06/02/22 13:13 Baso # (Auto) 0.0 10^3/uL (0.0-0.1) 06/02/22 13:13 Nucleated RBC % (auto) 0 % 06/02/22 13:13 Nucleated RBCs # 0.0 /100WBC 06/02/22 13:13 Specimen Type Arterial 06/02/22 17:12 Sample Site Brachial, right 06/02/22 17:12 ABG pH 7.46 (7.35-7.45) H 06/02/22 17:12 ABG pCO2 37.8 mmHg (35-45) 06/02/22 17:12 ABG pO2 78.4 mmHg (80.0-100.0) L 06/02/22 17:12 ABG HCO3 27.1 mmol/L (22-26) H 06/02/22 17:12 ABG O2 Saturation 96.7 06/02/22 17:12 ABG Base Excess 3.2 mmol/L (-2.0-2.0) H 06/02/22 17:12 Sergio Test N/a 06/02/22 17:12 A-a O2 Gradient 3.2 mmHg (5-10) L 06/02/22 17:12 Hematocrit 38.0 % (42-52) L 06/02/22 17:12 Hgb O2 Saturation 95.5 % (95-100) 06/02/22 17:12 Carboxyhemoglobin 1.0 %THgb (0.4-20.1) 06/02/22 17:12 Methemoglobin 0.3 % (0.4-1.5) L 06/02/22 17:12 Total Hemoglobin 12.4 g/dL (14-18) L 06/02/22 17:12 Sodium 144.0 mmol/L (131-143) H 06/02/22 17:12 Potassium 4.3 mmol/L (3.5-5.0) 06/02/22 17:12 Glucose 131.0 mg/dL (70-115) H 06/02/22 17:12 Ionized Calcium 1.3 mmol/L (1.1-1.4) 06/02/22 17:12 O2 Delivery Device Room air 06/02/22 17:12 FiO2 21.0 % 06/02/22 17:12 Cathode Ray Tube Assembler ID Amh 06/02/22 17:12 Sodium 142 mmol/L (136-145) 06/02/22 13:13 Potassium 4.6 mmol/L (3.5-5.1) 06/02/22 13:13 Chloride 103 mmol/L (98-107) 06/02/22 13:13 Carbon Dioxide 27 mmol/L (22-29) 06/02/22 13:13 Anion Gap 16.6 (5-19) 06/02/22 13:13 BUN 19 mg/dL (8-23) 06/02/22 13:13 Creatinine 1.5 mg/dL (0.7-1.2) H 06/02/22 13:13 GFR Calculation Not Reportable 06/02/22 13:13 Glucose 139 mg/dL (65-115) H 06/02/22 13:13 Calculated Osmolality 299 mOsm/kg (285-295) H 06/02/22 13:13 Calcium 9.8 mg/dL (8.5-10.5) 06/02/22 13:13 Total Bilirubin 0.4 mg/dL (0.15-1.2) 06/02/22 13:13 AST 11 U/L (0-40) 06/02/22 13:13 ALT 8 U/L (0-41) 06/02/22 13:13 Alkaline Phosphatase 118 U/L (40-130) 06/02/22 13:13 Ammonia 26 umol/L (16-60) 06/02/22 17:30 Troponin T Baseline 25 ng/L (0-15) H 06/02/22 13:13 Troponin T 120 Minute 24.70 ng/L (0-15) H 06/02/22 14:56 Delta Troponin T -0.30 ABS# (0-10) L 06/02/22 14:56 Total Protein 7.6 g/dL (6.6-8.7) 06/02/22 13:13 Albumin 4.1 g/dL (3.5-5.2) 06/02/22 13:13 Globulin 3.5 g/dL (1.3-4.6) 06/02/22 13:13 Vitamin B12 624 pg/mL (232-1245) 06/02/22 17:30 Folate 7.6 ng/mL (4.5-32.2) 06/02/22 17:30 TSH 1.13 uIU/mL (0.27-4.20) 06/02/22 17:30 Urine Color Yellow (Yellow) 06/02/22 16:04 Urine Appearance Clear (CLEAR) 06/02/22 16:04 Urine pH 6 (5-7) 06/02/22 16:04 Ur Specific [place] 1.005 (1.005-1.030) 06/02/22 16:04 Urine Protein Neg (Negative) 06/02/22 16:04 Urine Glucose (UA) Norm (Normal) 06/02/22 16:04 Urine Ketones Negative (Negative) 06/02/22 16:04 Urine Blood Neg (Negative) 06/02/22 16:04 Urine Nitrate Negative (Negative) 06/02/22 16:04 Urine Bilirubin Neg (Negative) 06/02/22 16:04 Urine Urobilinogen Norm mg/dL (Negative) 06/02/22 16:04 Ur Leukocyte Esterase Negative (Negative) 06/02/22 16:04 Salicylates < 0.3 mg/dL (3-10) L 06/02/22 17:30 Acetaminophen < 5.0 ug/mL (10-30) L 06/02/22 17:30 Ethyl Alcohol < 10 mg/dL (0-10) 06/02/22 17:30 Serum Ketones Negative (Negative) 06/02/22 17:30 Discharge Plan Discharge Patient Disposition: Placed in Observation Admit Provider: Barak Jarvis Clinical Impression: HTN (hypertension), Atypical chest pain, Ischemic cardiomyopathy, CKD (chronic kidney disease) Condition: Stable Discharge Orders: Discharge ED (Routine); Ordered 06/02/22 Ordered By: Iain Alvares Discharge Diet: Usual diet Coding Level of Care Code ED Cod Clerk for Chg Fwd Exam Detailed
--- NOTE | 2022-06-02 12:55 | CT_ITS ---
WS: [id number] CT HEAD TECHNIQUE: Noncontrast CT of the head obtained from the skullbase to the vertex. CLINICAL INFORMATION: AMS COMPARISON: CT February 19, 2022 DLP: 2060.[address] scans at [facility] use at least one of these dose optimization techniques: automated e xposure control; mA and/or kV adjustment per patient size (includes targeted exams where dose is matc hed to clinical indication); or iterative reconstruction. FINDINGS: No evidence of intracranial hemorrhage or mass effect. Ventricular system and basal cisterns are mckee nt. Mild small vessel changes with moderate parenchymal volume loss. No extra-axial fluid collections . No evidence of mass or mass Intracranial vascular calcification. Paranasal sinuses and mastoid air cells well aerated. No significant interval changes since February 19, 2022. CT/CT head wo con* [id number] IMPRESSION: 1. No evidence of intracranial hemorrhage or mass effect. 2. Mild small vessel changes with moderate parenchymal volume loss. 3. No acute intracranial findings.
[2022-06-02 13:30] LABS: Basophils % 0.5 %; Eosinophils # 0.2 10^3/uL (0.0-0.8); Eosinophils % 2.3 %; Hematocrit 39.2 % (42.0-52.0); Hemoglobin 12.1 g/dL (11.7-16.6); Lymphocytes # 1.1 10^3/uL (0.8-4.8); Lymphocytes % 15.1 %; Mean Corpuscular HGB Conc 30.9 g/dL (30.0-36.0); Mean Corpuscular Hemoglobin 28.7 pg (28.0-34.0); Mean Corpuscular Volume 92.9 fl (80-94); Mean Platelet Volume 11.3 fL (7.4-10.4); Monocytes # 0.3 10^3/uL (0.2-0.9); Monocytes % 3.5 %; Neutrophils % 78.3 %; Nucleated Red Blood Cells % 0 %; Platelet Count 197 10^3/cmm (130-400); Red Blood Count 4.22 10^6/uL (4.1-5.3); Red Cell Distribution Width 13.5 % (12.1-15.1); White Blood Count 7.4 10^3/uL (4.0-10.0)
[2022-06-02 13:52] LABS: Alanine Aminotransferase 8 U/L (0-41); Albumin Level 4.1 g/dL (3.5-5.2); Alkaline Phosphatase 118 U/L (40-130); Anion Gap 16.6 (5-19); Aspartate Amino Transferase 11 U/L (0-40); Blood Urea Nitrogen 19 mg/dL (8-23); Calcium 9.8 mg/dL (8.5-10.5); Carbon Dioxide 27 mmol/L (22-29); Chloride 103 mmol/L (98-107); Globulin 3.5 g/dL (1.3-4.6); Glucose 139 mg/dL (65-115); Osmolality Calculated 299 mOsm/kg (285-295); Potassium 4.6 mmol/L (3.5-5.1); Sodium 142 mmol/L (136-145); Total Bilirubin 0.4 mg/dL (0.15-1.2); Total Protein 7.6 g/dL (6.6-8.7)
[2022-06-02 13:56] LABS: Troponin(5th) Baseline 25 ng/L (0-15)
--- NOTE | 2022-06-02 13:56 | ECG_ITS ---
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 Measurements Intervals [place] Rate: 72 P: 53 [place]: 176 QRS: 32 QRSD: 101 T: 43 QT: 391 QTc: 431 Interpretive Statements SINUS RHYTHM Nonspecific T wave changes Compared to ECG 02/20/2022 05:48:31 Sinus arrhythmia no longer present T-wave abnormality no longer present Possible ischemia no longer present Electronically Signed On 06-02-2022 20:44:50 CDT by Alfonso Khan M.D. [id number]
--- NOTE | 2022-06-02 14:55 | ECG_ITS ---
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 Measurements Intervals [place] Rate: 77 P: 70 [place]: 179 QRS: 57 QRSD: 103 T: 55 QT: 382 QTc: 434 Interpretive Statements SINUS RHYTHM Compared to ECG 06/02/2022 13:56:43 No significant changes Electronically Signed On 06-02-2022 20:50:19 CDT by Alfonso Khan M.D. [id number]
[2022-06-02 16:10] LABS: Add Urine Microscopic? NO; Charge for UA Resulting for Rev
[2022-06-02 16:13] LABS: Bilirubin Urine Neg (Negative); Blood Urine Neg (Negative); Glucose Urine UA Norm (Normal); Ketones Urine Negative (Negative); Leukocyte Esterase Urine Negative (Negative); Nitrate Urine Negative (Negative); Protein Urine Neg (Negative); Specific Gravity, Urine 1.005 (1.005-1.030); Urine Appearance Clear (CLEAR); Urine Color Yellow (Yellow); Urobilinogen Urine Norm (Negative); pH Urine 6 (5-7)
--- NOTE | 2022-06-02 17:19 | P.HP_ITS ---
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 History taken through the . As per the patient was difficult to wake up yesterday and slept for most of the day. A day prior to that he was at his baseline without any complaints of diarrhea, nausea, vomiting, dysuria. Denied of having any chest pain. Has been taking his medications as prescribed without any changes in medications recently but since today morning patient has been confused, incoherent and not able to answer any questions. As per she was not even able to give him oral medications. On review of his vitals his blood pressures were elevated so his nurse from home health called EMS and was brought to the ER. In the ER patient was found to be having elevated blood pressures for which he was given his home antihypertensives. On examination patient was sitting comfortably in bed, alert only to self and his . Not able to tell various orders date of . Being forgetful. Denies of having any new complaints currently. Review of Systems General: Reports: ROS unobtainable due to mental status Medications/Allergies Home Medications Medication Instructions Recorded Confirmed Last Taken Type naloxone 4 mg/actuation nasal 1 spray intranasal .COMPLEX 10/15/19 02/20/22 Unknown History spray (Narcan) potassium chloride 20 mEq 20 meq PO BID #60 tabs 11/01/19 02/20/22 05/02/21 Rx tablet,extended release pantoprazole 40 mg tablet,delayed 40 mg PO BID #60 tabs 11/21/19 02/20/22 05/02/21 Rx release (Protonix) nitroglycerin 0.4 mg sublingual 0.4 mg sublingual Q5M PRN chest 02/03/20 02/20/22 Unknown Rx tablet (Nitrostat) pain 90 days #25 tabs metformin 1,000 mg tablet 1,000 mg PO BID 30 days #60 tabs 02/26/20 02/20/22 05/02/21 Rx albuterol sulfate 90 mcg/actuation 1 - 2 puff inhalation Q6H PRN 05/25/20 02/20/22 Unknown History aerosol inhaler (ProAir HFA) shortness of breath or wheezing cyanocobalamin (vitamin B-12) 1,000 mcg PO DAILY ##0 05/25/20 02/20/22 05/02/21 History 1,000 mcg tablet (Vitamin B-12) furosemide 80 mg tablet (Lasix) 40 mg PO BID #60 tabs 05/28/20 02/20/22 05/02/21 Rx hydrocodone 7.5 mg-acetaminophen 1 tab PO Q6H PRN Pain #0 tabs 07/22/20 02/20/22 07/18/20 Rx 325 mg tablet allopurinol 300 mg tablet 300 mg PO DAILY 05/02/21 02/20/22 05/02/21 History pregabalin 150 mg capsule 150 mg PO TID 05/02/21 02/20/22 04/29/21 History baclofen 10 mg tablet 5 mg PO BID 08/06/21 02/20/22 Unknown History fluticasone 250 mcg-salmeterol 50 1 inh inhalation BID 08/06/21 02/20/22 Unknown History mcg/dose blistr powdr for inhalation (Advair Diskus) triamcinolone acetonide 0.1 % See Rx Instructions .Route .COMPLEX 08/06/21 02/20/22 Unknown History topical ointment clopidogrel 75 mg tablet (Plavix) 75 mg PO DAILY #30 tabs 08/07/21 02/20/22 Unknown Rx vilazodone 40 mg tablet (Viibryd) 40 mg PO DAILY #30 tabs 09/29/21 02/20/22 Unknown Rx aspirin 81 mg tablet,delayed 81 mg PO DAILY #90 tabs 02/24/22 Unknown Rx release atorvastatin 20 mg tablet 40 mg PO DAILY #0 tabs 02/24/22 02/20/22 05/01/21 Rx benazepril 20 mg tablet 10 mg PO DAILY #0 tabs 02/24/22 02/20/22 Unknown Rx carvedilol 12.5 mg tablet (Coreg) 6.25 mg PO BID #0 tabs 02/24/22 02/20/22 Unknown Rx citalopram 20 mg tablet 30 mg PO DAILY #45 tabs 02/24/22 Unknown Rx donepezil 5 mg tablet 10 mg PO BEDTIME #60 tabs 02/24/22 Unknown Rx isosorbide mononitrate 30 mg 15 mg PO DAILY #30 tabs 02/24/22 02/20/22 Unknown Rx tablet,extended release 24 hr fluticasone propionate 50 See Rx Instructions .Route 05/17/22 Unknown Rx mcg/actuation nasal .COMPLEX #16 grams spray,suspension amlodipine 5 mg tablet 5 mg PO DAILY #30 tabs 06/02/22 Unknown Rx Allergies Allergy/AdvReac Type Severity Reaction Status Date / Time gabapentin AdvReac Mild ADR-Nausea Verified 02/19/22 18:03 PFSH Acute PFSH: Medical History (Updated 06/02/22 @ 17:22 by Barak Jarvis MD) Acute decompensated heart failure Altered mental status Atherosclerotic heart disease of [place] coronary artery with other forms of angina pectoris CAD (coronary artery disease) Carotid artery narrowing Chronic back pain CKD (chronic kidney disease) Congestive heart failure COPD (chronic obstructive pulmonary disease) Diabetes mellitus type 2 in obese Dyslipidemia Elevated troponin Encephalopathy, hypertensive Encounter for long-term use of opiate analgesic Gabapentin overdose Gout Hypertension Major depressive disorder, recurrent, mild (Unknown) Neuropathy NSTEMI (non-ST elevated myocardial infarction) Opioid contract exists MALORIE (obstructive sleep apnea) Psychiatric care Pulmonary hypertension Renal insufficiency Severe tricuspid regurgitation Smokeless tobacco use Substance abuse Urinary retention Surgical History History of cholecystectomy History of heart artery stent Family History Other Cancer Hypertension Social History Smoking and tobacco status: former smoker Second hand smoke exposure: No Alcohol intake: never History of recent travel: No Vitals/I&O/Wt Last Vital Signs Temp 97.4 F L 06/02/22 12:44 Pulse 85 06/02/22 17:12 Resp 16 06/02/22 17:12 BP 174/93 06/02/22 17:12 Pulse Ox 97 06/02/22 17:12 O2 Del Method 06/02/22 12:53 Weight last 48 hrs Weight 106.594 kg Physical Exam Narrative: General: No acute distress, AO x3 HEENT: PERRLA, pupils bilaterally equal and reactive Chest: Normal vesicular breath sounds, no added sounds, equal good air entry bilaterally CVS: S1-S2 regular, no murmurs, no tachycardia, no gallops, no rubs Abdomen: Soft, nontender, no organomegaly, bowel sounds present Neuro: No focal deficits, no facial deformity, AO x3, power 5/5 in all limbs Data : 06/02/22 13:13 06/02/22 13:13 Other Labs: Radiology Impressions Chest X-Ray 06/02/22 12:48 Impression: Atherosclerosis. Head CT 06/02/22 12:55 IMPRESSION: 1. No evidence of intracranial hemorrhage or mass effect. 2. Mild small vessel changes with moderate parenchymal volume loss. 3. No acute intracranial findings. Laboratory Results WBC 7.4 10^3/uL (4.0-10.0) 06/02/22 13:13 RBC 4.22 10^6/uL (4.1-5.3) 06/02/22 13:13 Hgb 12.1 g/dL (11.7-16.6) 06/02/22 13:13 Hct 39.2 % (42.0-52.0) L 06/02/22 13:13 MCV 92.9 fl (80-94) 06/02/22 13:13 MCH 28.7 pg (28.0-34.0) 06/02/22 13:13 MCHC 30.9 g/dL (30.0-36.0) 06/02/22 13:13 RDW 13.5 % (12.1-15.1) 06/02/22 13:13 Plt Count 197 10^3/cmm (130-400) 06/02/22 13:13 MPV 11.3 fL (7.4-10.4) H 06/02/22 13:13 Neut % (Auto) 78.3 % 06/02/22 13:13 Lymph % (Auto) 15.1 % 06/02/22 13:13 [place] % (Auto) 3.5 % 06/02/22 13:13 Eos % (Auto) 2.3 % 06/02/22 13:13 Baso % (Auto) 0.5 % 06/02/22 13:13 Neut # (Auto) 5.80 10^3/uL (1.8-7.7) 06/02/22 13:13 Lymph # (Auto) 1.1 10^3/uL (0.8-4.8) 06/02/22 13:13 [place] # (Auto) 0.3 10^3/uL (0.2-0.9) 06/02/22 13:13 Eos # (Auto) 0.2 10^3/uL (0.0-0.8) 06/02/22 13:13 Baso # (Auto) 0.0 10^3/uL (0.0-0.1) 06/02/22 13:13 Nucleated RBC % (auto) 0 % 06/02/22 13:13 Nucleated RBCs # 0.0 /100WBC 06/02/22 13:13 Specimen Type Arterial 06/02/22 17:12 Sample Site Radial, left 06/02/22 17:12 ABG pH 7.46 (7.35-7.45) H 06/02/22 17:12 ABG pCO2 39.4 mmHg (35-45) 06/02/22 17:12 ABG pO2 48.2 mmHg (80.0-100.0) L 06/02/22 17:12 ABG HCO3 27.7 mmol/L (22-26) H 06/02/22 17:12 ABG O2 Saturation 86.0 06/02/22 17:12 ABG Base Excess 3.6 mmol/L (-2.0-2.0) H 06/02/22 17:12 Sergio Test Pos 06/02/22 17:12 A-a O2 Gradient 7.0 mmHg (5-10) 06/02/22 17:12 Hematocrit 38.4 % (42-52) L 06/02/22 17:12 Hgb O2 Saturation 84.6 % (95-100) L 06/02/22 17:12 Carboxyhemoglobin 1.1 %THgb (0.4-20.1) 06/02/22 17:12 Methemoglobin 0.4 % (0.4-1.5) 06/02/22 17:12 Total Hemoglobin 12.5 g/dL (14-18) L 06/02/22 17:12 Sodium 144.0 mmol/L (131-143) H 06/02/22 17:12 Potassium 4.4 mmol/L (3.5-5.0) 06/02/22 17:12 Glucose 128.0 mg/dL (70-115) H 06/02/22 17:12 Ionized Calcium 1.3 mmol/L (1.1-1.4) 06/02/22 17:12 O2 Delivery Device Room air 06/02/22 17:12 FiO2 21.0 % 06/02/22 17:12 Wound Care Technician ID Amh 06/02/22 17:12 Sodium 142 mmol/L (136-145) 06/02/22 13:13 Potassium 4.6 mmol/L (3.5-5.1) 06/02/22 13:13 Chloride 103 mmol/L (98-107) 06/02/22 13:13 Carbon Dioxide 27 mmol/L (22-29) 06/02/22 13:13 Anion Gap 16.6 (5-19) 06/02/22 13:13 BUN 19 mg/dL (8-23) 06/02/22 13:13 Creatinine 1.5 mg/dL (0.7-1.2) H 06/02/22 13:13 GFR Calculation Not Reportable 06/02/22 13:13 Glucose 139 mg/dL (65-115) H 06/02/22 13:13 Calculated Osmolality 299 mOsm/kg (285-295) H 06/02/22 13:13 Calcium 9.8 mg/dL (8.5-10.5) 06/02/22 13:13 Total Bilirubin 0.4 mg/dL (0.15-1.2) 06/02/22 13:13 AST 11 U/L (0-40) 06/02/22 13:13 ALT 8 U/L (0-41) 06/02/22 13:13 Alkaline Phosphatase 118 U/L (40-130) 06/02/22 13:13 Troponin T Baseline 25 ng/L (0-15) H 06/02/22 13:13 Troponin T 120 Minute 24.70 ng/L (0-15) H 06/02/22 14:56 Delta Troponin T -0.30 ABS# (0-10) L 06/02/22 14:56 Total Protein 7.6 g/dL (6.6-8.7) 06/02/22 13:13 Albumin 4.1 g/dL (3.5-5.2) 06/02/22 13:13 Globulin 3.5 g/dL (1.3-4.6) 06/02/22 13:13 Urine Color Yellow (Yellow) 06/02/22 16:04 Urine Appearance Clear (CLEAR) 06/02/22 16:04 Urine pH 6 (5-7) 06/02/22 16:04 Ur Specific [place] 1.005 (1.005-1.030) 06/02/22 16:04 Urine Protein Neg (Negative) 06/02/22 16:04 Urine Glucose (UA) Norm (Normal) 06/02/22 16:04 Urine Ketones Negative (Negative) 06/02/22 16:04 Urine Blood Neg (Negative) 06/02/22 16:04 Urine Nitrate Negative (Negative) 06/02/22 16:04 Urine Bilirubin Neg (Negative) 06/02/22 16:04 Urine Urobilinogen Norm mg/dL (Negative) 06/02/22 16:04 Ur Leukocyte Esterase Negative (Negative) 06/02/22 16:04 A&P Assessment and plan (1) Altered mental status: Has a history of obstructive sleep apnea, AMS secondary to gabapentin overdose, polypharmacy in the past. No leukocytosis, history of fever, UA negative for any source of infection, chest x-ray negative for any source of infection. CT head negative for any acute abnormality. No electrolyte abnormality. BUN within normal limits, creatinine at baseline. Check ABG to rule out hypercapnia or hypoxia. Will reconcile medications. Does have history of polypharmacy and gabapentin overdose. Will restart medications afterwards. Check vitamin B12 levels, folate, urine drug screen, ammonia levels, ketones, salicylate, alcohol level, Tylenol level. Frequent reorientation. Sitter at bedside. Status: Acute Qualifiers: Altered mental status type: unspecified Qualified Code(s): R41.82 - Altered mental status, unspecified (2) HTN (hypertension): Goal blood pressure less than 140/90 mmHg. Continuing home dose of amlodipine, BenzePril, Coreg, Imdur. Status: Acute (3) Ischemic cardiomyopathy: Seems to be at his baseline. Compensated. Continue with REYES, beta-nico, diuretic at home dose. Continue to monitor. Status: Acute (4) Carotid artery narrowing: CTA negative for any acute stroke. Examination not concerning for stroke for now. If does not improve within next 24 hours we will plan for MRI head. Continue with home dose of aspirin, statin. Status: Acute (5) CKD (chronic kidney disease): Baseline creatinine 1.3-1.5. Currently creatinine at baseline. Continue to monitor BMP electrolytes daily. Status: Acute (6) MALORIE (obstructive sleep apnea): Status: Acute (7) Polypharmacy: Status: Acute Plan Analgesia: Tylenol as needed. [place] 5 mg IV every 8 hours day as needed. Glycemic control: Check A1c. Nutrition: Mechanical soft diet CODE STATUS: Discussed in detail with patient's DPOA/ at bedside. Full code. PUD prophylaxis: Protonix DVT prophylaxis: Heparin 5000 every 8 hourly. Discharge planning: Home with caregiver once medically stable. Admit to [facility] with telemetry and sitter. This documentation was created by [employer] sheeter operator software. Every effort was made to ensure accuracy of sheeter operator. Any obvious errors or omissions should be clarified with the author of the document. Attestations Medical Necessity Statement*: Admission for more than 2 midnights for evaluation and management of altered mental status while polypharmacy, hypercapnia, infectious source is ruled out Time Spent in Patient Care: Greater than 35 minutes Coding Level of Care Code Acute Marine Service Operator for Chg Fwd Diagnoses Altered mental status R41.82 Altered mental status type: unspecified HTN (hypertension) I10 Ischemic cardiomyopathy I25.5 Carotid artery narrowing I65.29 CKD (chronic kidney disease) N18.9 MALORIE (obstructive sleep apnea) G47.33 Polypharmacy Z79.899
[2022-06-02 17:23] LABS: ABG PH Result 7.46 (7.35-7.45); Blood Gas Operator Identificat AMH; Blood Gas Sample Type Arterial; Ionized Calcium Level - ABG 1.3 mmol/L (1.1-1.4); Oxygen Device ROOM AIR
[2022-06-02 17:47] LABS: ABG PCO2 37.8 mmHg (35-45); Alveolar-Arterial Oxygen Gradi 3.2 mmHg (5-10); Base Excess ABG 3.2 mmol/L (-2.0-2.0); Blood Gas Sample Site Brachial, right; HCO3 ABG 27.1 mmol/L (22-26); HGB O2 Sat 95.5 % (95-100); Methemoglobin 0.3 % (0.4-1.5); Oxygen Saturation ABG 96.7; PO2 ABG 78.4 mmHg (80.0-100.0); Potassium Level - ABG 4.3 mmol/L (3.5-5.0); Total Hemoglobin 12.4 g/dL (14-18)
[2022-06-02 17:52] LABS: Amphetamines Screen Urine Negative (Negative); Barbiturates Screen Urine Negative (Negative); Benzodiazepines Screen Urine Negative (Negative); Cocaine Screen Urine Negative (Negative); Opiate Screen Urine Positive (Negative); PCP Screen Urine Negative (Negative); THC Screen Urine Positive (Negative)
[2022-06-02 17:53] LABS: Ketone (Acetest) Serum Negative (Negative)
[2022-06-02 18:03] LABS: Acetaminophen < 5.0 ug/mL (10-30); Alcohol Level < 10 mg/dL (0-10); Ammonia 26 umol/L (16-60); Salicylate < 0.3 mg/dL (3-10)
[2022-06-02 18:11] LABS: Thyroid Stimulating Hormone 1.13 uIU/mL (0.27-4.20)
[2022-06-02 18:19] LABS: Vitamin B12 624 pg/mL (232-1245)
[2022-06-02 18:22] LABS: Folate Level 7.6 ng/mL (4.5-32.2)
[2022-06-02 20:06] LABS: Troponin 5 6HR 21.63 ng/L (0-15)
[2022-06-02 20:07] LABS: Troponin 5 6HR Delta -3.37 ng/L (0-12)
[2022-06-02 20:32] LABS: Iron 45 ug/dL (59-158); Total Iron Binding Capacity 345 mcg/dl; Unsaturated Iron Binding 300 ug/dL (112-347)
[2022-06-02 20:39] LABS: Procalcitonin 0.05 ng/mL (0-0.5)
--- NOTE | 2022-06-02 21:28 | ECG_ITS ---
[facility] Test Date: 2022-06-02 Pat Name: Isaías Clarke Department: Room: 279 Gender: Male Stretch Box Tender: : 1945 Requested By: Iain Mccloud Order Number: [id number] Beata MD: Maria Luisa Geller M.D. Measurements Intervals [place] Rate: 71 P: 60 MS: 164 QRS: 32 QRSD: 102 T: 51 QT: 401 QTc: 436 Interpretive Statements SINUS RHYTHM Compared to ECG 06/02/2022 15:52:13 No significant changes Electronically Signed On 06-03-2022 16:33:21 CDT by Maria Luisa Geller M.D. [email or web address]
[2022-06-03] VITALS (7 sets, daily range): BP systolic 148–179; BP diastolic 72–81; PULSE 57–72; RESP 16–18; TEMP 36.6–36.8; O2SAT 91–97; BMI 32.6
[2022-06-03] MEDS: atorvastatin 40 mg Tablet PO (08:12)
[2022-06-03] MEDS: FUROsemide 40 mg Tablet PO ×2 (08:13→17:25)
[2022-06-03] MEDS: aspirin 81 mg EC Tablet PO (08:13)
[2022-06-03] MEDS: allopurinol 300 mg Tablet PO (08:13)
[2022-06-03] MEDS: carvedilol 12.5 mg Tablet PO ×2 (08:13→17:25)
[2022-06-03] MEDS: fluticasone nasal spray 16gm Btl 2 SPRAY INTRANASAL (08:13)
[2022-06-03] MEDS: lisinopril 20 mg Tablet PO (08:13)
[2022-06-03] MEDS: baclofen 10 mg Tablet 5 MG PO ×2 (08:13→17:25)
[2022-06-03] MEDS: clopidogrel 75 mg Tablet PO (08:13)
[2022-06-03] MEDS: pantoprazole DR 40 mg Tablet PO (08:13)
[2022-06-03 08:55] LABS: Basophils % 0.5 %; Eosinophils % 0.3 %; Hematocrit 36.3 % (42.0-52.0); Hemoglobin 11.1 g/dL (11.7-16.6); Lymphocytes # 1.1 10^3/uL (0.8-4.8); Lymphocytes % 17.4 %; Mean Corpuscular HGB Conc 30.6 g/dL (30.0-36.0); Mean Corpuscular Hemoglobin 28.8 pg (28.0-34.0); Mean Corpuscular Volume 94.3 fl (80-94); Mean Platelet Volume 11.1 fL (7.4-10.4); Monocytes # 0.4 10^3/uL (0.2-0.9); Monocytes % 5.9 %; Neutrophils # 4.75 10^3/uL (1.8-7.7); Neutrophils % 75.1 %; Nucleated Red Blood Cells % 0 %; Platelet Count 172 10^3/cmm (130-400); Red Blood Count 3.85 10^6/uL (4.1-5.3); Red Cell Distribution Width 13.5 % (12.1-15.1); White Blood Count 6.3 10^3/uL (4.0-10.0)
[2022-06-03 09:10] LABS: Alanine Aminotransferase 7 U/L (0-41); Albumin Level 3.4 g/dL (3.5-5.2); Alkaline Phosphatase 101 U/L (40-130); Aspartate Amino Transferase 11 U/L (0-40); Blood Urea Nitrogen 22 mg/dL (8-23); Calcium 9.5 mg/dL (8.5-10.5); Carbon Dioxide 25 mmol/L (22-29); Chloride 109 mmol/L (98-107); Chol HDL Ratio 4.21 mg/dL (1.0-5.00); Cholesterol 101 mg/dL (0-200); Globulin 3.3 g/dL (1.3-4.6); Glucose 123 mg/dL (65-115); HDL Cholesterol 24 mg/dL (60-100); LDL Cholesterol Calculated 55 mg/dL (50-129); Magnesium 1.8 mg/dL (1.7-2.3); Osmolality Calculated 305 mOsm/kg (285-295); Phosphorus 3.3 mg/dL (2.5-4.5); Sodium 145 mmol/L (136-145); Total Bilirubin 0.4 mg/dL (0.15-1.2); Total Protein 6.7 g/dL (6.6-8.7); Triglycerides 111 mg/dL (0-150); VLDL Cholestrol Calculation 22 mg/dL (0-30)
[2022-06-03 09:12] LABS: Anion Gap 15.1 (5-19); Potassium 4.1 mmol/L (3.5-5.1)
[2022-06-03] MEDS: heparin 5,000 unit/mL INJ 1 mL 5000 UNIT SUBCUT ×2 (11:36→20:08)
[2022-06-03] MEDS: HYDROcodone-acetaminophen 5-325 mg Tablet 1 TAB PO (11:36)
--- NOTE | 2022-06-03 14:33 | PC.CHAP ---
Pastoral Care Encounter/Spiritual Assessment Type of Contact [] Declined superintendent oil field drilling visit [] Patient/Family/Request visit [] Outpatient visit [] Follow-up visit [] Physician referral [] Code/Alert []x Routine visit [] Staff referral [] Actively dying [] Patient sleeping [] Family support [] [] Out of room [] Palliative care [] [] Receiving care in room [] Pre-surgical visit [] Trauma [] Long length of stay [] ICU visit [] Other: Relational/Emotional Strength [] Patient feels connected with others/family/visitors/staff [] Distress [] Loneliness/isolation [] Abandonment Spirituality of Patient [] Person of [place] [] Attends Scientology of their [place] [] Believes in Prayer [] Reads Bible or Protestant materials [] There are Spiritual issues to be addressed Patrol Commander Interventions x[x] Prayer [] Active listening [] Non-anxious presence [] Spiritual/emotional support [] Crisis/trauma care [] Spiritual counseling [] Bereavement support [] Provided bereavement packet [] Provided Bible/devotional materials [] Provided toy/stuffed animal, coloring book to patient or family member [] Provided Communion [] Anointing/[place] [] Salvation [x] Completed spiritual assessment [] Other: Impact on Illness or Injury [] Angry [] Fearful [] Anxious [] Often cries [] Exhaustion [] Unable to work [] Unable to attend orthodox [] Unable to walk/stand [] Unable to read [] Unable to drive [] Unable to eat/drink [] Unable to sleep [] Unable to be with family [x] Patient intubated [] Other: Summary Time spent with patient 10 min
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
[2022-06-03] MEDS: pregabalin 150 mg Capsule PO (17:25)
[2022-06-03] MEDS: trazodone 150 mg Tablet 75 MG PO (20:07)
[2022-06-04] VITALS (7 sets, daily range): BP systolic 126–196; BP diastolic 71–94; PULSE 50–77; RESP 16–18; TEMP 36.4–37; O2SAT 94–96
[2022-06-04] MEDS: HYDROcodone-acetaminophen 5-325 mg Tablet 1 TAB PO ×2 (01:25→12:23)
[2022-06-04 08:17] LABS: Basophils # 0.1 10^3/uL (0.0-0.1); Basophils % 0.7 %; Eosinophils # 0.1 10^3/uL (0.0-0.8); Eosinophils % 0.7 %; Hematocrit 39.4 % (42.0-52.0); Hemoglobin 12.7 g/dL (11.7-16.6); Lymphocytes # 2.1 10^3/uL (0.8-4.8); Lymphocytes % 30.7 %; Mean Corpuscular HGB Conc 32.2 g/dL (30.0-36.0); Mean Corpuscular Hemoglobin 29.1 pg (28.0-34.0); Mean Corpuscular Volume 90.4 fl (80-94); Mean Platelet Volume 12.6 fL (7.4-10.4); Monocytes # 0.4 10^3/uL (0.2-0.9); Monocytes % 6.2 %; Neutrophils # 4.28 10^3/uL (1.8-7.7); Neutrophils % 61.3 %; Nucleated Red Blood Cells % 0 %; Platelet Count 97 10^3/cmm (130-400); Red Blood Count 4.36 10^6/uL (4.1-5.3); Red Cell Distribution Width 13.5 % (12.1-15.1)
[2022-06-04 08:33] LABS: Albumin Level 4.1 g/dL (3.5-5.2); Alkaline Phosphatase 107 U/L (40-130); Blood Urea Nitrogen 21 mg/dL (8-23); Calcium 9.6 mg/dL (8.5-10.5); Carbon Dioxide 23 mmol/L (22-29); Chloride 105 mmol/L (98-107); Globulin 3.1 g/dL (1.3-4.6); Glucose 104 mg/dL (65-115); Osmolality Calculated 297 mOsm/kg (285-295); Sodium 142 mmol/L (136-145); Total Bilirubin 0.5 mg/dL (0.15-1.2); Total Protein 7.2 g/dL (6.6-8.7)
[2022-06-04 08:51] LABS: Anion Gap 17.9 (5-19)
[2022-06-04 08:52] LABS: Alanine Aminotransferase 7 U/L (0-41); Aspartate Amino Transferase 16 U/L (0-40); Potassium 3.9 mmol/L (3.5-5.1)
[2022-06-04 08:53] LABS: Slide Review Slide Review Perform
[2022-06-04] MEDS: lisinopril 20 mg Tablet PO (09:26)
[2022-06-04] MEDS: FUROsemide 40 mg Tablet PO (09:26)
[2022-06-04] MEDS: pantoprazole DR 40 mg Tablet PO (09:26)
[2022-06-04] MEDS: atorvastatin 40 mg Tablet PO (09:26)
[2022-06-04] MEDS: aspirin 81 mg EC Tablet PO (09:26)
[2022-06-04] MEDS: isosorbide mononitrate ER 60 mg Tablet PO (09:26)
[2022-06-04] MEDS: clopidogrel 75 mg Tablet PO (09:26)
[2022-06-04] MEDS: baclofen 10 mg Tablet 5 MG PO (09:26)
[2022-06-04] MEDS: allopurinol 300 mg Tablet PO (09:26)
[2022-06-04] MEDS: carvedilol 12.5 mg Tablet PO (09:26)
[2022-06-04] MEDS: pregabalin 150 mg Capsule PO (09:26)
--- NOTE | 2022-06-04 11:42 | P.DS_ITS ---
Discharge Providers Date of Admission: 06/02/22 19:36 Date of Discharge: June 04, 2022 Attending Provider at Admission: Barak Jarvis MD Attending Provider at Discharge: Barak Jarvis MD Primary Care Provider: Galindo Carson DO Diagnoses at Discharge Discharge Diagnosis (1) Altered mental status: Status: Acute Qualifiers: Altered mental status type: unspecified Qualified Code(s): R41.82 - Altered mental status, unspecified (2) HTN (hypertension): Status: Acute (3) Ischemic cardiomyopathy: Status: Acute (4) Carotid artery narrowing: Status: Acute (5) CKD (chronic kidney disease): Status: Acute (6) MALORIE (obstructive sleep apnea): Status: Acute (7) Polypharmacy: Status: Acute Reason for Visit Reason for Visit: htn Hospital Course Hospital Course Isaías Clarke is a 77 year old male with past medical history of coronary artery disease s/p stenting of distal RCA, 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 History taken through the . As per the patient was difficult to wake up yesterday and slept for most of the day.? A day prior to that he was at his baseline without any complaints of diarrhea, nausea, vomiting, dysuria.? Denied of having any chest pain.? Has been taking his medications as prescribed without any changes in medications recently but since today morning patient has been confused, incoherent and not able to answer any questions.? As per she was not even able to give him oral medications.? On review of his vitals his blood pressures were elevated so his nurse from home health called EMS and was brought to the ER. In the ER patient was found to be having elevated blood pressures for which he was given his home antihypertensives. On examination patient was sitting comfortably in bed, alert only to self and his .? Not able to tell various orders date of .? Being forgetful.? Denies of having any new complaints currently. Patient was admitted to hospital further evaluation and management. It is belie bladimir his symptoms of altered mental status is most likely secondary to polypharmacy and him taking multiple pain medications more than prescribed at home. On admission his pregabalin was withheld and dose of [place] along with frequency was decreased. Patient came back to his baseline mentation within 24 hours of his admission and has remained on baseline mentation for last 24 hours. Infectious source was ruled out with a negative blood culture. He remained stable without antibiotics. He was found to have elevated blood pressures for which his antihypertensives have been adjusted. He has been discharged back home back to caregiver in hemodynamically stable condition on adjusted antihypertensives and adjusted psych and pain medications. Home health is being arranged for help with medications as well. Medication changes were discussed in detail with patient. He verbalized understanding. Physical Exam Const: GENERAL APPEARANCE: cooperative and comfortable ORIENTATION/CONSCIOUSNESS: Yes awake HENMT: COMMON NORMALS: normocephalic, atraumatic and hearing grossly normal bilaterally HEAD & SCALP: normocephalic and atraumatic Resp: COMMON NORMALS: normal respiratory effort, No retractions, No use of accessory muscles and clear to auscultation bilaterally AUSCULTATION: clear to auscultation bilaterally Cardio: COMMON NORMALS: regular rate, regular rhythm and No murmurs present (Cardio) RATE: regular rate RHYTHM: regular rhythm GI: COMMON NORMALS: Soft to palpation and No hepatosplenomegaly present INSPECTION: Yes Abdominal wall edema AUSCULTATION: Yes normoactive bowel sounds PALPATION: Yes Soft to palpation, No Tenderness to palpation present (GI), No Guarding due to palpation present (GI) and Yes No hepatosplenomegaly present Extremity: COMMON NORMALS: normal to inspection, capillary refill normal, no clubbing, cyanosis or edema, no calf tenderness and no pedal edema RIGHT LOWER EXTREMITY: Yes hip joint, Yes upper leg, Yes knee joint, Yes lower leg, Yes foot & digits and Yes foot & digits LEFT LOWER EXTREMITY: Yes hip joint, Yes upper leg, Yes knee joint, Yes lower leg, Yes ankle joint and Yes foot & digits Skin: COMMON NORMALS: no rashes or lesions noted GENERAL SKIN EXAM: no rashes or lesions noted Discharge Data Studies Completed and Pending Completed Studies During Hospitalization Category Date Time Status CT head wo con* [id number] Stat Cat Scan 06/02/22 12:55 Completed XR chest 1V portable [id number] Stat Exams 06/02/22 12:48 Completed Radiology Impressions Chest X-Ray 06/02/22 12:48 Impression: Atherosclerosis. Head CT 06/02/22 12:55 IMPRESSION: 1. No evidence of intracranial hemorrhage or mass effect. 2. Mild small vessel changes with moderate parenchymal volume loss. 3. No acute intracranial findings. Laboratory Results WBC 7.0 10^3/uL (4.0-10.0) 06/04/22 08:00 RBC 4.36 10^6/uL (4.1-5.3) 06/04/22 08:00 Hgb 12.7 g/dL (11.7-16.6) 06/04/22 08:00 Hct 39.4 % (42.0-52.0) L 06/04/22 08:00 MCV 90.4 fl (80-94) 06/04/22 08:00 MCH 29.1 pg (28.0-34.0) 06/04/22 08:00 MCHC 32.2 g/dL (30.0-36.0) D 06/04/22 08:00 RDW 13.5 % (12.1-15.1) 06/04/22 08:00 Plt Count 97 10^3/cmm (130-400) L D 06/04/22 08:00 MPV 12.6 fL (7.4-10.4) H 06/04/22 08:00 Neut % (Auto) 61.3 % 06/04/22 08:00 Lymph % (Auto) 30.7 % 06/04/22 08:00 Coal % (Auto) 6.2 % 06/04/22 08:00 Eos % (Auto) 0.7 % 06/04/22 08:00 Baso % (Auto) 0.7 % 06/04/22 08:00 Neut # (Auto) 4.28 10^3/uL (1.8-7.7) 06/04/22 08:00 Lymph # (Auto) 2.1 10^3/uL (0.8-4.8) 06/04/22 08:00 Coal # (Auto) 0.4 10^3/uL (0.2-0.9) 06/04/22 08:00 Eos # (Auto) 0.1 10^3/uL (0.0-0.8) 06/04/22 08:00 Baso # (Auto) 0.1 10^3/uL (0.0-0.1) 06/04/22 08:00 Nucleated RBC % (auto) 0 % 06/04/22 08:00 Nucleated RBCs # 0.0 /100WBC 06/04/22 08:00 Specimen Type Arterial 06/02/22 17:12 Sample Site Brachial, right 06/02/22 17:12 ABG pH 7.46 (7.35-7.45) H 06/02/22 17:12 ABG pCO2 37.8 mmHg (35-45) 06/02/22 17:12 ABG pO2 78.4 mmHg (80.0-100.0) L 06/02/22 17:12 ABG HCO3 27.1 mmol/L (22-26) H 06/02/22 17:12 ABG O2 Saturation 96.7 06/02/22 17:12 ABG Base Excess 3.2 mmol/L (-2.0-2.0) H 06/02/22 17:12 Sergio Test N/a 06/02/22 17:12 A-a O2 Gradient 3.2 mmHg (5-10) L 06/02/22 17:12 Hematocrit 38.0 % (42-52) L 06/02/22 17:12 Hgb O2 Saturation 95.5 % (95-100) 06/02/22 17:12 Carboxyhemoglobin 1.0 %THgb (0.4-20.1) 06/02/22 17:12 Methemoglobin 0.3 % (0.4-1.5) L 06/02/22 17:12 Total Hemoglobin 12.4 g/dL (14-18) L 06/02/22 17:12 Sodium 144.0 mmol/L (131-143) H 06/02/22 17:12 Potassium 4.3 mmol/L (3.5-5.0) 06/02/22 17:12 Glucose 131.0 mg/dL (70-115) H 06/02/22 17:12 Ionized Calcium 1.3 mmol/L (1.1-1.4) 06/02/22 17:12 O2 Delivery Device Room air 06/02/22 17:12 FiO2 21.0 % 06/02/22 17:12 Chemical Treatment Operator ID Amh 06/02/22 17:12 Sodium 142 mmol/L (136-145) 06/04/22 08:00 Potassium 3.9 mmol/L (3.5-5.1) 06/04/22 08:00 Chloride 105 mmol/L (98-107) 06/04/22 08:00 Carbon Dioxide 23 mmol/L (22-29) 06/04/22 08:00 Anion Gap 17.9 (5-19) 06/04/22 08:00 BUN 21 mg/dL (8-23) 06/04/22 08:00 Creatinine 1.5 mg/dL (0.7-1.2) H 06/04/22 08:00 GFR Calculation Not Reportable 06/04/22 08:00 Glucose 104 mg/dL (65-115) 06/04/22 08:00 Calculated Osmolality 297 mOsm/kg (285-295) H 06/04/22 08:00 Calcium 9.6 mg/dL (8.5-10.5) 06/04/22 08:00 Phosphorus 3.3 mg/dL (2.5-4.5) 06/03/22 08:15 Magnesium 1.8 mg/dL (1.7-2.3) 06/03/22 08:15 Iron 45 ug/dL (59-158) L 06/02/22 19:39 TIBC 345 mcg/dl 06/02/22 19:39 % Saturation 13.0 % (20-50) L 06/02/22 19:39 Unsat Iron Binding 300 ug/dL (112-347) 06/02/22 19:39 Total Bilirubin 0.5 mg/dL (0.15-1.2) 06/04/22 08:00 AST 16 U/L (0-40) 06/04/22 08:00 ALT 7 U/L (0-41) 06/04/22 08:00 Alkaline Phosphatase 107 U/L (40-130) 06/04/22 08:00 Ammonia 26 umol/L (16-60) 06/02/22 17:30 Troponin T Baseline 25 ng/L (0-15) H 06/02/22 13:13 Troponin T 120 Minute 24.70 ng/L (0-15) H 06/02/22 14:56 Delta Troponin T -0.30 ABS# (0-10) L 06/02/22 14:56 Troponin T Hi Sens 6Hr 21.63 ng/L (0-15) H 06/02/22 19:39 Troponin T Hi Sens 6Hr Delta -3.37 ng/L (0-12) L 06/02/22 19:39 Total Protein 7.2 g/dL (6.6-8.7) 06/04/22 08:00 Albumin 4.1 g/dL (3.5-5.2) 06/04/22 08:00 Globulin 3.1 g/dL (1.3-4.6) 06/04/22 08:00 Triglycerides 111 mg/dL (0-150) 06/03/22 08:15 Cholesterol 101 mg/dL (0-200) 06/03/22 08:15 LDL Cholesterol, Calc 55 mg/dL (50-129) 06/03/22 08:15 Total VLDL Cholesterol 22 mg/dL (0-30) 06/03/22 08:15 HDL Cholesterol 24 mg/dL (60-100) L 06/03/22 08:15 Cholesterol/HDL Ratio 4.21 mg/dL (1.0-5.00) 06/03/22 08:15 Vitamin B12 624 pg/mL (232-1245) 06/02/22 17:30 Folate 7.6 ng/mL (4.5-32.2) 06/02/22 17:30 Procalcitonin 0.05 ng/mL (0-0.5) 06/02/22 19:39 TSH 1.13 uIU/mL (0.27-4.20) 06/02/22 17:30 Urine Color Yellow (Yellow) 06/02/22 16:04 Urine Appearance Clear (CLEAR) 06/02/22 16:04 Urine pH 6 (5-7) 06/02/22 16:04 Ur Specific [place] 1.005 (1.005-1.030) 06/02/22 16:04 Urine Protein Neg (Negative) 06/02/22 16:04 Urine Glucose (UA) Norm (Normal) 06/02/22 16:04 Urine Ketones Negative (Negative) 06/02/22 16:04 Urine Blood Neg (Negative) 06/02/22 16:04 Urine Nitrate Negative (Negative) 06/02/22 16:04 Urine Bilirubin Neg (Negative) 06/02/22 16:04 Urine Urobilinogen Norm mg/dL (Negative) 06/02/22 16:04 Ur Leukocyte Esterase Negative (Negative) 06/02/22 16:04 Salicylates < 0.3 mg/dL (3-10) L 06/02/22 17:30 Urine Opiates Screen Positive ng/mL (Negative) H 06/02/22 Unknown Acetaminophen < 5.0 ug/mL (10-30) L 06/02/22 17:30 Ur Barbiturates Screen Negative ng/mL (Negative) 06/02/22 Unknown Ur Phencyclidine Scrn Negative ng/mL (Negative) 06/02/22 Unknown Ur Amphetamines Screen Negative ng/mL (Negative) 06/02/22 Unknown U Benzodiazepines Scrn Negative ng/mL (Negative) 06/02/22 Unknown Urine Cocaine Screen Negative ng/mL (Negative) 06/02/22 Unknown U Marijuana (THC) Screen Positive ng/mL (Negative) H 06/02/22 Unknown Ethyl Alcohol < 10 mg/dL (0-10) 06/02/22 17:30 Serum Ketones Negative (Negative) 06/02/22 17:30 Vitals Last Vital Signs Temp 97.8 F 06/04/22 07:38 Pulse 55 L 06/04/22 07:53 Resp 16 06/04/22 07:53 BP 173/77 06/04/22 07:38 Pulse Ox 94 06/04/22 07:53 O2 Del Method 06/04/22 07:53 O2 Flow Rate 2 06/03/22 20:00 Discharge Plan Discharge Patient Disposition: Home Condition: Stable Prescriptions: Continued Narcan 4 mg/actuation spray,non-aerosol 1 spray INTRANASAL .COMPLEX Rx Instructions: 1 SPRAY INTRA NASAL NEEDED FOR OVERDOSE Viibryd 40 mg tablet 40 mg PO DAILY Qty: 30 2RF Rx Instructions: must administer with a meal/food pantoprazole [Protonix] 40 mg tablet,delayed release (DR/EC) 40 mg PO BID Qty: 60 5RF nitroglycerin [Nitrostat] 0.4 mg tablet, sublingual 0.4 mg SUBLINGUAL Q5M PRN (Reason: chest pain) 90 Days Qty: 25 3RF Rx Instructions: refilling in the absence of Catherine martinez metformin 1,000 mg tablet 1,000 mg PO BID 30 Days Qty: 60 1RF albuterol sulfate [ProAir HFA] 90 mcg/actuation HFA aerosol inhaler 1 - 2 puff INHALATION Q6H PRN (Reason: shortness of breath or wheezing) allopurinol 300 mg tablet 300 mg PO DAILY fluticasone propion-salmeterol [Advair Diskus] 250-50 mcg/dose Blister With Device 1 inh INHALATION BID baclofen 10 mg tablet 5 mg PO BID triamcinolone acetonide 0.1 % ointment See Rx Instructions .ROUTE .COMPLEX Rx Instructions: as directed topically as needed clopidogrel [Plavix] 75 mg tablet 75 mg PO DAILY Qty: 30 1RF aspirin 81 mg Tablet,Delayed Release (Dr/Ec) 81 mg PO DAILY Qty: 90 0RF atorvastatin 20 mg tablet 40 mg PO DAILY Qty: 0 0RF furosemide 40 mg tablet 40 mg PO BID Coreg 12.5 mg tablet 12.5 mg PO BID fluticasone propionate 50 mcg/actuation spray,suspension 2 spray intranasal DAILY potassium chloride 20 mEq tablet extended release 10 meq PO BID Changed isosorbide mononitrate 60 mg tablet extended release 24 hr 90 mg PO DAILY Qty: 30 0RF benazepril 20 mg tablet 40 mg PO DAILY Qty: 60 0RF pregabalin 150 mg capsule 150 mg PO BID Qty: 30 0RF hydrocodone-acetaminophen 7.5-325 mg tablet 1 tab PO Q8H MDD 5 tabs per day PRN (Reason: Pain) Qty: 4 0RF Rx Instructions: may take one extra tab per day-max 5 tabs per day-must last 28 days Discontinued trazodone 150 mg tablet 150 mg PO BEDTIME Discharge Orders: Discharge Order (Routine); Ordered 06/04/22 Ordered By: Barak Jarvis Referrals: Galindo Carson DO [Primary Care Provider] - 1 week Discharge Diet: Usual diet Discharge Activity: Resume usual activity and Increase activity as tolerated Patient Instructions: Opioid Safety, Pain Management Activity Restrictions/Additional Instructions: Multiple medication changes have been done. Frequency of [place] has been changed to every 8 hours as needed. Frequency of pregabalin has been changed to 150 mg twice daily. Trazodone has been stopped. For blood pressures and dose of benazepril has been increased to 40 mg daily, dose of Imdur has been increased to 90 mg daily. Please make sure you take medications as per new prescriptions. Please follow-up with primary care provider within next 1 week. Discharge Attestations Time Spent in Discharge Care*: greater than 30 min Specific Discharge Activities: educating patient, educating and/or supporting family/caregiver, discussing with rn case management/social workers/dc planners, documenting/other paperwork and evaluating patient/reviewing data Status at Discharge: Cognitive status at discharge: mildly impaired cognition , Behavioral status at discharge: cooperative and can be uncooperative , Functional status at discharge: uses cane/walker , Overall status at discharge: patient is back to baseline Quality Metrics Clinical Quality Measures [ No reported AMI, CVA or VTE this stay] Coding Level of Care Code Acute Chg FW DC note Diagnoses Altered mental status R41.82 Altered mental status type: unspecified HTN (hypertension) I10 Ischemic cardiomyopathy I25.5 Carotid artery narrowing I65.29 CKD (chronic kidney disease) N18.9 MALORIE (obstructive sleep apnea) G47.33 Polypharmacy Z79.899
== END 2022-06-04 13:28 | disposition home health service (06) ==
LOC: ER 16:13 → MEDSURG 18:53
PROVIDERS: Admitting Provider Student in an Organized Health Care Education/Training Program; Emergency Provider Family Medicine; PCP Family Medicine; Visit Provider Student in an Organized Health Care Education/Training Program
DX: R41.82 Altered mental status, unspecified (principal); I25.5 Ischemic cardiomyopathy; I65.29 Occlusion and stenosis of unspecified carotid artery; E11.22 Type 2 diabetes mellitus with diabetic chronic kidney disease; I13.0 Hypertensive heart and chronic kidney disease with heart failure and stage 1 through stage 4 chronic kidney disease, or unspecified chronic kidney disease; N18.9 Chronic kidney disease, unspecified; I50.9 Heart failure, unspecified; G47.33 Obstructive sleep apnea (adult) (pediatric); Z79.899 Other long term (current) drug therapy; I25.10 Atherosclerotic heart disease of native coronary artery without angina pectoris; Z95.5 Presence of coronary angioplasty implant and graft; E78.5 Hyperlipidemia, unspecified; F32.A Depression, unspecified; J44.9 Chronic obstructive pulmonary disease, unspecified; E11.40 Type 2 diabetes mellitus with diabetic neuropathy, unspecified; Z87.891 Personal history of nicotine dependence
CPT/HCPCS: 36415; 36600; 70450; 71045; 80051; 80053; 80061; 80306; 80307; 81003; 82009; 82140; 82330; 82607; 82746; 82805; 83540; 83550; 83735; 84100; 84145; 84443; 84484; 85025; 93005; 94640; 94664; 96372; 99285; G0378; J1644

== ENCOUNTER 2022-07-05 13:09 | Emergency (ER) | payer MEDICARE, MEDICAID, SELFPAY ==
[2022-07-05] VITALS (16 sets, daily range): BP systolic 147–204; BP diastolic 69–105; PULSE 54–71; RESP 14–22; TEMP 36.2; O2SAT 94–98; BMI 32.3
--- NOTE | 2022-07-05 13:33 | XR_ITS ---
WS: [id number] Exam: XR lumbar spine 2-3V* [id number] Date/Time of Exam: 07/05/2022 1:33 PM Reason For Exam: pain right lower lumbar Comparison 10/05/2007 No acute fracture or dislocation. Degenerative anterolisthesis of L5 on S1 with about 11 mm forward m ovement of L5. Degenerative disc narrowing at L5-S1. Mild spondylosis. Facet arthropathy at all level s. Moderate dextroscoliosis. Aortoiliac atherosclerotic disease. XR/XR lumbar spine 2-3V* [id number] IMPRESSION: 1. Degenerative anterolisthesis of L5 on S1 with about 11 mm forward movement o f L5. 2. No fracture noted. 3. Degenerative changes and moderate dextroscoliosis.
--- NOTE | 2022-07-05 13:33 | XR_ITS ---
WS: [id number] Exam: XR hip RT 2-3V wo/w pel* [id number] Date/Time of Exam: 07/05/2022 1:33 PM Reason For Exam: pain right hip No fracture or dislocation. Moderate degenerative narrowing of the joint compartment. Normal soft tis sues. The pelvis is intact. XR/XR hip RT 2-3V wo/w pel* [id number] IMPRESSION: 1. Moderate degenerative narrowing of the joint compartment. No fracture or oth er significant finding.
--- NOTE | 2022-07-05 13:33 | XR_ITS ---
WS: [id number] Exam: XR chest 1V portable [id number] Date/Time of Exam: 07/05/2022 1:33 PM Reason For Exam: ams Comparison 06/02/2022. The lungs are fully inflated and clear. Cardiomediastinal silhouette is unremarkable for technique. N o pleural effusions. Regional bony elements are intact. XR/XR chest 1V portable [id number] IMPRESSION: 1. No acute cardiopulmonary finding.
--- NOTE | 2022-07-05 13:33 | CTR_ITS ---
PROCEDURE INFORMATION: Exam: CT Head Without Contrast Exam date and time: 07/05/2022 1:51 PM Age: 77 years old Clinical indication: Altered mental status/memory loss; Additional info: Confusion TECHNIQUE: Imaging protocol: Computed tomography of the head without contrast. Radiation optimization: All CT scans at this facility use at least one of these dose optimization techniques: automated exposure control; mA and/or kV adjustment per patient size (includes targeted exams where dose is matched to clinical indication); or iterative reconstruction. COMPARISON: CT head wo con* [id number] 06/02/2022 1:38 PM RADIATION DOSE METRICS: Total DLP (mGy-cm): 1112.48 FINDINGS: Brain: No acute appearing brain parenchymal abnormality. No intracranial hemorrhage. No extraaxial fluid collections. There is diffuse cerebral atrophy. There are white matter low attenuation changes potentially related to chronic small vessel disease. Cerebral ventricles: No hydrocephalus when allowing for the atrophy. Paranasal sinuses: Minimal mucoperiosteal thickening in the paranasal sinuses. Mastoid air cells: The visualized mastoid air cells are aerated. Bones/joints: No calvarial fracture. Soft tissues: No acute soft tissue abnormality. CT/CT head wo con* [id number] IMPRESSION: No acute intracranial abnormality.
--- NOTE | 2022-07-05 13:37 | ED_ITS ---
HPI - Altered Mental Status General: Chief Complaint: Altered Mental Status Stated Complaint: AMS/ BACK PAIN Time Seen by Provider: 07/05/22 13:16 Source: patient and EMS Mode of arrival: EMS History of Present Illness: This patient was transported from home by EMS. History is obtained both from the patient as well as from EMS. Apparently his called EMS because she is noted over the past several mornings he seems to be a little bit more confused and not her usual self. He relates to me that he was trying to get out of bed this morning but he is having pain in his right lower back and right hip and and could not get out as well as normal. He states he has not had a fall recently but did fall approximately 1 month ago. He denies numbness weakness chest pain shortness of breath etc. He is uncertain whether he is taken any of his medication today. He does admit to history of coronary disease had stents placed previously. He denies alcohol use. He states he is not taken any excessive amount of his medications as far as he is aware. Denies any focal weakness difficulty with speech, headache etc. MD complaint: confusion Timing confirmed by: spouse Associated symptoms: Deny depression Review of Systems Const: Denies: fever(s), chills or body aches Eyes: Denies: change in vision ENMT: Denies: odynophagia, nasal discharge or nasal congestion Card: Denies: chest pain, palpitations, irregular heart rhythm, syncope or pre-syncope Resp: Denies: dyspnea, productive cough or non-productive cough GI: Denies: abdominal pain, nausea, vomiting or diarrhea : Denies: flank pain, difficulty urinating or dysuria Musc: Reports: joint pain Skin/Breast: Denies: rash or pruritus Neuro: Denies: headache(s), numbness in extremities, weakness in extremities, dizziness, Slurred speech present or seizure-like activity Psych: Denies: anxiety, depression, hopelessness or loss of interest Endo: Denies: polyuria or polydipsia PFSH ED PFSH: Medical History Acute decompensated heart failure Altered mental status Atherosclerotic heart disease of [place] coronary artery with other forms of angina pectoris Atypical chest pain CAD (coronary artery disease) Carotid artery narrowing Chronic back pain CKD (chronic kidney disease) Congestive heart failure COPD (chronic obstructive pulmonary disease) Diabetes mellitus type 2 in obese Dyslipidemia Elevated troponin Encephalopathy, hypertensive Encounter for long-term use of opiate analgesic Gabapentin overdose Gout Hypertension Ischemic cardiomyopathy Major depressive disorder, recurrent, mild (Unknown) Neuropathy NSTEMI (non-ST elevated myocardial infarction) Opioid contract exists MALORIE (obstructive sleep apnea) Psychiatric care Pulmonary hypertension Renal insufficiency Severe tricuspid regurgitation Smokeless tobacco use Substance abuse Urinary retention Surgical History History of cholecystectomy History of heart artery stent Family History Other Cancer Hypertension Social History Smoking and tobacco status: former smoker Second hand smoke exposure: No Alcohol intake: never History of recent travel: No Physical Exam 2 Narrative: Elderly gentleman who has spontaneous eye opening is alert and does respond to questions with spontaneous answers. He is cooperative and appears to be comfortable. Const: COMMON NORMALS: no acute distress and alert GENERAL APPEARANCE: cooperative and comfortable NUTRITIONAL APPEARANCE: overweight ORIENTATION/CONSCIOUSNESS: Yes awake, Yes oriented to person and Yes oriented to time OTHER: Patient is not aware of exactly where he is but he just arrived from EMS from home. He is aware of his self his family current events etc. HENMT: COMMON NORMALS: normocephalic, atraumatic, Normal nasal mucous membranes and turbinates present, moist oral mucous membranes and oropharynx normal (Remenents of chewing tobacco) HEAD & SCALP: normocephalic and atraumatic NOSE: Normal nasal mucous membranes and turbinates present Eye: COMMON NORMALS: Equal, round and reactive pupils present, EOMs intact bilaterally, conjunctivae normal and normal visual choudhury by confrontation CONJUNCTIVA: Yes conjunctivae normal PUPIL: Yes Equal, round and reactive pupils present Neck/C-Spine: COMMON NORMALS: full ROM, no JVD and No carotid bruits CERVICAL SPINE: Yes cervical ROM normal, No Cervical spine tenderness, No Paracervical muscle tenderness and No Trapezius muscle tenderness Chest: COMMONS NORMALS: normal inspection of the chest Resp: COMMON NORMALS: normal respiratory effort, No use of accessory muscles and clear to auscultation bilaterally AUSCULTATION: clear to auscultation bilaterally Cardio: COMMON NORMALS: no JVD, regular rate, regular rhythm, No murmurs present (Cardio) and Peripheral pulses 2+ throughout RATE: regular rate RHYTHM: regular rhythm PERIPHERAL PULSES: Peripheral pulses 2+ throughout GI: COMMON NORMALS: Normal to inspection, nondistended, normoactive bowel sounds present, Soft to palpation and non-tender PALPATION: Yes Soft to palpation Back/Pelvis: LUMBAR SPINE/LOWER BACK: Yes lumbar spinal tenderness (Right lateral just in the region of the posterior superior iliac spine and ) PELVIS: Yes no pain with anterior-posterior compression and Yes no pain with lateral compression SACROILIAC JOINTS: Yes SI joint(s) abnormal SI joint details: tender to palpation (Right) Extremity: COMMON NORMALS: capillary refill normal, no calf tenderness and no pedal edema NARRATIVE EXTREMITY EXAM: He has some tenderness in the right superior thigh hip with internal and external rotation but no shortening. No other abnormalities noted on extremity examination. Normal no deformity, normal range of motion, no tenderness. Neuro: COMMON NORMALS: moves all extremities, no focal motor deficits and no sensory deficits noted SENSORIUM/ORIENTATION: Yes alert, Yes oriented to person and Yes oriented to time SPEECH: speech normal Course Reevaluation(s): Reevaluation #1: Patient is seemingly more alert although he was answer questions very readily earlier that continues to be the case. He does admit that he does smoke marijuana on occasion. He also states he takes hydrocodone for pain although that is not listed on his current medications. He does have a diminished meant of his renal function in that his BUN/creatinine ratio are elevated with his creatinine 2.3 today which is significant increase over prior creatinines which have been in the range of 1.5-1.3, most recently however in the past he is also had creatinines as high as 2.3. Time: 15:46 Reevaluation #2: IncludedThe patient desires to be discharged home. We discussed his current status chronic hip pain etc. His systolic pressure is gone up and is likely related to pain but also that he has not taken some of his medications today. We will put a Lidoderm patch to his right hip. We will also go ahead and give him his evening Coreg dose and reevaluate to determine suitability for discharge. Likely we will have to hold his Lasix dosing for a few days and then recheck his creatinine. Time: 18:15 Reevaluation #3: I spoke with the patient's on the phone. She relates that he has been taking too much baclofen. I shared with her his current findings and there was no evidence of acute stroke, other ongoing emergency medical condition. I did relay to her that he needs to be drinking more water and needs to have a primary care follow-up to repeat his creatinine. Of also advised her that she should probably monitor all his medications such as his baclofen his gabapentin in addition to his hydrocodone. Time: 21:02 Vital Signs: Vital signs: Vital Signs Temperature 97.2 F L 07/05/22 13:10 Pulse Rate 61 07/05/22 18:30 Respiratory Rate 19 H 07/05/22 18:30 Blood Pressure 204/92 07/05/22 18:30 Pulse Oximetry 98 07/05/22 18:30 Oxygen Delivery Me thod 07/05/22 13:10 MDM - Altered Mental Status Medical Decision Making Gentleman presented to our emergency department after EMS was notified by his . She was concerned because he had seemingly over the past 3 to 4 days become more sleepy during the mornings and was not as active as normal. His evaluation here did was unremarkable for any focal findings. He did have right hip and right lower back pain and radiographs revealed findings consistent with osteoarthritis. He did have an elevation his BUN/creatinine consistent with volume depletion and he was received IV fluids in the emergency department. CT scan of his brain did not reveal any evidence of acute stroke and other studies were also reassuring. He was positive for both marijuana as well as opiates on his urine drug screen which he freely admitted to. He continued to be stable while in the emergency department recently and again received the benefit of IV fluids and continued monitoring. Repeat examination revealed no other focal findings, he was normal mentation and alert and aware of his surroundings and again desired to be discharged. We also gave him a Lidoderm patch as a another attempt at relieving some of his osteoarthritis pain. Eventually his was contacted and she confirmed that he had been taking more of his baclofen than he should have and which was prescribed for him. He had done this previously his hydrocodone and she now controls that medicine. I advised her to she control should control all his medications to ensure that he is taking the appropriate dose. Also advised her that that he should be drinking at least 2 quarts of water daily. We will have him follow-up with his primary care doctor in 10 to 14 days for repeat basic metabolic profile to ensure that his creatinine is improving. He is stable for discharge with return precautions. Medical Records I reviewed the patient's medical records. Lab Data I reviewed the patient's lab results. : 07/05/22 13:45 07/05/22 13:45 Radiology Impressions Chest X-Ray 07/05/22 13:33 IMPRESSION: 1. No acute cardiopulmonary finding. Head CT 07/05/22 13:33 IMPRESSION: No acute intracranial abnormality. Hip/Pelvis X-Ray 07/05/22 13:33 IMPRESSION: 1. Moderate degenerative narrowing of the joint compartment. No fracture or other significant finding. Lumbar Spine X-Ray 07/05/22 13:33 IMPRESSION: 1. Degenerative anterolisthesis of L5 on S1 with about 11 mm forward movement of L5. 2. No fracture noted. 3. Degenerative changes and moderate dextroscoliosis. Laboratory Results WBC 9.2 10^3/uL (4.0-10.0) 07/05/22 13:45 RBC 4.71 10^6/uL (4.1-5.3) 07/05/22 13:45 Hgb 13.5 g/dL (11.7-16.6) 07/05/22 13:45 Hct 43.2 % (42.0-52.0) 07/05/22 13:45 MCV 91.7 fl (80-94) 07/05/22 13:45 MCH 28.7 pg (28.0-34.0) 07/05/22 13:45 MCHC 31.3 g/dL (30.0-36.0) 07/05/22 13:45 RDW 14.9 % (12.1-15.1) 07/05/22 13:45 Plt Count 210 10^3/cmm (130-400) 07/05/22 13:45 MPV 11.1 fL (7.4-10.4) H 07/05/22 13:45 Neut % (Auto) 76.6 % 07/05/22 13:45 Lymph % (Auto) 14.9 % 07/05/22 13:45 [place] % (Auto) 6.9 % 07/05/22 13:45 Eos % (Auto) 0.9 % 07/05/22 13:45 Baso % (Auto) 0.4 % 07/05/22 13:45 Neut # (Auto) 7.03 10^3/uL (1.8-7.7) 07/05/22 13:45 Lymph # (Auto) 1.4 10^3/uL (0.8-4.8) 07/05/22 13:45 [place] # (Auto) 0.6 10^3/uL (0.2-0.9) 07/05/22 13:45 Eos # (Auto) 0.1 10^3/uL (0.0-0.8) 07/05/22 13:45 Baso # (Auto) 0.0 10^3/uL (0.0-0.1) 07/05/22 13:45 Nucleated RBC % (auto) 0 % 07/05/22 13:45 Nucleated RBCs # 0.0 /100WBC 07/05/22 13:45 Sodium 142 mmol/L (136-145) 07/05/22 13:45 Potassium 4.5 mmol/L (3.5-5.1) 07/05/22 13:45 Chloride 103 mmol/L (98-107) 07/05/22 13:45 Carbon Dioxide 27 mmol/L (22-29) 07/05/22 13:45 Anion Gap 16.5 (5-19) 07/05/22 13:45 BUN 25 mg/dL (8-23) H 07/05/22 13:45 Creatinine 2.3 mg/dL (0.7-1.2) H 07/05/22 13:45 GFR Calculation Not Reportable 07/05/22 13:45 Glucose 116 mg/dL (65-115) H 07/05/22 13:45 POC Glucose 111 mg/dL (70-110) H 07/05/22 13:35 Calculated Osmolality 299 mOsm/kg (285-295) H 07/05/22 13:45 Calcium 10.1 mg/dL (8.5-10.5) 07/05/22 13:45 Total Bilirubin 0.6 mg/dL (0.15-1.2) 07/05/22 13:45 AST 12 U/L (0-40) 07/05/22 13:45 ALT 10 U/L (0-41) 07/05/22 13:45 Alkaline Phosphatase 144 U/L (40-130) H 07/05/22 13:45 Ammonia 13 umol/L (16-60) L 07/05/22 14:25 Total Protein 8.1 g/dL (6.6-8.7) 07/05/22 13:45 Albumin 4.5 g/dL (3.5-5.2) 07/05/22 13:45 Globulin 3.6 g/dL (1.3-4.6) 07/05/22 13:45 Salicylates < 0.3 mg/dL (3-10) L 07/05/22 13:45 Urine Opiates Screen Positive ng/mL (Negative) H 07/05/22 14:50 Acetaminophen < 5.0 ug/mL (10-30) L 07/05/22 13:45 Ur Barbiturates Screen Negative ng/mL (Negative) 07/05/22 14:50 Ur Phencyclidine Scrn Negative ng/mL (Negative) 07/05/22 14:50 Ur Amphetamines Screen Negative ng/mL (Negative) 07/05/22 14:50 U Benzodiazepines Scrn Negative ng/mL (Negative) 07/05/22 14:50 Urine Cocaine Screen Negative ng/mL (Negative) 07/05/22 14:50 U Marijuana (THC) Screen Positive ng/mL (Negative) H 07/05/22 14:50 Ethyl Alcohol < 10 mg/dL (0-10) 07/05/22 13:45 EKG Data EKG 1: I personally reviewed and interpreted this EKG as follows: Interpretation: EKG reveals a resting sinus rhythm of 64 bpm. Normal HI QRS interval and duration. Normal QTc interval. Nonspecific ST-T wave changes are noted in precordial leads V5 and V6. This is essentially unchanged from prior tracings available within the system. Discharge Plan Discharge Patient Disposition: Home Clinical Impression: Drug side effects, Osteoarthritis of right hip, Chronic kidney disease, Chronic hypertension Condition: Stable Prescriptions: New Lidoderm 5 % adhesive patch,medicated 1 patch topical DAILY Qty: 30 1RF Rx Instructions: leave on most painful area for up to 12 hrs No Action Narcan 4 mg/actuation spray,non-aerosol 1 spray INTRANASAL .COMPLEX Rx Instructions: INTRA NASAL NEEDED FOR OVERDOSE Viibryd 40 mg tablet 40 mg PO DAILY Qty: 30 2RF Rx Instructions: must administer with a meal/food pantoprazole [Protonix] 40 mg tablet,delayed release (DR/EC) 40 mg PO BID Qty: 60 5RF metformin 1,000 mg tablet 1,000 mg PO BID 30 Days Qty: 60 1RF albuterol sulfate [ProAir HFA] 90 mcg/actuation HFA aerosol inhaler 1 - 2 puff INHALATION Q6H PRN (Reason: shortness of breath or wheezing) allopurinol 300 mg tablet 300 mg PO DAILY baclofen 10 mg tablet 5 mg PO BID triamcinolone acetonide 0.1 % ointment See Rx Instructions .ROUTE .COMPLEX Rx Instructions: as directed topically as needed clopidogrel [Plavix] 75 mg tablet 75 mg PO DAILY Qty: 30 1RF aspirin 81 mg Tablet,Delayed Release (Dr/Ec) 81 mg PO DAILY Qty: 90 0RF furosemide 40 mg tablet 40 mg PO BID carvedilol [Coreg] 12.5 mg tablet 12.5 mg PO BID fluticasone propionate 50 mcg/actuation spray,suspension 2 spray intranasal DAILY potassium chloride 20 mEq tablet extended release 10 meq PO BID atorvastatin 20 mg tablet 20 mg PO DAILY hydrocodone-acetaminophen 7.5-325 mg tablet 1 tab PO Q6H MDD 5 tabs per day PRN (Reason: Pain) Rx Instructions: may take one extra tab per day-max 5 tabs per day-must last 28 days benazepril 20 mg tablet 20 mg PO BID meclizine 25 mg Tablet 25 mg PO Q8H PRN (Reason: Dizziness) Nitrostat 0.4 mg Tablet, Sublingual 0.4 mg SUBLINGUAL Q5M PRN (Reason: Chest Pain) Rx Instructions: do not exceed 3 doses per episode isosorbide mononitrate 60 mg tablet extended release 24 hr 60 mg PO DAILY pregabalin 150 mg capsule 150 mg PO Q8H Discharge Orders: Discharge ED (Routine); Ordered 07/05/22 Ordered By: Nicola Orourke Referrals: Galindo Carson DO [Primary Care Provider] - 2 weeks (Follow-up on elevated creatinine) Discharge Diet: Usual diet and Low Salt Discharge Activity: Increase activity as tolerated Patient Instructions: Opioid Safety, Pain Management Activity Restrictions/Additional Instructions: Your will be controlling your medications to ensure that you take the proper doses at the proper intervals. Drink at least 2 quarts of water daily. You may use your Lidoderm patch to your right hip and low back area to help with pain. Follow-up with your regular doctor in 2 weeks for repeat blood work. If you have any new worsening or other concerning symptoms return to this or the nearest emergency department. Coding Level of Care Code ED Supervisor General for Eric Martin Exam Comprehensive
--- NOTE | 2022-07-05 13:37 | ECG_ITS ---
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 Measurements Intervals [place] Rate: 64 P: 74 AL: 199 QRS: 76 QRSD: 96 T: 81 QT: 397 QTc: 412 Interpretive Statements SINUS RHYTHM NONSPECIFIC T-WAVE ABNORMALITY Compared to ECG 06/02/2022 21:28:53 T-wave abnormality now present Electronically Signed On 07-06-2022 0:25:36 CDT by Alfonso Khan M.D. [id number]
[2022-07-05 13:38] LABS: Glucose Point of Care 111 mg/dL (70-110)
[2022-07-05 13:51] LABS: Basophils % 0.4 %; Eosinophils # 0.1 10^3/uL (0.0-0.8); Eosinophils % 0.9 %; Hematocrit 43.2 % (42.0-52.0); Hemoglobin 13.5 g/dL (11.7-16.6); Lymphocytes # 1.4 10^3/uL (0.8-4.8); Lymphocytes % 14.9 %; Mean Corpuscular HGB Conc 31.3 g/dL (30.0-36.0); Mean Corpuscular Hemoglobin 28.7 pg (28.0-34.0); Mean Corpuscular Volume 91.7 fl (80-94); Mean Platelet Volume 11.1 fL (7.4-10.4); Monocytes # 0.6 10^3/uL (0.2-0.9); Monocytes % 6.9 %; Neutrophils # 7.03 10^3/uL (1.8-7.7); Neutrophils % 76.6 %; Nucleated Red Blood Cells % 0 %; Platelet Count 210 10^3/cmm (130-400); Red Blood Count 4.71 10^6/uL (4.1-5.3); Red Cell Distribution Width 14.9 % (12.1-15.1); White Blood Count 9.2 10^3/uL (4.0-10.0)
[2022-07-05 14:04] LABS: Alanine Aminotransferase 10 U/L (0-41); Albumin Level 4.5 g/dL (3.5-5.2); Alkaline Phosphatase 144 U/L (40-130); Anion Gap 16.5 (5-19); Aspartate Amino Transferase 12 U/L (0-40); Blood Urea Nitrogen 25 mg/dL (8-23); Calcium 10.1 mg/dL (8.5-10.5); Carbon Dioxide 27 mmol/L (22-29); Chloride 103 mmol/L (98-107); Globulin 3.6 g/dL (1.3-4.6); Glucose 116 mg/dL (65-115); Osmolality Calculated 299 mOsm/kg (285-295); Potassium 4.5 mmol/L (3.5-5.1); Sodium 142 mmol/L (136-145); Total Bilirubin 0.6 mg/dL (0.15-1.2); Total Protein 8.1 g/dL (6.6-8.7)
[2022-07-05 14:07] LABS: Acetaminophen < 5.0 ug/mL (10-30); Alcohol Level < 10 mg/dL (0-10); Salicylate < 0.3 mg/dL (3-10)
[2022-07-05] MEDS: sodium chloride 0.9% 1,000 ML 999 ML IV (14:22)
[2022-07-05 14:48] LABS: Ammonia 13 umol/L (16-60)
[2022-07-05 15:12] LABS: Amphetamines Screen Urine Negative (Negative); Barbiturates Screen Urine Negative (Negative); Benzodiazepines Screen Urine Negative (Negative); Cocaine Screen Urine Negative (Negative); Opiate Screen Urine Positive (Negative); PCP Screen Urine Negative (Negative); THC Screen Urine Positive (Negative)
--- NOTE | 2022-07-05 15:12 | PC.PHAR ---
PT BROUGHT IN MEDICATION BOTTLES -PTS WIFES STATES SHE TAKES CARE OF THE PTS MEDICATIONS AND PT STATES HE TAKES CARE OF HIS OWN MEDICATIONS-PTS STATES PT IS TAKING BENAZEPRIL 20MG BID RX BOTTLE BROUGHT IN DATED 05/04/22 90D/S FOR 20MG DAILY-PTS STATES THE PT IS TAKING IMDUR 60MG DAILY RX BOTTLE BROUGHT IN DATED 06/15/22 90D/S RX WRITTEN 06/04/22 90MG DAILY-PTS STATES THE PT TAKES 10MEQ BID RX BOTTLE BROUGHT IN HAD 20MEQ BID-PTS STATES TRAZODONE 150MG HS FILLED 05/17/22 90D/S WAS DCED-NOTES ARE MADE IN THE PHARMACY COMMENTS
[2022-07-05] MEDS: sodium chloride 0.9% 1,000 ML 150 ML IV (15:53)
[2022-07-05] MEDS: carvedilol 12.5 mg Tablet PO (18:40)
[2022-07-05] MEDS: lidocaine 5% Patch 1 PATCH TOPICAL (18:40)
--- NOTE | 2022-07-05 21:54 | PC.NURSE ---
arrived to unit and was unhappy that pt was being discharged. Offered to get the to talk to and she stated I already talked to him. I don't need to talk to him now.
== END 2022-07-05 22:02 | disposition home or self-care (01) ==
PROVIDERS: Emergency Provider Emergency Medicine; PCP Family Medicine
DX: T88.7XXA Unspecified adverse effect of drug or medicament, initial encounter (principal); T50.905A Adverse effect of unspecified drugs, medicaments and biological substances, initial encounter; M16.9 Osteoarthritis of hip, unspecified; I12.9 Hypertensive chronic kidney disease with stage 1 through stage 4 chronic kidney disease, or unspecified chronic kidney disease; N18.9 Chronic kidney disease, unspecified
CPT/HCPCS: 36416; 70450; 71045; 72100; 73502; 80053; 80306; 80307; 82140; 82962; 85025; 93005; 96360; 99285; J7030

== ENCOUNTER 2022-08-10 10:31 | Outpatient (CLI) | payer MEDICARE, MEDICAID, SELFPAY ==
[2022-08-10 11:06] LABS: Basophils # 0.1 10^3/uL (0.0-0.1); Basophils % 0.8 %; Eosinophils # 0.5 10^3/uL (0.0-0.8); Eosinophils % 8.2 %; Hematocrit 37.3 % (42.0-52.0); Hemoglobin 11.7 g/dL (11.7-16.6); Lymphocytes # 1.3 10^3/uL (0.8-4.8); Mean Corpuscular HGB Conc 31.4 g/dL (30.0-36.0); Mean Corpuscular Volume 92.6 fl (80-94); Mean Platelet Volume 11.6 fL (7.4-10.4); Monocytes # 0.4 10^3/uL (0.2-0.9); Monocytes % 6.4 %; Neutrophils % 62.4 %; Nucleated Red Blood Cells % 0 %; Platelet Count 167 10^3/cmm (130-400); Red Blood Count 4.03 10^6/uL (4.1-5.3); Red Cell Distribution Width 16.3 % (12.1-15.1); White Blood Count 6.1 10^3/uL (4.0-10.0)
[2022-08-10 11:29] LABS: Creatinine Urine, Random 47 mg/dL (39-259); Microalbum Creatinine Ratio Ur 21 mg/dL (0-20); Microalbumin Random Urine 1 ug/dL (0-20)
[2022-08-10 11:31] LABS: Albumin Level 4.1 g/dL (3.5-5.2); Anion Gap 13.2 (5-19); Blood Urea Nitrogen 20 mg/dL (8-23); Calcium 9.3 mg/dL (8.5-10.5); Carbon Dioxide 28 mmol/L (22-29); Chloride 103 mmol/L (98-107); Glucose 105 mg/dL (65-115); Phosphorus 2.7 mg/dL (2.5-4.5); Potassium 4.2 mmol/L (3.5-5.1); Sodium 140 mmol/L (136-145)
== END 2022-08-10 10:32 | disposition home or self-care (01) ==
LOC: LAB 10:37
PROVIDERS: PCP Family Medicine; Visit Provider Nurse Practitioner
DX: N18.32 Chronic kidney disease, stage 3b (principal)
CPT/HCPCS: 36415; 80069; 82044; 85025

== ENCOUNTER 2022-11-24 16:12 | Emergency (ER) | payer MEDICARE, MEDICAID, SELFPAY ==
[2022-11-24 16:17] VITALS: BP 168/84; PULSE 60; RESP 16; TEMP 37; O2SAT 91
--- NOTE | 2022-11-24 17:09 | XRR_ITS ---
PROCEDURE INFORMATION: Exam: XR Chest Exam date and time: 11/24/2022 5:37 PM Age: 77 years old Clinical indication: Pain; Chest pressure; Additional info: AMS, chest pain TECHNIQUE: Imaging protocol: Radiologic exam of the chest. Views: 1 view. COMPARISON: CR XR chest 1V portable [id number] 07/05/2022 3:11 PM FINDINGS: Lungs: Unremarkable. No consolidation. Pleural spaces: Unremarkable. No pleural effusion. No pneumothorax. Heart/Mediastinum: Unremarkable. No cardiomegaly. Bones/joints: Unremarkable. XR/XR chest 1V portable [id number] IMPRESSION: No acute findings.
--- NOTE | 2022-11-24 17:23 | ED.C_ITS ---
Documented by User: Iain Alvares DO 11/25/22 07:19 HPI - Psych General: Chief Complaint: Psychiatric Symptoms Stated Complaint: 96 HOUR HOLD Time Seen by Provider: 11/24/22 16:46 Source: patient Mode of arrival: ambulatory History of Present Illness: 77-year-old male presents to the emergency room in the custody of [facility]. Is a 96-hour hold that his family initiated. 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 He has been threatening towards will this time and his . He has had some hallucinations he thought that the [place] balloon was in their backyard. He is awake and alert and oriented now answers questions he denies suicidal homicidal ideation he denies making any threats to his family. He is angry that his family put him on a 96-hour hold and he is telling me he has a card from the [employer] and he plans to have them placed on a 96-hour hold. Exacerbating factors: none Associated psychiatric symptoms: auditory hallucinations and visual hallucinations Associated symptoms: Reports auditory hallucinations and visual hallucinations Treatments prior to arrival: placed on mental health hold Review of Systems Const: Denies: fever(s), chills, body aches, change in appetite, fatigue or malaise ENMT: Denies: throat pain, ear or mastoid pain, nasal discharge or nasal congestion Card: Denies: chest pain, edema, dyspnea on exertion or orthopnea Resp: Denies: dyspnea, productive cough or non-productive cough GI: Denies: abdominal pain, nausea, vomiting, hematemesis, coffee ground emesis, diarrhea, constipation, bloating, hematochezia or melena : Denies: flank pain, dysuria, urinary frequency or urinary urgency Skin/Breast: Denies: rash or pruritus Psych: Reports: visual hallucinations and auditory hallucinations REPLACED BY [facility] ED PFSH: Medical History (Updated 11/25/22 @ 05:16 by Kyle Antony MD) Acute decompensated heart failure Altered mental status Atherosclerotic heart disease of [place] coronary artery with other forms of angina pectoris Atypical chest pain CAD (coronary artery disease) Carotid artery narrowing Chronic back pain CKD (chronic kidney disease) Congestive heart failure COPD (chronic obstructive pulmonary disease) Diabetes mellitus type 2 in obese Dyslipidemia Elevated troponin Encephalopathy, hypertensive Encounter for long-term use of opiate analgesic Gabapentin overdose Gout Hypertension Ischemic cardiomyopathy Major depressive disorder, recurrent, mild (Unknown) Neuropathy NSTEMI (non-ST elevated myocardial infarction) Opioid contract exists MALORIE (obstructive sleep apnea) Pulmonary hypertension Renal insufficiency Severe tricuspid regurgitation Smokeless tobacco use Substance abuse Urinary retention Surgical History History of cholecystectomy History of heart artery stent Family History Other Cancer Hypertension Social History Smoking and tobacco status: former smoker Second hand smoke exposure: No Alcohol intake: never Physical Exam Const: GENERAL APPEARANCE: cooperative and comfortable ORIE NTATION/CONSCIOUSNESS: Yes awake, Yes oriented to person, Yes oriented to place and Yes oriented to time HENMT: COMMON NORMALS: normocephalic, atraumatic and hearing grossly normal bilaterally HEAD & SCALP: normocephalic and atraumatic Resp: COMMON NORMALS: normal respiratory effort, No retractions, No use of accessory muscles and clear to auscultation bilaterally AUSCULTATION: clear to auscultation bilaterally Cardio: COMMON NORMALS: regular rate, regular rhythm and No murmurs present (Cardio) RATE: regular rate RHYTHM: regular rhythm GI: COMMON NORMALS: Soft to palpation and No hepatosplenomegaly present AUSCULTATION: Yes normoactive bowel sounds PALPATION: Yes Soft to palpation, No Tenderness to palpation present (GI), No Guarding due to palpation present (GI) and Yes No hepatosplenomegaly present Extremity: COMMON NORMALS: normal to inspection, capillary refill normal, no clubbing, cyanosis or edema, no calf tenderness and no pedal edema Neuro: SENSORIUM/ORIENTATION: Yes oriented to person, Yes oriented to place and Yes oriented to time Skin: COMMON NORMALS: no rashes or lesions noted GENERAL SKIN EXAM: no rashes or lesions noted Course Vital Signs: Vital signs: Vital Signs Temperature 98.0 F 11/25/22 05:38 Pulse Rate 69 11/25/22 05:38 Respiratory Rate 16 11/25/22 05:38 Blood Pressure 142/85 11/25/22 05:38 Pulse Oximetry 95 11/25/22 05:38 Oxygen Delivery Me thod 11/24/22 21:19 MDM - Psych Medical Decision Making Patient brought in on a 96-hour hold dysuria department. He is having some hallucinations. He does have some behaviors that are concerning related to drug use. Affidavit is reviewed. I think he would benefit from psychiatric evaluation. Medical clearance labs are pending. Care signed out to Dr. Antony at change of shift. See final notes for diagnosis and disposition. Patient presents here with anger outburst along with acute psychosis he is under 96 [address] ordered hold he is medically cleared here is excepted to Mary for Shauna psych capability Lab Data 11/24/22 17:25 11/24/22 17:25 Radiology Impressions Chest X-Ray 11/24/22 17:09 IMPRESSION: No acute findings. Laboratory Results WBC 7.4 10^3/uL (4.0-10.0) 11/24/22 17:25 RBC 4.20 10^6/uL (4.1-5.3) 11/24/22 17:25 Hgb 12.2 g/dL (11.7-16.6) 11/24/22 17:25 Hct 39.1 % (42.0-52.0) L 11/24/22 17:25 MCV 93.1 fl (80-94) 11/24/22 17:25 MCH 29.0 pg (28.0-34.0) 11/24/22 17:25 MCHC 31.2 g/dL (30.0-36.0) 11/24/22 17:25 RDW 14.8 % (12.1-15.1) 11/24/22 17:25 Plt Count 228 10^3/cmm (130-400) 11/24/22 17:25 MPV 10.7 fL (7.4-10.4) H 11/24/22 17:25 Neut % (Auto) 67.9 % 11/24/22 17:25 Lymph % (Auto) 22.4 % 11/24/22 17:25 [place] % (Auto) 7.3 % 11/24/22 17:25 Eos % (Auto) 1.6 % 11/24/22 17:25 Baso % (Auto) 0.5 % 11/24/22 17:25 Neut # (Auto) 5.01 10^3/uL (1.8-7.7) 11/24/22 17:25 Lymph # (Auto) 1.7 10^3/uL (0.8-4.8) 11/24/22 17:25 [place] # (Auto) 0.5 10^3/uL (0.2-0.9) 11/24/22 17:25 Eos # (Auto) 0.1 10^3/uL (0.0-0.8) 11/24/22 17:25 Baso # (Auto) 0.0 10^3/uL (0.0-0.1) 11/24/22 17:25 Nucleated RBC % (auto) 0 % 11/24/22 17:25 Nucleated RBCs # 0.0 /100WBC 11/24/22 17:25 Sodium 141 mmol/L (136-145) 11/24/22 17:25 Potassium 5.2 mmol/L (3.5-5.1) H 11/24/22 17:25 Chloride 103 mmol/L (98-107) 11/24/22 17:25 Carbon Dioxide 27 mmol/L (22-29) 11/24/22 17:25 Anion Gap 16.2 (5-19) 11/24/22 17:25 BUN 22 mg/dL (8-23) 11/24/22 17:25 Creatinine 1.6 mg/dL (0.7-1.2) H 11/24/22 17:25 GFR Calculation Not Reportable 11/24/22 17:25 Glucose 127 mg/dL (65-115) H 11/24/22 17:25 Calculated Osmolality 297 mOsm/kg (285-295) H 11/24/22 17:25 Calcium 9.5 mg/dL (8.5-10.5) 11/24/22 17:25 Total Bilirubin 0.6 mg/dL (0.15-1.2) 11/24/22 17:25 AST 16 U/L (0-40) 11/24/22 17:25 ALT 9 U/L (0-41) 11/24/22 17:25 Alkaline Phosphatase 135 U/L (40-130) H 11/24/22 17:25 Total Protein 7.8 g/dL (6.6-8.7) 11/24/22 17:25 Albumin 4.5 g/dL (3.5-5.2) 11/24/22 17:25 Globulin 3.3 g/dL (1.3-4.6) 11/24/22 17:25 TSH 1.30 uIU/mL (0.27-4.20) 11/24/22 17:25 Urine Color Light yellow (Yellow) 11/24/22 18:31 Urine Appearance Clear (CLEAR) 11/24/22 18:31 Urine pH 6.5 (5-7) 11/24/22 18:31 Ur Specific [place] 1.005 (1.005-1.030) 11/24/22 18:31 Urine Protein Neg (Negative) 11/24/22 18:31 Urine Glucose (UA) Norm (Normal) 11/24/22 18:31 Urine Ketones Negative (Negative) 11/24/22 18:31 Urine Blood Neg (Negative) 11/24/22 18:31 Urine Nitrate Negative (Negative) 11/24/22 18:31 Urine Bilirubin Neg (Negative) 11/24/22 18:31 Urine Urobilinogen Neg mg/dL (Negative) 11/24/22 18:31 Ur Leukocyte Esterase Negative (Negative) 11/24/22 18:31 Salicylates < 0.3 mg/dL (3-10) L 11/24/22 17:25 Urine Opiates Screen Positive ng/mL (Negative) H 11/24/22 18:31 Acetaminophen < 5.0 ug/mL (10-30) L 11/24/22 17:25 Ur Barbiturates Screen Negative ng/mL (Negative) 11/24/22 18:31 Ur Phencyclidine Scrn Negative ng/mL (Negative) 11/24/22 18:31 Ur Amphetamines Screen Negative ng/mL (Negative) 11/24/22 18:31 U Benzodiazepines Scrn Negative ng/mL (Negative) 11/24/22 18:31 Urine Cocaine Screen Negative ng/mL (Negative) 11/24/22 18:31 U Marijuana (THC) Screen Negative ng/mL (Negative) 11/24/22 18:31 Ethyl Alcohol < 10 mg/dL (0-10) 11/24/22 17:25 SARS-CoV-2 Ag (Rapid) negative (Negative) 11/24/22 19:11 Discharge Plan Discharge Patient Disposition: Xfer Psychiatric Hosp Clinical Impression: Acute psychosis Condition: Stable Referrals: Galindo Carson DO [Primary Care Provider] - Coding Level of Care Code ED Toe Former for [facility] Fwd Documented by User: Kyle Antony MD 11/25/22 05:17 HPI - Psych General: Chief Complaint: Psychiatric Symptoms Stated Complaint: 96 HOUR HOLD Time Seen by Provider: 11/24/22 16:46 PFSH ED PFSH: Medical History (Updated 11/25/22 @ 05:16 by Kyle Antony MD) Acute decompensated heart failure Altered mental status Atherosclerotic heart disease of [place] coronary artery with other forms of angina pectoris Atypical chest pain CAD (coronary artery disease) Carotid artery narrowing Chronic back pain CKD (chronic kidney disease) Congestive heart failure COPD (chronic obstructive pulmonary disease) Diabetes mellitus type 2 in obese Dyslipidemia Elevated troponin Encephalopathy, hypertensive Encounter for long-term use of opiate analgesic Gabapentin overdose Gout Hypertension Ischemic cardiomyopathy Major depressive disorder, recurrent, mild (Unknown) Neuropathy NSTEMI (non-ST elevated myocardial infarction) Opioid contract exists MALORIE (obstructive sleep apnea) Pulmonary hypertension Renal insufficiency Severe tricuspid regurgitation Smokeless tobacco use Substance abuse Urinary retention Surgical History History of cholecystectomy History of heart artery stent Family History Other Cancer Hypertension Social History Smoking and tobacco status: former smoker Second hand smoke exposure: No Alcohol intake: never Course Vital Signs: Vital signs: Vital Signs Temperature 98.0 F 11/25/22 05:38 Pulse Rate 69 11/25/22 05:38 Respiratory Rate 16 11/25/22 05:38 Blood Pressure 142/85 11/25/22 05:38 Pulse Oximetry 95 11/25/22 05:38 Oxygen Delivery Me thod 11/24/22 21:19 MDM - Psych Medical Decision Making Patient presents here with anger outburst along with acute psychosis he is under 96 [address] ordered hold he is medically cleared here is excepted to [facility] for Shauna psych capability Lab Data 11/24/22 17:25 11/24/22 17:25 Radiology Impressions Chest X-Ray 11/24/22 17:09 IMPRESSION: No acute findings. Laboratory Results WBC 7.4 10^3/uL (4.0-10.0) 11/24/22 17:25 RBC 4.20 10^6/uL (4.1-5.3) 11/24/22 17:25 Hgb 12.2 g/dL (11.7-16.6) 11/24/22 17:25 Hct 39.1 % (42.0-52.0) L 11/24/22 17:25 MCV 93.1 fl (80-94) 11/24/22 17:25 MCH 29.0 pg (28.0-34.0) 11/24/22 17: MCHC 31.2 g/dL (30.0-36.0) 11/24/22 17:25 RDW 14.8 % (12.1-15.1) 11/24/22 17:25 Plt Count 228 10^3/cmm (130-400) 11/24/22 17:25 MPV 10.7 fL (7.4-10.4) H 11/24/22 17:25 Neut % (Auto) 67.9 % 11/24/22 17:25 Lymph % (Auto) 22.4 % 11/24/22 17:25 [place] % (Auto) 7.3 % 11/24/22 17:25 Eos % (Auto) 1.6 % 11/24/22 17:25 Baso % (Auto) 0.5 % 11/24/22 17:25 Neut # (Auto) 5.01 10^3/uL (1.8-7.7) 11/24/22 17:25 Lymph # (Auto) 1.7 10^3/uL (0.8-4.8) 11/24/22 17:25 [place] # (Auto) 0.5 10^3/uL (0.2-0.9) 11/24/22 17:25 Eos # (Auto) 0.1 10^3/uL (0.0-0.8) 11/24/22 17:25 Baso # (Auto) 0.0 10^3/uL (0.0-0.1) 11/24/22 17:25 Nucleated RBC % (auto) 0 % 11/24/22 17:25 Nucleated RBCs # 0.0 /100WBC 11/24/22 17:25 Sodium 141 mmol/L (136-145) 11/24/22 17:25 Potassium 5.2 mmol/L (3.5-5.1) H 11/24/22 17:25 Chloride 103 mmol/L (98-107) 11/24/22 17:25 Carbon Dioxide 27 mmol/L (22-29) 11/24/22 17:25 Anion Gap 16.2 (5-19) 11/24/22 17:25 BUN 22 mg/dL (8-23) 11/24/22 17:25 Creatinine 1.6 mg/dL (0.7-1.2) H 11/24/22 17:25 GFR Calculation Not Reportable 11/24/22 17:25 Glucose 127 mg/dL (65-115) H 11/24/22 17:25 Calculated Osmolality 297 mOsm/kg (285-295) H 11/24/22 17:25 Calcium 9.5 mg/dL (8.5-10.5) 11/24/22 17:25 Total Bilirubin 0.6 mg/dL (0.15-1.2) 11/24/22 17:25 AST 16 U/L (0-40) 11/24/22 17:25 ALT 9 U/L (0-41) 11/24/22 17:25 Alkaline Phosphatase 135 U/L (40-130) H 11/24/22 17:25 Total Protein 7.8 g/dL (6.6-8.7) 11/24/22 17:25 Albumin 4.5 g/dL (3.5-5.2) 11/24/22 17:25 Globulin 3.3 g/dL (1.3-4.6) 11/24/22 17:25 TSH 1.30 uIU/mL (0.27-4.20) 11/24/22 17:25 Urine Color Light yellow (Yellow) 11/24/22 18:31 Urine Appearance Clear (CLEAR) 11/24/22 18:31 Urine pH 6.5 (5-7) 11/24/22 18:31 Ur Specific [place] 1.005 (1.005-1.030) 11/24/22 18:31 Urine Protein Neg (Negative) 11/24/22 18:31 Urine Glucose (UA) Norm (Normal) 11/24/22 18:31 Urine Ketones Negative (Negative) 11/24/22 18:31 Urine Blood Neg (Negative) 11/24/22 18:31 Urine Nitrate Negative (Negative) 11/24/22 18:31 Urine Bilirubin Neg (Negative) 11/24/22 18:31 Urine Urobilinogen Neg mg/dL (Negative) 11/24/22 18:31 Ur Leukocyte Esterase Negative (Negative) 11/24/22 18:31 Salicylates < 0.3 mg/dL (3-10) L 11/24/22 17:25 Urine Opiates Screen Positive ng/mL (Negative) H 11/24/22 18:31 Acetaminophen < 5.0 ug/mL (10-30) L 11/24/22 17:25 Ur Barbiturates Screen Negative ng/mL (Negative) 11/24/22 18:31 Ur Phencyclidine Scrn Negative ng/mL (Negative) 11/24/22 18:31 Ur Amphetamines Screen Negative ng/mL (Negative) 11/24/22 18:31 U Benzodiazepines Scrn Negative ng/mL (Negative) 11/24/22 18:31 Urine Cocaine Screen Negative ng/mL (Negative) 11/24/22 18:31 U Marijuana (THC) Screen Negative ng/mL (Negative) 11/24/22 18:31 Ethyl Alcohol < 10 mg/dL (0-10) 11/24/22 17:25 SARS-CoV-2 Ag (Rapid) negative (Negative) 11/24/22 19:11 Discharge Plan Discharge Patient Disposition: Xfer Psychiatric Hosp Clinical Impression: Acute psychosis Condition: Stable Referrals: Galindo Carson DO [Primary Care Provider] - Coding Level of Care Code ED Toe Former for Eric Martin
[2022-11-24 17:35] LABS: Basophils % 0.5 %; Eosinophils # 0.1 10^3/uL (0.0-0.8); Eosinophils % 1.6 %; Hematocrit 39.1 % (42.0-52.0); Hemoglobin 12.2 g/dL (11.7-16.6); Lymphocytes # 1.7 10^3/uL (0.8-4.8); Lymphocytes % 22.4 %; Mean Corpuscular HGB Conc 31.2 g/dL (30.0-36.0); Mean Corpuscular Volume 93.1 fl (80-94); Mean Platelet Volume 10.7 fL (7.4-10.4); Monocytes # 0.5 10^3/uL (0.2-0.9); Monocytes % 7.3 %; Neutrophils # 5.01 10^3/uL (1.8-7.7); Neutrophils % 67.9 %; Nucleated Red Blood Cells % 0 %; Platelet Count 228 10^3/cmm (130-400); Red Cell Distribution Width 14.8 % (12.1-15.1); White Blood Count 7.4 10^3/uL (4.0-10.0)
[2022-11-24 17:55] LABS: Alanine Aminotransferase 9 U/L (0-41); Albumin Level 4.5 g/dL (3.5-5.2); Alkaline Phosphatase 135 U/L (40-130); Anion Gap 16.2 (5-19); Aspartate Amino Transferase 16 U/L (0-40); Blood Urea Nitrogen 22 mg/dL (8-23); Calcium 9.5 mg/dL (8.5-10.5); Carbon Dioxide 27 mmol/L (22-29); Chloride 103 mmol/L (98-107); Globulin 3.3 g/dL (1.3-4.6); Glucose 127 mg/dL (65-115); Osmolality Calculated 297 mOsm/kg (285-295); Potassium 5.2 mmol/L (3.5-5.1); Sodium 141 mmol/L (136-145); Total Bilirubin 0.6 mg/dL (0.15-1.2); Total Protein 7.8 g/dL (6.6-8.7)
[2022-11-24 17:57] LABS: Acetaminophen < 5.0 ug/mL (10-30); Alcohol Level < 10 mg/dL (0-10); Salicylate < 0.3 mg/dL (3-10)
[2022-11-24 18:59] LABS: Add Urine Microscopic? NO; Charge for UA Resulting for Rev
[2022-11-24 19:09] LABS: Bilirubin Urine Neg (Negative); Blood Urine Neg (Negative); Glucose Urine UA Norm (Normal); Ketones Urine Negative (Negative); Leukocyte Esterase Urine Negative (Negative); Nitrate Urine Negative (Negative); Protein Urine Neg (Negative); Specific Gravity, Urine 1.005 (1.005-1.030); Urine Appearance Clear (CLEAR); Urine Color Light yellow (Yellow); Urobilinogen Urine Neg (Negative); pH Urine 6.5 (5-7)
[2022-11-24 19:23] LABS: Amphetamines Screen Urine Negative (Negative); Barbiturates Screen Urine Negative (Negative); Benzodiazepines Screen Urine Negative (Negative); Cocaine Screen Urine Negative (Negative); Opiate Screen Urine Positive (Negative); PCP Screen Urine Negative (Negative); THC Screen Urine Negative (Negative)
[2022-11-24 19:58] LABS: SARS Covid-2 Antigen negative (Negative)
[2022-11-24 21:19] VITALS: BP 163/88; PULSE 64; RESP 18; O2SAT 97
[2022-11-25] MEDS: HYDROcodone-acetaminophen 5-325 mg Tablet 1 TAB PO (00:20)
--- NOTE | 2022-11-25 02:23 | ECG_ITS ---
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
[2022-11-25 04:04] VITALS: BP 150/72; PULSE 75; RESP 16; O2SAT 94
[2022-11-25 05:38] VITALS: BP 142/85; PULSE 69; RESP 16; TEMP 36.7; O2SAT 95
--- NOTE | 2022-11-25 06:10 | PC.NURSE ---
Report called to Aleksandr, transportation being set up. Patient has been cooperative. Denies any hallucinations at this time or that he was going to harm his . Sitter present.
[2022-11-25] MEDS: nicotine 21 mg Patch 1 PATCH TRANSDERMA (08:14)
[2022-11-25 08:26] VITALS: BP 141/71; PULSE 78; RESP 16
== END 2022-11-25 08:27 ==
PROVIDERS: Family Medicine; Emergency Provider Emergency Medicine; PCP Family Medicine
DX: F23 Brief psychotic disorder (principal); R45.4 Irritability and anger; I12.9 Hypertensive chronic kidney disease with stage 1 through stage 4 chronic kidney disease, or unspecified chronic kidney disease; N18.9 Chronic kidney disease, unspecified; I50.9 Heart failure, unspecified; I25.118 Atherosclerotic heart disease of native coronary artery with other forms of angina pectoris; I25.5 Ischemic cardiomyopathy; I25.2 Old myocardial infarction; J44.9 Chronic obstructive pulmonary disease, unspecified; E11.22 Type 2 diabetes mellitus with diabetic chronic kidney disease; E78.5 Hyperlipidemia, unspecified; Z87.891 Personal history of nicotine dependence; Z95.5 Presence of coronary angioplasty implant and graft
CPT/HCPCS: 36415; 71045; 80053; 80306; 80307; 81003; 84443; 85025; 87426; 93005; 99285

== ENCOUNTER 2023-01-08 08:49 | Inpatient (IN) | payer MEDICARE, MEDICAID, SELFPAY ==
[2023-01-08] VITALS (14 sets, daily range): BP systolic 111–158; BP diastolic 61–85; PULSE 71–88; RESP 16–20; TEMP 36.6–37.2; O2SAT 92–98; BMI 34.8
--- NOTE | 2023-01-08 09:03 | ED_ITS ---
HPI - Altered Mental Status General: Chief Complaint: Altered Mental Status Stated Complaint: AMS Time Seen by Provider: 01/08/23 08:50 Source: patient Mode of arrival: ambulatory History of Present Illness: 77-year-old male who presents to the emergency room with MD complaint: altered mental status Onset (ago): hour(s) Severity: mild Consistency of symptoms: Getting Worse Associated symptoms: Deny auditory hallucinations, visual hallucinations, delusions, depression, homicidal ideation, racing thoughts or suicidal ideation Review of Systems Const: Denies: fever(s), chills, body aches, change in appetite, fatigue or malaise ENMT: Denies: throat pain, ear or mastoid pain, nasal discharge or nasal congestion Card: Denies: chest pain, edema, dyspnea on exertion or orthopnea Resp: Denies: dyspnea, productive cough or non-productive cough GI: Denies: abdominal pain, nausea, vomiting, hematemesis, coffee ground emesis, diarrhea, constipation, bloating, hematochezia or melena : Denies: flank pain, dysuria, urinary frequency or urinary urgency Skin/Breast: Denies: rash or pruritus Psych: Denies: depression, visual hallucinations, auditory hallucinations, suicidal ideation or homicidal ideation PFSH ED PFSH: Medical History Acute decompensated heart failure Altered mental status Atherosclerotic heart disease of [place] coronary artery with other forms of angina pectoris Atypical chest pain CAD (coronary artery disease) Carotid artery narrowing Chronic back pain CKD (chronic kidney disease) Congestive heart failure COPD (chronic obstructive pulmonary disease) Diabetes mellitus type 2 in obese Dyslipidemia Elevated troponin Encephalopathy, hypertensive Encounter for long-term use of opiate analgesic Gabapentin overdose Gout Hypertension Ischemic cardiomyopathy Major depressive disorder, recurrent, mild (Unknown) Neuropathy NSTEMI (non-ST elevated myocardial infarction) Opioid contract exists MALORIE (obstructive sleep apnea) Pulmonary hypertension Renal insufficiency Severe tricuspid regurgitation Smokeless tobacco use Substance abuse Urinary retention Surgical History History of cholecystectomy History of heart artery stent Family History Other Cancer Hypertension Social History Smoking and tobacco status: former smoker Second hand smoke exposure: No Alcohol intake: never Substance/Drug Use: never Physical Exam Psych: THOUGHT CONTENT: No delusions Course Vital Signs: Vital signs: Vital Signs Temperature 99.0 F 01/08/23 08:51 Pulse Rate 82 01/08/23 08:51 Respiratory Rate 20 H 01/08/23 08:51 Blood Pressure 145/80 01/08/23 08:51 Pulse Oximetry 92 01/08/23 08:51 Oxygen Delivery Me thod Room Air 01/08/23 08:51 Discharge Plan Discharge Condition: Stable Prescriptions: No Action Narcan 4 mg/actuation spray,non-aerosol 1 spray INTRANASAL .COMPLEX Rx Instructions: INTRA NASAL NEEDED FOR OVERDOSE Viibryd 40 mg tablet 40 mg PO DAILY Qty: 30 2RF Rx Instructions: must administer with a meal/food pantoprazole [Protonix] 40 mg tablet,delayed release (DR/EC) 40 mg PO BID Qty: 60 5RF metformin 1,000 mg tablet 1,000 mg PO BID 30 Days Qty: 60 1RF albuterol sulfate [ProAir HFA] 90 mcg/actuation HFA aerosol inhaler 1 - 2 puff INHALATION Q6H PRN (Reason: shortness of breath or wheezing) allopurinol 300 mg tablet 300 mg PO DAILY baclofen 10 mg tablet 5 mg PO BID triamcinolone acetonide 0.1 % ointment See Rx Instructions .ROUTE .COMPLEX Rx Instructions: as directed topically as needed clopidogrel [Plavix] 75 mg tablet 75 mg PO DAILY Qty: 30 1RF aspirin 81 mg Tablet,Delayed Release (Dr/Ec) 81 mg PO DAILY Qty: 90 0RF furosemide 40 mg tablet 40 mg PO BID carvedilol [Coreg] 12.5 mg tablet 12.5 mg PO BID fluticasone propionate 50 mcg/actuation spray,suspension 2 spray intranasal DAILY potassium chloride 20 mEq tablet extended release 10 meq PO BID atorvastatin 20 mg tablet 20 mg PO DAILY hydrocodone-acetaminophen 7.5-325 mg tablet 1 tab PO Q6H MDD 5 tabs per day PRN (Reason: Pain) Rx Instructions: may take one extra tab per day-max 5 tabs per day-must last 28 days benazepril 20 mg tablet 20 mg PO BID meclizine 25 mg Tablet 25 mg PO Q8H PRN (Reason: Dizziness) Nitrostat 0.4 mg Tablet, Sublingual 0.4 mg SUBLINGUAL Q5M PRN (Reason: Chest Pain) Rx Instructions: do not exceed 3 doses per episode isosorbide mononitrate 60 mg tablet extended release 24 hr 60 mg PO DAILY pregabalin 150 mg capsule 150 mg PO Q8H Lidoderm 5 % adhesive patch,medicated 1 patch topical DAILY Qty: 30 1RF Rx Instructions: leave on most painful area for up to 12 hrs Referrals: Galindo Carson DO [Primary Care Provider] - Patient Instructions: Altered Mental Status (ED), Alcohol Intoxication (ED), Benzodiazepine Use Disorder (ED), Concussion (ED), Dementia (ED), Subarachnoid Hemorrhage (GEN), Hyponatremia (ED), Non-diabetic Hypoglycemia (ED), Hypoglycemia in a Person with Diabetes (ED) Coding Level of Care Code ED Long [employer]inder Tender for Eric Martin
--- NOTE | 2023-01-08 09:15 | CTR_ITS ---
PROCEDURE INFORMATION: Exam: CT Head Without Contrast Exam date and time: 01/08/2023 9:30 AM Age: 77 years old Clinical indication: Altered mental status/memory loss; Additional info: AMS TECHNIQUE: Imaging protocol: Computed tomography of the head without contrast. Radiation optimization: All CT scans at this facility use at least one of these dose optimization techniques: automated exposure control; mA and/or kV adjustment per patient size (includes targeted exams where dose is matched to clinical indication); or iterative reconstruction. REPORTING DATA: Count of CT and Cardiac NM exams in prior 12 months: This patient has received 3 known CTs and 0 known cardiac nuclear medicine studies in the 12 months prior to the current study. COMPARISON: CT head wo con* [id number] 07/05/2022 1:51 PM RADIATION DOSE METRICS: Total DLP (mGy-cm): 2133.41 FINDINGS: Brain: No acute hemorrhage identified. No large territorial areas of hypoattenuation concerning for ischemic infarct identified. No intracranial mass effect. Cerebral ventricles: The ventricles are within normal limits. Paranasal sinuses: The visualized sinuses are unremarkable. Mastoid air cells: The visualized mastoid air cells are well aerated. Bones/joints: The osseous structures are intact. Soft tissues: Unremarkable. CT/CT head wo con* [id number] IMPRESSION: No acute intracranial abnormality.
--- NOTE | 2023-01-08 09:16 | CTR_ITS ---
PROCEDURE INFORMATION: Exam: CT Abdomen And Pelvis Without Contrast Exam date and time: 01/08/2023 9:33 AM Age: 77 years old Clinical indication: Abdominal pain TECHNIQUE: Imaging protocol: Computed tomography of the abdomen and pelvis without contrast. Radiation optimization: All CT scans at this facility use at least one of these dose optimization techniques: automated exposure control; mA and/or kV adjustment per patient size (includes targeted exams where dose is matched to clinical indication); or iterative reconstruction. REPORTING DATA: Count of CT and Cardiac NM exams in prior 12 months: This patient has received 3 known CTs and 0 known cardiac nuclear medicine studies in the 12 months prior to the current study. COMPARISON: CT abdomen pelvis w con* [id number] 04/12/2017 7:10 PM RADIATION DOSE METRICS: Total DLP (mGy-cm): 1189.03 FINDINGS: Lungs: Respiratory motion limiting fine pulmonary detail. Coronary arteries: Coronary artery calcifications noted. Liver: The liver is normal in size and contour. Gallbladder and bile ducts: The gallbladder is surgically absent. Pancreas: The pancreas appears normal. Spleen: The spleen appears normal. Adrenal glands: The adrenals appear normal. Kidneys and ureters: The kidneys empty into non-dilated ureters. No renal or ureteral stones are identified. No perinephric or periureteral fat tissue stranding is identified. Stomach and bowel: 1.4 cm gastric wall lipoma, similar to prior exam. The stomach is otherwise unremarkable. The small bowel loops are not abnormally dilated. The large bowel loops are not abnormally dilated. Appendix: No signs of appendicitis. Intraperitoneal space: No ascites or significant fluid collection. Vasculature: The aorta is nonaneurysmal. The IVC appears normal. Lymph nodes: There are no enlarged lymph nodes. Urinary bladder: The bladder is distended and demonstrates no focal contour abnormality. Reproductive: Unremarkable as visualized. Bones/joints: Bilateral pars defects at L5. Grade 1 anterolisthesis of L5 on S1 by approximately 11 mm. Scoliotic curvature of the spine. Soft tissues: Fat containing supraumbilical ventral hernia similar to prior exam. Other findings: Motion artifact limiting exam. CT/CT abdomen pelvis wo con [id number] IMPRESSION: No acute abdominopelvic abnormality identified within the limitations of this exam. COMMENTS: Evaluation of solid organs and vascular structures is limited as no IV contrast was administered.
--- NOTE | 2023-01-08 09:16 | XRR_ITS ---
PROCEDURE INFORMATION: Exam: XR Chest Exam date and time: 01/08/2023 8:43 AM Age: 77 years old Clinical indication: Cough and dyspnea; Additional info: Dyspnea/cough TECHNIQUE: Imaging protocol: Radiologic exam of the chest. Views: 1 view. COMPARISON: CR (CHEST, ) 11/24/2022 5:37 PM FINDINGS: Lungs: The lung parenchyma is clear. Pleural spaces: No pneumothorax. No pleural effusion. Heart/Mediastinum: The cardiomediastinal silhouette is within normal limits. Bones/joints: Degenerative changes in the left shoulder. XR/XR chest 1V portable [id number] IMPRESSION: No acute cardiopulmonary abnormality identified.
--- NOTE | 2023-01-08 09:17 | ED_ITS ---
HPI - General Adult General: Chief complaint: Altered Mental Status Stated complaint: AMS Time Seen by Provider: 01/08/23 08:50 Source: patient Mode of arrival: ambulatory History of Present Illness: 77-year-old male presents emergency room with his . She states for the last 2 days he is been having altered mental status he does not seem quite himself. She denies any complaints of chest pain or shortness of breath he has chronic back pain with pain into his legs which for the most part seems to be unchanged there is no vomiting or diarrhea no fever. He has a known history of coronary artery disease. No reports of dysuria urgency or frequency no hematochezia melena hematemesis or coffee-ground emesis. No recent change in medications. His states his abdomen seems more distended. When I asked the patient s pecifically he denies any abdominal pain. Onset (ago): day(s) (2) Severity: moderate Relieving factors: none Exacerbating factors: none Associated symptoms: Deny chest pain, confusion, cough, diaphoresis, decreased appetite, dyspnea, fevers/chills, headache(s), malaise, nausea, rash, palpitations, seizures, short of breath, syncope, vomiting or weakness Treatments prior to arrival: none Review of Systems Const: Denies: fever(s), chills, fatigue, malaise or diaphoresis ENMT: Denies: throat pain, ear or mastoid pain, nasal discharge or nasal congestion Card: Denies: chest pain, palpitations, irregular heart rhythm, edema or syncope Resp: Denies: dyspnea, productive cough, non-productive cough or wheezing GI: Denies: abdominal pain, nausea or vomiting : Denies: flank pain, dysuria, urinary frequency or urinary urgency Skin/Breast: Denies: rash Neuro: Denies: headache(s) or confusion PFS ED PFSH: Medical History (Updated 01/08/23 @ 13:23 by Iain Alvares DO) Acute decompensated heart failure Altered mental status Atherosclerotic heart disease of [place] coronary artery with other forms of angina pectoris Atypical chest pain CAD (coronary artery disease) Carotid artery narrowing Chronic back pain CKD (chronic kidney disease) Congestive heart failure COPD (chronic obstructive pulmonary disease) Diabetes mellitus type 2 in obese Dyslipidemia Elevated troponin Encephalopathy, hypertensive Encounter for long-term use of opiate analgesic Gabapentin overdose Gout Hypertension Ischemic cardiomyopathy Major depressive disorder, recurrent, mild (Unknown) Neuropathy NSTEMI (non-ST elevated myocardial infarction) Opioid contract exists MALORIE (obstructive sleep apnea) Pulmonary hypertension Renal insufficiency Severe tricuspid regurgitation Smokeless tobacco use Substance abuse Urinary retention Surgical History History of cholecystectomy History of heart artery stent Family History Other Cancer Hypertension Social History Smoking and tobacco status: former smoker Second hand smoke exposure: No Alcohol intake: never Substance/Drug Use: never Physical Exam Const: GENERAL APPEARANCE: cooperative and comfortable ORIENTATION/CONSCIOUSNESS: Yes awake, Yes oriented to person, Yes oriented to place and Yes oriented to time HENMT: COMMON NORMALS: normocephalic, atraumatic and hearing grossly normal bilaterally HEAD & SCALP: normocephalic and atraumatic Resp: COMMON NORMALS: normal respiratory effort, No retractions, No use of accessory muscles and clear to auscultation bilaterally AUSCULTATION: clear to auscultation bilaterally Cardio: COMMON NORMALS: regular rate, regular rhythm and No murmurs present (Cardio) RATE: regular rate RHYTHM: regular rhythm GI: COMMON NORMALS: Soft to palpation and No hepatosplenomegaly present AUSCULTATION: Yes normoactive bowel sounds PALPATION: Yes Soft to palpation, No Tenderness to palpation present (GI), No Guarding due to palpation present (GI) and Yes No hepatosplenomegaly present Extremity: COMMON NORMALS: normal to inspection, capillary refill normal, no clubbing, cyanosis or edema, no calf tenderness and no pedal edema Neuro: SENSORIUM/ORIENTATION: Yes oriented to person, Yes oriented to place and Yes oriented to time Skin: COMMON NORMALS: no rashes or lesions noted GENERAL SKIN EXAM: no rashes or lesions noted Course Vital Signs: Vital signs: Vital Signs Temperature 99.0 F 01/08/23 08:51 Pulse Rate 74 01/08/23 12:28 Respiratory Rate 16 01/08/23 12:13 Blood Pressure 111/61 01/08/23 10:09 Pulse Oximetry 98 01/08/23 12:13 Oxygen Delivery Me thod Room Air 01/08/23 12:13 [facility] - General Adult Medical Decision Making Patient has altered mental status on arrival here. His potassium is elevated at 6 and he has an acute kidney injury. Creatinine is up to 3.2. He has not had any psychosis at home he has had issues with mental health in the past. We will go ahead and admit discussed with the hospitalist orders written his hyperkalemi a has been treated in the emergency room initially. Medical Records I reviewed the patient's medical records. Lab Data I reviewed the patient's lab results. 01/08/23 09:24 01/08/23 09:[address] 01/08/23 09:15 IMPRESSION: No acute intracranial abnormality. Abdomen/Pelvis CT 01/08/23 09:16 IMPRESSION: No acute abdominopelvic abnormality identified within the limitations of this exam. COMMENTS: Evaluation of solid organs and vascular structures is limited as no IV contrast was administered. Chest X-Ray 01/08/23 09:16 IMPRESSION: No acute cardiopulmonary abnormality identified. Laboratory Results WBC 6.5 10^3/uL (4.0-10.0) 01/08/23 09:24 RBC 3.86 10^6/uL (4.1-5.3) L 01/08/23 09:24 Hgb 11.2 g/dL (11.7-16.6) L 01/08/23 09:24 Hct 37.2 % (42.0-52.0) L 01/08/23 09:24 MCV 96.4 fl (80-94) H 01/08/23 09:24 MCH 29.0 pg (28.0-34.0) 01/08/23 09:24 MCHC 30.1 g/dL (30.0-36.0) 01/08/23 09:24 RDW 14.8 % (12.1-15.1) 01/08/23 09:24 Plt Count 199 10^3/cmm (130-400) 01/08/23 09:24 MPV 11.3 fL (7.4-10.4) H 01/08/23 09:24 Neut % (Auto) 62.6 % 01/08/23 09:24 Lymph % (Auto) 24.1 % 01/08/23 09:24 Travis % (Auto) 9.9 % 01/08/23 09:24 Eos % (Auto) 2.5 % 01/08/23 09:24 Baso % (Auto) 0.6 % 01/08/23 09:24 Neut # (Auto) 4.04 10^3/uL (1.8-7.7) 01/08/23 09:24 Lymph # (Auto) 1.6 10^3/uL (0.8-4.8) 01/08/23 09:24 Travis # (Auto) 0.6 10^3/uL (0.2-0.9) 01/08/23 09:24 Eos # (Auto) 0.2 10^3/uL (0.0-0.8) 01/08/23 09:24 Baso # (Auto) 0.0 10^3/uL (0.0-0.1) 01/08/23 09:24 Nucleated RBC % (auto) 0 % 01/08/23 09:24 Nucleated RBCs # 0.0 /100WBC 01/08/23 09:24 Sodium 139 mmol/L (136-145) 01/08/23 09:24 Potassium 6.0 mmol/L (3.5-5.1) H 01/08/23 09:24 Chloride 106 mmol/L (98-107) 01/08/23 09:24 Carbon Dioxide 21 mmol/L (22-29) L 01/08/23 09:24 Anion Gap 18.0 (5-19) 01/08/23 09:24 BUN 43 mg/dL (8-23) H 01/08/23 09:24 Creatinine 3.2 mg/dL (0.7-1.2) H 01/08/23 09:24 GFR Calculation Not Reportable 01/08/23 09:24 Glucose 93 mg/dL (65-115) 01/08/23 09:24 Calculated Osmolality 299 mOsm/kg (285-295) H 01/08/23 09:24 Calcium 9.9 mg/dL (8.5-10.5) 01/08/23 09:24 Total Bilirubin 0.4 mg/dL (0.15-1.2) 01/08/23 09:24 AST 25 U/L (0-40) 01/08/23 09:24 ALT 10 U/L (0-41) 01/08/23 09:24 Alkaline Phosphatase 136 U/L (40-130) H 01/08/23 09:24 Ammonia 21 umol/L (16-60) 01/08/23 09:23 Total Protein 7.7 g/dL (6.6-8.7) 01/08/23 09:24 Albumin 4.2 g/dL (3.5-5.2) 01/08/23 09:24 Globulin 3.5 g/dL (1.3-4.6) 01/08/23 09:24 Lipase 24 U/L (13-60) 01/08/23 09:24 Urine Color Yellow (Yellow) 01/08/23 10:00 Urine Appearance Clear (CLEAR) 01/08/23 10:00 Urine pH 5 (5-7) 01/08/23 10:00 Ur Specific [place] 1.010 (1.005-1.030) 01/08/23 10:00 Urine Protein Neg (Negative) 01/08/23 10:00 Urine Glucose (UA) Norm (Normal) 01/08/23 10:00 Urine Ketones Negative (Negative) 01/08/23 10:00 Urine Blood Neg (Negative) 01/08/23 10:00 Urine Nitrate Negative (Negative) 01/08/23 10:00 Urine Bilirubin Neg (Negative) 01/08/23 10:00 Urine Urobilinogen Norm mg/dL (Negative) 01/08/23 10:00 Ur Leukocyte Esterase Negative (Negative) 01/08/23 10:00 Urine Opiates Screen Positive ng/mL (Negative) H 01/08/23 10:00 Ur Barbiturates Screen Negative ng/mL (Negative) 01/08/23 10:00 Ur Phencyclidine Scrn Negative ng/mL (Negative) 01/08/23 10:00 Ur Amphetamines Screen Negative ng/mL (Negative) 01/08/23 10:00 U Benzodiazepines Scrn Negative ng/mL (Negative) 01/08/23 10:00 Urine Cocaine Screen Negative ng/mL (Negative) 01/08/23 10:00 U Marijuana (THC) Screen Negative ng/mL (Negative) 01/08/23 10:00 Ethyl Alcohol < 10 mg/dL (0-10) 01/08/23 09:24 Discharge Plan Discharge Patient Disposition: Admitted As Inpatient Clinical Impression: Hyperkalemia, Acute kidney injury superimposed on chronic kidney disease Condition: Stable Coding Level of Care Code ED [employer] for [employer]
[2023-01-08 09:29] LABS: Basophils % 0.6 %; Eosinophils # 0.2 10^3/uL (0.0-0.8); Eosinophils % 2.5 %; Hematocrit 37.2 % (42.0-52.0); Hemoglobin 11.2 g/dL (11.7-16.6); Lymphocytes # 1.6 10^3/uL (0.8-4.8); Lymphocytes % 24.1 %; Mean Corpuscular HGB Conc 30.1 g/dL (30.0-36.0); Mean Corpuscular Volume 96.4 fl (80-94); Mean Platelet Volume 11.3 fL (7.4-10.4); Monocytes # 0.6 10^3/uL (0.2-0.9); Monocytes % 9.9 %; Neutrophils # 4.04 10^3/uL (1.8-7.7); Neutrophils % 62.6 %; Nucleated Red Blood Cells % 0 %; Platelet Count 199 10^3/cmm (130-400); Red Blood Count 3.86 10^6/uL (4.1-5.3); Red Cell Distribution Width 14.8 % (12.1-15.1); White Blood Count 6.5 10^3/uL (4.0-10.0)
[2023-01-08 09:47] LABS: Alanine Aminotransferase 10 U/L (0-41); Albumin Level 4.2 g/dL (3.5-5.2); Alkaline Phosphatase 136 U/L (40-130); Aspartate Amino Transferase 25 U/L (0-40); Blood Urea Nitrogen 43 mg/dL (8-23); Calcium 9.9 mg/dL (8.5-10.5); Carbon Dioxide 21 mmol/L (22-29); Chloride 106 mmol/L (98-107); Globulin 3.5 g/dL (1.3-4.6); Glucose 93 mg/dL (65-115); Lipase 24 U/L (13-60); Osmolality Calculated 299 mOsm/kg (285-295); Sodium 139 mmol/L (136-145); Total Bilirubin 0.4 mg/dL (0.15-1.2); Total Protein 7.7 g/dL (6.6-8.7)
[2023-01-08 09:49] LABS: Ammonia 21 umol/L (16-60)
[2023-01-08 09:50] LABS: Alcohol Level < 10 mg/dL (0-10)
[2023-01-08 10:05] LABS: Add Urine Microscopic? NO; Charge for UA Resulting for Rev
[2023-01-08 10:16] LABS: Amphetamines Screen Urine Negative (Negative); Barbiturates Screen Urine Negative (Negative); Benzodiazepines Screen Urine Negative (Negative); Bilirubin Urine Neg (Negative); Blood Urine Neg (Negative); Cocaine Screen Urine Negative (Negative); Glucose Urine UA Norm (Normal); Ketones Urine Negative (Negative); Leukocyte Esterase Urine Negative (Negative); Nitrate Urine Negative (Negative); Opiate Screen Urine Positive (Negative); PCP Screen Urine Negative (Negative); Protein Urine Neg (Negative); THC Screen Urine Negative (Negative); Urine Appearance Clear (CLEAR); Urine Color Yellow (Yellow); Urobilinogen Urine Norm (Negative); pH Urine 5 (5-7)
[2023-01-08] MEDS: sodium chloride 0.9% 1,000 ML 999 ML IV (11:09)
[2023-01-08] MEDS: calcium chloride 10% Syr 10 mL 1 GM IVP (11:09)
[2023-01-08] MEDS: sodium polystyrene sulfonate 15 gm/60 mL Btl PO (11:13)
[2023-01-08] MEDS: albuterol 2.5 mg/3 mL Neb 10 MG INHALATION (12:15)
--- NOTE | 2023-01-08 12:47 | PM.HP ---
Providers/Chief Complaint Primary Care Provider: Galindo Carson DO Chief Complaint: AMS History of Present Illness 77 year old male? with past medical history of coronary artery disease s/p stenting of distal RCA [place] [address] Holder, type 2 diabetes mellitus, dyslipidemia, depression, obstructive sleep apnea, chronic back pain who was brought in to ER for altered mental status as well as decreased p.o. intake for the last 2 days.History was mainly provided by his and daughter, patient himself is currently, not very coherent, he currently states that, he do not know why he is in the hospital, states he feels fine, wants to go home.CT head without contrast: Failed to show any acute intracranial pathology, CT abdomen and pelvis:No acute abdominopelvic findings, x-ray chest: No acute findings. Pertinent labs: WBC 6.5, H&H 11.2 37.2,PLT : 199 , serum sodium 139 serum potassium 6, BUN 43 serum creatinine 3.2, RBS:93. Patient received routine hyperkalemia cocktail in the ER, and also received 1 L normal saline bolus. Review of Systems General: Reports: 10 or more systems reviewed and unremarkable except in HPI and below Const: Denies: fever(s), chills, body aches, change in appetite or diaphoresis Card: Denies: palpitations, edema, swelling of feet/ankles, dyspnea on exertion, orthopnea or leg pain with exertion Resp: Denies: dyspnea, productive cough, wheezing or pain on inspiration GI: Denies: abdominal pain, nausea, vomiting, diarrhea or constipation Neuro: Denies: headache(s) Medications/Allergies Home Medications Medication Instructions Recorded Confirmed Last Taken Type naloxone 4 mg/actuation nasal 1 spray intranasal .COMPLEX 10/15/19 01/08/23 Unknown History spray (Narcan) pantoprazole 40 mg tablet,delayed 40 mg PO BID #60 tabs 11/21/19 01/08/23 01/07/23 Rx release (Protonix) metformin 1,000 mg tablet 1,000 mg PO BID 30 days #60 tabs 02/26/20 01/08/23 01/07/23 Rx albuterol sulfate 90 mcg/actuation 1 - 2 puff inhalation Q6H PRN 05/25/20 01/08/23 Unknown History aerosol inhaler (ProAir HFA) shortness of breath or wheezing allopurinol 300 mg tablet 300 mg PO DAILY 05/02/21 01/08/23 01/07/23 History baclofen 10 mg tablet 5 mg PO BID 08/06/21 01/08/23 01/07/23 History triamcinolone acetonide 0.1 % See Rx Instructions .Route .COMPLEX 08/06/21 01/08/23 Unknown History topical ointment clopidogrel 75 mg tablet (Plavix) 75 mg PO DAILY #30 tabs 08/07/21 01/08/23 01/07/23 Rx aspirin 81 mg tablet,delayed 81 mg PO DAILY #90 tabs 02/24/22 01/08/23 01/07/23 Rx release carvedilol 12.5 mg tablet (Coreg) 12.5 mg PO BID 06/02/22 01/08/23 01/07/23 History fluticasone propionate 50 2 spray intranasal DAILY 06/02/22 01/08/23 01/07/23 History mcg/actuation nasal spray,suspension furosemide 40 mg tablet 40 mg PO BID 06/02/22 01/08/23 01/07/23 History potassium chloride 20 mEq 10 meq PO BID 06/02/22 01/08/23 01/07/23 History tablet,extended release atorvastatin 20 mg tablet 20 mg PO DAILY 07/05/22 01/08/23 01/07/23 History benazepril 20 mg tablet 30 mg PO BID 07/05/22 01/08/23 01/07/23 History isosorbide mononitrate 60 mg 90 mg PO DAILY 07/05/22 01/08/23 01/07/23 History tablet,extended release 24 hr lidocaine 5 % topical patch 1 patch topical DAILY #30 ea 07/05/22 01/08/23 Unknown Rx (Lidoderm) meclizine 25 mg tablet 25 mg PO Q8H PRN Dizziness 07/05/22 01/08/23 Unknown History nitroglycerin 0.4 mg sublingual 0.4 mg sublingual Q5M PRN Chest 07/05/22 01/08/23 Unknown History tablet (Nitrostat) Pain pregabalin 150 mg capsule 150 mg PO Q8H 07/05/22 01/08/23 01/07/23 History fluticasone 250 mcg-salmeterol 50 1 inh inhalation BID 01/08/23 01/08/23 01/07/23 History mcg/dose blistr powdr for inhalation (Advair Diskus) hydrocodone 10 mg-acetaminophen 1 tab PO Q6H PRN Pain 01/08/23 01/08/23 Unknown History 325 mg tablet sennosides 8.6 mg-docusate sodium 1 tab-cap PO DAILY 01/08/23 01/08/23 01/07/23 History 50 mg tablet (Senna-S) Allergies Allergy/AdvReac Type Severity Reaction Status Date / Time gabapentin AdvReac Mild ADR-Nausea Verified 06/02/22 18:10 PFSH Acute PFSH: Medical History (Updated 01/08/23 @ 13:23 by Iain Alvares DO) Acute decompensated heart failure Altered mental status Atherosclerotic heart disease of [place] coronary artery with other forms of angina pectoris Atypical chest pain CAD (coronary artery disease) Carotid artery narrowing Chronic back pain CKD (chronic kidney disease) Congestive heart failure COPD (chronic obstructive pulmonary disease) Diabetes mellitus type 2 in obese Dyslipidemia Elevated troponin Encephalopathy, hypertensive Encounter for long-term use of opiate analgesic Gabapentin overdose Gout Hypertension Ischemic cardiomyopathy Major depressive disorder, recurrent, mild (Unknown) Neuropathy NSTEMI (non-ST elevated myocardial infarction) Opioid contract exists MALORIE (obstructive sleep apnea) Pulmonary hypertension Renal insufficiency Severe tricuspid regurgitation Smokeless tobacco use Substance abuse Urinary retention Surgical History History of cholecystectomy History of heart artery stent Family History Other Cancer Hypertension Social History Smoking and tobacco status: former smoker Second hand smoke exposure: No Alcohol intake: never Substance/Drug Use: never Vitals/I&O/Wt Last Vital Signs Temp 99.0 F 01/08/23 08:51 Pulse 74 01/08/23 12:28 Resp 16 01/08/23 12:13 BP 111/61 01/08/23 10:09 Pulse Ox 98 01/08/23 12:13 O2 Del Method Room Air 01/08/23 12:13 Physical Exam Narrative: Patient is not aware why is he in hospital, says that he fells fine. HENMT: COMMON NORMALS: normocephalic and atraumatic Resp: COMMON NORMALS: clear to auscultation bilaterally AUSCULTATION: clear to auscultation bilaterally Cardio: COMMON NORMALS: regular rate, regular rhythm, S1 normal heart sound present, S2 normal heart sound present, No gallops present (Cardio), No murmurs present (Cardio), No rub (Cardio) and Peripheral pulses 2+ throughout RATE: regular rate RHYTHM: regular rhythm HEART SOUNDS: S1 normal heart sound present and S2 normal heart sound present PERIPHERAL PULSES: Peripheral pulses 2+ throughout GI: COMMON NORMALS: Normal to inspection, nondistended, normoactive bowel sounds present, Soft to palpation, non-tender, No hepatosplenomegaly present and no masses AUSCULTATION: Yes normoactive bowel sounds PALPATION: Yes Soft to palpation and Yes No hepatosplenomegaly present RECTAL EXAM: Yes deferred Extremity: COMMON NORMALS: no clubbing, cyanosis or edema and no pedal edema Data 01/08/23 09:24 01/08/23 09:24 A&P Assessment and plan (1) Altered mental status: Qualifiers: Altered mental status type: unspecified Qualified Code(s): R41.82 - Altered mental status, unspecified (2) HTN (hypertension): (3) Acute kidney injury superimposed on chronic kidney disease: (4) Hyperkalemia: (5) CAD (coronary artery disease): Qualifiers: Associated angina: with unspecified form of angina Coronary Disease-Associated Artery/Lesion type: [place] artery [place] vs. transplanted heart: [place] heart Qualified Code(s): I25.119 - Atherosclerotic heart disease of [place] coronary artery with unspecified angina pectoris (6) Congestive heart failure: Qualifiers: Heart failure chronicity: acute on chronic Heart failure type: combined systolic and diastolic Qualified Code(s): I50.43 - Acute on chronic combined systolic (congestive) and diastolic (congestive) heart failure (7) Diabetes mellitus type 2 in obese: (8) COPD (chronic obstructive pulmonary disease): (9) Hypertension: Qualifiers: Hypertension type: primary hypertension Qualified Code(s): I10 - Essential (primary) hypertension (10) Gout: (11) MALORIE (obstructive sleep apnea): Plan 77 year old male? with past medical history of coronary artery disease s/p stenting of distal RCA [place] [address] Holder, type 2 diabetes mellitus, dyslipidemia, depression, obstructive sleep apnea, chronic back pain who was brought in to ER for altered mental status as well as decreased p.o. intake for the last 2 days.History was mainly provided by his and daughter, patient himself is currently, not very coherent, he currently states that, he do not know why he is in the hospital, states he feels fine, wants to go home. Assessment: Acute metabolic encephalopathy: Likely secondary to ANAT hyperkalemia, dehydration. CT head without contrast: Failed to show any acute intracranial pathology, CT abdomen and pelvis:No acute abdominopelvic findings, x-ray chest: No acute findings. Currently has received hyperkalemia cocktail, on IV hydration, monitor BMP. 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 potassium History of coronary artery disease s/p PCI Continue aspirin, Plavix beta-nico, statin History of diabetes: SSI,FSG History of gout: Continue allopurinol CODE STATUS full code DVT prophylaxis on subcu heparin Attestations Medical Necessity Statement*: Patient is in hospital for management of altered mental status.Anticipated length of stay greater than 2 midnightS Coding Level of Care Code Acute Code for Chg Fwd Diagnoses Altered mental status R41.82 Altered mental status type: unspecified HTN (hypertension) I10 Acute kidney injury superimposed on chronic kidney disease N17.9; N18.9 Hyperkalemia E87.5 CAD (coronary artery disease) I25.119 Associated angina: with unspecified form of angina Coronary Disease-Associated Artery/Lesion type: [place] artery [place] vs. transplanted heart: [place] heart Congestive heart failure I50.43 Heart failure chronicity: acute on chronic Heart failure type: combined systolic and diastolic Diabetes mellitus type 2 in obese E11.69; E66.9 COPD (chronic obstructive pulmonary disease) J44.9 Gout M10.9 MALORIE (obstructive sleep apnea) G47.33
[2023-01-08 13:55] LABS: ABG PCO2 41.1 mmHg (35-45); ABG PH Result 7.29 (7.35-7.45); Alveolar-Arterial Oxygen Gradi 2.9 mmHg (5-10); Arterial Blood Gas Hematocrit 34.3 % (42-52); Base Excess ABG -6.3 mmol/L (-2.0-2.0); Blood Gas Allen Test Pos; Blood Gas Operator Identificat WALCI; Blood Gas Sample Site Radial, right; Blood Gas Sample Type Arterial; Carboxyhemoglobin 1.2 %THgb (0.4-20.1); HCO3 ABG 19.8 mmol/L (22-26); HGB O2 Sat 92.6 % (95-100); Ionized Calcium Level - ABG 1.4 mmol/L (1.1-1.4); Methemoglobin 0.7 % (0.4-1.5); Oxygen Saturation ABG 94.4; PO2 ABG 74.7 mmHg (80.0-100.0); Potassium Level - ABG 5.7 mmol/L (3.5-5.0); Total Hemoglobin 11.2 g/dL (14-18)
--- NOTE | 2023-01-08 14:02 | ECG_ITS ---
[facility] Test Date: 2023-01-08 Pat Name: Isaías Clarke Department: Room: Gender: Male Scan Coordinator: : 1945 Requested By: Emil Weaver Order Number: [id number] Beata MD: Alfonso Khan M.D. Measurements Intervals Walker Rate: 82 P: 52 FL: 175 QRS: 27 QRSD: 101 T: 24 QT: 336 QTc: 392 Interpretive Statements SINUS RHYTHM LOW QRS VOLTAGE IN PRECORDIAL LEADS [QRS DEFLECTION < 1.0 mV IN CHEST LEADS] Compared to ECG 11/25/2022 02:23:59 Low QRS voltage now present Electronically Signed On 01-08-2023 22:37:50 CDT by Alfonso Khan M.D. [email or web address]
[2023-01-08] MEDS: ipratropium-albuterol 3 mL Neb INHALATION (16:11)
[2023-01-08] MEDS: sodium chloride 0.9% 1,000 ML 75 ML IV (16:19)
[2023-01-08] MEDS: heparin 5,000 unit/mL INJ 1 mL 5000 UNIT SUBCUT (16:19)
[2023-01-08 16:48] LABS: Glucose Point of Care 117 mg/dL (70-110)
[2023-01-08] MEDS: haloperidol inj 5 mg/mL INJ 1 mL IM (19:20)
[2023-01-08 21:23] LABS: Anion Gap 16.7 (5-19); Blood Urea Nitrogen 37 mg/dL (8-23); Calcium 9.6 mg/dL (8.5-10.5); Carbon Dioxide 20 mmol/L (22-29); Chloride 109 mmol/L (98-107); Glucose 145 mg/dL (65-115); Osmolality Calculated 301 mOsm/kg (285-295); Potassium 5.7 mmol/L (3.5-5.1); Sodium 140 mmol/L (136-145)
[2023-01-08 22:14] LABS: Glucose Point of Care 139 mg/dL (70-110)
[2023-01-08] MEDS: ziprasidone 20 mg/mL SDV 10 MG IM (22:18)
[2023-01-08 22:49] LABS: Glucose Point of Care 151 mg/dL (70-110)
[2023-01-08] MEDS: insulin regular-human 10 UNIT in SYRINGE 1 EACH IVP (23:09)
[2023-01-09] VITALS (7 sets, daily range): BP systolic 110–148; BP diastolic 54–81; PULSE 65–82; RESP 16–18; TEMP 36.7–37.2; O2SAT 92–96; BMI 33.7
[2023-01-09] MEDS: pantoprazole 40 mg SDV IVP (00:33)
[2023-01-09 01:00] LABS: Basophils % 0.5 %; Eosinophils # 0.1 10^3/uL (0.0-0.8); Eosinophils % 0.8 %; Hematocrit 32.8 % (42.0-52.0); Hemoglobin 10.1 g/dL (11.7-16.6); Lymphocytes # 1.2 10^3/uL (0.8-4.8); Lymphocytes % 20.4 %; Mean Corpuscular HGB Conc 30.8 g/dL (30.0-36.0); Mean Corpuscular Hemoglobin 29.2 pg (28.0-34.0); Mean Corpuscular Volume 94.8 fl (80-94); Mean Platelet Volume 11.2 fL (7.4-10.4); Monocytes # 0.5 10^3/uL (0.2-0.9); Monocytes % 7.7 %; Neutrophils # 4.29 10^3/uL (1.8-7.7); Neutrophils % 70.4 %; Nucleated Red Blood Cells % 0 %; Platelet Count 188 10^3/cmm (130-400); Red Blood Count 3.46 10^6/uL (4.1-5.3); Red Cell Distribution Width 14.7 % (12.1-15.1); White Blood Count 6.1 10^3/uL (4.0-10.0)
[2023-01-09 01:18] LABS: Troponin(5th) Baseline 54 ng/L (0-15)
[2023-01-09 01:22] LABS: Blood Urea Nitrogen 34 mg/dL (8-23); Calcium 9.6 mg/dL (8.5-10.5); Carbon Dioxide 21 mmol/L (22-29); Chloride 111 mmol/L (98-107); Glucose 110 mg/dL (65-115); Magnesium 1.2 mg/dL (1.7-2.3); Osmolality Calculated 302 mOsm/kg (285-295); Sodium 142 mmol/L (136-145)
[2023-01-09 01:29] LABS: Glucose Point of Care 114 mg/dL (70-110)
[2023-01-09] MEDS: heparin 5,000 unit/mL INJ 1 mL 5000 UNIT SUBCUT ×2 (04:12→17:46)
[2023-01-09 04:18] LABS: Troponin 5 2HR 61.68 ng/L (0-15)
[2023-01-09 04:22] LABS: Troponin 5 2HR Delta 7.68 ABS# (0-10)
[2023-01-09] MEDS: haloperidol inj 5 mg/mL INJ 1 mL IM (06:33)
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
[2023-01-09 06:44] LABS: Troponin 5 6HR 73.57 ng/L (0-15)
[2023-01-09 07:07] LABS: Glucose Point of Care 101 mg/dL (70-110)
[2023-01-09 08:35] LABS: Troponin 5 6HR Delta 19.57 ng/L (0-12)
[2023-01-09] MEDS: HYDROcodone-acetaminophen 10-325 mg Tablet 1 TAB PO ×2 (09:33→17:45)
[2023-01-09] MEDS: atorvastatin 40 mg Tablet 20 MG PO (09:34)
[2023-01-09] MEDS: isosorbide mononitrate ER 30 mg Tablet 90 MG PO (09:34)
[2023-01-09] MEDS: clopidogrel 75 mg Tablet PO (09:34)
[2023-01-09] MEDS: sodium polystyrene sulfonate 15 gm/60 mL Btl PO ×3 (09:35→21:01)
[2023-01-09] MEDS: pantoprazole DR 40 mg Tablet PO ×2 (09:35→17:45)
[2023-01-09] MEDS: carvedilol 12.5 mg Tablet PO ×2 (09:35→17:48)
[2023-01-09] MEDS: aspirin 81 mg EC Tablet PO (09:35)
[2023-01-09] MEDS: allopurinol 300 mg Tablet PO (09:35)
[2023-01-09] MEDS: sennosides-docusate Tablet 1 TAB PO (09:35)
[2023-01-09 11:15] LABS: Glucose Point of Care 153 mg/dL (70-110)
[2023-01-09] MEDS: pregabalin 150 mg Capsule PO ×2 (12:07→17:45)
[2023-01-09 12:12] LABS: Glucose Point of Care 127 mg/dL (70-110)
--- NOTE | 2023-01-09 16:20 | PM.PN ---
Subjective Subjective: Hospital course, labs appreciated. Today morning seen with family at bedside. Overnight patient had episodes of agitation and aggressiveness when he tried to hit the sitters and the nurses. Nursing also reported patient to be having indecent behavior. Today morning on examination patient sitting up comfortably. As per the patient was admitted to hospital in [place] and was under 96-hour hold over there as well last month. Patient on examination is awake and alert with episodes of confusion and aggressiveness in between. Asking for his pain medications for pain in his back. Otherwise has remained hemodynamically stable and afebrile on room air. Vitals/I&O/Wt Last Vital Signs Temp 99 F 01/09/23 12:00 Pulse 77 01/09/23 12:00 Resp 16 01/09/23 12:00 BP 110/70 01/09/23 12:00 Pulse Ox 94 01/09/23 12:00 O2 Del Method Room Air 01/09/23 12:00 01/09/23 01/09/23 01/09/23 06:59 14:59 22:59 Intake Total 1050.1 / 0.1 960 / 960 Balance 1050.1 / 1950.1 960 / 960 Weight last 48 hrs Weight 106.736 kg Weight 110.223 kg Physical Exam Narrative: Patient is not aware why is he in hospital, says that he fells fine. Const: COMMON NORMALS: no acute distress GENERAL APPEARANCE: combative and well hydrated NUTRITIONAL APPEARANCE: overweight ORIENTATION/CONSCIOUSNESS: Yes awake, Yes oriented to person, Yes oriented to place, Yes oriented to time and Yes confused (Occasional) HENMT: COMMON NORMALS: normocephalic and atraumatic HEAD & SCALP: normocephalic and atraumatic Resp: COMMON NORMALS: clear to auscultation bilaterally AUSCULTATION: clear to auscultation bilaterally Cardio: COMMON NORMALS: regular rate, regular rhythm, S1 normal heart sound present, S2 normal heart sound present, No gallops present (Cardio), No murmurs present (Cardio), No rub (Cardio) and Peripheral pulses 2+ throughout RATE: regular rate RHYTHM: regular rhythm HEART SOUNDS: S1 normal heart sound present and S2 normal heart sound present PERIPHERAL PULSES: Peripheral pulses 2+ throughout GI: COMMON NORMALS: Normal to inspection, nondistended, normoactive bowel sounds present, Soft to palpation, non-tender, No hepatosplenomegaly present and no masses AUSCULTATION: Yes normoactive bowel sounds PALPATION: Yes Soft to palpation and Yes No hepatosplenomegaly present RECTAL EXAM: Yes deferred Extremity: COMMON NORMALS: no clubbing, cyanosis or edema and no pedal edema Neuro: SENSORIUM/ORIENTATION: Yes oriented to person, Yes oriented to place and Yes oriented to time Psych: COMMON NORMALS: speech normal, denies hallucinations, denies homicidal ideation and denies suicidal ideation ATTITUDE: Yes agitated and Yes hostile ACTIVITY/MOTOR BEHAVIOR: Yes appropriate eye contact SPEECH: Yes normal speech MOOD & AFFECT: Yes irritable and Yes hostile affect MEMORY/COGNITION: Yes cognition grossly intact Data 01/09/23 00:37 01/09/23 00:37 A&P Assessment and plan (1) Altered mental status: Qualifiers: Altered mental status type: unspecified Qualified Code(s): R41.82 - Altered mental status, unspecified (2) HTN (hypertension): (3) Acute kidney injury superimposed on chronic kidney disease: (4) Hyperkalemia: (5) CAD (coronary artery disease): Qualifiers: Coronary Disease-Associated Artery/Lesion type: [place] artery [place] vs. transplanted heart: [place] heart Associated angina: with unspecified form of angina Qualified Code(s): I25.119 - Atherosclerotic heart disease of [place] coronary artery with unspecified angina pectoris (6) Congestive heart failure: Qualifiers: Heart failure type: combined systolic and diastolic Heart failure chronicity: acute on chronic Qualified Code(s): I50.43 - Acute on chronic combined systolic (congestive) and diastolic (congestive) heart failure (7) Diabetes mellitus type 2 in obese: (8) COPD (chronic obstructive pulmonary disease): (9) Gout: (10) MALORIE (obstructive sleep apnea): Plan 77 year old male? with past medical history of coronary artery disease s/p stenting of distal RCA [place] [address] Holder, type 2 diabetes mellitus, dyslipidemia, depression, obstructive sleep apnea, chronic back pain who was brought in to ER for altered mental status as well as decreased p.o. intake for the last 2 days.History was mainly provided by his and daughter, patient himself is currently, not very coherent, he currently states that, he do not know why he is in the hospital, states he feels fine, wants to go home. Assessment: Acute metabolic encephalopathy: Likely secondary to ANAT hyperkalemia, dehydration though I do not believe he is too much away from his baseline mentation. CT head negative for acute abnormality, no concerns for infectious source as patient has remained afebrile without any leukocytosis. ANAT has resolved. Patient is appropriately hydrated. No electrolyte abnormality. Appreciate recently done A1c, lipid panel, B12, folate and TSH levels. Urine drug screen negative other than opiates. Alcohol negligible negative. Haldol 5 mg IM every 4 hours.. Geodon 10 mg every 12 hours as needed. Psychiatry evaluation for further recommendations and help with agitation. I do believe his symptoms are most likely at his baseline. His behavior is normal further than his baseline behaviors. Hold off on baclofen. Restart home dose of Lyrica and pain medications. Psychiatric consultation. For now we will start on 20 mg of oral Geodon twice daily while he has been awaiting for psychiatric evaluation and discontinue according to recommendations. ANAT likely prerenal: Baseline creatinine 1.6-2. Renal functions improving. Back to baseline. Medical reconciliation done for nephrotoxic drugs. Continue with IV fluid as above for now. Patient would benefit to be discharged of Benzpril. Hyperkalemia: Resolving. Stable at 5 today. Monitor BMP every 12 hourly. Holding off on home dose of potassium. History of CAD post PCI: Troponin cycled on admission slightly elevated but patient denies of having any active chest pain. Continue aspirin, Plavix beta-nico, statin Continue to monitor. Denies any active chest pain. We will hold off on full dose anticoagulation now given patient's agitation. Hypertension: Goal blood pressure less than 140/90 mmHg. On multiple antihypertensives at home including Coreg 12.5 mg twice daily, Imdur 90 mg daily, benazepril 20 mg twice daily, Lasix 40 mg twice daily. Holding off on Lasix and bisoprolol for now. Continue to monitor and uptitrate accordingly. History of diabetes: Insulin sliding scale at low-dose protocol. History of gout: Continue allopurinol Discharge plan: Discussed in detail with patient's at bedside. She states she is not able to take care of him anymore. She does not feel that he would be safe at home given his behaviors of being aggressive. She is requesting for him to be transition to SNF. Patient would benefit from transition to [facility] unit for long-term planning is set given is not able to take care of him home safely now. Psychiatric evaluation. Did discuss in detail with patient's that if patient is unwilling to go to SNF it will be difficult for us to place the patient moreover he would require level 2 placement if he accepts and deemed appropriate as per psych evaluation until he is deemed unable to make his own medical decision when he can be transition to [facility] involuntarily. CODE STATUS: Full code Diabetic diet. Protonix for PUD prophylaxis DVT prophylaxis on subcu heparin Attestations Medical Necessity Statement*: Requires further hospitalization for management of acute metabolic encephalopathy leading to extreme agitation, ANAT and CKD was stable discharge planning is sought. Diagnoses Altered mental status R41.82 Altered mental status type: unspecified HTN (hypertension) I10 Acute kidney injury superimposed on chronic kidney disease N17.9; N18.9 Hyperkalemia E87.5 CAD (coronary artery disease) I25.119 Coronary Disease-Associated Artery/Lesion type: [place] artery [place] vs. transplanted heart: [place] heart Associated angina: with unspecified form of angina Congestive heart failure I50.43 Heart failure type: combined systolic and diastolic Heart failure chronicity: acute on chronic Diabetes mellitus type 2 in obese E11.69; E66.9 COPD (chronic obstructive pulmonary disease) J44.9 Gout M10.9 MALORIE (obstructive sleep apnea) G47.33
[2023-01-09 16:49] LABS: Glucose Point of Care 146 mg/dL (70-110)
--- NOTE | 2023-01-09 17:29 | P.NPUCON_ITS ---
Providers/Reason for Consult Consulting Physican/Specialty*: Kurtis Dowell MD. Psychiatry. Reason for Consult*: Altered mental status Attending Physician: Barak Jarvis MD Primary Care Provider: Galindo Carson DO Psych Consult HPI History of Present Illness Isaías Clarke is a 77 year old male who presented to the emergency department with the following report: Chief complaint: Altered Mental Status Stated complaint: AMS Time Seen by Provider: 01/08/23 08:50 Source: patient Mode of arrival: ambulatory History of Present Illness: 77-year-old male presents emergency room with his . She states for the last 2 days he is been having altered mental status he does not seem quite himself. She denies any complaints of chest pain or shortness of breath he has chronic back pain with pain into his legs which for the most part seems to be unchanged there is no vomiting or diarrhea no fever. He has a known history of coronary artery disease. No reports of dysuria urgency or frequency no hematochezia melena hematemesis or coffee-ground emesis. No recent change in medications. His states his abdomen seems more distended. When I asked the patient specifically he denies any abdominal pain. Onset (ago): day(s) (2) Severity: moderate Relieving factors: none Exacerbating factors: none Associated symptoms: Deny chest pain, confusion, cough, diaphoresis, decreased appetite, dyspnea, fevers/chills, headache(s), malaise, nausea, rash, palpit ations, seizures, short of breath, syncope, vomiting or weakness Treatments prior to arrival: none Patient was admitted to the [facility] department for definitive treatment of those issues. In addition to difficulties and getting him to participate in treatment plan there were issues of aggression, irritability and inappropriate behaviors around women. Psychiatric consult was requested to evaluate patient for need for assisted versus acute [facility]. He was admitted to the [facility] department for definitive treatment of those issues. He had some episodes of bizarre behavior including inappropriate touching of female staff members and a psychiatric consult was requested for evaluation of his behaviors. The night prior meeting he was given both Haldol and Geodon. Today he has received Haldol as an as needed medication and twice daily Geodon was discussed. Patient presented denying that he had any memory of the behaviors of concern. It was not clear whether he was really amnestic for the event. But we discussed that there was no indication that he should be amnestic. He was able to assure this program writer that those are not behaviors he would do and is not something that staff should be concerned about moving forward. He denied inpatient or outpatient psychiatric services. He has had some substance abuse history but reports for various reasons he has discontinued those behaviors which included tobacco alcohol and marijuana. He denied current depression. He denied significant anxiety or mental health problems and could not explain what was going on at home but the behaviors were consistent with poor impulse control and possible personality changes. The nurse which has been on throughout the day identifies that by the time he came on and with just the administration of the 5 mg of Haldol patient has been a consistently reasonable client throughout the day. We discussed the risk benefits and alternatives of continuing him on an antipsychotic twice daily and continuing to explore his memory. Otherwise we reviewed his psychosocial history and excerpt of his outpatient evaluation from May 2021 is included below for context and lack of substance of changes. As he reports being for 43 years to the same woman living where he has lived for some time and denying any major life changes. Per his 05/26/2021 [facility] outpatient psychiatric evaluation: [facility] History and Physical Time In: 11:45 Time Out: 12:45 Chief Complaint: I want to get back no my medications. History of Present Illness: Isaías presents to [facility] care for psychiatric evaluation.? He has been seen at [facility] in the past but his has been greater than a year which is why he is scheduled for an evaluation.? He was last seen January 2020. Isaías states he stopped his medication because he did not feel it was working for him.? Today he tells me he wants to restart his medication because he now knows after stopping it that was working better for him than he thought.? Describes his mood as not too bad today.? States getting out of the house helps.? He does report depression.? When asked to describe he states he just sits around the house and stares at the floor.? He also indicates his pain limits him from doing much and his pain contributes to his depression.? He denies suicidal thoughts.? No homicidal thoughts.? No auditory visual hallucinations.? He states he has not been sleeping well.? Describes his sleep as staying up until 4 AM and sleeping until 7 AM.? He may take a nap in the afternoon for about 3 to 4 hours as well.? He states he previously was prescribed trazodone from his primary care provider and would like to restart that today as well.? No history of kim. History Past Psychiatric History: Isaías has been treated at [facility] off and on since 2012.? He has seen providers including Kiera Reyes, Dr. Liang, Dr. Lee, and Dr. Lynn.? Diagnosis includes major depressive disorder.? He has been on medications including Abilify, Zoloft, Cymbalta, trazodone, and Viibryd.? States the Viibryd has worked the best for him. Family History: Isaías denies any family history of mental illness Past Medical History: Reports chronic pain in his feet, back, ankles.? Is prescribed hydrocodone 7.5 mg every 6 hours by his primary care provider Dr. Cronin in [place].? Reports diabetes in which she treats with Metformin.? Reports diabetic retinopathy in which he uses Lyrica.? Walks with a cane.? Previous surgeries include a stent in his heart and also states he has had surgery on his feet. Substance Use History: Previously smoked cigarettes for 20 years, states he quit 10 years ago.? Chews tobacco, 1 can of snuff per day for the last 65 years ? States he has used marijuana before but this has been greater than 10 years ago.? Denies other drug use. ? States he previously has drank heavily.? States he never drank hard alcohol but would drink a beer.? Has not drank in the last 10 years. Social History: Isaías lives in [place] with his .? He has had 3 children, 2 are still living age 57 and 50.? He is retired/disabled.? 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 He states he did not graduate high school.? Like 2 months until completion.? Has been arrested before for traffic tickets, this was greater than 10 years ago. Meds Home Medications and Allergies Home Medications Medication Instructions Recorded Confirmed Last Taken Type naloxone 4 mg/actuation nasal 1 spray intranasal .COMPLEX 10/15/19 01/08/23 Unknown History spray (Narcan) pantoprazole 40 mg tablet,delayed 40 mg PO BID #60 tabs 11/21/19 01/08/23 01/07/23 Rx release (Protonix) metformin 1,000 mg tablet 1,000 mg PO BID 30 days #60 tabs 02/26/20 01/08/23 01/07/23 Rx albuterol sulfate 90 mcg/actuation 1 - 2 puff inhalation Q6H PRN 05/25/20 01/08/23 Unknown History aerosol inhaler (ProAir HFA) shortness of breath or wheezing allopurinol 300 mg tablet 300 mg PO DAILY 05/02/21 01/08/23 01/07/23 History baclofen 10 mg tablet 5 mg PO BID 08/06/21 01/08/23 01/07/23 History triamcinolone acetonide 0.1 % See Rx Instructions .Route .COMPLEX 08/06/21 01/08/23 Unknown History topical ointment clopidogrel 75 mg tablet (Plavix) 75 mg PO DAILY #30 tabs 08/07/21 01/08/23 01/07/23 Rx aspirin 81 mg tablet,delayed 81 mg PO DAILY #90 tabs 02/24/22 01/08/23 01/07/23 Rx release carvedilol 12.5 mg tablet (Coreg) 12.5 mg PO BID 06/02/22 01/08/23 01/07/23 History fluticasone propionate 50 2 spray intranasal DAILY 06/02/22 01/08/23 01/07/23 History mcg/actuation nasal spray,suspension furosemide 40 mg tablet 40 mg PO BID 06/02/22 01/08/23 01/07/23 History potassium chloride 20 mEq 10 meq PO BID 06/02/22 01/08/23 01/07/23 History tablet,extended release atorvastatin 20 mg tablet 20 mg PO DAILY 07/05/22 01/08/23 01/07/23 History benazepril 20 mg tablet 30 mg PO BID 07/05/22 01/08/23 01/07/23 History isosorbide mononitrate 60 mg 90 mg PO DAILY 07/05/22 01/08/23 01/07/23 History tablet,extended release 24 hr lidocaine 5 % topical patch 1 patch topical DAILY #30 ea 07/05/22 01/08/23 Unknown Rx (Lidoderm) meclizine 25 mg tablet 25 mg PO Q8H PRN Dizziness 10/25/22 04/30/23 Unknown History nitroglycerin 0.4 mg sublingual 0.4 mg sublingual Q5M PRN Chest 07/05/22 01/08/23 Unknown History tablet (Nitrostat) Pain pregabalin 150 mg capsule 150 mg PO Q8H 07/05/22 01/08/23 01/07/23 History fluticasone 250 mcg-salmeterol 50 1 inh inhalation BID 01/08/23 01/08/23 01/07/23 History mcg/dose blistr powdr for inhalation (Advair Diskus) hydrocodone 10 mg-acetaminophen 1 tab PO Q6H PRN Pain 01/08/23 01/08/23 Unknown History 325 mg tablet sennosides 8.6 mg-docusate sodium 1 tab-cap PO DAILY 01/08/23 01/08/23 01/07/23 History 50 mg tablet (Senna-S) Allergies Allergy/AdvReac Type Severity Reaction Status Date / Time gabapentin AdvReac Mild ADR-Nausea Verified 06/02/22 18:10 Current Medications Current Medications Generic Name Dose Route Start Last Admin Trade Name Freq PRN Reason Stop Dose Admin Hydrocodone Bitart/Acetaminophen 1 tab 01/09/23 09:25 01/09/23 09:33 Hydrocodone-Acetaminophen 10-325 Mg Tablet PO 1 tab Q8H PRN Administration MODERATE PAIN Albuterol/Ipratropium 3 ml 01/09/23 12:00 01/09/23 15:23 Ipratropium-Albuterol 3 Ml Neb INHALATION Not Given QID.RESPIRATORY NICHOLAS Allopurinol 300 mg 01/09/23 09:00 01/09/23 09:35 Allopurinol 300 Mg Tablet PO 300 mg DAILY NICHOLAS Administration Aspirin 81 mg 01/09/23 09:00 01/09/23 09:35 Aspirin 81 Mg Ec Tablet PO 81 mg DAILY NICHOLAS Administration Atorvastatin Calcium 20 mg 01/09/23 09:00 01/09/23 09:34 Atorvastatin 40 Mg Tablet PO 20 mg DAILY NICHOLAS Administration Budesonide 0.5 mg 01/08/23 20:00 01/09/23 08:39 Budesonide 0.5 Mg/2 Ml Neb INHALATION Not Given BID.RESPIRATORY NICHOLAS Carvedilol 12.5 mg 01/08/23 18:00 01/09/23 09:35 Carvedilol 12.5 Mg Tablet PO 12.5 mg BID NICHOLAS Administration Clopidogrel Bisulfate 75 mg 01/09/23 09:00 01/09/23 09:34 Clopidogrel 75 Mg Tablet PO 75 mg DAILY NICHOLAS Administration Haloperidol Lactate 5 mg 01/08/23 22:07 01/09/23 06:33 Haloperidol Inj 5 Mg/Ml Inj 1 Ml IM 5 mg Q6H PRN Administration AGITATION Heparin Sodium (Porcine) 5,000 unit 01/09/23 04:00 01/09/23 04:12 Heparin 5,000 Unit/Ml Inj 1 Ml SUBCUT 5,000 unit Q12H NICHOLAS Administration Sodium Chloride 1,000 mls @ 75 mls/hr 01/08/23 12:45 01/09/23 12:11 Sodium Chloride 0.9% IV Not Given .[id number] [facility] Insulin Human Lispro 0 unit 01/08/23 18:00 01/09/23 12:47 Insulin Lispro 100 Unit/1 Ml SUBCUT Not Given TIDWM [facility] Protocol Isosorbide Mononitrate 90 mg 01/09/23 09:00 01/09/23 09:34 Isosorbide Mononitrate Er 30 Mg Tablet PO 90 mg DAILY NICHOLAS Administration Pantoprazole Sodium 40 mg 01/08/23 18:00 01/09/23 09:[address] 40 Mg Tablet PO 40 mg BID NICHOLAS Administration Pregabalin 150 mg 01/09/23 11:50 01/09/23 12:07 Pregabalin 150 Mg Capsule PO 150 mg BID NICHOLAS Administration Senna/Docusate Sodium 1 tab 01/09/23 09:00 01/09/23 09:35 Sennosides-Docusate Tablet PO 1 tab DAILY NICHOLAS Administration Sodium Polystyrene Sulfonate 15 gm 01/09/23 09:00 01/09/23 09:35 Sodium Polystyrene Sulfonate 15 Gm/60 Ml Btl PO 15 gm TID NICHOLAS Administration PFSH NPU PFSH: Medical History (Updated 01/10/23 @ 14:38 by Kurtis Dowell MD) Acute decompensated heart failure Altered mental status Atherosclerotic heart disease of [place] coronary artery with other forms of angina pectoris Atypical chest pain CAD (coronary artery disease) Carotid artery narrowing Chronic back pain CKD (chronic kidney disease) Congestive heart failure COPD (chronic obstructive pulmonary disease) Diabetes mellitus type 2 in obese Dyslipidemia Elevated troponin Encephalopathy, hypertensive Encounter for long-term use of opiate analgesic Gabapentin overdose Gout Hypertension Ischemic cardiomyopathy Major depressive disorder, recurrent, mild (Unknown) Neuropathy NSTEMI (non-ST elevated myocardial infarction) Opioid contract exists MALORIE (obstructive sleep apnea) Pulmonary hypertension Renal insufficiency Severe tricuspid regurgitation Smokeless tobacco use Substance abuse Urinary retention Surgical History History of cholecystectomy History of heart artery stent Family History Other Cancer Hypertension Social History Smoking and tobacco status: former smoker Second hand smoke exposure: No Alcohol intake: never Substance/Drug Use: never Mental Status Exam MSE Comments: This is an obese white male in hospital attire with poor grooming and limited e ye contact. No abnormal movements except for mild psychomotor retardation. Cooperative with exam in no acute distress. Speech was normal rate and volume. Mood described as fine affect slightly subdued. Thought process organized. Thought content: Patient denied suicidal or homicidal ideation, there were no delusions reported or noted, he denied any auditory or visual hallucinations. Attention and concentration are intact and memory was unreliable but possibly intentionally so but none were formally tested. He is alert and oriented x3. Insight, judgment and impulse control limited. Vitals/I&O/Wt Last Vital Signs Temp 98.0 F 01/09/23 16:00 Pulse 81 01/09/23 16:00 Resp 18 01/09/23 16:00 BP 116/74 01/09/23 16:00 Pulse Ox 95 01/09/23 16:00 O2 Del Method Room Air 01/09/23 16:00 01/09/23 01/09/23 01/09/23 06:59 14:59 22:59 Intake Total 1050.1 / 0.1 960 / 960 Balance 1050.1 / 1950.1 960 / 960 Weight last 48 hrs Weight 106.736 kg Weight 110.223 kg Data NPU 01/10/23 04:10 01/10/23 04:10 A&P Assessment and plan (1) Hyperkalemia: (2) Altered mental status: Qualifiers: Altered mental status type: unspecified Qualified Code(s): R41.82 - Altered mental status, unspecified (3) HTN (hypertension): (4) Behavioral change: Plan 27-year-old white male with no significant history of mental health challenges who presents with 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 1. Continue current medication. 2. No clear need for inpatient geriatric psychiatric treatment acutely. 3. Agree with Haldol or Geodon twice daily for behavioral management. 4. We will return in follow-up tomorrow. Attestations NPU Medical Necessity Statement*: N/A. Please see primary team note for medical necessity. Coding Level of Care Code Acute Code for Chg Fwd Diagnoses Hyperkalemia E87.5 Altered mental status R41.82 Altered mental status type: unspecified HTN (hypertension) I10 Behavioral change R46.89
[2023-01-09] MEDS: ziprasidone hcl 20 mg Capsule PO (17:45)
[2023-01-09] MEDS: insulin lispro 100 unit/1 mL SUBCUT (17:47)
--- NOTE | 2023-01-09 18:18 | PC.NURSE ---
Shift SUmmary: Uneventful shift. Patient became verbally agressive, making sexual comments to nurses, and started pacing near doorway twice, but was able to be verbally redirected and went back to bed. Dr freeman rounded. MOY padgett started.
--- NOTE | 2023-01-09 19:46 | PC.NURSE ---
Pt is calm and cooperative at this time. Answers all questions calmly.
[2023-01-09 20:12] LABS: Glucose Point of Care 192 mg/dL (70-110)
[2023-01-10] MEDS: HYDROcodone-acetaminophen 10-325 mg Tablet 1 TAB PO ×3 (03:14→22:02)
--- NOTE | 2023-01-10 03:15 | PC.NURSE ---
pt was agreeable to an IV at this time, IV fluids resumed at 75 mls/hr.
[2023-01-10 04:00] VITALS: BP 137/76; PULSE 62; RESP 18; TEMP 36.8; O2SAT 96
[2023-01-10] MEDS: heparin 5,000 unit/mL INJ 1 mL 5000 UNIT SUBCUT ×2 (04:30→16:21)
[2023-01-10 04:35] LABS: Basophils % 0.5 %; Eosinophils # 0.1 10^3/uL (0.0-0.8); Eosinophils % 1.6 %; Hematocrit 27.9 % (42.0-52.0); Hemoglobin 8.9 g/dL (11.7-16.6); Lymphocytes # 1.3 10^3/uL (0.8-4.8); Lymphocytes % 29.8 %; Mean Corpuscular HGB Conc 31.9 g/dL (30.0-36.0); Mean Corpuscular Hemoglobin 30.1 pg (28.0-34.0); Mean Corpuscular Volume 94.3 fl (80-94); Mean Platelet Volume 11.2 fL (7.4-10.4); Monocytes # 0.4 10^3/uL (0.2-0.9); Monocytes % 9.9 %; Neutrophils # 2.57 10^3/uL (1.8-7.7); Nucleated Red Blood Cells % 0 %; Platelet Count 151 10^3/cmm (130-400); Red Blood Count 2.96 10^6/uL (4.1-5.3); Red Cell Distribution Width 14.8 % (12.1-15.1); White Blood Count 4.4 10^3/uL (4.0-10.0)
[2023-01-10 04:55] VITALS: BMI 33.7
[2023-01-10 04:57] LABS: Alanine Aminotransferase 11 U/L (0-41); Albumin Level 3.4 g/dL (3.5-5.2); Alkaline Phosphatase 110 U/L (40-130); Anion Gap 13.9 (5-19); Aspartate Amino Transferase 22 U/L (0-40); Blood Urea Nitrogen 20 mg/dL (8-23); Calcium 8.6 mg/dL (8.5-10.5); Carbon Dioxide 24 mmol/L (22-29); Chloride 111 mmol/L (98-107); Globulin 2.8 g/dL (1.3-4.6); Glucose 109 mg/dL (65-115); Osmolality Calculated 303 mOsm/kg (285-295); Potassium 3.9 mmol/L (3.5-5.1); Sodium 145 mmol/L (136-145); Total Bilirubin 0.3 mg/dL (0.15-1.2); Total Protein 6.2 g/dL (6.6-8.7)
[2023-01-10] MEDS: ziprasidone hcl 20 mg Capsule PO ×2 (06:26→17:08)
[2023-01-10 07:03] LABS: Glucose Point of Care 105 mg/dL (70-110)
[2023-01-10 07:45] VITALS: BP 135/81; PULSE 61; RESP 15; TEMP 36.8; O2SAT 93
[2023-01-10] MEDS: pantoprazole DR 40 mg Tablet PO ×2 (08:29→17:08)
[2023-01-10] MEDS: atorvastatin 40 mg Tablet 20 MG PO (08:29)
[2023-01-10] MEDS: clopidogrel 75 mg Tablet PO (08:30)
[2023-01-10] MEDS: pregabalin 150 mg Capsule PO ×2 (08:30→17:08)
[2023-01-10] MEDS: allopurinol 300 mg Tablet PO (08:30)
[2023-01-10] MEDS: isosorbide mononitrate ER 30 mg Tablet 90 MG PO (08:30)
[2023-01-10] MEDS: sennosides-docusate Tablet 1 TAB PO (08:30)
[2023-01-10] MEDS: aspirin 81 mg EC Tablet PO (08:30)
[2023-01-10] MEDS: carvedilol 12.5 mg Tablet PO ×2 (08:30→17:08)
[2023-01-10] MEDS: sodium polystyrene sulfonate 15 gm/60 mL Btl PO (08:31)
[2023-01-10 11:31] LABS: Glucose Point of Care 123 mg/dL (70-110)
[2023-01-10 12:00] VITALS: BP 179/82; PULSE 61; RESP 15; TEMP 36.6; O2SAT 97
[2023-01-10] MEDS: acetaminophen 325 mg Tablet 650 MG PO ×2 (14:02→23:21)
[2023-01-10] MEDS: sodium chloride 0.9% 1,000 ML 75 ML IV (14:04)
--- NOTE | 2023-01-10 14:39 | W.PM.NPUPNS ---
Subjective NPU Subjective: Patient presented today reporting that he was feeling better. No reports by staff of any difficulties with inappropriate behaviors. Patient denied any issues and did not demonstrate any capacity limiting memory difficulties. He endorsed a desire to go home as soon as he is medically stable Mental Status Exam MSE Comments: This is an obese white male in hospital attire with adequate grooming and eye contact. No abnormal movements except for mild psychomotor retardation. Cooperative with exam in no acute distress. Speech was normal rate and volume. Mood described as fine affect slightly subdued. Thought process organized. Thought content: Patient denied suicidal or homicidal ideation, there were no delusions reported or noted, he denied any auditory or visual hallucinations. Attention and concentration are intact and memory was mostly reliable but possibly intentionally so but none were formally tested. He is alert and oriented x3. Insight, judgment and impulse control limited. Vitals/I&O/Wt Last Vital Signs Temp 97.8 F 01/10/23 12:00 Pulse 61 01/10/23 12:00 Resp 15 01/10/23 12:00 BP 179/82 01/10/23 12:00 Pulse Ox 97 01/10/23 12:00 O2 Del Method Room Air 01/10/23 12:00 01/09/23 01/10/23 01/10/23 22:59 06:59 14:59 Intake Total 360 / 1320 500 / 1820 540 / 540 Balance 360 / 1320 500 / 1820 540 / 540 Weight last 48 hrs Weight 106.821 kg Weight 106.736 kg Weight 110.223 kg Data NPU 01/11/23 04:38 01/11/23 04:38 A&P Assessment and plan (1) Hyperkalemia: (2) Altered mental status: Qualifiers: Altered mental status type: unspecified Qualified Code(s): R41.82 - Altered mental status, unspecified (3) HTN (hypertension): (4) Behavioral change: Plan 27-year-old white male with no significant history of mental health challenges who presents with 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 1. Continue current medication. 2. No clear need for inpatient geriatric psychiatric treatment acutely. 3. Agree with Haldol or Geodon twice daily for behavioral management moving forward. 4. Some memory difficulties but fully oriented. Attestations NPU Medical Necessity Statement*: N/A. Please see primary team note for medical necessity. Coding Level of Care Code Acute Code for Chg Fwd Diagnoses Hyperkalemia E87.5 Altered mental status R41.82 Altered mental status type: unspecified HTN (hypertension) I10 Behavioral change R46.89
[2023-01-10 15:47] VITALS: BP 147/72; PULSE 54; RESP 16; O2SAT 92
--- NOTE | 2023-01-10 16:17 | P.PN_ITS ---
Subjective Subjective: No acute events overnight. Patient has remained hemodynamically stable and afebrile. Patient has not had any further episodes of agitation. Today morning examination laying comfortably in bed. Denies any nausea, vomiting, headache. Vitals/I&O/Wt Last Vital Signs Temp 97.8 F 01/10/23 12:00 Pulse 54 L 01/10/23 15:47 Resp 16 01/10/23 15:47 BP 147/72 01/10/23 15:47 Pulse Ox 92 01/10/23 15:47 O2 Del Method Room Air 01/10/23 15:47 01/10/23 01/10/23 01/10/23 06:59 14:59 22:59 Intake Total 500 / 1820 540 / 540 Balance 500 / 1820 540 / 540 Weight last 48 hrs Weight 106.821 kg Weight 106.736 kg Physical Exam Const: COMMON NORMALS: no acute distress GENERAL APPEARANCE: combative and well hydrated NUTRITIONAL APPEARANCE: overweight ORIENTATION/CONSCIOUSNESS: Yes awake, Yes oriented to person, Yes oriented to place, Yes oriented to time and Yes confused (Occasional) HENMT: COMMON NORMALS: normocephalic and atraumatic HEAD & SCALP: normocephalic and atraumatic Resp: COMMON NORMALS: clear to auscultation bilaterally AUSCULTATION: clear to auscultation bilaterally Cardio: COMMON NORMALS: regular rate, regular rhythm, S1 normal heart sound present, S2 normal heart sound present, No gallops present (Cardio), No murmurs present (Cardio), No rub (Cardio) and Peripheral pulses 2+ throughout RATE: regular rate RHYTHM: regular rhythm HEART SOUNDS: S1 normal heart sound present and S2 normal heart sound present PERIPHERAL PULSES: Peripheral pulses 2+ throughout GI: COMMON NORMALS: Normal to inspection, nondistended, normoactive bowel sounds present, Soft to palpation, non-tender, No hepatosplenomegaly present and no masses AUSCULTATION: Yes normoactive bowel sounds PALPATION: Yes Soft to palpation and Yes No hepatosplenomegaly present RECTAL EXAM: Yes deferred Extremity: COMMON NORMALS: no clubbing, cyanosis or edema and no pedal edema Neuro: SENSORIUM/ORIENTATION: Yes oriented to person, Yes oriented to place and Yes oriented to time Psych: COMMON NORMALS: speech normal, denies hallucinations, denies homicidal ideation and denies suicidal ideation ATTITUDE: Yes agitated and Yes hostile ACTIVITY/MOTOR BEHAVIOR: Yes appropriate eye contact SPEECH: Yes normal speech MOOD & AFFECT: Yes irritable and Yes hostile affect MEMORY/COGNITION: Yes cognition grossly intact Data 01/10/23 04:10 01/10/23 04:10 A&P Assessment and plan (1) Altered mental status: Qualifiers: Altered mental status type: unspecified Qualified Code(s): R41.82 - A ltered mental status, unspecified (2) HTN (hypertension): (3) Acute kidney injury superimposed on chronic kidney disease: (4) Hyperkalemia: (5) CAD (coronary artery disease): Qualifiers: Coronary Disease-Associated Artery/Lesion type: [place] artery [place] vs. transplanted heart: [place] heart Associated angina: with unspecified form of angina Qualified Code(s): I25.119 - Atherosclerotic heart disease of [place] coronary artery with unspecified angina pectoris (6) Congestive heart failure: Qualifiers: Heart failure type: combined systolic and diastolic Heart failure chronicity: acute on chronic Qualified Code(s): I50.43 - Acute on chronic combined systolic (congestive) and diastolic (congestive) heart failure (7) Diabetes mellitus type 2 in obese: (8) COPD (chronic obstructive pulmonary disease): (9) Gout: (10) MALORIE (obstructive sleep apnea): Plan 77 year old male? with past medical history of coronary artery disease s/p stenting of distal RCA [place] [address] Holder, type 2 diabetes mellitus, dyslipidemia, depression, obstructive sleep apnea, chronic back pain who was brought in to ER for altered mental status as well as decreased p.o. intake for the last 2 days.History was mainly provided by his and daughter, patient hi mself is currently, not very coherent, he currently states that, he do not know why he is in the hospital, states he feels fine, wants to go home. Assessment: Acute metabolic encephalopathy: Likely secondary to ANAT hyperkalemia, dehydration though I do not believe he is too much away from his baseline mentation. CT head negative for acute abnormality, no concerns for infectious source as patient has remained afebrile without any leukocytosis. ANAT has resolved. Patient is appropriately hydrated. No electrolyte abnormality. Appreciate recently done A1c, lipid panel, B12, folate and TSH levels. Urine drug screen negative other than opiates. Alcohol negligible negative. Haldol 5 mg IM every 4 hours as needed. Continue with Geodon 10 mg every 12 hours as needed. Appreciate psych evaluation. Heart do not recommend 96-hour hold. Patient is competent to make his own decisions. Agreeable with continuation of Geodon. Hold off on baclofen. Continue with Lyrica and [place] at most. ANAT likely prerenal: Baseline creatinine 1.6-2. Renal functions improving. Back to baseline. Medical reconciliation done for nephrotoxic drugs. Continue with IV fluid as above for now. Patient would benefit to be discharged off Benzpril. Hyperkalemia: Resolved. Monitor BMP daily. Holding off on home dose of potassium. History of CAD post PCI: Troponin cycled on admission slightly elevated but patient denies of having any active chest pain. Continue aspirin, Plavix beta-nico, statin Continue to monitor. Denies any active chest pain. We will hold off on full dose anticoagulation now given patient's agitation. Hypertension: Goal blood pressure less than 140/90 mmHg. On multiple antihypertensives at home including Coreg 12.5 mg twice daily, Imdur 90 mg daily, benazepril 20 mg twice daily, Lasix 40 mg twice daily. Holding off on Lasix and benzapril or now. Continue to monitor and uptitrate accordingly. History of diabetes: Insulin sliding scale at low-dose protocol. History of gout: Continue allopurinol Discharge plan: Discussed in detail with the patient. Discussed that his is unfortunately not able to take care of him anymore and would want him to go to SNF for further rehabilitation and come to home after getting stronger. Patient states he is agreeable to what ever his would want it is okay to go to [facility]. Case management alerted. Patient will most likely require level 2. Physical therapy evaluation. CODE STATUS: Full code Diabetic diet. Protonix for PUD prophylaxis DVT prophylaxis on subcu heparin Attestations Medical Necessity Statement*: Versus hospitalization for management of resolving ANAT, acute metabolic encephalopathy with agitation while safe discharge planning is sought. Diagnoses Altered mental status R41.82 Altered mental status type: unspecified HTN (hypertension) I10 Acute kidney injury superimposed on chronic kidney disease N17.9; N18.9 Hyperkalemia E87.5 CAD (coronary artery disease) I25.119 Coronary Disease-Associated Artery/Lesion type: [place] artery [place] vs. transplanted heart: [place] heart Associated angina: with unspecified form of angina Congestive heart failure I50.43 Heart failure type: combined systolic and diastolic Heart failure chronicity: acute on chronic Diabetes mellitus type 2 in obese E11.69; E66.9 COPD (chronic obstructive pulmonary disease) J44.9 Gout M10.9 MALORIE (obstructive sleep apnea) G47.33
[2023-01-10 16:58] LABS: Glucose Point of Care 112 mg/dL (70-110)
[2023-01-10 19:22] VITALS: BP 133/74; PULSE 53; RESP 16; TEMP 36.7; O2SAT 96
[2023-01-10 20:11] LABS: Glucose Point of Care 132 mg/dL (70-110)
[2023-01-11] VITALS: BP 193/85; PULSE 64; RESP 16; TEMP 36.3; O2SAT 98
[2023-01-11 04:00] VITALS: BP 149/69; PULSE 59; RESP 16; TEMP 36.4; O2SAT 92
[2023-01-11] MEDS: heparin 5,000 unit/mL INJ 1 mL 5000 UNIT SUBCUT (04:21)
[2023-01-11 05:12] LABS: Basophils % 0.7 %; Eosinophils # 0.1 10^3/uL (0.0-0.8); Eosinophils % 2.5 %; Hematocrit 30.3 % (42.0-52.0); Hemoglobin 9.5 g/dL (11.7-16.6); Lymphocytes # 1.6 10^3/uL (0.8-4.8); Lymphocytes % 28.4 %; Mean Corpuscular HGB Conc 31.4 g/dL (30.0-36.0); Mean Corpuscular Hemoglobin 29.4 pg (28.0-34.0); Mean Corpuscular Volume 93.8 fl (80-94); Monocytes # 0.4 10^3/uL (0.2-0.9); Monocytes % 7.7 %; Neutrophils # 3.35 10^3/uL (1.8-7.7); Neutrophils % 60.3 %; Nucleated Red Blood Cells % 0 %; Platelet Count 161 10^3/cmm (130-400); Red Blood Count 3.23 10^6/uL (4.1-5.3); Red Cell Distribution Width 14.6 % (12.1-15.1); White Blood Count 5.6 10^3/uL (4.0-10.0)
[2023-01-11 05:27] LABS: Alanine Aminotransferase 9 U/L (0-41); Albumin Level 3.4 g/dL (3.5-5.2); Alkaline Phosphatase 115 U/L (40-130); Anion Gap 12.4 (5-19); Aspartate Amino Transferase 18 U/L (0-40); Blood Urea Nitrogen 15 mg/dL (8-23); Calcium 8.4 mg/dL (8.5-10.5); Carbon Dioxide 24 mmol/L (22-29); Chloride 111 mmol/L (98-107); Globulin 2.5 g/dL (1.3-4.6); Glucose 91 mg/dL (65-115); Osmolality Calculated 298 mOsm/kg (285-295); Potassium 3.4 mmol/L (3.5-5.1); Sodium 144 mmol/L (136-145); Total Bilirubin 0.3 mg/dL (0.15-1.2); Total Protein 5.9 g/dL (6.6-8.7)
[2023-01-11 06:10] LABS: Glucose Point of Care 90 mg/dL (70-110)
[2023-01-11] MEDS: HYDROcodone-acetaminophen 10-325 mg Tablet 1 TAB PO (06:13)
[2023-01-11] MEDS: ziprasidone hcl 20 mg Capsule PO (06:13)
[2023-01-11 08:00] VITALS: BP 149/67; PULSE 63; RESP 18; TEMP 36.4; O2SAT 91
[2023-01-11] MEDS: allopurinol 300 mg Tablet PO (08:10)
[2023-01-11] MEDS: pantoprazole DR 40 mg Tablet PO (08:10)
[2023-01-11] MEDS: clopidogrel 75 mg Tablet PO (08:10)
[2023-01-11] MEDS: aspirin 81 mg EC Tablet PO (08:10)
[2023-01-11] MEDS: carvedilol 12.5 mg Tablet PO (08:10)
[2023-01-11] MEDS: pregabalin 150 mg Capsule PO (08:10)
[2023-01-11] MEDS: atorvastatin 40 mg Tablet 20 MG PO (08:10)
[2023-01-11] MEDS: isosorbide mononitrate ER 30 mg Tablet 90 MG PO (08:10)
[2023-01-11] MEDS: sennosides-docusate Tablet 1 TAB PO (08:11)
[2023-01-11 08:12] VITALS: PULSE 64; RESP 16; O2SAT 96
--- NOTE | 2023-01-11 10:57 | PM.DCS ---
Discharge Providers Date of Admission: 01/08/23 10:51 Date of Discharge: January 11, 2023 Attending Provider at Admission: Emil Weaver MD Attending Provider at Discharge: Barak Jarvis MD Consults: Psychiatric: Dr. Dowell Primary Care Provider: Galindo Carson DO Diagnoses at Discharge Discharge Diagnosis (1) Hyperkalemia: Status: Acute (2) Altered mental status: Status: Acute Qualifiers: Altered mental status type: unspecified Qualified Code(s): R41.82 - Altered mental status, unspecified (3) HTN (hypertension): Status: Acute (4) Behavioral change: Status: Acute Reason for Visit Reason for Visit: AMS Brief History: As per HPI: 77 year old male? with past medical history of coronary artery disease s/p stenting of distal RCA [place] [address] Holder, type 2 diabetes mellitus, dyslipidemia, depression, obstructive sleep apnea, chronic back pain who was brought in to ER for altered mental status as well as decreased p.o. intake for the last 2 days.History was mainly provided by his and daughter, patient himself is currently, not very coherent, he currently states that, he do not know why he is in the hospital, states he feels fine, wants to go home.CT head without contrast: Failed to show any acute intracranial pathology, CT abdomen and pelvis:No acute abdominopelvic findings, x-ray chest: No acute findings. Pertinent labs: WBC 6.5, H&H 11.2 37.2,PLT : 199 , serum sodium 139 serum potassium 6, BUN 43 serum creatinine 3.2, RBS:93. Patient received routine hyperkalemia cocktail in the ER, and also received 1 L normal saline bolus. Hospital Course Hospital Course Patient was admitted to the hospital for further evaluation and management of altered mental status. On admission he was found to be having ANAT along with hyperkalemia for which medical reconciliation was done and he was started on IV fluids. His hospital stay was complicated by him having belligerent behavior, agitation and being inappropriate to the nursing staff. Psychiatry was consulted and his medication was changed around. CT head ruled out acute stroke. Metabolic encephalopathy was ruled out. Patient came back to his baseline within 24 hours on adjusted medication and since then has been appropriate, calm without any episodes of agitation. His behavioral changes were thought to be secondary to mild change in his behavior in setting of polypharmacy and ANAT. Patient is back to his baseline for last 24 to 36 hours. Patient's requested patient to be transition to SNF if possible. Patient was deemed competent as per psychiatric evaluation. Patient declined discharge to SNF but was agreeable for home health. He has been discharged in hemodynamically stable condition on adjusted medication with once a day Lasix and BMP. He is not to take his potassium anymore. He is to take Geodon 20 mg morning and evening. He is to follow-up with his primary care provider and cardiology nurse practitioner in 2 weeks and with behavioral health screening within next 10 days. Physical Exam Const: COMMON NORMALS: no acute distress GENERAL APPEARANCE: combative and well hydrated NUTRITIONAL APPEARANCE: overweight ORIENTATION/CONSCIOUSNESS: Yes awake, Yes oriented to person, Yes oriented to place, Yes oriented to time and Yes confused (Occasional) HENMT: COMMON NORMALS: normocephalic and atraumatic HEAD & SCALP: normocephalic and atraumatic Resp: COMMON NORMALS: clear to auscultation bilaterally AUSCULTATION: clear to auscultation bilaterally Cardio: COMMON NORMALS: regular rate, regular rhythm, S1 normal heart sound present, S2 normal heart sound present, No gallops present (Cardio), No murmurs present (Cardio), No rub (Cardio) and Peripheral pulses 2+ throughout RATE: regular rate RHYTHM: regular rhythm HEART SOUNDS: S1 normal heart sound present and S2 normal heart sound present PERIPHERAL PULSES: Peripheral pulses 2+ throughout GI: COMMON NORMALS: Normal to inspection, nondistended, normoactive bowel sounds present, Soft to palpation, non-tender, No hepatosplenomegaly present and no masses AUSCULTATION: Yes normoactive bowel sounds PALPATION: Yes Soft to palpation and Yes No hepatosplenomegaly present RECTAL EXAM: Yes deferred Extremity: COMMON NORMALS: no clubbing, cyanosis or edema and no pedal edema Neuro: SENSORIUM/ORIENTATION: Yes oriented to person, Yes oriented to place and Yes oriented to time Psych: COMMON NORMALS: speech normal, denies hallucinations, denies homicidal ideation and denies suicidal ideation ATTITUDE: Yes agitated and Yes hostile ACTIVITY/MOTOR BEHAVIOR: Yes appropriate eye contact SPEECH: Yes normal speech MOOD & AFFECT: Yes irritable and Yes hostile affect MEMORY/COGNITION: Yes cognition grossly intact Discharge Data Studies Completed and Pending Completed Studies During Hospitalization Category Date Time Status CT abdomen pelvis wo con [id number] Stat Cat Scan 01/08/23 09:[address] head wo con* [id number] Stat Cat Scan 01/08/23 09:15 Completed XR chest 1V portable [id number] Stat Exams 01/08/23 09:16 Completed Radiology Impressions Head CT 01/08/23 09:15 IMPRESSION: No acute intracranial abnormality. 1 Abdomen/Pelvis CT 01/08/23 09:16 IMPRESSION: No acute abdominopelvic abnormality identified within the limitations of this exam. COMMENTS: Evaluation of solid organs and vascular structures is limited as no IV contrast was administered. Chest X-Ray 01/08/23 09:16 IMPRESSION: No acute cardiopulmonary abnormality identified. Laboratory Results WBC 5.6 10^3/uL (4.0-10.0) 01/11/23 04:38 RBC 3.23 10^6/uL (4.1-5.3) L 01/11/23 04:38 Hgb 9.5 g/dL (11.7-16.6) L 01/11/23 04:38 Hct 30.3 % (42.0-52.0) L 01/11/23 04:38 MCV 93.8 fl (80-94) 01/11/23 04:38 MCH 29.4 pg (28.0-34.0) 01/11/23 04:38 MCHC 31.4 g/dL (30.0-36.0) 01/11/23 04:38 RDW 14.6 % (12.1-15.1) 01/11/23 04:38 Plt Count 161 10^3/cmm (130-400) 01/11/23 04:38 MPV 11.0 fL (7.4-10.4) H 01/11/23 04:38 Neut % (Auto) 60.3 % 01/11/23 04:38 Lymph % (Auto) 28.4 % 01/11/23 04:38 [place] % (Auto) 7.7 % 01/11/23 04:38 Eos % (Auto) 2.5 % 01/11/23 04:38 Baso % (Auto) 0.7 % 01/11/23 04:38 Neut # (Auto) 3.35 10^3/uL (1.8-7.7) 01/11/23 04:38 Lymph # (Auto) 1.6 10^3/uL (0.8-4.8) 01/11/23 04:38 [place] # (Auto) 0.4 10^3/uL (0.2-0.9) 01/11/23 04:38 Eos # (Auto) 0.1 10^3/uL (0.0-0.8) 01/11/23 04:38 Baso # (Auto) 0.0 10^3/uL (0.0-0.1) 01/11/23 04:38 Nucleated RBC % (auto) 0 % 01/11/23 04:38 Nucleated RBCs # 0.0 /100WBC 01/11/23 04:38 Specimen Type Arterial 01/08/23 13:44 Sample Site Radial, right 01/08/23 13:44 ABG pH 7.29 (7.35-7.45) L 01/08/23 13:44 ABG pCO2 41.1 mmHg (35-45) 01/08/23 13:44 ABG pO2 74.7 mmHg (80.0-100.0) L 01/08/23 13:44 ABG HCO3 19.8 mmol/L (22-26) L 01/08/23 13:44 ABG O2 Saturation 94.4 01/08/23 13:44 ABG Base Excess -6.3 mmol/L (-2.0-2.0) L 01/08/23 13:44 Sergio Test Pos 01/08/23 13:44 A-a O2 Gradient 2.9 mmHg (5-10) L 01/08/23 13:44 Hematocrit 34.3 % (42-52) L 01/08/23 13:44 Hgb O2 Saturation 92.6 % (95-100) L 01/08/23 13:44 Carboxyhemoglobin 1.2 %THgb (0.4-20.1) 01/08/23 13:44 Methemoglobin 0.7 % (0.4-1.5) 01/08/23 13:44 Total Hemoglobin 11.2 g/dL (14-18) L 01/08/23 13:44 Sodium 144.0 mmol/L (131-143) H 01/08/23 13:44 Potassium 5.7 mmol/L (3.5-5.0) H 01/08/23 13:44 Glucose 114.0 mg/dL (70-115) 01/08/23 13:44 Ionized Calcium 1.4 mmol/L (1.1-1.4) 01/08/23 13:44 O2 Delivery Device None 01/08/23 13:44 FiO2 21.0 % 01/08/23 13:44 Relationship Consultant ID [place] 01/08/23 13:44 Sodium 144 mmol/L (136-145) 01/11/23 04:38 Potassium 3.4 mmol/L (3.5-5.1) L 01/11/23 04:38 Chloride 111 mmol/L (98-107) H 01/11/23 04:38 Carbon Dioxide 24 mmol/L (22-29) 01/11/23 04:38 Anion Gap 12.4 (5-19) 01/11/23 04:38 BUN 15 mg/dL (8-23) 01/11/23 04:38 Creatinine 1.2 mg/dL (0.7-1.2) 01/11/23 04:38 GFR Calculation Not Reportable 01/11/23 04:38 Glucose 91 mg/dL (65-115) 01/11/23 04:38 POC Glucose 90 mg/dL (70-110) 01/11/23 05:58 Calculated Osmolality 298 mOsm/kg (285-295) H 01/11/23 04:38 Calcium 8.4 mg/dL (8.5-10.5) L 01/11/23 04:38 Magnesium 1.2 mg/dL (1.7-2.3) L 01/09/23 00:37 Total Bilirubin 0.3 mg/dL (0.15-1.2) 01/11/23 04:38 AST 18 U/L (0-40) 01/11/23 04:38 ALT 9 U/L (0-41) 01/11/23 04:38 Alkaline Phosphatase 115 U/L (40-130) 01/11/23 04:38 Ammonia 21 umol/L (16-60) 01/08/23 09:23 Troponin T Baseline 54 ng/L (0-15) H 01/08/23 00:37 Troponin T 120 Minute 61.68 ng/L (0-15) H 01/09/23 02:38 Delta Troponin T 7.68 ABS# (0-10) 01/09/23 02:38 Troponin T Hi Sens 6Hr 73.57 ng/L (0-15) H 01/09/23 06:04 Troponin T Hi Sens 6Hr Delta 19.57 ng/L (0-12) H* 01/09/23 06:04 Total Protein 5.9 g/dL (6.6-8.7) L 01/11/23 04:38 Albumin 3.4 g/dL (3.5-5.2) L 01/11/23 04:38 Globulin 2.5 g/dL (1.3-4.6) 01/11/23 04:38 Lipase 24 U/L (13-60) 01/08/23 09:24 Urine Color Yellow (Yellow) 01/08/23 10:00 Urine Appearance Clear (CLEAR) 01/08/23 10:00 Urine pH 5 (5-7) 01/08/23 10:00 Ur Specific [place] 1.010 (1.005-1.030) 01/08/23 10:00 Urine Protein Neg (Negative) 01/08/23 10:00 Urine Glucose (UA) Norm (Normal) 01/08/23 10:00 Urine Ketones Negative (Negative) 01/08/23 10:00 Urine Blood Neg (Negative) 01/08/23 10:00 Urine Nitrate Negative (Negative) 01/08/23 10:00 Urine Bilirubin Neg (Negative) 01/08/23 10:00 Urine Urobilinogen Norm mg/dL (Negative) 01/08/23 10:00 Ur Leukocyte Esterase Negative (Negative) 01/08/23 10:00 Urine Opiates Screen Positive ng/mL (Negative) H 01/08/23 10:00 Ur Barbiturates Screen Negative ng/mL (Negative) 01/08/23 10:00 Ur Phencyclidine Scrn Negative ng/mL (Negative) 01/08/23 10:00 Ur Amphetamines Screen Negative ng/mL (Negative) 01/08/23 10:00 U Benzodiazepines Scrn Negative ng/mL (Negative) 01/08/23 10:00 Urine Cocaine Screen Negative ng/mL (Negative) 01/08/23 10:00 U Marijuana (THC) Screen Negative ng/mL (Negative) 01/08/23 10:00 Ethyl Alcohol < 10 mg/dL (0-10) 01/08/23 09:24 Vitals Last Vital Signs Temp 97.6 F 01/11/23 08:00 Pulse 64 01/11/23 08:12 Resp 16 01/11/23 08:12 BP 149/67 01/11/23 08:00 Pulse Ox 96 01/11/23 08:12 O2 Del Method Room Air 01/11/23 08:12 Discharge Plan Discharge Patient Disposition: Home Health Service Condition: Stable Prescriptions: New ziprasidone HCl 20 mg Capsule 20 mg PO 0700,1700 30 Days Qty: 60 0RF Continued Narcan 4 mg/actuation spray,non-aerosol 1 spray INTRANASAL .COMPLEX Rx Instructions: INTRA NASAL NEEDED FOR OVERDOSE pantoprazole [Protonix] 40 mg tablet,delayed release (DR/EC) 40 mg PO BID Qty: 60 5RF metformin 1,000 mg tablet 1,000 mg PO BID 30 Days Qty: 60 1RF albuterol sulfate [ProAir HFA] 90 mcg/actuation HFA aerosol inhaler 1 - 2 puff INHALATION Q6H PRN (Reason: shortness of breath or wheezing) allopurinol 300 mg tablet 300 mg PO DAILY triamcinolone acetonide 0.1 % ointment See Rx Instructions .ROUTE .COMPLEX Rx Instructions: as directed topically as needed clopidogrel [Plavix] 75 mg tablet 75 mg PO DAILY Qty: 30 1RF aspirin 81 mg Tablet,Delayed Release (Dr/Ec) 81 mg PO DAILY Qty: 90 0RF carvedilol [Coreg] 12.5 mg tablet 12.5 mg PO BID fluticasone propionate 50 mcg/actuation spray,suspension 2 spray intranasal DAILY atorvastatin 20 mg tablet 20 mg PO DAILY meclizine 25 mg Tablet 25 mg PO Q8H PRN (Reason: Dizziness) nitroglycerin [Nitrostat] 0.4 mg Tablet, Sublingual 0.4 mg SUBLINGUAL Q5M PRN (Reason: Chest Pain) Rx Instructions: do not exceed 3 doses per episode isosorbide mononitrate 60 mg tablet extended release 24 hr 90 mg PO DAILY lidocaine [Lidoderm] 5 % adhesive patch,medicated 1 patch topical DAILY Qty: 30 1RF Rx Instructions: leave on most painful area for up to 12 hrs hydrocodone-acetaminophen 10-325 mg tablet 1 tab PO Q6H PRN (Reason: Pain) Advair Diskus 250-50 mcg/dose Blister With Device 1 inh INHALATION BID Senna-S 8.6-50 mg Tablet 1 tab-cap PO DAILY Changed furosemide 40 mg tablet 40 mg PO DAILY Qty: 30 0RF pregabalin 150 mg capsule 150 mg PO BID 30 Days Qty: 0 0RF benazepril 20 mg tablet 30 mg PO DAILY Qty: 45 0RF Discontinued baclofen 10 mg tablet 5 mg PO BID potassium chloride 20 mEq tablet extended release 10 meq PO BID Discharge Orders: Discharge Order (Routine); Ordered 01/11/23 Ordered By: Barak Jarvis Referrals: [facility] ([facility]) [Outside] Galindo Carson DO [Primary Care Provider] - 2 weeks [facility], [Staff Physician] - 7-10 days Sonia Horton FNP [Nurse Practitioner] - 2 weeks Discharge Diet: Diabetic Discharge Activity: Resume usual activity and Increase activity as tolerated Patient Instructions: Hyponatremia (ED), Benzodiazepine Use Disorder (ED), Dementia (ED), Non-diabetic Hypoglycemia (ED), Hypoglycemia in a Person with Diabetes (ED), Concussion (ED), Alcohol Intoxication (ED), Subarachnoid Hemorrhage (GEN), Altered Mental Status (ED), Opioid Safety Activity Restrictions/Additional Instructions: Please take your medications on time. Multiple dose changes have been done. Both Lasix and Benzpril has been changed to 1 time a day. Baclofen has been discontinued. Pregabalin has been changed to twice daily. Geodon 40 mg morning and evening has been added to medication list. Please make sure to follow-up with cardiology nurse practitioner in 2 weeks, your PCP in 1 to 2 weeks and with behavioral health clinic within next 10 days. Discharge Attestations Time Spent in Discharge Care*: greater than 30 min Specific Discharge Activities: educating patient, educating and/or supporting family/caregiver, discussing with pcp/other providers, discussing with case resolution specialist/social workers/dc planners, documenting/other paperwork and evaluating patient/reviewing data Status at Discharge: Cognitive status at discharge: mildly impaired cognition, Behavioral status at discharge: cooperative and can be uncooperative, Functional status at discharge: uses cane/walker, Overall status at discharge: patient is back to baseline Quality Metrics Clinical Quality Measures [ No reported AMI, CVA or VTE this stay] Coding Level of Care Code 48414 Total time (in minutes) for Discharge: 60 Diagnoses Hyperkalemia E87.5 Altered mental status R41.82 Altered mental status type: unspecified HTN (hypertension) I10 Behavioral change R46.89
--- NOTE | 2023-01-11 11:26 | PC.SOCIAL ---
Pg 2 IMM Explained to pt & daughter Pg 2 IMM. No questions voiced. Provided pt a copy. Initialed, dated, & timed a copy & placed in chart.
[2023-01-11 11:30] LABS: Glucose Point of Care 149 mg/dL (70-110)
[2023-01-11 12:00] VITALS: BP 150/72; PULSE 62; RESP 18; TEMP 36.6; O2SAT 94
[2023-01-11] MEDS: acetaminophen 325 mg Tablet 650 MG PO (12:36)
[2023-01-11] MEDS: insulin lispro 100 unit/1 mL SUBCUT (12:37)
[2023-01-11 13:49] VITALS: BP 150/72; PULSE 62; RESP 18; TEMP 36.6; O2SAT 94
== END 2023-01-11 13:50 | disposition home health service (06) | DRG 682 ==
LOC: ER 13:21 → MEDSURG 14:06
PROVIDERS: Admitting Provider Internal Medicine; Emergency Provider Family Medicine; PCP Family Medicine; Visit Provider Student in an Organized Health Care Education/Training Program
DX: N17.9 Acute kidney failure, unspecified (principal); I50.43 Acute on chronic combined systolic (congestive) and diastolic (congestive) heart failure; I13.0 Hypertensive heart and chronic kidney disease with heart failure and stage 1 through stage 4 chronic kidney disease, or unspecified chronic kidney disease; E87.5 Hyperkalemia; N18.9 Chronic kidney disease, unspecified; E11.22 Type 2 diabetes mellitus with diabetic chronic kidney disease; Z95.5 Presence of coronary angioplasty implant and graft; I25.119 Atherosclerotic heart disease of native coronary artery with unspecified angina pectoris; E78.5 Hyperlipidemia, unspecified; F32.A Depression, unspecified; G47.33 Obstructive sleep apnea (adult) (pediatric); G89.29 Other chronic pain; M54.9 Dorsalgia, unspecified; Z79.84 Long term (current) use of oral hypoglycemic drugs; Z79.51 Long term (current) use of inhaled steroids; Z79.82 Long term (current) use of aspirin; Z79.891 Long term (current) use of opiate analgesic; M10.9 Gout, unspecified; I25.5 Ischemic cardiomyopathy; R45.1 Restlessness and agitation; E86.0 Dehydration; E66.8 Other obesity; Z68.34 Body mass index [BMI] 34.0-34.9, adult; F17.220 Nicotine dependence, chewing tobacco, uncomplicated; I07.1 Rheumatic tricuspid insufficiency; I25.2 Old myocardial infarction
CPT/HCPCS: 36415; 36416; 36600; 70450; 71045; 74176; 80048; 80051; 80053; 80306; 80307; 81003; 82140; 82330; 82805; 82962; 83690; 83735; 84484; 85025; 93005; 94640; 96361; 96372; 96374; 97161; 99285; C9113; J1630; J1644; J1815; J3486; J3490; J7030; J7613

== ENCOUNTER → 2023-01-17 12:57 | Outpatient (BNVA) | payer MEDICARE, MEDICAID, SELFPAY | PROVIDERS: PCP Family Medicine; Visit Provider Internal Medicine Cardiovascular Disease | DX: I25.119 Atherosclerotic heart disease of native coronary artery with unspecified angina pectoris (principal); I13.0 Hypertensive heart and chronic kidney disease with heart failure and stage 1 through stage 4 chronic kidney disease, or unspecified chronic kidney disease; E11.22 Type 2 diabetes mellitus with diabetic chronic kidney disease; N18.9 Chronic kidney disease, unspecified; I50.43 Acute on chronic combined systolic (congestive) and diastolic (congestive) heart failure; Z87.891 Personal history of nicotine dependence; Z79.84 Long term (current) use of oral hypoglycemic drugs; E11.69 Type 2 diabetes mellitus with other specified complication; E66.9 Obesity, unspecified; Z68.34 Body mass index [BMI] 34.0-34.9, adult; R46.89 Other symptoms and signs involving appearance and behavior; E87.5 Hyperkalemia; G47.33 Obstructive sleep apnea (adult) (pediatric); J44.9 Chronic obstructive pulmonary disease, unspecified | CPT/HCPCS: 99214 ==

== ENCOUNTER → 2023-05-23 11:04 | Outpatient (BNVA) | payer MEDICARE, MEDICAID, SELFPAY | PROVIDERS: PCP Family Medicine; Visit Provider Internal Medicine Cardiovascular Disease | DX: E87.5 Hyperkalemia (principal); I13.0 Hypertensive heart and chronic kidney disease with heart failure and stage 1 through stage 4 chronic kidney disease, or unspecified chronic kidney disease; E11.22 Type 2 diabetes mellitus with diabetic chronic kidney disease; I50.43 Acute on chronic combined systolic (congestive) and diastolic (congestive) heart failure; N18.9 Chronic kidney disease, unspecified; Z87.891 Personal history of nicotine dependence; Z79.84 Long term (current) use of oral hypoglycemic drugs; G47.33 Obstructive sleep apnea (adult) (pediatric); I25.119 Atherosclerotic heart disease of native coronary artery with unspecified angina pectoris; J44.9 Chronic obstructive pulmonary disease, unspecified; E11.69 Type 2 diabetes mellitus with other specified complication; E66.9 Obesity, unspecified; Z68.33 Body mass index [BMI] 33.0-33.9, adult | CPT/HCPCS: 99214 ==

== ENCOUNTER 2023-06-03 13:51 | Emergency (ER) | payer MEDICARE, MEDICAID, SELFPAY ==
--- NOTE | 2023-06-03 13:55 | XRR_ITS ---
PROCEDURE INFORMATION: Exam: XR Chest Exam date and time: 06/03/2023 2:14 PM Age: 78 years old Clinical indication: Other: AMS TECHNIQUE: Imaging protocol: Radiologic exam of the chest. Views: 1 view. COMPARISON: CR XR chest 1V portable [id number] 01/08/2023 8:43 AM FINDINGS: Lungs: Unremarkable. No consolidation. Pleural spaces: Unremarkable. No pleural effusion. No pneumothorax. Heart/Mediastinum: Unremarkable. No cardiomegaly. Bones/joints: Unremarkable. XR/XR chest 1V portable [id number] IMPRESSION: No acute findings.
[2023-06-03 13:59] VITALS: BP 114/71; RESP 16; TEMP 36.8
--- NOTE | 2023-06-03 14:07 | ECG_ITS ---
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 Measurements Intervals [place] Rate: 72 P: 17 LA: 153 QRS: 46 QRSD: 92 T: 36 QT: 380 QTc: 417 Interpretive Statements SINUS RHYTHM Compared to ECG 01/08/2023 14:02:20 No significant changes Electronically Signed On 06-03-2023 20:30:09 CDT by Gerald De Anda M.D. [email or web address] c. stennis memorial hospitalG-Zero Therapeuticsjoint township district memorial hospitalTicket Monster ([place])/store/OM/[id number]
--- NOTE | 2023-06-03 14:07 | W.ED.AMS ---
HPI - Altered Mental Status General: Chief Complaint: Altered Mental Status Stated Complaint: WEAKNESS; AMS Time Seen by Provider: 06/03/23 13:54 History of Present Illness: Patient brought in by EMS with complaints of head of having a hard time waking up. Patient took some medicine around 1130 this morning and became sleepy around 12:00. Patient is on hydrocodone. Patient is alert knows where he is at 1 month and what season it is when asked. Review of Systems General: Reports: 10 or more systems reviewed and unremarkable except in HPI and below PFSH ED PFSH: Medical History Acute decompensated heart failure Altered mental status Atherosclerotic heart disease of redding coronary artery with other forms of angina pectoris Atypical chest pain CAD (coronary artery disease) Carotid artery narrowing Chronic back pain CKD (chronic kidney disease) Congestive heart failure COPD (chronic obstructive pulmonary disease) Diabetes mellitus type 2 in obese Dyslipidemia Elevated troponin Encephalopathy, hypertensive Encounter for long-term use of opiate analgesic Gabapentin overdose Gout Hypertension Ischemic cardiomyopathy Major depressive disorder, recurrent, mild (Unknown) Neuropathy NSTEMI (non-ST elevated myocardial infarction) Opioid contract exists MALORIE (obstructive sleep apnea) Pulmonary hypertension Renal insufficiency Severe tricuspid regurgitation Smokeless tobacco use Substance abuse Urinary retention Surgical History History of cholecystectomy History of heart artery stent Family History Other Cancer Hypertension Social History Smoking and tobacco status: former smoker Second hand smoke exposure: No Alcohol intake: never Substance/Drug Use: never Physical Exam Const: COMMON NORMALS: no acute distress, average body habitus, patient oriented x3, no limitations, healthy appearing, alert and well nourished HENMT: COMMON NORMALS: normocephalic, atraumatic, hearing grossly normal bilaterally, external ears normal, Normal external nose present and moist oral mucous membranes HEAD & SCALP: normocephalic and atraumatic NOSE: Normal external nose present EXTERNAL EAR: Yes external ears normal Eye: COMMON NORMALS: Equal, round and reactive pupils present, EOMs intact bilaterally, conjunctivae normal and no scleral icterus CONJUNCTIVA: Yes conjunctivae normal PUPIL: Yes Equal, round and reactive pupils present Neck/C-Spine: COMMON NORMALS: full ROM, no lymphadenopathy, supple, no meningeal signs, no JVD and Thyroid normal THYROID: Thyroid normal Chest: COMMONS NORMALS: normal inspection of the chest and normal palpation of entire chest wall Resp: COMMON NORMALS: normal respiratory effort, No retractions, No use of accessory muscles and clear to auscultation bilaterally AUSCULTATION: clear to auscultation bilaterally Cardio: COMMON NORMALS: no JVD, regular rate, regular rhythm, S1 normal heart sound present, S2 normal heart sound present, No gallops present (Cardio), No clicks present (Cardio), No murmurs present (Cardio) and No rub (Cardio) RATE: regular rate RHYTHM: regular rhythm HEART SOUNDS: S1 normal heart sound present and S2 normal heart sound present GI: COMMON NORMALS: Normal to inspection, nondistended, normoactive bowel sounds present, Soft to palpation, non-tender, No hepatosplenomegaly present and no masses PALPATION: Yes Soft to palpation and Yes No hepatosplenomegaly present : COMMON NORMALS: Yes no CVA tenderness BLADDER/KIDNEY EXAM: Yes no CVA tenderness Back/Pelvis: COMMON NORMALS: no CVA tenderness Neuro: COMMON NORMALS: patient oriented x3 SENSORIUM/ORIENTATION: Yes alert MENINGEAL SIGNS: Yes no meningeal signs Course Vital Signs: Vital signs: Vital Signs Temperature 98.3 F 06/03/23 13:59 Pulse Rate 59 L 06/03/23 16:08 Respiratory Rate 16 06/03/23 13:59 Blood Pressure 94/57 06/03/23 16:08 Pulse Oximetry 98 06/03/23 16:08 Oxygen Delivery Me thod Room Air 06/03/23 16:08 MDM - Altered Mental Status Medical Decision Making Patient had lab work performed at first showed his white count is elevated 15.5 and his potassium 6.3 after 2 L of fluid went down to 5.6, his creatinine was 3.3 and went down to 3.0, his magnesium was low at 1.0. Patient is on benazepril as this may irritate the kidney and cause a rise in potassium we will hold his benazepril and have him recheck with his family practice doctor within the next week to recheck his potassium, magnesium, and creatinine. Differential Diagnosis Likely altered mental status; Unlikely alcoholic intoxication, delirium, dementia, hypoglycemia, hyponatremia, subarachnoid hemorrhage or sepsis Medical Records I reviewed the patient's medical records. Lab Data I reviewed the patient's lab results. 06/03/23 14:37 06/03/23 18:22 Radiology Impressions Chest X-Ray 06/03/23 13:55 IMPRESSION: No acute findings. Laboratory Results WBC 15.52 10^3/uL (3.29-11.43) H 06/03/23 14:37 RBC 4.42 10^6/uL (3.85-5.65) 06/03/23 14:37 Hgb 12.60 g/dL (11.27-16.99) 06/03/23 14:37 Hct 41.8 % (37-53) 06/03/23 14:37 MCV 94.6 fl (82-101) 06/03/23 14:37 MCH 28.5 pg (27-33) 06/03/23 14:37 MCHC 30.1 g/dL (30-55) 06/03/23 14:37 RDW 15.6 % (12.1-15.1) H 06/03/23 14:37 Plt Count 275 10^3/cmm (157-399) 06/03/23 14:37 MPV 10.7 fL (7.4-10.4) H 06/03/23 14:37 Neut % (Auto) 79.9 % 06/03/23 14:37 Lymph % (Auto) 12.3 % 06/03/23 14:37 [place] % (Auto) 6.1 % 06/03/23 14:37 Eos % (Auto) 0.3 % 06/03/23 14:37 Baso % (Auto) 0.8 % 06/03/23 14:37 Neut # (Auto) 12.40 10^3/uL (1.8-7.7) H 06/03/23 14:37 Lymph # (Auto) 1.9 10^3/uL (0.8-4.8) 06/03/23 14:37 [place] # (Auto) 1.0 10^3/uL (0.2-0.9) H 06/03/23 14:37 Eos # (Auto) 0.0 10^3/uL (0.0-0.8) 06/03/23 14:37 Baso # (Auto) 0.1 10^3/uL (0.0-0.1) 06/03/23 14:37 Nucleated RBC % (auto) 0 % 06/03/23 14:37 Nucleated RBCs # 0.0 /100WBC 06/03/23 14:37 Sodium 138 mmol/L (136-145) 06/03/23 18:22 Potassium 5.6 mmol/L (3.5-5.1) H 06/03/23 18:22 Chloride 110 mmol/L (98-107) H 06/03/23 18:22 Carbon Dioxide 20 mmol/L (22-29) L 06/03/23 18:22 Anion Gap 13.6 (5-19) 06/03/23 18:22 BUN 31 mg/dL (8-23) H 06/03/23 18:22 Creatinine 3.0 mg/dL (0.7-1.2) H 06/03/23 18:22 GFR Calculation Not Reportable 06/03/23 18:22 Glucose 130 mg/dL (65-115) H 06/03/23 18:22 Calculated Osmolality 294 mOsm/kg (285-295) 06/03/23 18:22 Calcium 8.2 mg/dL (8.5-10.5) L 06/03/23 18:22 Magnesium 1.0 mg/dL (1.7-2.3) L 06/03/23 14:37 Total Bilirubin 0.5 mg/dL (0.15-1.2) 06/03/23 14:37 AST 11 U/L (0-40) 06/03/23 14:37 ALT 7 U/L (0-41) 06/03/23 14:37 Alkaline Phosphatase 131 U/L (40-130) H 06/03/23 14:37 NT-Pro-B Natriuret Pep 2326 pg/mL (0-450) H 06/03/23 14:37 Total Protein 7.6 g/dL (6.6-8.7) 06/03/23 14:37 Albumin 4.2 g/dL (3.5-5.2) 06/03/23 14:37 Globulin 3.4 g/dL (1.3-4.6) 06/03/23 14:37 Urine Color Dark yellow (Yellow) 06/03/23 17:00 Urine Appearance Clear (CLEAR) 06/03/23 17:00 Urine pH 5 (5-7) 06/03/23 17:00 Ur Specific [place] 1.020 (1.005-1.030) 06/03/23 17:00 Urine Protein Trace (Negative) 06/03/23 17:00 Urine Glucose (UA) Norm (Normal) 06/03/23 17:00 Urine Ketones Negative (Negative) 06/03/23 17:00 Urine Blood Neg (Negative) 06/03/23 17:00 Urine Nitrate Negative (Negative) 06/03/23 17:00 Urine Bilirubin 1+ (Negative) H 06/03/23 17:00 Urine Urobilinogen 1 mg/dL (Negative) H 06/03/23 17:00 Ur Leukocyte Esterase Negative (Negative) 06/03/23 17:00 Urine RBC None /hpf (0-2) 06/03/23 17:00 Urine WBC Rare /hpf (0-5) 06/03/23 17:00 Ur Squamous Epith Cells None /hpf (0-5) 06/03/23 17:00 Amorphous Sediment 1+ /hpf 06/03/23 17:00 Urine Bacteria Trace /hpf (NONE) 06/03/23 17:00 Hyaline Casts 0-4 /lpf H 06/03/23 17:00 Urine Opiates Screen Positive ng/mL (Negative) H 06/03/23 17:00 Ur Barbiturates Screen Negative ng/mL (Negative) 06/03/23 17:00 Ur Phencyclidine Scrn Negative ng/mL (Negative) 06/03/23 17:00 Ur Amphetamines Screen Negative ng/mL (Negative) 06/03/23 17:00 U Benzodiazepines Scrn Negative ng/mL (Negative) 06/03/23 17:00 Urine Cocaine Screen Negative ng/mL (Negative) 06/03/23 17:00 U Marijuana (THC) Screen Negative ng/mL (Negative) 06/03/23 17:00 All radiology interpretation(s) finalized by discharge Discharge Plan Discharge Patient Disposition: Home Clinical Impression: Acute hyperkalemia, Hypomagnesemia, Acute renal insufficiency Condition: Stable Prescriptions: New magnesium oxide 400 mg magnesium tablet 400 mg PO BID Qty: 30 0RF No Action Narcan 4 mg/actuation spray,non-aerosol 1 spray INTRANASAL .COMPLEX Rx Instructions: INTRA NASAL NEEDED FOR OVERDOSE pantoprazole [Protonix] 40 mg tablet,delayed release (DR/EC) 40 mg PO BID Qty: 60 5RF metformin 1,000 mg tablet 1,000 mg PO BID 30 Days Qty: 60 1RF albuterol sulfate [ProAir HFA] 90 mcg/actuation HFA aerosol inhaler 1 - 2 puff INHALATION Q6H PRN (Reason: shortness of breath or wheezing) allopurinol 300 mg tablet 300 mg PO DAILY clopidogrel [Plavix] 75 mg tablet 75 mg PO DAILY Qty: 30 1RF aspirin 81 mg Tablet,Delayed Release (Dr/Ec) 81 mg PO DAILY Qty: 90 0RF carvedilol [Coreg] 12.5 mg tablet 12.5 mg PO BID fluticasone propionate 50 mcg/actuation spray,suspension 2 spray intranasal DAILY atorvastatin 20 mg tablet 20 mg PO DAILY nitroglycerin [Nitrostat] 0.4 mg Tablet, Sublingual 0.4 mg SUBLINGUAL Q5M PRN (Reason: Chest Pain) Rx Instructions: do not exceed 3 doses per episode isosorbide mononitrate 60 mg tablet extended release 24 hr 90 mg PO DAILY hydrocodone-acetaminophen 10-325 mg tablet 1 tab PO Q6H PRN (Reason: Pain) fluticasone propion-salmeterol [Advair Diskus] 250-50 mcg/dose Blister With Device 1 inh INHALATION BID furosemide 40 mg tablet 40 mg PO DAILY Qty: 30 0RF benazepril 20 mg tablet 30 mg PO DAILY Qty: 45 0RF tizanidine 4 mg tablet pregabalin 200 mg capsule 200 mg PO Q8H Discharge Orders: Discharge ED (Routine); Ordered 06/03/23 Ordered By: Richard Shukla Referrals: Galindo Carson DO [Primary Care Provider] - 1 week Patient Instructions: Hyperkalemia, Hypomagnesemia (ED) Activity Restrictions/Additional Instructions: Please hold your benazepril as this may be part of the cause of your elevated potassium and decreased kidney function. Please take all other medicines as directed. 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
[2023-06-03 14:59] LABS: Basophils # 0.1 10^3/uL (0.0-0.1); Basophils % 0.8 %; Eosinophils % 0.3 %; Hematocrit 41.8 % (37-53); Lymphocytes # 1.9 10^3/uL (0.8-4.8); Lymphocytes % 12.3 %; Mean Corpuscular HGB Conc 30.1 g/dL (30-55); Mean Corpuscular Hemoglobin 28.5 pg (27-33); Mean Corpuscular Volume 94.6 fl (82-101); Mean Platelet Volume 10.7 fL (7.4-10.4); Monocytes % 6.1 %; Neutrophils % 79.9 %; Nucleated Red Blood Cells % 0 %; Platelet Count 275 10^3/cmm (157-399); Red Blood Count 4.42 10^6/uL (3.85-5.65); Red Cell Distribution Width 15.6 % (12.1-15.1); White Blood Count 15.52 10^3/uL (3.29-11.43)
[2023-06-03 15:20] LABS: Alanine Aminotransferase 7 U/L (0-41); Albumin Level 4.2 g/dL (3.5-5.2); Alkaline Phosphatase 131 U/L (40-130); Anion Gap 21.3 (5-19); Aspartate Amino Transferase 11 U/L (0-40); Blood Urea Nitrogen 33 mg/dL (8-23); Calcium 9.3 mg/dL (8.5-10.5); Carbon Dioxide 18 mmol/L (22-29); Chloride 109 mmol/L (98-107); Globulin 3.4 g/dL (1.3-4.6); Glucose 138 mg/dL (65-115); NT Pro B Type Natriuretic Pept 2326 pg/mL (0-450); Osmolality Calculated 303 mOsm/kg (285-295); Potassium 6.3 mmol/L (3.5-5.1); Sodium 142 mmol/L (136-145); Total Bilirubin 0.5 mg/dL (0.15-1.2); Total Protein 7.6 g/dL (6.6-8.7)
[2023-06-03] MEDS: sodium chloride 0.9% 1,000 ML 999 ML IV ×2 (16:05→17:04)
[2023-06-03 16:08] VITALS: BP 94/57; PULSE 59; O2SAT 98
[2023-06-03] MEDS: magnesium sulfate premix 2 GM/50 ML PIGGYBACK IV (16:30)
[2023-06-03 17:16] LABS: Amphetamines Screen Urine Negative (Negative); Barbiturates Screen Urine Negative (Negative); Benzodiazepines Screen Urine Negative (Negative); Cocaine Screen Urine Negative (Negative); Opiate Screen Urine Positive (Negative); PCP Screen Urine Negative (Negative); THC Screen Urine Negative (Negative)
[2023-06-03 17:17] LABS: Glucose Urine UA Norm (Normal); Ketones Urine Negative (Negative); Protein Urine Trace (Negative); Urine Appearance Clear (CLEAR); Urine Color Dark Yellow (Yellow); pH Urine 5 (5-7)
[2023-06-03 17:18] LABS: Add Urine Culture? No; Add Urine Microscopic? YES; Amorphous Sediment Urine 1+ /hpf; Bacteria Urine TRACE /hpf; Bilirubin Urine 1+ (Negative); Blood Urine Neg (Negative); Hyaline Casts Urine 0-4 /lpf; Leukocyte Esterase Urine Negative (Negative); Nitrate Urine Negative (Negative); Urobilinogen Urine 1 mg/dL (Negative); WBC Urine RARE /hpf (0-5)
[2023-06-03 18:54] LABS: Anion Gap 13.6 (5-19); Blood Urea Nitrogen 31 mg/dL (8-23); Calcium 8.2 mg/dL (8.5-10.5); Carbon Dioxide 20 mmol/L (22-29); Chloride 110 mmol/L (98-107); Glucose 130 mg/dL (65-115); Osmolality Calculated 294 mOsm/kg (285-295); Potassium 5.6 mmol/L (3.5-5.1); Sodium 138 mmol/L (136-145)
[2023-06-03 19:16] VITALS: BP 98/70; PULSE 86; O2SAT 97
== END 2023-06-03 19:24 | disposition home or self-care (01) ==
PROVIDERS: Emergency Provider Emergency Medicine; PCP Family Medicine
DX: E87.5 Hyperkalemia (principal); E83.42 Hypomagnesemia; Z79.82 Long term (current) use of aspirin; Z79.02 Long term (current) use of antithrombotics/antiplatelets; Z79.84 Long term (current) use of oral hypoglycemic drugs; Z87.891 Personal history of nicotine dependence; I25.10 Atherosclerotic heart disease of native coronary artery without angina pectoris; J44.9 Chronic obstructive pulmonary disease, unspecified; E78.5 Hyperlipidemia, unspecified; I13.0 Hypertensive heart and chronic kidney disease with heart failure and stage 1 through stage 4 chronic kidney disease, or unspecified chronic kidney disease; E11.22 Type 2 diabetes mellitus with diabetic chronic kidney disease; N18.9 Chronic kidney disease, unspecified; I50.9 Heart failure, unspecified; I25.2 Old myocardial infarction
CPT/HCPCS: 36415; 71045; 80048; 80053; 80306; 81001; 83735; 83880; 85025; 93005; 96361; 96365; 99285; J3475; J7030

== ENCOUNTER 2023-08-09 11:02 | Emergency (ER) | payer MEDICARE, MEDICAID, SELFPAY ==
[2023-08-09] VITALS (16 sets, daily range): BP systolic 60–138; BP diastolic 36–64; PULSE 76–98; RESP 16–28; TEMP 37.3–38.4; O2SAT 92–100; BMI 31.8
--- NOTE | 2023-08-09 11:10 | XRR_ITS ---
PROCEDURE INFORMATION: Exam: XR Chest Exam date and time: 08/09/2023 11:33 AM Age: 78 years old Clinical indication: Dyspnea and shortness of breath TECHNIQUE: Imaging protocol: Radiologic exam of the chest. Views: 1 view. COMPARISON: CR XR chest 1V portable [id number] 06/03/2023 2:14 PM FINDINGS: Lungs: Ill-defined opacity in the left lung base and infrahilar right lung. Pleural spaces: There is no pleural effusion or pneumothorax. Heart/Mediastinum: Cardiomediastinal contours are unremarkable. Bones/joints: Bones are unremarkable. XR/XR chest 1V portable [id number] IMPRESSION: Bilateral lower lung consolidation suspicious for pneumonia.
--- NOTE | 2023-08-09 11:11 | ED_ITS ---
HPI - SOB/Dyspnea 2 General: Chief Complaint: Shortness of Breath/Dyspnea Stated Complaint: CHF Time Seen by Provider: 08/09/23 11:09 History of Present Illness: HPI Narrative: Patient presents to the ER by EMS with complaints of shortness of breath, possible CHF exacerbation. Patient is currently on BiPAP. With FiO2 of 45% and O2 saturation 97% lung sounds are wet, rhonchi's, and labored. Patient has a temperature of 101.2 blood pressure 84/52, Review of Systems 2 General: Reports: 10 or more systems reviewed and unremarkable except in HPI and below PFSH ED 2 PFSH: Medical History CKD (chronic kidney disease) Atypical chest pain Severe tricuspid regurgitation Pulmonary hypertension Atherosclerotic heart disease of samish coronary artery with other forms of angina pectoris Ischemic cardiomyopathy Acute decompensated heart failure NSTEMI (non-ST elevated myocardial infarction) Elevated troponin Encephalopathy, hypertensive Altered mental status Carotid artery narrowing Urinary retention Gabapentin overdose MALORIE (obstructive sleep apnea) Dyslipidemia Hypertension Congestive heart failure Diabetes mellitus type 2 in obese Smokeless tobacco use Opioid contract exists Encounter for long-term use of opiate analgesic Major depressive disorder, recurrent, mild (Unknown) Gout Chronic back pain CAD (coronary artery disease) Substance abuse Renal insufficiency Neuropathy COPD (chronic obstructive pulmonary disease) Surgical History History of cholecystectomy History of heart artery stent Family History Other Cancer Hypertension Social History Smoking and tobacco/nicotine status: former use of tobacco/nicotine Second hand smoke exposure: No Alcohol intake: never Substance/Drug Use: never Physical Exam 2 Const: COMMON NORMALS: average body habitus, patient oriented x3, no limitations, alert and well nourished HENMT: COMMON NORMALS: normocephalic, atraumatic, hearing grossly normal bilaterally, external ears normal and Normal external nose present HEAD & SCALP: normocephalic and atraumatic NOSE: Normal external nose present E XTERNAL EAR: Yes external ears normal Neck/C-Spine: COMMON NORMALS: no JVD Chest: COMMONS NORMALS: normal inspection of the chest and normal palpation of entire chest wall Resp: COMMON NORMALS: No retractions and No use of accessory muscles; negative for normal respiratory effort (Patient on BiPAP) and negative for clear to auscultation bilaterally (Rhonchi and rales bilaterally,) AUSCULTATION: n ot clear to auscultation bilaterally (Rhonchi and rales bilaterally,) Cardio: COMMON NORMALS: no JVD, regular rate, regular rhythm, S1 normal heart sound present, S2 normal heart sound present, No gallops present (Cardio), No clicks present (Cardio), No murmurs present (Cardio) and No rub (Cardio) R ATE: regular rate RHYTHM: regular rhythm HEART SOUNDS: S1 normal heart sound present and S2 normal heart sound present GI: COMMON NORMALS: Normal to inspection, nondistended, normoactive bowel sounds present, Soft to palpation, non-tender, No hepatosplenomegaly present and no masses PALPATION: Yes Soft to palpation and Yes No hepatosplenomegaly present Extremity: NARRATIVE EXTREMITY EXAM: 2+ pitting edema bilateral lower extremi ties Neuro: COMMON NORMALS: patient oriented x3 SENSORIUM/ORIENTATION: Yes alert Procedures Central Line Placement Left IJ: Time Out Performed: Yes Patient Placed on Monitor/Pulse Ox: Yes MD Prep: mask, gown and gloves Central Line Prep: Chlorhexidine scrub and sterile drapes applied Local Anesthetic: lidocaine 1% Amount of anesthesia used (mL): 3 Ultrasound Used for Placement: Yes Central Line Lumen Inserted: triple Post Procedure: sutured in place, good blood return, all ports aspirated, flushed, capped and sterile dressing applied Post Procedure X-Ray: tip of catheter in good position and no pneumothorax seen Patient Tolerated Procedure: well and no complications Course 2 Vital Signs: Vital signs: Vital Signs Temperature 99.1 F 08/09/23 13:51 Pulse Rate 98 08/09/23 21:32 Respiratory Rate 16 08/09/23 21:32 Blood Pressure 138/52 08/09/23 21:32 Pulse Oximetry 95 08/09/23 21:32 Oxygen Delivery Me thod BiPAP 08/09/23 20:18 Fraction of Inspir ed Oxygen 40 08/09/23 17:51 MDM - SOB/Dyspnea Medical Decision Making Sepsis protocol was started however only 1 L of normal saline was bolused due to patient having CHF and being edematous already. Did not want to worsen his CHF with additional fluid boluses per protocol so they were held. Patient presented on BiPAP and respiratory failure with a temperature of 101.2. Lab work was obtained chest x-ray was obtained that showed bilateral pneumonia. Patient's white count was 38,000 BUN/creatinine was elevated at 32 and 3.4, lactic acid was 9.9, procalcitonin was greater than 100, magnesium is 1.1, BNP was 7513, baseline troponin was 51, patient was given only 1 L fluid as bolus., 1 g of Tylenol IV which reduces to temperature down to 99.1. 3.375 g of Zosyn, and 2 g magnesium. Patient is influenza and COVID-negative. Dr. Silva to come in evaluate patient in the ER patient will probably be admitted to ICU. Will place a central line assess the need for intubation and pressors. There are no ICU beds here this was discussed with the patient and family and patient will probably be transferred to [place]. [place] was called Dr. Huston's hospitalist was consulted and he agreed to take the patient for further evaluation and transport. Patient be transported pending bed assignment. Differential Diagnosis Likely acute exacerbation of chronic obstructive airways disease, congestive heart failure and community acquired pneumonia; Unlikely asthma with exacerbation or pulmonary embolism Medical Records I reviewed the patient's medical records. Lab Data I reviewed the patient's lab results. 08/09/23 11:22 08/09/23 13:25 Labs/Radiology: Radiology Impressions Chest X-Ray 08/09/23 16:40 IMPRESSION: As above. Laboratory Results WBC 38.14 10^3/uL (3.29-11.43) H* 08/09/23 11: RBC 4.57 10^6/uL (3.85-5.65) 08/09/23 11:22 Hgb 13.40 g/dL (11.27-16.99) 08/09/23 11:22 Hct 43.3 % (37-53) 08/09/23 11:22 MCV 94.7 fl (82-101) 08/09/23 11:22 MCH 29.3 pg (27-33) 08/09/23 11: MCHC 30.9 g/dL (30-55) 08/09/23 11:22 RDW 15.2 % (12.1-15.1) H 08/09/23 11:22 Plt Count 272 10^3/cmm (157-399) 08/09/23 11:22 MPV 11.0 fL (7.4-10.4) H 08/09/23 11:22 Neut % (Auto) 87.8 % 08/09/23 11:22 Lymph % (Auto) 4.9 % 08/09/23 11:22 [place] % (Auto) 4.4 % 08/09/23 11:22 Eos % (Auto) 0.2 % 08/09/23 11:22 Baso % (Auto) 0.3 % 08/09/23 11:22 Neut # (Auto) 33.49 10^3/uL (1.8-7.7) H 08/09/23 11:22 Lymph # (Auto) 1.9 10^3/uL (0.8-4.8) 08/09/23 11:22 [place] # (Auto) 1.7 10^3/uL (0.2-0.9) H 08/09/23 11:22 Eos # (Auto) 0.1 10^3/uL (0.0-0.8) 08/09/23 11:22 Baso # (Auto) 0.1 10^3/uL (0.0-0.1) 08/09/23 11:22 Nucleated RBC % (auto) 0 % 08/09/23 11:22 Nucleated RBCs # 0.0 /100WBC 08/09/23 11:22 Specimen Type Arterial 08/09/23 11:10 Sample Site Radial, left 08/09/23 11:10 ABG pH 7.34 (7.35-7.45) L 08/09/23 11:10 ABG pCO2 27.5 mmHg (35-45) L 08/09/23 11:10 ABG pO2 82.4 mmHg (80.0-100.0) 08/09/23 11:10 ABG PO2/FiO2 Ratio 0 08/09/23 11:10 ABG HCO3 14.9 mmol/L (22-26) L 08/09/23 11:10 ABG O2 Saturation 97.5 08/09/23 11:10 ABG Base Excess -9.4 mmol/L (-2.0-2.0) L 08/09/23 11:10 Sergio Test Pos 08/09/23 11:10 A-a O2 Gradient 77.3 mmHg (5-10) H 08/09/23 11:10 Hematocrit 38.9 % (42-52) L 08/09/23 11:10 Hgb O2 Saturation 95.6 % (95-100) 08/09/23 11:10 Carboxyhemoglobin 1.4 %THgb (0.4-20.1) 08/09/23 11:10 Methemoglobin 0.5 % (0.4-1.5) 08/09/23 11:10 Total Hemoglobin 12.7 g/dL (14-18) L 08/09/23 11:10 Sodium 142.0 mmol/L (131-143) 08/09/23 11:10 Potassium 4.1 mmol/L (3.5-5.0) 08/09/23 11:10 Glucose 80.0 mg/dL (70-115) 08/09/23 11:10 Ionized Calcium 1.2 mmol/L (1.1-1.4) 08/09/23 11:10 O2 Delivery Device Not Reportable 08/09/23 11:10 FiO2 100.0 % 08/09/23 11:10 Drying Oven Tender ID [place] 08/09/23 11:10 Sodium 142 mmol/L (136-145) 08/09/23 13:25 Potassium 4.9 mmol/L (3.5-5.1) 08/09/23 13:25 Chloride 101 mmol/L (98-107) 08/09/23 13:25 Carbon Dioxide 18 mmol/L (22-29) L 08/09/23 13:25 Anion Gap 27.9 (5-19) H 08/09/23 13:25 BUN 32 mg/dL (8-23) H 08/09/23 13:25 Creatinine 3.4 mg/dL (0.7-1.2) H 08/09/23 13:25 GFR Calculation Not Reportable 08/09/23 13:25 Glucose 68 mg/dL (65-115) 08/09/23 13:25 Calculated Osmolality 299 mOsm/kg (285-295) H 08/09/23 13:25 Lactic Acid 9.9 mmol/L (0.5-2.2) H* 08/09/23 13:25 Lactic Acid (Sepsis) 10.1 mmol/L (0.5-2.2) H* 08/09/23 15:46 Calcium 9.2 mg/dL (8.5-10.5) 08/09/23 13:25 Magnesium 1.1 mg/dL (1.7-2.3) L 08/09/23 13:25 Total Bilirubin 0.6 mg/dL (0.15-1.2) 08/09/23 13:25 AST 30 U/L (0-40) 08/09/23 13:25 ALT 16 U/L (0-41) 08/09/23 13:25 Alkaline Phosphatase 119 U/L (40-130) 08/09/23 13:25 Troponin T Baseline 51 ng/L (0-15) H 08/09/23 13:25 Troponin T 120 Minute 53.76 ng/L (0-15) H 08/09/23 15:46 Delta Troponin T 2.76 ABS# (0-10) 08/09/23 15:46 Troponin T Hi Sens 6Hr 48.39 ng/L (0-15) H 08/09/23 20:12 Troponin T Hi Sens 6Hr Delta -2.61 ng/L (0-12) L 08/09/23 20:12 NT-Pro-B Natriuret Pep 7513 pg/mL (0-450) H 08/09/23 13:25 Total Protein 6.2 g/dL (6.6-8.7) L 08/09/23 13:25 Albumin 3.6 g/dL (3.5-5.2) 08/09/23 13:25 Globulin 2.6 g/dL (1.3-4.6) 08/09/23 13:25 Procalcitonin > 100.00 ng/mL (0-0.5) H 08/09/23 13:25 Influenza Type A Ag negative (Negative) 08/09/23 11:56 Influenza Type B Ag negative (Negative) 08/09/23 11:56 SARS-CoV-2 Ag (Rapid) negative (Negative) 08/09/23 11:56 All radiology interpretation(s) finalized by discharge EKG Data EKG 1: I personally reviewed and interpreted this EKG as follows: EKG Interpretation Date: 08/09/23 EKG interpretation time: 11:37 Prior EKG tracings: not available for review Interpretation: EKG showed ventricular rate 84 beats minute, DC interval 162, QRS duration 94, QTc of 426, sinus rhythm with occasional PVC EKG 2: I personally reviewed and interpreted this EKG as follows: EKG Interpretation Date: 08/09/23 EKG interpretation time: 13:06 Prior EKG tracings: available for review Interpretation: EKG showed ventricular rate 86 bpm, DC interval 182, QRS duration 93, QTc of 452, sinus rhythm with occasional PVC EKG 3: I personally reviewed and interpreted this EKG as follows: EKG Interpretation Date: 08/09/23 EKG interpretation time: 17:10 Prior EKG tracings: available for review Interpretation: EKG showed ventricular rate 85 bpm, DC interval 164, QRS duration 93, QTc of 429, sinus rhythm, Discharge Plan Discharge Patient Disposition: Xfer Short-Term Hosp Clinical Impression: Acute hypoxemic respiratory failure, Hypomagnesemia Bilateral pneumonia Qualifiers: Pneumonia type: due to unspecified organism Lung location: lower lobe of lung Q ualified Code(s): J18.9 - Pneumonia, unspecified organism Sepsis Qualifiers: Sepsis type: sepsis due to unspecified organism Sepsis acute organ dysfunction status: with acute organ dysfunction Severe sepsis acute organ dysfunction type: acute respiratory failure Acute respiratory failure type: with hypoxia Severe sepsis shock status: with septic shock Qualified Code(s): A41.9 - Sepsis, unspecified organism Chronic kidney disease Qualifiers: Chronic kidney disease stage: unspecified stage Qualified Code(s): N18.9 - Chronic kidney disease, unspecified Condition: Stable Referrals: Galindo Carson DO [Primary Care Provider] - Coding Level of Care Code 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
[2023-08-09 11:21] LABS: ABG PCO2 27.5 mmHg (35-45); ABG PH Result 7.34 (7.35-7.45); Alveolar-Arterial Oxygen Gradi 77.3 mmHg (5-10); Arterial Blood Gas Hematocrit 38.9 % (42-52); Base Excess ABG -9.4 mmol/L (-2.0-2.0); Blood Gas Allen Test Pos; Blood Gas Operator Identificat WALCI; Blood Gas Sample Site Radial, left; Blood Gas Sample Type Arterial; Carboxyhemoglobin 1.4 %THgb (0.4-20.1); HCO3 ABG 14.9 mmol/L (22-26); HGB O2 Sat 95.6 % (95-100); Ionized Calcium Level - ABG 1.2 mmol/L (1.1-1.4); Methemoglobin 0.5 % (0.4-1.5); Oxygen Saturation ABG 97.5; PO2 ABG 82.4 mmHg (80.0-100.0); PO2 FiO2 Ratio Arterial Blood 0; Potassium Level - ABG 4.1 mmol/L (3.5-5.0); Total Hemoglobin 12.7 g/dL (14-18)
[2023-08-09 11:37] LABS: Basophils # 0.1 10^3/uL (0.0-0.1); Basophils % 0.3 %; Eosinophils # 0.1 10^3/uL (0.0-0.8); Eosinophils % 0.2 %; Hematocrit 43.3 % (37-53); Lymphocytes # 1.9 10^3/uL (0.8-4.8); Lymphocytes % 4.9 %; Mean Corpuscular HGB Conc 30.9 g/dL (30-55); Mean Corpuscular Hemoglobin 29.3 pg (27-33); Mean Corpuscular Volume 94.7 fl (82-101); Monocytes # 1.7 10^3/uL (0.2-0.9); Monocytes % 4.4 %; Neutrophils # 33.49 10^3/uL (1.8-7.7); Neutrophils % 87.8 %; Nucleated Red Blood Cells % 0 %; Platelet Count 272 10^3/cmm (157-399); Red Blood Count 4.57 10^6/uL (3.85-5.65); Red Cell Distribution Width 15.2 % (12.1-15.1)
--- NOTE | 2023-08-09 11:37 | ECG_ITS ---
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 Measurements Intervals [place] Rate: 84 P: 10 MI: 162 QRS: 40 QRSD: 94 T: 46 QT: 385 QTc: 457 Interpretive Statements SINUS RHYTHM WITH OCCASIONAL SUPRAVENTRICULAR PREMATURE COMPLEXES Compared to ECG 06/03/2023 14:07:48 No significant changes Electronically Signed On 08-10-2023 16:42:52 DIALER by Farhat Puentes M.D. [id number]
[2023-08-09 11:47] LABS: White Blood Count 38.14 10^3/uL (3.29-11.43)
[2023-08-09] MEDS: piperacillin-tazobactam 3.375 GM in sodium chloride 0.9% (plus) 50 ML IV ×2 (12:07→20:13)
[2023-08-09] MEDS: acetaminophen 1,000 MG/100 ML PIGGYBACK 400 MG IV (12:07)
[2023-08-09] MEDS: sodium chloride 0.9% 1,000 ML 999 ML IV ×3 (12:08→16:50)
[2023-08-09 12:49] LABS: Influenza A by IFA negative (Negative); Influenza B by IFA negative (Negative)
[2023-08-09 12:50] LABS: SARS Covid-2 Antigen negative (Negative)
--- NOTE | 2023-08-09 13:13 | ECG_ITS ---
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 Measurements Intervals [place] Rate: 86 P: 60 GA: 182 QRS: 56 QRSD: 93 T: 54 QT: 409 QTc: 490 Interpretive Statements SINUS RHYTHM WITH FREQUENT SUPRAVENTRICULAR PREMATURE COMPLEXES ABNORMAL RHYTHM ECG Compared to ECG 08/09/2023 11:37:23 No significant changes Electronically Signed On 08-10-2023 17:00:02 SPRINKLER FITTER HELPER by Farhat Puentes M.D. [email or web address] [email or web address]/[id number]
[2023-08-09 13:54] LABS: Troponin(5th) Baseline 51 ng/L (0-15)
[2023-08-09 14:13] LABS: Alanine Aminotransferase 16 U/L (0-41); Albumin Level 3.6 g/dL (3.5-5.2); Alkaline Phosphatase 119 U/L (40-130); Anion Gap 27.9 (5-19); Aspartate Amino Transferase 30 U/L (0-40); Blood Urea Nitrogen 32 mg/dL (8-23); Calcium 9.2 mg/dL (8.5-10.5); Carbon Dioxide 18 mmol/L (22-29); Chloride 101 mmol/L (98-107); Globulin 2.6 g/dL (1.3-4.6); Glucose 68 mg/dL (65-115); Magnesium 1.1 mg/dL (1.7-2.3); NT Pro B Type Natriuretic Pept 7513 pg/mL (0-450); Osmolality Calculated 299 mOsm/kg (285-295); Potassium 4.9 mmol/L (3.5-5.1); Sodium 142 mmol/L (136-145); Total Bilirubin 0.6 mg/dL (0.15-1.2); Total Protein 6.2 g/dL (6.6-8.7)
[2023-08-09 14:18] LABS: Lactic Sepsis W/Reflex 9.9 mmol/L (0.5-2.2)
[2023-08-09 14:39] LABS: Procalcitonin > 100.00 ng/mL (0-0.5)
[2023-08-09 15:20] LABS: Reflex Lactate Order REFLEX LACTIC ORDERD
[2023-08-09 16:12] LABS: Lactic Acid level (Lactate) 10.1 mmol/L (0.5-2.2); Troponin 5 2HR 53.76 ng/L (0-15); Troponin 5 2HR Delta 2.76 ABS# (0-10)
--- NOTE | 2023-08-09 16:40 | XRR_ITS ---
PROCEDURE INFORMATION: Exam: XR Chest Exam date and time: 08/09/2023 4:45 PM Age: 78 years old Clinical indication: Other vascular access device placement or adjustment; Central line, non-tunnelled; Patient HX: Post central line placement TECHNIQUE: Imaging protocol: Radiologic exam of the chest. Views: 1 view. COMPARISON: CR XR chest 1V portable [id number] 08/09/2023 11:33 AM FINDINGS: Left-sided central line tip projects over the distal SVC/cavoatrial junction. XR/XR chest 1V portable [id number] IMPRESSION: As above.
--- NOTE | 2023-08-09 17:13 | ECG_ITS ---
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 Measurements Intervals [place] Rate: 85 P: 47 NC: 164 QRS: 61 QRSD: 93 T: 66 QT: 387 QTc: 462 Interpretive Statements SINUS RHYTHM Normal EKG Compared to ECG 08/09/2023 13:06:06 No significant changes Electronically Signed On 08-10-2023 16:58:17 EMBEDDED SOFTWARE ARCHITECT by Farhat Puentes M.D. [id number]
[2023-08-09] MEDS: magnesium sulfate premix 2 GM/50 ML PIGGYBACK IV (17:19)
[2023-08-09] MEDS: norepinephrine 4 MG/250 ML BAG 30 MG IV (18:22)
--- NOTE | 2023-08-09 18:26 | P.HP_ITS ---
Providers/Chief Complaint 2 Primary Care Provider: Galindo Carson DO Chief Complaint: CHF History of Present Illness Isaías Clarke is a 78 year old male with a past medical history of COPD, history of smoking, history of CAD, history of type 2 diabetes mellitus, sleep apnea, chronic back pain, who presents to [facility] for fevers, chills, shortness of breath. Currently patient is on 40% BiPAP, encephalopathic, alert to person, not to place, not to time, currently systolic blood pressures are 60s over 50s, receiving sepsis bolus, I discussed with at bedside, for the last 24 hours patient has been feeling well, complaining of fatigue, malaise, shortness of breath, lower extremity edema, no sick contacts, recent travel. Reviewed labs, patient has lactic acidosis, septic shock chest x-ray shows bilateral pneumonia. Currently on BiPAP, acute hypoxemic respiratory failure requiring BiPAP. Currently at [facility] we do not have ICU beds, given patient's persistent hypotension despite receiving sepsis bolus, hypoxic respiratory failure he is going to require intensive care monitoring. At [facility] we do not have ICU beds, nor do I feel comfortable keeping this patient in the emergency room given how critically ill he has. I spoke with patient's family, I apologized to them that as we do not have beds here at ICU I feel uncomfortable keeping him here in the emergency room as a ER hold I would recommend for him to be transferred to a tertiary level center for rapid evaluation and ICU monitoring of his acute hypoxemic respiratory failure secondary to bilateral pneumonia, evidence of multiorgan failure including ANAT, septic shock, he has been giving antibiotics, fluids, I recommend ER provider to put in central line, started on pressors he also high 80s hypomagnesemia, receiving IV magnesium replacement. His troponins are also elevated as evidence of NSTEMI. His Pro-Parth is over 100, his lactic acid is 9.9, his BNP 70 513, has evidence of fluid overload his COVID is negative, fluid is negative, his white blood cell count is 38.. I discussed with the ER provider, to monitor his respiratory status closely is currently on 40% BiPAP, has evidence of mild respiratory distress is tachypneic, has intercostal retractions, nasal flaring, if we need to intubate him, I have recommended for intubation if required if his respiratory status worsens. After discussing the risk and benefits of transfer, patient's voiced understanding, all questions answered, agreed to transfer. The patient remains encephalopathic, he is alert to person, not to place, not to time, he keeps telling me that he is short of breath, currently on 40% BiPAP, O2 sats are 92% I spoke to ER provider, will transfer to tertiary level center Review of Systems 2 Const: Denies: fever(s) Card: Denies: chest pain Resp: Reports: dyspnea and non-productive cough Medications/Allergies Home Medications Medication Instructions Recorded Confirmed Last Taken Type naloxone 4 mg/actuation nasal 1 spray intranasal .COMPLEX 10/15/19 08/09/23 Unknown History spray (Narcan) pantoprazole 40 mg tablet,delayed 40 mg PO BID #60 tabs 11/21/19 08/09/23 08/08/23 Rx release (Protonix) metformin 1,000 mg tablet 1,000 mg PO BID 30 days #60 tabs 02/26/20 08/09/23 08/08/23 Rx albuterol sulfate 90 mcg/actuation 1 - 2 puff inhalation Q6H PRN 05/25/20 08/09/23 Unknown History aerosol inhaler (ProAir HFA) shortness of breath or wheezing allopurinol 300 mg tablet 300 mg PO DAILY 05/02/21 08/09/23 08/08/23 History clopidogrel 75 mg tablet (Plavix) 75 mg PO DAILY #30 tabs 08/07/21 08/09/23 08/08/23 Rx aspirin 81 mg tablet,delayed 81 mg PO DAILY #90 tabs 02/24/22 08/09/23 08/08/23 Rx release carvedilol 12.5 mg tablet (Coreg) 12.5 mg PO BID 06/02/22 08/09/23 08/08/23 History fluticasone propionate 50 2 spray intranasal DAILY 06/02/22 08/09/23 08/08/23 History mcg/actuation nasal spray,suspension atorvastatin 20 mg tablet 20 mg PO DAILY 07/05/22 08/09/23 08/08/23 History isosorbide mononitrate 60 mg 90 mg PO DAILY 07/05/22 08/09/23 08/08/23 History tablet,extended release 24 hr nitroglycerin 0.4 mg sublingual 0.4 mg sublingual Q5M PRN Chest 07/05/22 08/09/23 Unknown History tablet (Nitrostat) Pain fluticasone 250 mcg-salmeterol 50 1 inh inhalation BID 01/08/23 08/09/23 08/08/23 History mcg/dose blistr powdr for inhalation (Advair Diskus) hydrocodone 10 mg-acetaminophen 1 tab PO Q6H PRN Pain 01/08/23 08/09/23 Unknown History 325 mg tablet benazepril 20 mg tablet 30 mg (1.5 x 20 mg) PO DAILY #45 01/11/23 08/09/23 08/08/23 Rx tabs pregabalin 200 mg capsule 200 mg PO Q8H 06/03/23 08/09/23 08/08/23 History tizanidine 4 mg tablet 4 mg PO Q6H PRN Pain 06/03/23 08/09/23 Unknown History furosemide 40 mg tablet 40 mg PO BID 08/09/23 08/09/23 08/08/23 History terbinafine HCl 1 % topical cream 1 applic topical BID 08/09/23 08/09/23 08/08/23 History ziprasidone HCl 20 mg capsule 20 mg PO BID 08/09/23 08/09/23 08/08/23 History Allergies Allergy/AdvReac Type Severity Reaction Status Date / Time gabapentin AdvReac Mild ADR-Nausea Verified 08/09/23 11:20 PFSH Acute 2 PFSH: Medical History CKD (chronic kidney disease) Atypical chest pain Severe tricuspid regurgitation Pulmonary hypertension Atherosclerotic heart disease of [place] coronary artery with other forms of angina pectoris Ischemic cardiomyopathy Acute decompensated heart failure NSTEMI (non-ST elevated myocardial infarction) Elevated troponin Encephalopathy, hypertensive Altered mental status Carotid artery narrowing Urinary retention Gabapentin overdose MALORIE (obstructive sleep apnea) Dyslipidemia Hypertension Congestive heart failure Diabetes mellitus type 2 in obese Smokeless tobacco use Opioid contract exists Encounter for long-term use of opiate analgesic Major depressive disorder, recurrent, mild (Unknown) Gout Chronic back pain CAD (coronary artery disease) Substance abuse Renal insufficiency Neuropathy COPD (chronic obstructive pulmonary disease) Surgical History History of cholecystectomy History of heart artery stent Family History Other Cancer Hypertension Social History Smoking and tobacco/nicotine status: former use of tobacco/nicotine Second hand smoke exposure: No Alcohol intake: never Substance/Drug Use: never Vitals/I&O/Wt Last Vital Signs Temp 99.1 F 08/09/23 13:51 Pulse 81 08/09/23 17:51 Resp 17 08/09/23 16:15 BP 89/55 08/09/23 16:15 Pulse Ox 94 08/09/23 17:51 O2 Del Method CPAP 08/09/23 11:03 FiO2 40 08/09/23 17:51 08/09/23 08/09/23 08/09/23 06:59 14:59 22:59 Intake Total 1150 / 1150 1050 / 2200 Balance 1150 / 1150 1050 / 2200 Weight last 48 hrs Weight 100.698 kg Physical Exam 2 Const: COMMON NORMALS: no acute distress EXAM LIMITATIONS: altered mental status ORIENTATION/CONSCIOUSNESS: Yes awake and Yes oriented to person; not oriented to place and not oriented to time Eye: COMMON NORMALS: Equal, round and reactive pupils present Lymph: LYMPHATIC: no lymphadenopathy noted Chest: OTHER: Tachypneic, Resp: EFFORT & INSPECTION: Yes tachypneic, Yes respiratory distress and Yes retractions OTHER: Mild respiratory distress, with intercostal retractions, nasal flaring, tachypnea, on 40% BiPAP, 92% can say a few words short of breath with sentences Cardio: COMMON NORMALS: regular rate, regular rhythm, S1 normal heart sound present and S2 normal heart sound present RATE: regular rate RHYTHM: r egular rhythm HEART SOUNDS: S1 normal heart sound present and S2 normal heart sound present GI: OTHER: abdomen soft, nondistended, nontender, good bowel sounds all 4 quadrants Extremity: NARRATIVE EXTREMITY EXAM: 1+ pitting edema bilateral extremity Neuro: COMMON NORMALS: negative for patient oriented x3 OTHER: Has spontaneous movement of upper and lower extremities, difficult to do neurologic testing Sepsis: Is patient septic: Yes Focused sepsis exam performed: Yes F ocused sepsis exam: DP PT pulses diminished, cap refill greater than 3 seconds, mild mottling bilateral extremity Data 08/09/23 11:22 08/09/23 13:25 Micro: Microbiology 08/09/23 13:25 Blood Culture - Preliminary Blood SPECIMEN COLLECTED 08/09/23 12:26 Blood Culture - Preliminary Blood SPECIMEN COLLECTED A&P Assessment and plan (1) Acute hypoxemic respiratory failure: (2) Septic shock: (3) Bilateral pneumonia: Qualifiers: Lung location: lower lobe of lung Pneumonia type: due to unspecified organism Qualified Code(s): J18.9 - Pneumonia, unspecified organism (4) Multiorgan failure: (5) NSTEMI (non-ST elevated myocardial infarction): (6) Altered mental status: Qualifiers: Altered mental status type: unspecified Qualified Code(s): R41.82 - Altered mental status, unspecified (7) Hypomagnesemia: (8) COPD (chronic obstructive pulmonary disease): (9) Diabetes mellitus type 2 in obese: (10) Chronic kidney disease: Qualifiers: Chronic kidney disease stage: unspecified stage Qualified Code(s): N 18.9 - Chronic kidney disease, unspecified (11) Sepsis: Qualifiers: Acute respiratory failure type: with hypoxia Sepsis acute organ dysfunction status: with acute organ dysfunction Sepsis type: sepsis due to unspecified organism Severe sepsis acute organ dysfunction type: acute respiratory failure Severe sepsis shock status: with septic shock Qualified Code(s): A41.9 - Sepsis, unspecified organism; R65.21 - Severe sepsis with septic shock; J96.01 - Acute respiratory failure with hypoxia Plan Patient requires transfer to tertiary level center for acute hypoxic respiratory failure secondary to bilateral pneumonia, ANAT, NSTEMI, septic shock, hypomagnesemia, ? Reason for transfer is no ICU level of beds available here at [facility] ? Recommend monitoring monitor respiratory status closely, low threshold for intubation, given evidence of mild respiratory distress, ? Central line placement, ? Start broad-spectrum antibiotic therapy, recommend Zosyn, IV fluids, pressor therapy ? Transfer to tertiary level center Attestations 2 Medical Necessity Statement*: Patient will be transferred to tertiary level [facility] for acute hypoxic hypercarbic respiratory failure secondary to bilateral pneumonia, ANAT, NSTEMI, septic shock Coding Level of Care Code Acute Code for [facility] Diagnoses Acute hypoxemic respiratory failure J96.01 Septic shock A41.9; R65.21 Bilateral pneumonia J18.9 Lung location: lower lobe of lung Pneumonia type: due to unspecified organism Multiorgan failure NSTEMI (non-ST elevated myocardial infarction) I21.4 Altered mental status, unspecified altered mental status type R41.82 Altered mental status type: unspecified Hypomagnesemia E83.42 COPD (chronic obstructive pulmonary disease) J44.9 Diabetes mellitus type 2 in obese E11.69; E66.9 Chronic kidney disease N18.9 Chronic kidney disease stage: unspecified stage Sepsis A41.9; R65.21; J96.01 Acute respiratory failure type: with hypoxia Sepsis acute organ dysfunction status: with acute organ dysfunction Sepsis type: sepsis due to unspecified organism Severe sepsis acute organ dysfunction type: acute respiratory failure Severe sepsis shock status: with septic shock
[2023-08-09 20:45] LABS: Troponin 5 6HR 48.39 ng/L (0-15)
[2023-08-09 20:46] LABS: Troponin 5 6HR Delta -2.61 ng/L (0-12)
[2023-08-09] MEDS: LORazepam 2 mg/mL INJ 1 mL 0.5 MG IVP (21:11)
== END 2023-08-09 22:21 | disposition short-term general hospital (02) ==
PROVIDERS: Emergency Provider Emergency Medicine; PCP Family Medicine
DX: A41.9 Sepsis, unspecified organism (principal); R65.20 Severe sepsis without septic shock; J96.01 Acute respiratory failure with hypoxia; J18.9 Pneumonia, unspecified organism; E83.42 Hypomagnesemia; E11.22 Type 2 diabetes mellitus with diabetic chronic kidney disease; I13.0 Hypertensive heart and chronic kidney disease with heart failure and stage 1 through stage 4 chronic kidney disease, or unspecified chronic kidney disease; N18.9 Chronic kidney disease, unspecified; I50.9 Heart failure, unspecified; I25.5 Ischemic cardiomyopathy; I25.10 Atherosclerotic heart disease of native coronary artery without angina pectoris; I25.2 Old myocardial infarction; E78.5 Hyperlipidemia, unspecified; J44.9 Chronic obstructive pulmonary disease, unspecified; E11.40 Type 2 diabetes mellitus with diabetic neuropathy, unspecified; Z87.891 Personal history of nicotine dependence; Z11.52 Encounter for screening for COVID-19
CPT/HCPCS: 36415; 36556; 36600; 71045; 80051; 80053; 82330; 82805; 83605; 83735; 83880; 84145; 84484; 85025; 87040; 87426; 87804; 93005; 94660; 96365; 96366; 96367; 99291; C1751; J0131; J2060; J2543; J3475; J7030

== ENCOUNTER 2023-08-29 19:28 | Emergency (ER) | payer MEDICARE, MEDICAID, SELFPAY ==
[2023-08-29 19:29] VITALS: BP 91/44; PULSE 66; RESP 16; TEMP 36.5; O2SAT 98; BMI 31.1
--- NOTE | 2023-08-29 19:33 | XRR_ITS ---
PROCEDURE INFORMATION: Exam: XR Chest Exam date and time: 08/29/2023 7:45 PM Age: 78 years old Clinical indication: Other: AMS TECHNIQUE: Imaging protocol: Radiologic exam of the chest. Views: 1 view. COMPARISON: CR XR chest 1V portable [id number] 08/09/2023 4:45 PM FINDINGS: Tubes, catheters and devices: Left IJ line removal. Lungs: Mild COPD. Lung base atelectasis or scarring. No new consolidation. Mildly improved venous congestion. Pleural spaces: Unremarkable. No pleural effusion. No pneumothorax. Heart/Mediastinum: Heart is large. Advanced diffuse vascular calcification noted. Bones/joints: Unremarkable. XR/XR chest 1V portable [id number] IMPRESSION: The heart remains enlarged. Fluid status has slightly improved from 08/09/2023.
--- NOTE | 2023-08-29 19:34 | ECG_ITS ---
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 Measurements Intervals [place] Rate: 64 P: 54 TX: 194 QRS: 51 QRSD: 92 T: 12 QT: 416 QTc: 431 Interpretive Statements SINUS RHYTHM LOW QRS VOLTAGE IN PRECORDIAL LEADS [QRS DEFLECTION < 1.0 mV IN CHEST LEADS] Compared to ECG 08/09/2023 17:10:18 Low QRS voltage now present Electronically Signed On 08-29-2023 22:21:19 HELP DESK ANALYST by Maria Luisa Geller M.D. [id number]
--- NOTE | 2023-08-29 19:36 | ED_ITS ---
HPI - Altered Mental Status 2 General: Chief Complaint: Altered Mental Status Stated Complaint: AMS Time Seen by Provider: 08/29/23 19:29 History of Present Illness: Patient arrived to the ER via EMS for altered mental status. EMS states patient's stated he has not produced any urine today since about noon. She gave him a hydrocodone about noon and again at about 430. Later on today he became more altered to the point of EMS requiring to have a sternal rub and give him Narcan before he became more arousable. Upon arrival to the ER he is definitely altered and drowsy in appearance but can answer some questions appropriately. Review of Systems 2 General: Reports: ROS unobtainable due to mental status PFSH ED 2 PFSH: Medical History CKD (chronic kidney disease) Atypical chest pain Severe tricuspid regurgitation Pulmonary hypertension Atherosclerotic heart disease of [place] coronary artery with other forms of angina pectoris Ischemic cardiomyopathy Acute decompensated heart failure NSTEMI (non-ST elevated myocardial infarction) Elevated troponin Encephalopathy, hypertensive Altered mental status Carotid artery narrowing Urinary retention Gabapentin overdose MALORIE (obstructive sleep apnea) Dyslipidemia Hypertension Congestive heart failure Diabetes mellitus type 2 in obese Smokeless tobacco use Opioid contract exists Encounter for long-term use of opiate analgesic Major depressive disorder, recurrent, mild (Unknown) Gout Chronic back pain CAD (coronary artery disease) Substance abuse Renal insufficiency Neuropathy COPD (chronic obstructive pulmonary disease) Surgical History History of cholecystectomy History of heart artery stent Family History Other Cancer Hypertension Social History Smoking and tobacco/nicotine status: former use of tobacco/nicotine Second hand smoke exposure: No Alcohol intake: never Substance/Drug Use: never Physical Exam 2 Const: COMMON NORMALS: no acute distress, average body habitus, patient oriented x3 (Oriented x 1), no limitations, healthy appearing, alert and well nourished HENMT: COMMON NORMALS: normocephalic, atraumatic, hearing grossly normal bilaterally, external ears normal, Normal external nose present, moist oral mucous membranes and oropharynx normal HEAD & SCALP: normocephalic and atraumatic NOSE: Normal external nose present EXTERNAL EAR: Yes external ears normal Eye: COMMON NORMALS: Equal, round and reactive pupils present, EOMs intact bilaterally, conjunctivae normal and no scleral icterus CONJUNCTIVA: Yes conjunctivae normal PUPIL: Yes Equal, round and reactive pupils present Neck/C-Spine: COMMON NORMALS: full ROM, no lymphadenopathy, supple, no meningeal signs, no JVD and Thyroid normal THYROID: Thyroid normal Chest: COMMONS NORMALS: normal inspection of the chest and normal palpation of entire chest wall Resp: COMMON NORMALS: normal respiratory effort, No retractions, No use of accessory muscles and clear to auscultation bilaterally AUSCULTATION: clear to auscultation bilaterally Cardio: COMMON NORMALS: no JVD, regular rate, regular rhythm, S1 normal heart sound present, S2 normal heart sound present, No gallops present (Cardio), No clicks present (Cardio), No murmurs present (Cardio) and No rub (Cardio) R ATE: regular rate RHYTHM: regular rhythm HEART SOUNDS: S1 normal heart sound present and S2 normal heart sound present GI: COMMON NORMALS: Normal to inspection, nondistended, normoactive bowel sounds present, Soft to palpation, non-tender, No hepatosplenomegaly present and no masses PALPATION: Yes Soft to palpation and Yes No hepatosplenomegaly present Extremity: NARRATIVE EXTREMITY EXAM: 2-3+ pitting edema left lower extremity, 1-2+ pitting edema right lower extremity Neuro: COMMON NORMALS: patient oriented x3 (Oriented x 1) S ENSORIUM/ORIENTATION: Yes alert MENINGEAL SIGNS: Yes no meningeal signs Course 2 Vital Signs: Vital signs: Vital Signs Temperature 97.7 F 08/29/23 19:29 Pulse Rate 66 08/29/23 21:48 Respiratory Rate 16 08/29/23 21:48 Blood Pressure 116/59 08/29/23 21:48 Pulse Oximetry 97 08/29/23 21:48 Oxygen Delivery Me thod Room Air 08/29/23 19:29 MDM - Altered Mental Status Medical Decision Making Patient was brought in by EMS for altered mental status however when he arrived here he was little sluggish possibly from his narcotic usage but he was alert oriented and totally coherent and appropriate answer all questions. Lab work was obtained which showed he is now anemic at hemoglobin 8.9 his BUN/creatinine is chronically elevated at 30 and 3.0 chest x-ray had improved museum is low at 1.0. Patient was given a liter bolus of normal saline and 2 g of mag sulfate IV Differential Diagnosis Likely altered mental status; Unlikely alcoholic intoxication, delirium, dementia, hypoglycemia, hyponatremia, subarachnoid hemorrhage or sepsis Medical Records I reviewed the patient's medical records. Lab Data I reviewed the patient's lab results. 08/29/23 19:00 08/29/23 19:00 Radiology Impressions Chest X-Ray 08/29/23 19:33 IMPRESSION: The heart remains enlarged. Fluid status has slightly improved from 08/09/2023. Laboratory Results WBC 5.18 10^3/uL (3.29-11.43) 08/29/23 19:00 RBC 3.07 10^6/uL (3.85-5.65) L 08/29/23 19:00 Hgb 8.90 g/dL (11.27-16.99) L 08/29/23 19:00 Hct 28.2 % (37-53) L 08/29/23 19:00 MCV 91.9 fl (82-101) 08/29/23 19:00 MCH 29.0 pg (27-33) 08/29/23 19:00 MCHC 31.6 g/dL (30-55) 08/29/23 19:00 RDW 15.7 % (12.1-15.1) H 08/29/23 19:00 Plt Count 221 10^3/cmm (157-399) 08/29/23 19:00 MPV 10.7 fL (7.4-10.4) H 08/29/23 19:00 Neut % (Auto) 58.6 % 08/29/23 19:00 Lymph % (Auto) 25.3 % 08/29/23 19:00 [place] % (Auto) 13.9 % 08/29/23 19:00 Eos % (Auto) 0.8 % 08/29/23 19:00 Baso % (Auto) 0.8 % 08/29/23 19:00 Neut # (Auto) 3.04 10^3/uL (1.8-7.7) 08/29/23 19:00 Lymph # (Auto) 1.3 10^3/uL (0.8-4.8) 08/29/23 19:00 [place] # (Auto) 0.7 10^3/uL (0.2-0.9) 08/29/23 19:00 Eos # (Auto) 0.0 10^3/uL (0.0-0.8) 08/29/23 19:00 Baso # (Auto) 0.0 10^3/uL (0.0-0.1) 08/29/23 19:00 Nucleated RBC % (auto) 0 % 08/29/23 19:00 Nucleated RBCs # 0.0 /100WBC 08/29/23 19:00 PT 22.00 SECONDS (12.1-14.9) H 08/29/23 19:00 INR 1.85 (0.8-1.2) H 08/29/23 19:00 Sodium 135 mmol/L (136-145) L 08/29/23 19:00 Potassium 5.0 mmol/L (3.5-5.1) 08/29/23 19:00 Chloride 101 mmol/L (98-107) 08/29/23 19:00 Carbon Dioxide 22 mmol/L (22-29) 08/29/23 19:00 Anion Gap 17.0 (5-19) 08/29/23 19:00 BUN 31 mg/dL (8-23) H 08/29/23 19:00 Creatinine 3.0 mg/dL (0.7-1.2) H 08/29/23 19:00 GFR Calculation Not Reportable 08/29/23 19:00 Glucose 115 mg/dL (65-115) 08/29/23 19:00 Calculated Osmolality 287 mOsm/kg (285-295) 08/29/23 19:00 Lactic Acid 2.8 mmol/L (0.5-2.2) H 08/29/23 20:58 Calcium 7.3 mg/dL (8.5-10.5) L 08/29/23 19:00 Phosphorus 5.1 mg/dL (2.5-4.5) H 08/29/23 19:00 Magnesium 1.0 mg/dL (1.7-2.3) L 08/29/23 19:00 Total Bilirubin 0.2 mg/dL (0.15-1.2) 08/29/23 19:00 AST 13 U/L (0-40) 08/29/23 19:00 ALT 9 U/L (0-41) 08/29/23 19:00 Alkaline Phosphatase 83 U/L (40-130) 08/29/23 19:00 Troponin T Baseline 146 ng/L (0-15) H* 08/29/23 19:00 Troponin T 120 Minute 135.9 ng/L (0-15) H 08/29/23 20:58 Delta Troponin T -10.1 ABS# (0-10) L 08/29/23 20:58 NT-Pro-B Natriuret Pep 601 pg/mL (0-450) H 08/29/23 19:00 Total Protein 4.9 g/dL (6.6-8.7) L 08/29/23 19:00 Albumin 2.7 g/dL (3.5-5.2) L 08/29/23 19:00 Globulin 2.2 g/dL (1.3-4.6) 08/29/23 19:00 Procalcitonin 0.41 ng/mL (0-0.5) 08/29/23 19:00 Urine Color Yellow (Yellow) 08/29/23 21:24 Urine Appearance Clear (CLEAR) 08/29/23 21:24 Urine pH 5 (5-7) 08/29/23 21:24 Ur Specific [place] 1.015 (1.005-1.030) 08/29/23 21:24 Urine Protein Neg (Negative) 08/29/23 21:24 Urine Glucose (UA) Norm (Normal) 08/29/23 21:24 Urine Ketones Negative (Negative) 08/29/23 21:24 Urine Blood Neg (Negative) 08/29/23 21:24 Urine Nitrate Negative (Negative) 08/29/23 21:24 Urine Bilirubin Neg (Negative) 08/29/23 21:24 Urine Urobilinogen Norm mg/dL (Negative) 08/29/23 21:24 Ur Leukocyte Esterase Negative (Negative) 08/29/23 21:24 Urine Opiates Screen Positive ng/mL (Negative) H 08/29/23 21:24 Ur Barbiturates Screen Negative ng/mL (Negative) 08/29/23 21:24 Ur Phencyclidine Scrn Negative ng/mL (Negative) 08/29/23 21:24 Ur Amphetamines Screen Negative ng/mL (Negative) 08/29/23 21:24 U Benzodiazepines Scrn Negative ng/mL (Negative) 08/29/23 21:24 Urine Cocaine Screen Negative ng/mL (Negative) 08/29/23 21:24 U Marijuana (THC) Screen Negative ng/mL (Negative) 08/29/23 21:24 All radiology interpretation(s) finalized by discharge EKG Data EKG 1: I personally reviewed and interpreted this EKG as follows: EKG interpretation date: 08/29/23 EKG interpretation time: 20:05 Prior EKG tracings: not available for review Interpretation: EKG showed ventricular rate 64 beats minute, MA interval 194, QRS duration 92, QTc of 425, sinus rhythm EKG 2: I personally reviewed and interpreted this EKG as follows: EKG interpretation date: 08/29/23 EKG interpretation time: 20:47 Prior EKG tracings: available for review Interpretation: EKG showed ventricular rate 72 beats a minute, MA interval 174, QRS duration 109, QTc of 433, sinus rhythm nonspecific T wave abnormality EKG 3: I personally reviewed and interpreted this EKG as follows: EKG interpretation date: 08/29/23 EKG interpretation time: 21:35 Prior EKG tracings: available for review Interpretation: EKG showed ventricular rate a 68 bpm, MA interval 175, QRS duration 102, QTc of 438, sinus rhythm, Discharge Plan Discharge Patient Disposition: Home Clinical Impression: Acute alteration in mental status, Hypomagnesemia, Chronic kidney disease, Anemia Condition: Stable Prescriptions: No Action Narcan 4 mg/actuation spray,non-aerosol 1 spray INTRANASAL .COMPLEX Rx Instructions: INTRA NASAL NEEDED FOR OVERDOSE pantoprazole [Protonix] 40 mg tablet,delayed release (DR/EC) 40 mg PO BID Qty: 60 5RF metformin 1,000 mg tablet 1,000 mg PO BID 30 Days Qty: 60 1RF albuterol sulfate [ProAir HFA] 90 mcg/actuation HFA aerosol inhaler 1 - 2 puff INHALATION Q6H PRN (Reason: shortness of breath or wheezing) allopurinol 300 mg tablet 300 mg PO DAILY clopidogrel [Plavix] 75 mg tablet 75 mg PO DAILY Qty: 30 1RF aspirin 81 mg Tablet,Delayed Release (Dr/Ec) 81 mg PO DAILY Qty: 90 0RF carvedilol [Coreg] 12.5 mg tablet 12.5 mg PO BID fluticasone propionate 50 mcg/actuation spray,suspension 2 spray intranasal DAILY atorvastatin 20 mg tablet 20 mg PO DAILY nitroglycerin [Nitrostat] 0.4 mg Tablet, Sublingual 0.4 mg SUBLINGUAL Q5M PRN (Reason: Chest Pain) Rx Instructions: do not exceed 3 doses per episode isosorbide mononitrate 60 mg tablet extended release 24 hr 90 mg PO DAILY hydrocodone-acetaminophen 10-325 mg tablet 1 tab PO Q6H PRN (Reason: Pain) fluticasone propion-salmeterol [Advair Diskus] 250-50 mcg/dose Blister With Device 1 inh INHALATION BID benazepril 20 mg tablet 30 mg PO DAILY Qty: 45 0RF furosemide 40 mg tablet 40 mg PO BID terbinafine HCl 1 % cream 1 applic TOPICAL BID ziprasidone HCl 20 mg capsule 20 mg PO BID tizanidine 4 mg tablet 4 mg PO Q6H PRN (Reason: Pain) pregabalin 200 mg capsule 200 mg PO Q8H Discharge Orders: Discharge ED (Routine); Ordered 08/29/23 Ordered By: Richard Shukla Referrals: Galindo Carson DO [Primary Care Provider] - 1 week Patient Instructions: Altered Mental Status (ED), Hypomagnesemia (ED), Anemia Activity Restrictions/Additional Instructions: Your hemoglobin was 8.9. Your magnesium was 1.0. You are given 2 g of magnesium in your IV. A prescription for your magnesium supplementation will be called in. Please follow-up with your family practice doctor within the next 7 days to have your magnesium rechecked. Coding Level of Care Code ED [facility] for Eric Martin
[2023-08-29 19:52] LABS: Basophils % 0.8 %; Eosinophils % 0.8 %; Hematocrit 28.2 % (37-53); Lymphocytes # 1.3 10^3/uL (0.8-4.8); Lymphocytes % 25.3 %; Mean Corpuscular HGB Conc 31.6 g/dL (30-55); Mean Corpuscular Volume 91.9 fl (82-101); Mean Platelet Volume 10.7 fL (7.4-10.4); Monocytes # 0.7 10^3/uL (0.2-0.9); Monocytes % 13.9 %; Neutrophils # 3.04 10^3/uL (1.8-7.7); Neutrophils % 58.6 %; Nucleated Red Blood Cells % 0 %; Platelet Count 221 10^3/cmm (157-399); Red Blood Count 3.07 10^6/uL (3.85-5.65); Red Cell Distribution Width 15.7 % (12.1-15.1); White Blood Count 5.18 10^3/uL (3.29-11.43)
[2023-08-29 20:17] LABS: INR 1.85 (0.8-1.2)
[2023-08-29 20:20] LABS: NT Pro B Type Natriuretic Pept 601 pg/mL (0-450); Procalcitonin 0.41 ng/mL (0-0.5)
[2023-08-29 20:31] LABS: Alanine Aminotransferase 9 U/L (0-41); Albumin Level 2.7 g/dL (3.5-5.2); Alkaline Phosphatase 83 U/L (40-130); Blood Urea Nitrogen 31 mg/dL (8-23); Calcium 7.3 mg/dL (8.5-10.5); Carbon Dioxide 22 mmol/L (22-29); Chloride 101 mmol/L (98-107); Globulin 2.2 g/dL (1.3-4.6); Glucose 115 mg/dL (65-115); Osmolality Calculated 287 mOsm/kg (285-295); Phosphorus 5.1 mg/dL (2.5-4.5); Sodium 135 mmol/L (136-145); Total Bilirubin 0.2 mg/dL (0.15-1.2); Total Protein 4.9 g/dL (6.6-8.7)
[2023-08-29 20:32] LABS: Troponin(5th) Baseline 146 ng/L (0-15)
[2023-08-29] MEDS: sodium chloride 0.9% 1,000 ML 999 ML IV (20:36)
[2023-08-29 20:45] LABS: Aspartate Amino Transferase 13 U/L (0-40)
[2023-08-29 21:29] LABS: Troponin 5 2HR Delta -10.1 ABS# (0-10)
[2023-08-29 21:30] LABS: Lactic Sepsis W/Reflex 2.8 mmol/L (0.5-2.2); Troponin 5 2HR 135.9 ng/L (0-15)
--- NOTE | 2023-08-29 21:34 | ECG_ITS ---
[facility] Test Date: 2023-08-29 Pat Name: Isaías Clarke Department: Room: Gender: Male [employer]: : 1945 Requested By: Richard Shukla Order Number: [id number] Beata MD: Maria Luisa Geller M.D. Measurements Intervals [place] Rate: 68 P: 60 [place]: 175 QRS: 45 QRSD: 102 T: 18 QT: 421 QTc: 450 Interpretive Statements SINUS RHYTHM LOW QRS VOLTAGE IN PRECORDIAL LEADS [QRS DEFLECTION < 1.0 mV IN CHEST LEADS] Compared to ECG 08/29/2023 20:05:32 No significant changes Electronically Signed On 08-29-2023 22:23:45 ASSOCIATE CHEMIST by Maria Luisa Geller M.D. [id number]
[2023-08-29] MEDS: magnesium sulfate premix 2 GM/50 ML PIGGYBACK IV (21:41)
[2023-08-29 21:47] LABS: Add Urine Microscopic? NO; Charge for UA Resulting for Rev
[2023-08-29 21:48] VITALS: BP 116/59; PULSE 66; RESP 16; O2SAT 97
[2023-08-29 21:48] LABS: Bilirubin Urine Neg (Negative); Blood Urine Neg (Negative); Glucose Urine UA Norm (Normal); Ketones Urine Negative (Negative); Leukocyte Esterase Urine Negative (Negative); Nitrate Urine Negative (Negative); Protein Urine Neg (Negative); Specific Gravity, Urine 1.015 (1.005-1.030); Urine Appearance Clear (CLEAR); Urine Color Yellow (Yellow); Urobilinogen Urine Norm (Negative); pH Urine 5 (5-7)
[2023-08-29 21:57] LABS: Amphetamines Screen Urine Negative (Negative); Barbiturates Screen Urine Negative (Negative); Benzodiazepines Screen Urine Negative (Negative); Cocaine Screen Urine Negative (Negative); Opiate Screen Urine Positive (Negative); PCP Screen Urine Negative (Negative); THC Screen Urine Negative (Negative)
[2023-08-29 22:50] LABS: Reflex Lactate Order REFLEX LACTIC ORDERD
[2023-08-29 23:18] LABS: Lactic Acid level (Lactate) 2.9 mmol/L (0.5-2.2)
[2023-08-29 23:26] VITALS: BP 116/59; PULSE 66; RESP 16; TEMP 36.5; O2SAT 97
== END 2023-08-29 23:28 | disposition home or self-care (01) ==
PROVIDERS: Emergency Provider Emergency Medicine; PCP Family Medicine
DX: R41.82 Altered mental status, unspecified (principal); E83.42 Hypomagnesemia; D64.9 Anemia, unspecified; I13.0 Hypertensive heart and chronic kidney disease with heart failure and stage 1 through stage 4 chronic kidney disease, or unspecified chronic kidney disease; E11.22 Type 2 diabetes mellitus with diabetic chronic kidney disease; N18.9 Chronic kidney disease, unspecified; I50.9 Heart failure, unspecified; I25.10 Atherosclerotic heart disease of native coronary artery without angina pectoris; I25.5 Ischemic cardiomyopathy; I25.2 Old myocardial infarction; E78.5 Hyperlipidemia, unspecified; J44.9 Chronic obstructive pulmonary disease, unspecified; E11.40 Type 2 diabetes mellitus with diabetic neuropathy, unspecified; Z87.891 Personal history of nicotine dependence; Z79.02 Long term (current) use of antithrombotics/antiplatelets; Z79.82 Long term (current) use of aspirin; Z79.84 Long term (current) use of oral hypoglycemic drugs
CPT/HCPCS: 36415; 71045; 80053; 80306; 81003; 83605; 83735; 83880; 84100; 84145; 84484; 85025; 85610; 93005; 96365; 96366; 99285; J3475; J7030

== ENCOUNTER → 2023-12-26 10:48 | Outpatient (BNVA) | payer MEDICARE, MEDICAID, SELFPAY | PROVIDERS: PCP Family Medicine; Visit Provider Internal Medicine Cardiovascular Disease | DX: I25.119 Atherosclerotic heart disease of native coronary artery with unspecified angina pectoris (principal); I13.0 Hypertensive heart and chronic kidney disease with heart failure and stage 1 through stage 4 chronic kidney disease, or unspecified chronic kidney disease; I50.43 Acute on chronic combined systolic (congestive) and diastolic (congestive) heart failure; E11.22 Type 2 diabetes mellitus with diabetic chronic kidney disease; I25.2 Old myocardial infarction; N18.9 Chronic kidney disease, unspecified; E11.69 Type 2 diabetes mellitus with other specified complication; E66.9 Obesity, unspecified; K21.9 Gastro-esophageal reflux disease without esophagitis; G47.33 Obstructive sleep apnea (adult) (pediatric); J44.9 Chronic obstructive pulmonary disease, unspecified; Z68.29 Body mass index [BMI] 29.0-29.9, adult; Z87.891 Personal history of nicotine dependence; Z79.84 Long term (current) use of oral hypoglycemic drugs | CPT/HCPCS: 99214 ==

== ENCOUNTER 2024-03-09 16:48 | Inpatient (IN) | payer MEDICARE, MEDICAID, SELFPAY ==
[2024-03-09] VITALS (7 sets, daily range): BP systolic 160–197; BP diastolic 68–111; PULSE 75–84; RESP 18–22; TEMP 36.8–36.9; O2SAT 94–98; BMI 29.8
--- NOTE | 2024-03-09 16:51 | XRR_ITS ---
PROCEDURE INFORMATION: Exam: XR Chest Exam date and time: 03/09/2024 5:22 PM Age: 78 years old Clinical indication: Dyspnea; Prior surgery; Surgery date: 6+ months; Surgery type: Stent; Additional info: Dyspnea/cough TECHNIQUE: Imaging protocol: Radiologic exam of the chest. Views: 1 view. COMPARISON: CR XR chest 1V portable [id number] 08/29/2023 7:45 PM FINDINGS: Lungs: Mild left basilar atelectasis and/or airspace disease. Right lung clear. Pleural spaces: No pleural effusion. Heart/Mediastinum: Cardiomediastinal contours accentuated by low lung volumes and AP technique. Bones/joints: No significant pathology. XR/XR chest 1V portable [id number] IMPRESSION: Mild left basilar atelectasis and/or airspace disease.
--- NOTE | 2024-03-09 16:56 | W.ED.WEAKNES ---
Documented by User: Iain Alvarse DO 03/10/24 05:48 HPI - Weakness General: Chief complaint: Weakness Stated complaint: WEAKNESS Time Seen by Provider: 03/09/24 16:50 Source: patient Mode of arrival: ambulatory History of Present Illness: 70-year-old male presents to the emergency room with complaints of progressive weakness over the last week and except specially noticeable the last several days. He is not able to get up and get around anymore. notes he has severe bilateral weakness he has a known history of diabetes and chronic kidney disease. He does have a history of coronary artery disease previously had stenting done he has not had any reported chest pain no known history of strokes. No recent medication changes. He has not been able to feed himself or set up. is unable to care for him. He is not on any anticoagulants no recent trauma no report of fever sweats or chills is noted has had frequency of urination but no reports of burning or pain. Patient is not able to give much for history is mostly gleaned from his . MD Complaint: generalized weakness Associated symptoms: Reports nausea; Denies chest pain, chills, dysuria or fever(s) Review of Systems General: Reports: Other (Review of systems per ) Const: Denies: fever(s) or chills Card: Denies: chest pain Resp: Denies: dyspnea GI: Reports: nausea; Denies: abdominal pain : Reports: urinary frequency; Denies: dysuria or urinary urgency Musc: Denies: neck pain or back pain Skin/Breast: Denies: rash PFSH ED PFSH: Medical History CKD (chronic kidney disease) Atypical chest pain Severe tricuspid regurgitation Pulmonary hypertension Atherosclerotic heart disease of [place] coronary artery with other forms of angina pectoris Ischemic cardiomyopathy Acute decompensated heart failure NSTEMI (non-ST elevated myocardial infarction) Elevated troponin Encephalopathy, hypertensive Altered mental status Carotid artery narrowing Urinary retention Gabapentin overdose MALORIE (obstructive sleep apnea) Dyslipidemia Hypertension Congestive heart failure Diabetes mellitus type 2 in obese Smokeless tobacco use Opioid contract exists Encounter for long-term use of opiate analgesic Major depressive disorder, recurrent, mild (Unknown) Gout Chronic back pain CAD (coronary artery disease) Substance abuse Renal insufficiency Neuropathy COPD (chronic obstructive pulmonary disease) Surgical History History of cholecystectomy History of heart artery stent Family History Other Cancer Hypertension Social History Smoking and tobacco/nicotine status: former use of tobacco/nicotine Second hand smoke exposure: No Alcohol intake: never Substance/Drug Use: never Physical Exam Const: GENERAL APPEARANCE: cooperative and lethargic ORIENTATION/CONSCIOUSNESS: Yes awake and Yes lethargic; not oriented to person, not oriented to place and not oriented to time HENMT: COMMON NORMALS: normocephalic and atraumatic HEAD & SCALP: normocephalic and atraumatic Resp: COMMON NORMALS: normal respiratory effort, No retractions, No use of accessory muscles and clear to auscultation bilaterally AUSCULTATION: clear to auscultation bilaterally Cardio: COMMON NORMALS: regular rate, regular rhythm and No murmurs present (Cardio) RATE: regular rate RHYTHM: regular rhythm GI: COMMON NORMALS: Soft to palpation and No hepatosplenomegaly present AUSCULTATION: Yes normoactive bowel sounds PALPATION: Yes Soft to palpation, No Tenderness to palpation present (GI), No Guarding due to palpation present (GI) and Yes No hepatosplenomegaly present Extremity: COMMON NORMALS: normal to inspection, capillary refill normal and no calf tenderness GENERAL: Yes edema (Trace) Neuro: SENSORIUM/ORIENTATION: No oriented to person, No oriented to place, No oriented to time and Yes lethargic Skin: COMMON NORMALS: no rashes or lesions noted GENERAL SKIN EXAM: no rashes or lesions noted Course Vital Signs: Vital signs: Vital Signs Temperature 99.0 F 03/10/24 03:42 Pulse Rate 77 03/10/24 03:42 Respiratory Rate 17 03/10/24 03:42 Blood Pressure 165/92 03/10/24 03:42 Pulse Oximetry 94 03/10/24 03:42 Oxygen Delivery Me thod Room Air 03/10/24 03:42 MDM - Weakness Medical Decision Making Care signed out to Dr. Antony at change of shift. See final notes for diagnosis and disposition. Medical Records I reviewed the patient's medical records. Lab Data I reviewed the patient's lab results. 03/10/24 04:17 03/10/24 04:17 Radiology Impressions Chest X-Ray 03/09/24 16:51 IMPRESSION: Mild left basilar atelectasis and/or airspace disease. Head CT 03/09/24 17:34 IMPRESSION: No acute pathology or significant interval change. Laboratory Results WBC 12.80 10^3/uL (3.29-11.43) H 03/09/24 17:05 RBC 4.75 10^6/uL (3.85-5.65) 03/09/24 17:05 Hgb 12.60 g/dL (11.27-16.99) 03/09/24 17:05 Hct 39.7 % (37-53) 03/09/24 17:05 MCV 83.6 fl (82-101) 03/09/24 17:05 MCH 26.5 pg (27-33) L 03/09/24 17:05 MCHC 31.7 g/dL (30-55) 03/09/24 17:05 RDW 16.5 % (12.1-15.1) H 03/09/24 17:05 Plt Count 304 10^3/cmm (157-399) 03/09/24 17:05 MPV 11.2 fL (7.4-10.4) H 03/09/24 17:05 Neut % (Auto) 70.5 % 03/09/24 17:05 Lymph % (Auto) 19.5 % 03/09/24 17:05 Bent % (Auto) 8.1 % 03/09/24 17:05 Eos % (Auto) 0.9 % 03/09/24 17:05 Baso % (Auto) 0.5 % 03/09/24 17:05 Neut # (Auto) 9.02 10^3/uL (1.8-7.7) H 03/09/24 17:05 Lymph # (Auto) 2.5 10^3/uL (0.8-4.8) 03/09/24 17:05 Bent # (Auto) 1.0 10^3/uL (0.2-0.9) H 03/09/24 17:05 Eos # (Auto) 0.1 10^3/uL (0.0-0.8) 03/09/24 17:05 Baso # (Auto) 0.1 10^3/uL (0.0-0.1) 03/09/24 17:05 Nucleated RBC % (auto) 0 % 03/09/24 17:05 Nucleated RBCs # 0.0 /100WBC 03/09/24 17:05 Sodium 139 mmol/L (136-145) 03/09/24 17:05 Potassium 3.5 mmol/L (3.5-5.1) 03/09/24 17:05 Chloride 95 mmol/L (98-107) L 03/09/24 17:05 Carbon Dioxide 23 mmol/L (22-29) 03/09/24 17:05 Anion Gap 24.5 (5-19) H 03/09/24 17:05 BUN 30 mg/dL (8-23) H 03/09/24 17:05 Creatinine 2.2 mg/dL (0.7-1.2) H 03/09/24 17:05 GFR Calculation Not Reportable 03/09/24 17:05 Glucose 92 mg/dL (65-115) 03/09/24 17:05 Calculated Osmolality 294 mOsm/kg (285-295) 03/09/24 17:05 Lactic Acid 4.1 mmol/L (0.5-2.2) H* 03/09/24 17:05 Calcium 5.7 mg/dL (8.5-10.5) L* 03/09/24 17:05 Iron 26 ug/dL (59-158) L 03/09/24 17:05 TIBC 315 mcg/dl 03/09/24 17:05 % Saturation 8.2 % (20-50) L 03/09/24 17:05 Unsat Iron Binding 289 ug/dL (112-347) 03/09/24 17:05 Total Bilirubin 0.7 mg/dL (0.15-1.2) 03/09/24 17:05 AST 20 U/L (0-40) 03/09/24 17:05 ALT 18 U/L (0-41) 03/09/24 17:05 Alkaline Phosphatase 120 U/L (40-130) 03/09/24 17:05 Total Protein 7.6 g/dL (6.6-8.7) 03/09/24 17:05 Albumin 4.0 g/dL (3.5-5.2) 03/09/24 17:05 Globulin 3.6 g/dL (1.3-4.6) 03/09/24 17:05 Vitamin B12 461 pg/mL (232-1245) 03/09/24 17:05 Procalcitonin 0.11 ng/mL (0-0.5) 03/09/24 17:05 TSH 2.78 uIU/mL (0.27-4.20) 03/09/24 17:05 Urine Color Yellow (Yellow) 03/09/24 17:56 Urine Appearance Clear (CLEAR) 03/09/24 17:56 Urine pH 5 (5-7) 03/09/24 17:56 Ur Specific [place] 1.010 (1.005-1.030) 03/09/24 17:56 Urine Protein Neg (Negative) 03/09/24 17:56 Urine Glucose (UA) Norm (Normal) 03/09/24 17:56 Urine Ketones Negative (Negative) 03/09/24 17:56 Urine Blood Neg (Negative) 03/09/24 17:56 Urine Nitrate Negative (Negative) 03/09/24 17:56 Urine Bilirubin Neg (Negative) 03/09/24 17:56 Urine Urobilinogen Norm mg/dL (Negative) 03/09/24 17:56 Ur Leukocyte Esterase Negative (Negative) 03/09/24 17:56 Salicylates < 0.3 mg/dL (3-10) L 03/09/24 17:05 Acetaminophen < 5.0 ug/mL (10-30) L 03/09/24 17:05 Ethyl Alcohol < 10 mg/dL (0-10) 03/09/24 17:05 Serum Ketones Negative (Negative) 03/09/24 17:05 Discharge Plan Discharge Patient Disposition: Admitted As Inpatient Admit Provider: Barak Jarvis Clinical Impression: Generalized weakness, Elevated lactic acid level Condition: Stable Coding Level of Care Code ED Mmi Teacher for Chg Fwd Documented by User: Kyle Antony MD 03/09/24 20:29 HPI - Weakness General: Chief complaint: Weakness Stated complaint: WEAKNESS Time Seen by Provider: 03/09/24 16:50 [facility] ED PFSH: Medical History CKD (chronic kidney disease) Atypical chest pain Severe tricuspid regurgitation Pulmonary hypertension Atherosclerotic heart disease of [place] coronary artery with other forms of angina pectoris Ischemic cardiomyopathy Acute decompensated heart failure NSTEMI (non-ST elevated myocardial infarction) Elevated troponin Encephalopathy, hypertensive Altered mental status Carotid artery narrowing Urinary retention Gabapentin overdose MALORIE (obstructive sleep apnea) Dyslipidemia Hypertension Congestive heart failure Diabetes mellitus type 2 in obese Smokeless tobacco use Opioid contract exists Encounter for long-term use of opiate analgesic Major depressive disorder, recurrent, mild (Unknown) Gout Chronic back pain CAD (coronary artery disease) Substance abuse Renal insufficiency Neuropathy COPD (chronic obstructive pulmonary disease) Surgical History History of cholecystectomy History of heart artery stent Family History Other Cancer Hypertension Social History Smoking and tobacco/nicotine status: former use of tobacco/nicotine Second hand smoke exposure: No Alcohol intake: never Substance/Drug Use: never Course Vital Signs: Vital signs: Vital Signs Temperature 99.0 F 03/10/24 03:42 Pulse Rate 77 03/10/24 03:42 Respiratory Rate 17 03/10/24 03:42 Blood Pressure 165/92 03/10/24 03:42 Pulse Oximetry 94 03/10/24 03:42 Oxygen Delivery Me thod Room Air 03/10/24 03:42 MDM - Weakness Medical Decision Making Care signed out to Dr. Antony at change of shift. See final notes for diagnosis and disposition. To patient over at shift change pending head CT CTA head here is normal did speak to the hospitalist will admit at this time. Lab Data 03/10/24 04:17 03/10/24 04:17 Radiology Impressions Chest X-Ray 03/09/24 16:51 IMPRESSION: Mild left basilar atelectasis and/or airspace disease. Head CT 03/09/24 17:34 IMPRESSION: No acute pathology or significant interval change. Laboratory Results WBC 12.80 10^3/uL (3.29-11.43) H 03/09/24 17:05 RBC 4.75 10^6/uL (3.85-5.65) 03/09/24 17:05 Hgb 12.60 g/dL (11.27-16.99) 03/09/24 17:05 Hct 39.7 % (37-53) 03/09/24 17:05 MCV 83.6 fl (82-101) 03/09/24 17:05 MCH 26.5 pg (27-33) L 03/09/24 17:05 MCHC 31.7 g/dL (30-55) 03/09/24 17:05 RDW 16.5 % (12.1-15.1) H 03/09/24 17:05 Plt Count 304 10^3/cmm (157-399) 03/09/24 17:05 MPV 11.2 fL (7.4-10.4) H 03/09/24 17:05 Neut % (Auto) 70.5 % 03/09/24 17:05 Lymph % (Auto) 19.5 % 03/09/24 17:05 Bent % (Auto) 8.1 % 03/09/24 17:05 Eos % (Auto) 0.9 % 03/09/24 17:05 Baso % (Auto) 0.5 % 03/09/24 17:05 Neut # (Auto) 9.02 10^3/uL (1.8-7.7) H 03/09/24 17:05 Lymph # (Auto) 2.5 10^3/uL (0.8-4.8) 03/09/24 17:05 Bent # (Auto) 1.0 10^3/uL (0.2-0.9) H 03/09/24 17:05 Eos # (Auto) 0.1 10^3/uL (0.0-0.8) 03/09/24 17:05 Baso # (Auto) 0.1 10^3/uL (0.0-0.1) 03/09/24 17:05 Nucleated RBC % (auto) 0 % 03/09/24 17:05 Nucleated RBCs # 0.0 /100WBC 03/09/24 17:05 Sodium 139 mmol/L (136-145) 03/09/24 17:05 Potassium 3.5 mmol/L (3.5-5.1) 03/09/24 17:05 Chloride 95 mmol/L (98-107) L 03/09/24 17:05 Carbon Dioxide 23 mmol/L (22-29) 03/09/24 17:05 Anion Gap 24.5 (5-19) H 03/09/24 17:05 BUN 30 mg/dL (8-23) H 03/09/24 17:05 Creatinine 2.2 mg/dL (0.7-1.2) H 03/09/24 17:05 GFR Calculation Not Reportable 03/09/24 17:05 Glucose 92 mg/dL (65-115) 03/09/24 17:05 Calculated Osmolality 294 mOsm/kg (285-295) 03/09/24 17:05 Lactic Acid 4.1 mmol/L (0.5-2.2) H* 03/09/24 17:05 Calcium 5.7 mg/dL (8.5-10.5) L* 03/09/24 17:05 Iron 26 ug/dL (59-158) L 03/09/24 17:05 TIBC 315 mcg/dl 03/09/24 17:05 % Saturation 8.2 % (20-50) L 03/09/24 17:05 Unsat Iron Binding 289 ug/dL (112-347) 03/09/24 17:05 Total Bilirubin 0.7 mg/dL (0.15-1.2) 03/09/24 17:05 AST 20 U/L (0-40) 03/09/24 17:05 ALT 18 U/L (0-41) 03/09/24 17:05 Alkaline Phosphatase 120 U/L (40-130) 03/09/24 17:05 Total Protein 7.6 g/dL (6.6-8.7) 03/09/24 17:05 Albumin 4.0 g/dL (3.5-5.2) 03/09/24 17:05 Globulin 3.6 g/dL (1.3-4.6) 03/09/24 17:05 Vitamin B12 461 pg/mL (232-1245) 03/09/24 17:05 Procalcitonin 0.11 ng/mL (0-0.5) 03/09/24 17:05 TSH 2.78 uIU/mL (0.27-4.20) 03/09/24 17:05 Urine Color Yellow (Yellow) 03/09/24 17:56 Urine Appearance Clear (CLEAR) 03/09/24 17:56 Urine pH 5 (5-7) 03/09/24 17:56 Ur Specific [place] 1.010 (1.005-1.030) 03/09/24 17:56 Urine Protein Neg (Negative) 03/09/24 17:56 Urine Glucose (UA) Norm (Normal) 03/09/24 17:56 Urine Ketones Negative (Negative) 03/09/24 17:56 Urine Blood Neg (Negative) 03/09/24 17:56 Urine Nitrate Negative (Negative) 03/09/24 17:56 Urine Bilirubin Neg (Negative) 03/09/24 17:56 Urine Urobilinogen Norm mg/dL (Negative) 03/09/24 17:56 Ur Leukocyte Esterase Negative (Negative) 03/09/24 17:56 Salicylates < 0.3 mg/dL (3-10) L 03/09/24 17:05 Acetaminophen < 5.0 ug/mL (10-30) L 03/09/24 17:05 Ethyl Alcohol < 10 mg/dL (0-10) 03/09/24 17:05 Serum Ketones Negative (Negative) 03/09/24 17:05 All radiology interpretation(s) finalized by discharge Discharge Plan Discharge Patient Disposition: Admitted As Inpatient Admit Provider: Barak Jarvis Clinical Impression: Generalized weakness, Elevated lactic acid level Condition: Stable Coding Level of Care Code ED Mmi Teacher for Eric Martin
[2024-03-09 17:14] LABS: Basophils # 0.1 10^3/uL (0.0-0.1); Basophils % 0.5 %; Eosinophils # 0.1 10^3/uL (0.0-0.8); Eosinophils % 0.9 %; Hematocrit 39.7 % (37-53); Lymphocytes # 2.5 10^3/uL (0.8-4.8); Lymphocytes % 19.5 %; Mean Corpuscular HGB Conc 31.7 g/dL (30-55); Mean Corpuscular Hemoglobin 26.5 pg (27-33); Mean Corpuscular Volume 83.6 fl (82-101); Mean Platelet Volume 11.2 fL (7.4-10.4); Monocytes % 8.1 %; Neutrophils # 9.02 10^3/uL (1.8-7.7); Neutrophils % 70.5 %; Nucleated Red Blood Cells % 0 %; Platelet Count 304 10^3/cmm (157-399); Red Blood Count 4.75 10^6/uL (3.85-5.65); Red Cell Distribution Width 16.5 % (12.1-15.1)
[2024-03-09 17:31] LABS: Alanine Aminotransferase 18 U/L (0-41); Alkaline Phosphatase 120 U/L (40-130); Anion Gap 24.5 (5-19); Aspartate Amino Transferase 20 U/L (0-40); Blood Urea Nitrogen 30 mg/dL (8-23); Carbon Dioxide 23 mmol/L (22-29); Chloride 95 mmol/L (98-107); Globulin 3.6 g/dL (1.3-4.6); Glucose 92 mg/dL (65-115); Osmolality Calculated 294 mOsm/kg (285-295); Potassium 3.5 mmol/L (3.5-5.1); Sodium 139 mmol/L (136-145); Total Bilirubin 0.7 mg/dL (0.15-1.2); Total Protein 7.6 g/dL (6.6-8.7)
[2024-03-09 17:32] LABS: Creatinine Clr Calc Pharmacy 33.8479
[2024-03-09 17:33] LABS: Calcium 5.7 mg/dL (8.5-10.5)
--- NOTE | 2024-03-09 17:34 | CTR_ITS ---
PROCEDURE INFORMATION: Exam: CT Head Without Contrast Exam date and time: 03/09/2024 6:19 PM Age: 78 years old Clinical indication: Patient HX: Worsening general weakness and confusion over last several days. ; Additional info: AMS TECHNIQUE: Imaging protocol: Computed tomography of the head without contrast. Radiation optimization: All CT scans at this facility use at least one of these dose optimization techniques: automated exposure control; mA and/or kV adjustment per patient size (includes targeted exams where dose is matched to clinical indication); or iterative reconstruction. COMPARISON: CT head wo con* [id number] 01/08/2023 9:30 AM RADIATION DOSE METRICS: Total DLP (mGy-cm): 1055.08 FINDINGS: Brain: Mild cerebral atrophy. Mild areas of low-attenuation in the white matter most likely representing small vessel ischemic change. No evidence of mass effect, intracranial hemorrhage or extra-axial collection. No acute infarct. Cerebral ventricles: Unremarkable for age. Paranasal sinuses: Mild mucosal thickening in the left frontal sinus. Mastoid air cells: Mastoids are within normal limits. Orbital cavities: Orbits are within normal limits. Bones: Unremarkable. No acute fracture. Soft tissues: No significant pathology. CT/CT head wo con* [id number] IMPRESSION: No acute pathology or significant interval change.
[2024-03-09 17:49] LABS: Ketone (Acetest) Serum Negative (Negative)
[2024-03-09 17:59] LABS: Lactic Sepsis W/Reflex 4.1 mmol/L (0.5-2.2)
[2024-03-09 18:01] LABS: Add Urine Microscopic? NO; Charge for UA Resulting for Rev
[2024-03-09 18:09] LABS: Bilirubin Urine Neg (Negative); Blood Urine Neg (Negative); Glucose Urine UA Norm (Normal); Ketones Urine Negative (Negative); Leukocyte Esterase Urine Negative (Negative); Nitrate Urine Negative (Negative); Protein Urine Neg (Negative); Urine Appearance Clear (CLEAR); Urine Color Yellow (Yellow); Urobilinogen Urine Norm (Negative); pH Urine 5 (5-7)
[2024-03-09] MEDS: sodium chloride 0.9% 2,328 ML 2328 ML IV (18:27)
[2024-03-09] MEDS: levofloxacin-dextrose 5 % 750 MG/150 ML PREMIX 100 MG IV (18:37)
[2024-03-09 19:26] LABS: Reflex Lactate Order REFLEX LACTIC ORDERD
[2024-03-09 20:00] LABS: Acetaminophen < 5.0 ug/mL (10-30); Alcohol Level < 10 mg/dL (0-10); Salicylate < 0.3 mg/dL (3-10)
[2024-03-09 20:07] LABS: Procalcitonin 0.11 ng/mL (0-0.5)
[2024-03-09] MEDS: labetalol 5 mg/mL SDV 20mL 10 MG IVP (20:15)
[2024-03-09 20:36] LABS: Amphetamines Screen Urine Negative (Negative); Barbiturates Screen Urine Negative (Negative); Benzodiazepines Screen Urine Negative (Negative); Cocaine Screen Urine Negative (Negative); Opiate Screen Urine Positive (Negative); PCP Screen Urine Negative (Negative); THC Screen Urine Negative (Negative)
[2024-03-09 22:08] LABS: Adenovirus Not Detected (NOT DETECT); Chlamydia Pneumoniae Not Detected (NOT DETECT); Coronavirus 229E,HKU1,NL63,OC4 Not Detected (NOT DETECT); Human Metapneumovirus Not Detected (NOT DETECT); Human Rhinovirus/Enterovirus Not Detected (NOT DETECT); Influenza A Not Detected (NOT DETECT); Influenza A H1 Not Detected (NOT DETECT); Influenza A H1-2009 Not Detected (NOT DETECT); Influenza A H3 Not Detected (NOT DETECT); Influenza B Not Detected (NOT DETECT); Mycoplasma Pneumoniae Not Detected (NOT DETECT); Parainfluenza Virus Type 1 Not Detected (NOT DETECT); Parainfluenza Virus Type 2 Not Detected (NOT DETECT); Parainfluenza Virus Type 3 Not Detected (NOT DETECT); Parainfluenza Virus Type 4 Not Detected (NOT DETECT); Respiratory Syncytial Virus A Not Detected (NOT DETECT); Respiratory Syncytial Virus B Not Detected (NOT DETECT); SARS-COV-2 Not Detected (NOT DETECT)
[2024-03-09 22:52] LABS: Iron 26 ug/dL (59-158); Percent Saturation 8.2 % (20-50); Thyroid Stimulating Hormone 2.78 uIU/mL (0.27-4.20); Total Iron Binding Capacity 315 mcg/dl; Unsaturated Iron Binding 289 ug/dL (112-347); Vitamin B12 461 pg/mL (232-1245)
[2024-03-09] MEDS: sodium chloride 0.9% 1,000 ML 50 ML IV (22:53)
[2024-03-09] MEDS: heparin 5,000 unit/mL INJ 1 mL 5000 UNIT SUBCUT (22:53)
[2024-03-09] MEDS: carvedilol 12.5 mg Tablet PO (22:53)
--- NOTE | 2024-03-09 23:03 | P.HP_ITS ---
Providers/Chief Complaint 2 Admitting Physician: Barak Jarvis MD Primary Care Provider: Galindo Carson DO Chief Complaint: WEAKNESS History of Present Illness Isaías Clarke is a 78 year old male with past medical history of coronary artery disease s/p stenting of distal RCA, type 2 diabetes mellitus, dyslipidemia, depression, obstructive sleep apnea, chronic back pain who has been brought to the emergency room today due to complaints of progressive weakness to the point where patient is unable to carry out his ADLs. He has been unable to feed himself or ambulate. His reported being unable to take care of him. Attempts to call the were not successful , left total voicemail asking for call back. Uncertain as to patient's past baseline however review of chart shows that when patient was brought to his outpatient cardiology visit in December 2023 he was in a wheelchair and he was chronically getting weaker. He had ER visits here in July and August 2024 for altered mental status 1 of which was related to a UTI. From January 2023, patient was also admitted for altered mental status wherein he had several behavioral issues with aggression agitation and inappropriate behavior with staff. Metabolic encephalopathy was ruled out at that time. He was started on treatment with Geodon twice daily and it appears he has been on treatment with the same. Patient is unable to give me any history except stating that she feels weak and that is why he came to the hospital. He denies any fever chills nausea vomiting diarrhea cough expectoration or dyspnea, however history is questionable directly from the patient. Review of Systems 2 General: Reports: ROS unobtainable due to mental status Medications/Allergies Home Medications Medication Instructions Recorded Confirmed Last Taken Type naloxone 4 mg/actuation nasal 1 spray intranasal .COMPLEX 10/15/19 03/09/24 Unknown History spray (Narcan) pantoprazole 40 mg tablet,delayed 40 mg PO BID #60 tabs 11/21/19 03/09/24 08/08/23 Rx release (Protonix) metformin 1,000 mg tablet 1,000 mg PO BID 30 days #60 tabs 02/26/20 03/09/24 08/08/23 Rx albuterol sulfate 90 mcg/actuation 1 - 2 puff inhalation Q6H PRN 05/25/20 03/09/24 Unknown History aerosol inhaler (ProAir HFA) shortness of breath or wheezing allopurinol 300 mg tablet 300 mg PO DAILY 05/02/21 03/09/24 08/08/23 History clopidogrel 75 mg tablet (Plavix) 75 mg PO DAILY #30 tabs 08/07/21 03/09/24 08/08/23 Rx aspirin 81 mg tablet,delayed 81 mg PO DAILY #90 tabs 02/24/22 03/09/24 08/08/23 Rx release carvedilol 12.5 mg tablet (Coreg) 12.5 mg PO BID 06/02/22 03/09/24 08/08/23 History atorvastatin 20 mg tablet 20 mg PO DAILY 07/05/22 03/09/24 08/08/23 History nitroglycerin 0.4 mg sublingual 0.4 mg sublingual Q5M PRN Chest 07/05/22 03/09/24 Unknown History tablet (Nitrostat) Pain hydrocodone 10 mg-acetaminophen 1 tab PO Q6H PRN Pain 01/08/23 03/09/24 Unknown History 325 mg tablet pregabalin 200 mg capsule 200 mg PO Q8H 06/03/23 03/09/24 08/08/23 History tizanidine 4 mg tablet 4 mg PO Q6H PRN Pain 06/03/23 03/09/24 Unknown History furosemide 40 mg tablet 40 mg PO BID 08/09/23 03/09/24 08/08/23 History ziprasidone HCl 20 mg capsule 20 mg PO BID 08/09/23 03/09/24 08/08/23 History isosorbide mononitrate 60 mg 120 mg PO DAILY 12/26/23 03/09/24 Unknown History tablet,extended release 24 hr Allergies Allergy/AdvReac Type Severity Reaction Status Date / Time gabapentin AdvReac Mild ADR-Nausea Verified 12/26/23 10:57 PFSH Acute 2 PFSH: Medical History CKD (chronic kidney disease) Atypical chest pain Severe tricuspid regurgitation Pulmonary hypertension Atherosclerotic heart disease of [place] coronary artery with other forms of angina pectoris Ischemic cardiomyopathy Acute decompensated heart failure NSTEMI (non-ST elevated myocardial infarction) Elevated troponin Encephalopathy, hypertensive Altered mental status Carotid artery narrowing Urinary retention Gabapentin overdose MALORIE (obstructive sleep apnea) Dyslipidemia Hypertension Congestive heart failure Diabetes mellitus type 2 in obese Smokeless tobacco use Opioid contract exists Encounter for long-term use of opiate analgesic Major depressive disorder, recurrent, mild (Unknown) Gout Chronic back pain CAD (coronary artery disease) Substance abuse Renal insufficiency Neuropathy COPD (chronic obstructive pulmonary disease) Surgical History History of cholecystectomy History of heart artery stent Family History Other Cancer Hypertension Social History Smoking and tobacco/nicotine status: former use of tobacco/nicotine Second hand smoke exposure: No Alcohol intake: never Substance/Drug Use: never Vitals/I&O/Wt Last Vital Signs Temp 98.5 F 03/09/24 22:18 Pulse 75 03/09/24 22:18 Resp 18 03/09/24 22:18 BP 164/99 03/09/24 22:18 Pulse Ox 98 03/09/24 22:18 O2 Del Method Room Air 03/09/24 22:20 03/09/24 03/09/24 03/10/24 14:59 22:59 06:59 Intake Total 2478 / 2478 Balance 2478 / 2478 Weight last 48 hrs Weight 96.303 kg Weight 99.79 kg Physical Exam 2 Narrative: General: No acute distress, AO x1-2, currently able to tell me his name and the fact that he is in the hospital however unable to tell me his date of or why he ended up to be here. HEENT: PERRLA, pupils bilaterally equal and reactive, pallors not present Chest: Normal vesicular breath sounds, no added sounds, equal good air entry bilaterally CVS: S1-S2 regular, no murmurs, no tachycardia, no gallops, no rubs Abdomen: Soft, nontender, no organomegaly, bowel sounds present Neuro: No focal deficits, no facial deformity, AO x2 Extremities: Mild bilateral lower extremity edema Data 03/10/24 04:17 03/10/24 04:17 Micro: Microbiology 03/09/24 18:07 Blood Culture - Preliminary Blood SPECIMEN COLLECTED 03/09/24 17:05 Blood Culture - Preliminary Blood SPECIMEN COLLECTED Other data: Signed Patient: Isaías Clarke Unit #: [id number] : 1945 Age/Sex: 78 / M ADM Date: 03/09/24 Loc: ER Room/Bed: Attending Dr: Ordering Provider/Ordering MD: Iain Alvares DO Date of Service: 03/09/24 Procedure(s): CT head wo con* [id number] Accession Number(s): [id number] Report Number: [id number] PROCEDURE INFORMATION: Exam: CT Head Without Contrast Exam date and time: 03/09/2024 6:19 PM Age: 78 years old Clinical indication: Patient HX: Worsening general weakness and confusion over last several days. ; Additional info: AMS TECHNIQUE: Imaging protocol: Computed tomography of the head without contrast. Radiation optimization: All CT scans at this facility use at least one of these dose optimization techniques: automated exposure control; mA and/or kV adjustment per patient size (includes targeted exams where dose is matched to clinical indication); or iterative reconstruction. COMPARISON: CT head wo con* [id number] 01/08/2023 9:30 AM RADIATION DOSE METRICS: Total DLP (mGy-cm): 1055.08 FINDINGS: Brain: Mild cerebral atrophy. Mild areas of low-attenuation in the white matter most likely representing small vessel ischemic change. No evidence of mass effect, intracranial hemorrhage or extra-axial collection. No acute infarct. Cerebral ventricles: Unremarkable for age. Paranasal sinuses: Mild mucosal thickening in the left frontal sinus. Mastoid air cells: Mastoids are within normal limits. Orbital cavities: Orbits are within normal limits. Bones: Unremarkable. No acute fracture. Soft tissues: No significant pathology. CT/CT head wo con* [id number] IMPRESSION: No acute pathology or significant interval change. A&P Assessment and plan (1) Pneumonia: (2) Coarse tremors: (3) Generalized weakness: (4) Altered mental status: Qualifiers: Altered mental status type: unspecified Qualified Code(s): R41.82 - Altered mental status, unspecified Plan 78-year-old male ending to the hospital today with increasing generalized weakness, confusion however with unknown past baseline. Patient has been progressively getting weaker it appears over the course of the year, reportedly cannot carry out his ADLs at this point. CT of the head without any acute stroke. Chest x-ray shows possibility of left lower lobe pneumonia Start empiric antibiotic treatment with ceftriaxone and azithromycin, received Levaquin in the emergency room. Patient is noted to have coarse intention tremors on exam, do not see any listed history of Parkinson's in the past. Reviewing psychiatry notes from 1 year ago it appears that any movement disorders at the time. He was brought to recent cardiology visit in December 2023 in a wheelchair. Presuming the process to be more chronic in nature. Patient is currently alert, oriented x 1-2, he is correctly able to tell me his name, and the fact that he is in the hospital however does not know his date of or why he needed to come here. Does not know which hospital he is at. Cannot tell me his 's name at this time however does say that he lives with her at home. Plan: Antibiotics as above for treatment of pneumonia Suspect coarse intention tremors may be related to extraparametal side effects of Geodon. Will hold Geodon doses, Start benztropine 1 mg BID and assess for response , anticipate quick improvement if indeed EPS from geodon Hold Lyrica and assess for improvement in mentation and tremors Kidney function at baseline, cr better than previous numners Continue home medications including carvedilol , imdur, protonix Attestations 2 Medical Necessity Statement*: > 2 midnight admission anticipated Diagnoses Pneumonia J18.9 Coarse tremors G25.2 Generalized weakness R53.1 Altered mental status, unspecified altered mental status type R41.82 Altered mental status type: unspecified
[2024-03-10] VITALS (8 sets, daily range): BP systolic 99–172; BP diastolic 60–98; PULSE 68–81; RESP 16–19; TEMP 36.6–37.2; O2SAT 94–96; BMI 29.2
[2024-03-10 04:44] LABS: Basophils % 0.3 %; Eosinophils % 0.1 %; Hematocrit 36.3 % (37-53); Lymphocytes # 1.6 10^3/uL (0.8-4.8); Lymphocytes % 14.3 %; Mean Corpuscular HGB Conc 31.7 g/dL (30-55); Mean Corpuscular Hemoglobin 26.6 pg (27-33); Mean Platelet Volume 11.5 fL (7.4-10.4); Monocytes # 0.8 10^3/uL (0.2-0.9); Monocytes % 7.3 %; Neutrophils # 8.85 10^3/uL (1.8-7.7); Neutrophils % 77.4 %; Nucleated Red Blood Cells % 0 %; Platelet Count 265 10^3/cmm (157-399); Red Blood Count 4.32 10^6/uL (3.85-5.65); Red Cell Distribution Width 16.4 % (12.1-15.1); White Blood Count 11.43 10^3/uL (3.29-11.43)
[2024-03-10 05:00] LABS: Estmated Average Glucose 137; Hemoglobin A1C 6.4 % (4.0-6.0)
[2024-03-10 05:02] LABS: Chol HDL Ratio 3.04 mg/dL (1.0-5.00); Cholesterol 76 mg/dL (0-200); HDL Cholesterol 25 mg/dL (60-100); LDL Cholesterol Calculated 22 mg/dL (50-129); LDL HDL Ratio 0.88 RATIO (0.00-3.22); Triglycerides 143 mg/dL (0-150); Troponin T (5th) Once 46 ng/L (0-15)
[2024-03-10 05:05] LABS: Alanine Aminotransferase 13 U/L (0-41); Albumin Level 3.9 g/dL (3.5-5.2); Alkaline Phosphatase 110 U/L (40-130); Anion Gap 22.4 (5-19); Aspartate Amino Transferase 17 U/L (0-40); Blood Urea Nitrogen 24 mg/dL (8-23); Carbon Dioxide 21 mmol/L (22-29); Chloride 105 mmol/L (98-107); Creatinine Clr Calc Pharmacy 40.5398; Globulin 2.6 g/dL (1.3-4.6); Glucose 98 mg/dL (65-115); Osmolality Calculated 304 mOsm/kg (285-295); Phosphorus 4.2 mg/dL (2.5-4.5); Potassium 3.4 mmol/L (3.5-5.1); Sodium 145 mmol/L (136-145); Total Bilirubin 0.6 mg/dL (0.15-1.2); Total Protein 6.5 g/dL (6.6-8.7)
[2024-03-10 05:10] LABS: Procalcitonin 0.09 ng/mL (0-0.5)
[2024-03-10 05:23] LABS: Calcium 5.3 mg/dL (8.5-10.5); Magnesium 0.7 mg/dL (1.7-2.3)
[2024-03-10 05:24] LABS: Folate Level 5.2 ng/mL (4.5-32.2)
[2024-03-10] MEDS: potassium chloride ER 20 mEq Tablet PO (06:36)
[2024-03-10] MEDS: cefTRIAXone 1,000 MG in sodium chloride 0.9% (plus) 50 ML 100 MG IV (06:37)
[2024-03-10] MEDS: magnesium sulfate premix 2 GM/50 ML PIGGYBACK IV (07:42)
[2024-03-10] MEDS: atorvastatin 40 mg Tablet 20 MG PO (09:01)
[2024-03-10] MEDS: isosorbide mononitrate ER 60 mg Tablet 120 MG PO (09:02)
[2024-03-10] MEDS: carvedilol 12.5 mg Tablet PO ×2 (09:03→17:38)
[2024-03-10] MEDS: azithromycin 250 mg Tablet 500 MG PO (09:03)
[2024-03-10] MEDS: aspirin 81 mg EC Tablet PO (09:03)
[2024-03-10] MEDS: benztropine 1 mg Tablet PO ×2 (09:03→17:42)
[2024-03-10] MEDS: lisinopril 20 mg Tablet 30 MG PO (09:03)
[2024-03-10] MEDS: allopurinol 300 mg Tablet PO (09:03)
[2024-03-10] MEDS: clopidogrel 75 mg Tablet PO (09:03)
[2024-03-10] MEDS: heparin 5,000 unit/mL INJ 1 mL 5000 UNIT SUBCUT ×2 (09:04→20:59)
[2024-03-10] MEDS: pantoprazole DR 40 mg Tablet PO ×2 (09:04→17:38)
[2024-03-10] MEDS: calcium gluconate 0.9% NaCL 1 GM/50 ML PREMIX IV ×2 (09:34→10:12)
[2024-03-10 09:56] LABS: 25 Hydroxy Vitamin D 6 ng/mL (30-100)
--- NOTE | 2024-03-10 11:21 | USCV_ITS ---
Isaías Clarke Age: 78 Gender: M : 1945 Exam Date: 03/10/2024 19:23 Ordering Phys: Phil Pérez MD Technologist: Daniel Miguel Exam Location: [facility] [place] Indication: possible cva BP: 144 / 61 HR: 72 Rhythm: Sinus Technical Quality: Adequate MEASUREMENTS (Male / Female) Normal Values 2D ECHO LVOT Diameter 2.3 cm LV Ejection Fraction MOD 2C 55.6 % LV Ejection Fraction 2C AL 58.8 % LA Diameter 3.6 cm RA Systolic Volume 4C AL 41.8 ml RA Systolic Volume 4C MOD 42.7 ml LA Sys Volume AL 60.2 cm cubed LA Sys Volume Index AL 26.8 cm cubed/m squared Aorta at Sinotubular Diameter 2.6 cm IVC Diameter 1.5 cm M-MODE LA Ao Ratio MM 1.2 AV Cusp Separation MM 2.0 cm DOPPLER AV Peak Velocity 163.7 cm/s LVOT Peak Velocity 102.0 cm/s AV Area Cont Eq vti 2.8 cm squared AV Area Cont Eq pk 2.6 cm squared MV Peak Velocity 82.0 cm/s MV Area PHT 3.2 cm squared Mitral E to A Ratio 0.6 PV Peak Velocity 95.0 cm/s RV Ejection Time 0.2 s FINDINGS Left Ventricle Normal left ventricular size and systolic function, EF 56% no regional wall motion abnormalities. Mild left ventricular hypertrophy. Grade I/IV diastolic dysfunction (abnormal relaxation filling pattern), normal to mildly elevated filling pressures. Right Ventricle The right ventricle is normal in size and function. Right Atrium The right atrium is normal in size. Left Atrium The left atrium is normal in size. Mitral Valve Mild mitral annular calcification. Trace mitral valve regurgitation. Aortic Valve Thickened aortic valve with minimal calcium calcification. Tricuspid Valve No gross abnormalities noted Pulmonic Valve No gross abnormalities noted Pericardium Normal pericardium without effusion. Aorta Normal ascending aorta dimension. IVC The inferior vena cava appears normal. CONCLUSIONS Normal left ventricular size and systolic function, EF 56% no regional wall motion abnormalities. Mild left ventricular hypertrophy. Grade I/IV diastolic dysfunction (abnormal relaxation filling pattern), normal to mildly elevated filling pressures. Mild mitral annular calcification. Trace mitral valve regurgitation. Thickened aortic valve with minimal calcium calcification. There are no intracardiac masses. There is no pericardial effusion. Dr Alfonso Khan MD [facility] (Electronically Signed) Final Date: 12 March 2024 00:46 S
--- NOTE | 2024-03-10 11:21 | USCV_ITS ---
Isaías Clarke Age: 78 Gender: M : 1945 Exam Date: 03/10/2024 19:48 Ordering Phys: Phil Pérez MD Technologist: [email or web address] Exam Location: [facility] [place] Indication: possible cva Risk Factors: Previous Vascular Surgery: Right Brachial BP: / Left Brachial BP: / Right Left Velocity (cm/s) Spectral Plaque Velocity (cm/s) Spectral Plaque Syst/Diast Broadening Syst/Diast Broadening 88.20/ 7.70 Prox CCA 93.30 / 20.60 97.30/ 10.30 Mid CCA 80.00 / 19.10 104.80/11.50 Distal CCA 75.50 / 20.60 101.70/19.30 Prox ICA 123.70/ 25.40 79.30/ 16.30 Mid ICA 113.00/ 19.00 59.60/ 14.80 Distal ICA 63.90 / 6.20 115.90 ECA 112.60 1.00 ICA/CCA 1.60 Antegrade Vertebral Antegrade 35.70/ 13.30 cm/s 63.90/ 23.30 cm/s Tri Subclavian Tri 96.50 73.70 FINDINGS Moderate irregular plaque to the right bifurcation and proximal ICA Moderate heterogenous plaques of the left bifurcation and proximal ICA. Intimal thickening in the CCAs bilaterally Antegrade flow in the vertebral arteries bilaterally Normal Doppler velocities in the external carotid, subclavian and vertebral arteries bilaterally CONCLUSIONS Moderate heterogenous irregular plaques at the bifurcations bilaterally suggesting less than 50% stenosis. Intimal thickening in the common carotid arteries bilaterally. No significant stenosis in the subclavian, vertebral or external carotid arteries based on the above findings Dr Alfonso Khan MD [facility] (Electronically Signed) Final Date: 12 March 2024 00:51 S
[2024-03-10 14:16] LABS: C.Diff PCR (Lab) NEGATIVE (Negative)
--- NOTE | 2024-03-10 19:22 | P.PN_ITS ---
Subjective 2 Subjective: He is awake and alert, sitting up in bed, slowly working on trying to have breakfast. He appears to have tremor, minimal bilateral dysmetria. Appears to also have some difficulties with communication. After introductions he does not appear to respond, asking him categorical questions, does respond with one-word answers. Denies pain. Asking him to give me his name he initially does not respond, then after prompting again does give me his full name. Cannot tell me where he is, looks out the window. Cannot tell me the year. At a later visit his daughter is at bedside, she states that she has had some of the difficulties for the last several days. Vitals/I&O/Wt Last Vital Signs Temp 98.6 F 03/10/24 15:55 Pulse 76 03/10/24 15:55 Resp 16 03/10/24 15:55 BP 144/61 03/10/24 15:55 Pulse Ox 94 03/10/24 15:55 O2 Del Method Room Air 03/10/24 15:55 03/10/24 03/10/24 03/10/24 06:59 14:59 22:59 Intake Total 120 / 2598 1110 / 1110 480 / 1590 Balance 120 / 2598 1110 / 1110 480 / 1590 Weight last 48 hrs Weight 97.692 kg Weight 95.453 kg Weight 96.303 kg Weight 99.79 kg Physical Exam 2 Narrative: Daughter at bedside during second visit. Const: COMMON NORMALS: alert; negative for patient oriented x3 GENERAL APPEARANCE: cooperative (To an extent with a few directions, requiring reprompting) O RIENTATION/CONSCIOUSNESS: Yes awake HENMT: COMMON NORMALS: oropharynx normal Neck/C-Spine: COMMON NORMALS: no JVD Resp: COMMON NORMALS: normal respiratory effort and clear to auscultation bilaterally AUSCULTATION: clear to auscultation bilaterally Cardio: COMMON NORMALS: no JVD, regular rhythm, S1 normal heart sound present, S2 normal heart sound present and No murmurs present (Cardio) RHYTHM: regular rhythm HEART SOUNDS: S1 normal heart sound present and S2 normal heart sound present GI: COMMON NORMALS: Normal to inspection, nondistended, normoactive bowel sounds present, Soft to palpation and non-tender PALPATION: Yes Soft to palpation Extremity: COMMON NORMALS: no joint enlargement and no pedal edema Neuro: COMMON NORMALS: moves all extremities; negative for patient oriented x3 SENSORIUM/ORIENTATION: Yes alert OTHER: Appears possibly mild right-sided facial droop. He is awake, somewhat slow to follow directions, requiring prompting sometimes. Does appear to track horizontally, although again difficulty following directions. Skin: COMMON NORMALS: no rashes or lesions noted GENERAL SKIN EXAM: no rashes or lesions noted Data 03/10/24 04:17 03/10/24 04:17 Micro: Microbiology 03/09/24 17:05 Blood Culture - Preliminary Blood NEGATIVE TO DATE 03/09/24 18:07 Blood Culture - Preliminary Blood Staphylococcus epidermidis A&P Assessment and plan (1) Pneumonia: (2) Coarse tremors: (3) Generalized weakness: (4) Altered mental status: Qualifiers: Altered mental status type: unspecified Qualified Code(s): R41.82 - Altered mental status, unspecified Plan 78-year-old male ending to the hospital today with increasing generalized weakness, confusion however with unknown past baseline. Patient has been progressively getting weaker it appears over the course of the year, reportedly cannot carry out his ADLs at this point. CT of the head without any acute stroke. Acute encephalopathy: Discussed with him and his daughter. Acute neurologic change, previously she reports he was sharp. He appears to have somewhat slowed responses, and also possibly some word finding difficulties versus just general disorientation/confusion, it is difficult to tell. However, there may be a mild right-sided facial droop of unknown duration, daughter states he is not sure whether had seen it before. He does have a pronounced roberts. No obvious stroke on CT. Presently as per discussion with his daughter he is not a candidate to be able to participate in MRI. With possible CVA we will continue aspirin, statin. Assess carotid duplex, echocardiogram, monitor on telemetry. They are not aware of him having history of atrial fibrillation. Currently on dual antiplatelet, monitor for risk of bleeding. Reassess hemoglobin. With possible acute metabolic encephalopathy perhaps due to severe hypocalcemia, hypomagnesemia, magnesium and calcium supplemented. Recheck levels. Give additional supplement depending on results. Reviewed chemistry. Requested vitamin D level. Treat possible pneumonia. Reviewed vitals, CBC, respiratory viral panel. Had OT, ST evaluation. Possible left lower lobe pneumonia: Continue treatment with antibiotic. Start empiric antibiotic treatment with ceftriaxone and azithromycin, received Levaquin in the emergency room. Patient is noted to have coarse intention tremors on exam, do not see any listed history of Parkinson's in the past. Not formally diagnosed with Parkinson's. Would benefit from follow-up with neurology. Reviewing psychiatry notes from 1 year ago it appears that any movement disorders at the time. He was brought to recent cardiology visit in December 2023 in a wheelchair. Presuming the process to be more chronic in nature. Patient is currently alert, oriented x 1-2, he is correctly able to tell me his name, and the fact that he is in the hospital however does not know his date of or why he needed to come here. Does not know which hospital he is at. Cannot tell me his 's name at this time however does say that he lives with her at home. Suspect coarse intention tremors may be related to extraparametal side effects of Geodon. Will hold Geodon doses, Start benztropine 1 mg BID and assess for response , anticipate quick improvement if indeed EPS from geodon Hold Lyrica and assess for improvement in mentation and tremors Kidney function at baseline, cr better than previous numbers Continue home medications including carvedilol , imdur, protonix Attestations 2 Medical Necessity Statement*: Continue admission for assessment management of acute encephalopathy, possible CVA with functional decline, possible pneumonia. and High MDM includes number and complexity of problems actively addressed during encounter and described risk of complication, morbidity or mortality of management as documented Diagnoses Pneumonia J18.9 Coarse tremors G25.2 Generalized weakness R53.1 Altered mental status, unspecified altered mental status type R41.82 Altered mental status type: unspecified
[2024-03-11] VITALS (9 sets, daily range): BP systolic 106–155; BP diastolic 58–74; PULSE 60–73; RESP 17; TEMP 36.6–37; O2SAT 91–97
[2024-03-11 03:26] LABS: Basophils % 0.4 %; Eosinophils % 0.2 %; Hematocrit 34.4 % (37-53); Lymphocytes # 1.8 10^3/uL (0.8-4.8); Lymphocytes % 22.6 %; Mean Corpuscular HGB Conc 30.8 g/dL (30-55); Mean Corpuscular Volume 84.3 fl (82-101); Mean Platelet Volume 11.6 fL (7.4-10.4); Monocytes # 0.7 10^3/uL (0.2-0.9); Monocytes % 8.3 %; Neutrophils # 5.55 10^3/uL (1.8-7.7); Neutrophils % 68.1 %; Nucleated Red Blood Cells % 0 %; Platelet Count 252 10^3/cmm (157-399); Red Blood Count 4.08 10^6/uL (3.85-5.65); Red Cell Distribution Width 16.6 % (12.1-15.1); White Blood Count 8.15 10^3/uL (3.29-11.43)
[2024-03-11 03:49] LABS: Anion Gap 16.1 (5-19); Blood Urea Nitrogen 19 mg/dL (8-23); Calcium 6.3 mg/dL (8.5-10.5); Carbon Dioxide 26 mmol/L (22-29); Chloride 104 mmol/L (98-107); Creatinine Clr Calc Pharmacy 43.3781; Glucose 125 mg/dL (65-115); Osmolality Calculated 300 mOsm/kg (285-295); Potassium 3.1 mmol/L (3.5-5.1); Sodium 143 mmol/L (136-145)
[2024-03-11] MEDS: cefTRIAXone 1,000 MG in sodium chloride 0.9% (plus) 50 ML 100 MG IV (06:15)
[2024-03-11] MEDS: allopurinol 300 mg Tablet PO (08:57)
[2024-03-11] MEDS: isosorbide mononitrate ER 60 mg Tablet 120 MG PO (08:57)
[2024-03-11] MEDS: clopidogrel 75 mg Tablet PO (08:57)
[2024-03-11] MEDS: lisinopril 20 mg Tablet 30 MG PO (08:58)
[2024-03-11] MEDS: aspirin 81 mg EC Tablet PO (08:58)
[2024-03-11] MEDS: pantoprazole DR 40 mg Tablet PO ×2 (08:58→17:23)
[2024-03-11] MEDS: carvedilol 12.5 mg Tablet PO ×2 (08:58→17:24)
[2024-03-11] MEDS: atorvastatin 40 mg Tablet 20 MG PO (08:59)
[2024-03-11] MEDS: heparin 5,000 unit/mL INJ 1 mL 5000 UNIT SUBCUT ×2 (09:00→21:01)
[2024-03-11] MEDS: benztropine 1 mg Tablet PO ×2 (09:09→17:24)
[2024-03-11] MEDS: azithromycin 250 mg Tablet 500 MG PO (09:09)
[2024-03-11] MEDS: magnesium sulfate premix 4 GM/100 ML PREMIX IV (10:10)
[2024-03-11] MEDS: calcium gluconate 0.9% NaCL 1 GM/50 ML PREMIX IV ×2 (10:10→11:21)
[2024-03-11] MEDS: potassium chloride ER 20 mEq Tablet PO (10:42)
--- NOTE | 2024-03-11 12:31 | PC.NURSE ---
Patient is requesting a nicotine patch. Provider ordered.
[2024-03-11] MEDS: nicotine 21 mg Patch 1 PATCH TRANSDERMA (13:33)
--- NOTE | 2024-03-11 14:58 | PC.SOCIAL ---
IMM Updated Updated pt on IMM. No questions voiced. Provided pt a copy. Initialed, dated, & timed a copy & placed in chart.
--- NOTE | 2024-03-11 16:15 | P.PN_ITS ---
Subjective 2 Subjective: He is aggravated today, when seeing a lot of him, he says what do you want, get out of here . He does appear to have had a diarrhea accident likely causing him aggravation. He denies pain or discomfort. He is oriented today and responds much quicker. He knows he is at [facility]. He is not conversant, and only limited cooperation, did allow me to auscultate him. Vitals/I&O/Wt Last Vital Signs Temp 98.3 F 03/11/24 12:00 Pulse 73 03/11/24 14:00 Resp 17 03/11/24 12:00 BP 130/73 03/11/24 12:00 Pulse Ox 96 03/11/24 12:00 O2 Del Method Room Air 03/11/24 04:00 03/11/24 03/11/24 03/11/24 06:59 14:59 22:59 Intake Total 240 / 1950 610 / 610 Output Total 300 / 300 Balance 240 / 1950 310 / 310 Weight last 48 hrs Weight 94.914 kg Weight 96.797 kg Weight 97.692 kg Weight 95.453 kg Weight 96.303 kg Weight 99.79 kg Physical Exam 2 Const: COMMON NORMALS: alert; negative for patient oriented x3 GENERAL APPEARANCE: cooperative (To an extent with a few directions, requiring reprompting) O RIENTATION/CONSCIOUSNESS: Yes awake HENMT: COMMON NORMALS: oropharynx normal Neck/C-Spine: COMMON NORMALS: no JVD Resp: COMMON NORMALS: normal respiratory effort and clear to auscultation bilaterally AUSCULTATION: clear to auscultation bilaterally Cardio: COMMON NORMALS: no JVD, regular rhythm, S1 normal heart sound present, S2 normal heart sound present and No murmurs present (Cardio) RHYTHM: regular rhythm HEART SOUNDS: S1 normal heart sound present and S2 normal heart sound present GI: COMMON NORMALS: Normal to inspection, nondistended, normoactive bowel sounds present, Soft to palpation and non-tender PALPATION: Yes Soft to palpation Extremity: COMMON NORMALS: no joint enlargement and no pedal edema Neuro: COMMON NORMALS: moves all extremities; negative for patient oriented x3 SENSORIUM/ORIENTATION: Yes alert OTHER: Appears possibly mild right-sided facial droop. He is awake, somewhat slow to follow directions, requiring prompting sometimes. Does appear to track horizontally, although again difficulty following directions. Skin: COMMON NORMALS: no rashes or lesions noted GENERAL SKIN EXAM: no rashes or lesions noted Data 03/11/24 02:42 03/11/24 02:42 Micro: Microbiology 03/09/24 17:05 Blood Culture - Preliminary Blood NEGATIVE TO DATE 03/09/24 18:07 Blood Culture - Preliminary Blood Staphylococcus epidermidis A&P Assessment and plan (1) Pneumonia: (2) Coarse tremors: (3) Generalized weakness: (4) Altered mental status: Qualifiers: Altered mental status type: unspecified Qualified Code(s): R41.82 - Altered mental status, unspecified Plan 78-year-old male ending to the hospital today with increasing generalized weakness, confusion however with unknown past baseline. Patient has been progressively getting weaker it appears over the course of the year, reportedly cannot carry out his ADLs at this point. CT of the head without any acute stroke. Acute encephalopathy: He is more alert today, but is aggravated/very irritable. He is ziprasidone had been held yesterday. We are going to resume it. Otherwise acute metabolic encephalopathy likely secondary to severe hypocalcemia, hypomagnesemia. Reviewed vitals, CBC, chemistry, magnesium, calcium, potassium. Additional hypocalcemia, hypomagnesemia still severe, magnesium 1, As well as hypokalemia. Requested replacement. Recheck values again in the morning and reassess mental status. Discussed with physical therapist, he also has pending assessment with PT, OT. Discussed with case resource manager. Daughter reports this has been acute neurologic change, previously she reports he was sharp. He appears to have somewhat slowed responses, and also possibly some word finding difficulties versus just general disorientation/confusion, it is difficult to tell. However, there may be a mild right-sided facial droop of unknown duration, daughter states he is not sure whether had seen it before. He does have a pronounced roberts. No obvious stroke on CT. Presently as per discussion with his daughter he is not a candidate to be able to participate in MRI. With possible CVA we will continue aspirin, statin. Assess carotid duplex, echocardiogram, monitor on telemetry. They are not aware of him having history of atrial fibrillation. Currently on dual antiplatelet, monitor for risk of bleeding. Reassess hemoglobin. Treat possible pneumonia. Reviewed vitals, CBC, Blood culture. Blood culture positive with 1 bottle of Staph epidermidis, possible contamination, but follow-up culture results. Possible left lower lobe pneumonia: Continue treatment with antibiotic. Continue empiric antibiotic treatment with ceftriaxone and azithromycin, received Levaquin in the emergency room. Will obtain EKG, is restarting antipsychotic, azithromycin, risk of QTc prolongation. Patient is noted to have coarse intention tremors on exam, do not see any listed history of Parkinson's in the past. Not formally diagnosed with Parkinson's. Would benefit from follow-up with neurology. Reviewing psychiatry notes from 1 year ago it appears that any movement disorders at the time. He was brought to recent cardiology visit in December 2023 in a wheelchair. Presuming the process to be more chronic in nature. Patient is currently alert, oriented x 1-2, he is correctly able to tell me his name, and the fact that he is in the hospital however does not know his date of or why he needed to come here. Does not know which hospital he is at. Cannot tell me his 's name at this time however does say that he lives with her at home. Suspect coarse intention tremors may be related to extraparametal side effects of Geodon. Will hold Geodon doses, Start benztropine 1 mg BID and assess for response , anticipate quick improvement if indeed EPS from geodon Hold Lyrica and assess for improvement in mentation and tremors Kidney function at baseline, cr better than previous numbers Continue home medications including carvedilol , imdur, protonix Attestations 2 Medical Necessity Statement*: Continue admission for assessment management of acute encephalopathy, currently with aggravated/irritable behavior, repletion of severe hypocalcemia and High MDM includes amount and/or complexity of data reviewed/ordered [ resulted lab(s)/test(s), ordered lab(s)/test(s) and other healthcare professional discussion] and described risk of complication, morbidity or mortality of management as documented Diagnoses Pneumonia J18.9 Coarse tremors G25.2 Generalized weakness R53.1 Altered mental status, unspecified altered mental status type R41.82 Altered mental status type: unspecified
--- NOTE | 2024-03-11 17:15 | PC.OT ---
OT TREATMENT ATTEMPTED TWICE; PATIENT BEING FED LUNCH BY HIS AT FIRST ATTEMPT. AT SECOND ATTEMPT; THE PATIENT DECLINES PARTICIPATION IS SKILLED OT TREATMENT. HIS STATES, 'HE WAS JUST GOING TO SLEEP WHEN YOU WALKED IN .
[2024-03-11] MEDS: ziprasidone hcl 20 mg Capsule PO (17:23)
--- NOTE | 2024-03-11 17:37 | PC.NURSE ---
Can of dip was found on patients bedside table, was collected and put in Pyxis.
[2024-03-12] VITALS: BP 145/78; PULSE 65; RESP 17; TEMP 36.6; O2SAT 94
[2024-03-12 04:00] VITALS: BP 135/73; PULSE 78; RESP 18; TEMP 36.8; O2SAT 96
[2024-03-12 04:46] VITALS: BMI 28.6
[2024-03-12 05:14] LABS: Basophils % 0.4 %; Eosinophils # 0.1 10^3/uL (0.0-0.8); Eosinophils % 0.9 %; Hematocrit 35.3 % (37-53); Lymphocytes # 1.6 10^3/uL (0.8-4.8); Lymphocytes % 17.5 %; Mean Corpuscular HGB Conc 30.9 g/dL (30-55); Mean Corpuscular Hemoglobin 26.5 pg (27-33); Mean Corpuscular Volume 85.9 fl (82-101); Monocytes # 0.7 10^3/uL (0.2-0.9); Monocytes % 7.8 %; Neutrophils # 6.65 10^3/uL (1.8-7.7); Neutrophils % 73.1 %; Nucleated Red Blood Cells % 0 %; Platelet Count 260 10^3/cmm (157-399); Red Blood Count 4.11 10^6/uL (3.85-5.65); Red Cell Distribution Width 16.7 % (12.1-15.1)
[2024-03-12 05:19] VITALS: PULSE 66
[2024-03-12 05:36] LABS: Anion Gap 13.4 (5-19); Blood Urea Nitrogen 12 mg/dL (8-23); Calcium 8.1 mg/dL (8.5-10.5); Carbon Dioxide 29 mmol/L (22-29); Chloride 107 mmol/L (98-107); Glucose 130 mg/dL (65-115); Magnesium 1.8 mg/dL (1.7-2.3); Osmolality Calculated 304 mOsm/kg (285-295); Potassium 3.4 mmol/L (3.5-5.1); Sodium 146 mmol/L (136-145)
[2024-03-12 05:38] LABS: Creatinine Clr Calc Pharmacy 48.7322
[2024-03-12] MEDS: cefTRIAXone 1,000 MG in sodium chloride 0.9% (plus) 50 ML 100 MG IV (06:19)
[2024-03-12] MEDS: ziprasidone hcl 20 mg Capsule PO (06:20)
[2024-03-12 07:33] VITALS: BP 131/73; PULSE 62; RESP 17; TEMP 36.6; O2SAT 96
[2024-03-12] MEDS: pantoprazole DR 40 mg Tablet PO (09:21)
[2024-03-12] MEDS: aspirin 81 mg EC Tablet PO (09:21)
[2024-03-12] MEDS: carvedilol 12.5 mg Tablet PO (09:21)
[2024-03-12] MEDS: clopidogrel 75 mg Tablet PO (09:21)
[2024-03-12] MEDS: lisinopril 20 mg Tablet 30 MG PO (09:21)
[2024-03-12] MEDS: atorvastatin 40 mg Tablet 20 MG PO (09:22)
[2024-03-12] MEDS: allopurinol 300 mg Tablet PO (09:23)
[2024-03-12] MEDS: isosorbide mononitrate ER 60 mg Tablet 120 MG PO (09:24)
[2024-03-12] MEDS: azithromycin 250 mg Tablet 500 MG PO (09:32)
[2024-03-12] MEDS: benztropine 1 mg Tablet PO (09:32)
[2024-03-12] MEDS: heparin 5,000 unit/mL INJ 1 mL 5000 UNIT SUBCUT (09:33)
--- NOTE | 2024-03-12 10:00 | ECG_ITS ---
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 Measurements Intervals [place] Rate: 70 P: 45 UT: 178 QRS: 16 QRSD: 101 T: -6 QT: 396 QTc: 429 Interpretive Statements SINUS RHYTHM WITH SINUS ARRHYTHMIA PROBABLE INFERIOR MYOCARDIAL INFARCTION , OF INDETERMINATE AGE [35 ms Q WAVE IN II/aVF] Compared to ECG 08/29/2023 21:35:36 Myocardial infarct finding now present Electronically Signed On 03-12-2024 22:13:00 CDT by Alfonso Khan M.D. [email or web address]
[2024-03-12 12:34] VITALS: BP 154/78; PULSE 62; RESP 18; TEMP 37.1; O2SAT 96
[2024-03-12 12:59] VITALS: BP 154/78; PULSE 62; RESP 18; TEMP 37.1; O2SAT 96
--- NOTE | 2024-03-12 14:19 | P.DS_ITS ---
Discharge Providers Date of Admission: 03/09/24 19:29 Date of Discharge: March 12, 2024 Attending Provider at Admission: Barak Jarvis MD Attending Provider at Discharge: Phil Pérez Primary Care Provider: Galindo Carson DO Diagnoses at Discharge Discharge Diagnosis (1) Pneumonia: Status: Acute (2) Coarse tremors: Status: Acute (3) Generalized weakness: Status: Acute (4) Altered mental status: Status: Acute Qualifiers: Altered mental status type: unspecified Qualified Code(s): R41.82 - Altered mental status, unspecified Reason for Visit Reason for Visit: WEAKNESS Brief History: Isaías Clarke is a 78 year old male with past medical history of coronary artery disease s/p stenting of distal RCA, type 2 diabetes mellitus, dyslipidemia, depression, obstructive sleep apnea, chronic back pain who has bee n brought to the emergency room today due to complaints of progressive weakness to the point where patient is unable to carry out his ADLs. He has been unable to feed himself or ambulate. His reported being unable to take care of him. Attempts to call the were not successful , left total voicemail asking for call back. Uncertain as to patient's past baseline however review of chart shows that when patient was brought to his outpatient cardiology visit in December 2023 he was in a wheelchair and he was chronically getting weaker. He had ER visits here in July and August 2024 for altered mental status 1 of which was related to a UTI. From January 2023, patient was also admitted for altered mental status wherein he had several behavioral issues with aggression agitation and inappropriate behavior with staff. Metabolic encephalopathy was ruled out at that time. He was started on treatment with Geodon twice daily and it appears he has been on treatment with the same. Patient is unable to give me any history except stating that she feels weak and that is why he came to the hospital. He denies any fever chills nausea vomiting diarrhea cough expectoration or dyspnea, however history is questionable directly from the patient. Hospital Course Hospital Course He was admitted and continued treatment for pneumonia with IV antibiotics, ceftriaxone, azithromycin after dose of Levaquin in ER. Initially with suspicion of possible adverse effect of Geodon it was held. Started on benztropine. Lyrica was transiently held. He was assessed with echocardiogram with finding of normal ejection fraction, grade 1 diastolic dysfunction. He was also found to have severe hypocalcemia and severe hypomagnesemia. Received multiple replacements with levels gradually repleted. He did well in terms of pneumonia and appears to was rather resolving or resolved condition. He had no dyspnea, doing well on room air. Remained afebrile, without leukocytosis. His tremor did not improve, but his mental status did improve. We discussed with his daughter additionally possibility of a small stroke he appeared to almost have some word finding difficulty, and possibly some mild right-sided facial droop. These changes, however, did resolve improvement in acute metabolic encephalopathy. Although he became more responsive he also became very belligerent severely irritable without Geodon, possibly with benztropine. Geodon was restarted. Received additional replacement of calcium and magnesium. Vitamin D level was checked. The next day he was doing much better, awake and alert, sitting up in chair, coherent, oriented, still with intention tremor. Worked with physical therapy, declined to consider going to snf facility, but did agree to have home health follow-up with him at home. Requested to be discharged home. Please follow-up on his symptoms, reassess if any recurring effect with resumption of Geodon, Lyrica. Calcium, magnesium, vitamin D. He started on calcium and vitamin D supplementation, and magnesium supplement. Please follow-up on referral to neurology for additional assessment of tremor, consideration of underlying condition, possibly Parkinson's disease or other. Carotid Doppler showed moderate heterogeneous irregular plaques at bifurcations bilaterally suggesting less than 50% stenosis intimal thickening in the common carotid arteries bilaterally. He is continued on aspirin and statin. Physical Exam Narrative: Sitting up in a chair. Today he is pleasant, conversant. He reports he is doing better. Requested to be discharged home. Const: COMMON NORMALS: patient oriented x3 and alert GENERAL APPEARANCE: cooperative ORIENTATION/CONSCIOUSNESS: Yes awake HENMT: COMMON NORMALS: oropharynx normal Neck/C-Spine: COMMON NORMALS: no JVD Resp: COMMON NORMALS: normal respiratory effort and clear to auscultation bilaterally AUSCULTATION: clear to auscultation bilaterally Cardio: COMMON NORMALS: no JVD, regular rhythm, S1 normal heart sound present, S2 normal heart sound present and No murmurs present (Cardio) RHYTHM: regular rhythm HEART SOUNDS: S1 normal heart sound present and S2 normal heart sound present GI: COMMON NORMALS: Normal to inspection, nondistended, normoactive bowel sounds present, Soft to palpation and non-tender PALPATION: Yes Soft to palpation Extremity: COMMON NORMALS: no joint enlargement and no pedal edema Neuro: COMMON NORMALS: patient oriented x3 and moves all extremities SENSORIUM/ORIENTATION: Yes alert OTHER: Does have some intention tremor but otherwise without focal neurologic abnormality to today. Does not appear to have any word finding difficulty. No facial droop no trouble tracking horizontally, visual choudhury defect or extensio n. No upper or lower extremity drift. Sensation symmetrical. Skin: COMMON NORMALS: no rashes or lesions noted GENERAL SKIN EXAM: no rashes or lesions noted Discharge Data Studies Completed and Pending Completed Studies During Hospitalization Category Date Time Status CT head wo con* [id number] Stat Cat Scan 03/09/24 17:34 Completed XR chest 1V portable [id number] Stat Exams 03/09/24 16:51 Completed CV carotid duplex BI* [id number] Routine Ultrasound 03/10/24 11:21 Completed CV. echo complete* [id number] Routine Ultrasound 03/10/24 11:21 Completed Pending at discharge Category Date Time Status Blood Culture Stat Lab 03/09/24 18:07 Results Radiology Impressions Chest X-Ray 03/09/24 16:51 IMPRESSION: Mild left basilar atelectasis and/or airspace disease. Head CT 03/09/24 17:34 IMPRESSION: No acute pathology or significant interval change. Laboratory Results WBC 9.10 10^3/uL (3.29-11.43) 03/12/24 04:48 RBC 4.11 10^6/uL (3.85-5.65) 03/12/24 04:48 Hgb 10.90 g/dL (11.27-16.99) L 03/12/24 04:48 Hct 35.3 % (37-53) L 03/12/24 04:48 MCV 85.9 fl (82-101) 03/12/24 04:48 MCH 26.5 pg (27-33) L 03/12/24 04:48 MCHC 30.9 g/dL (30-55) 03/12/24 04:48 RDW 16.7 % (12.1-15.1) H 03/12/24 04:48 Plt Count 260 10^3/cmm (157-399) 03/12/24 04:48 MPV 11.0 fL (7.4-10.4) H 03/12/24 04:48 Neut % (Auto) 73.1 % 03/12/24 04:48 Lymph % (Auto) 17.5 % 03/12/24 04:48 [place] % (Auto) 7.8 % 03/12/24 04:48 Eos % (Auto) 0.9 % 03/12/24 04:48 Baso % (Auto) 0.4 % 03/12/24 04:48 Neut # (Auto) 6.65 10^3/uL (1.8-7.7) 03/12/24 04:48 Lymph # (Auto) 1.6 10^3/uL (0.8-4.8) 03/12/24 04:48 [place] # (Auto) 0.7 10^3/uL (0.2-0.9) 03/12/24 04:48 Eos # (Auto) 0.1 10^3/uL (0.0-0.8) 03/12/24 04:48 Baso # (Auto) 0.0 10^3/uL (0.0-0.1) 03/12/24 04:48 Nucleated RBC % (auto) 0 % 03/12/24 04:48 Nucleated RBCs # 0.0 /100WBC 03/12/24 04:48 Sodium 146 mmol/L (136-145) H 03/12/24 04:48 Potassium 3.4 mmol/L (3.5-5.1) L 03/12/24 04:48 Chloride 107 mmol/L (98-107) 03/12/24 04:48 Carbon Dioxide 29 mmol/L (22-29) 03/12/24 04:48 Anion Gap 13.4 (5-19) 03/12/24 04:48 BUN 12 mg/dL (8-23) 03/12/24 04:48 Creatinine 1.5 mg/dL (0.7-1.2) H 03/12/24 04:48 GFR Calculation Not Reportable 03/12/24 04:48 Glucose 130 mg/dL (65-115) H 03/12/24 04:48 Estimat Average Glucose 137 03/10/24 04:17 Hemoglobin A1c 6.4 % (4.0-6.0) H 03/10/24 04:17 Calculated Osmolality 304 mOsm/kg (285-295) H 03/12/24 04:48 Lactic Acid 4.1 mmol/L (0.5-2.2) H* 03/09/24 17:05 Lactic Acid (Sepsis) 2.0 mmol/L (0.5-2.2) 03/09/24 19:58 Calcium 8.1 mg/dL (8.5-10.5) L 03/12/24 04:48 Phosphorus 4.2 mg/dL (2.5-4.5) 03/10/24 04:17 Magnesium 1.8 mg/dL (1.7-2.3) 03/12/24 04:48 Iron 26 ug/dL (59-158) L 03/09/24 17:05 TIBC 315 mcg/dl 03/09/24 17:05 % Saturation 8.2 % (20-50) L 03/09/24 17:05 Unsat Iron Binding 289 ug/dL (112-347) 03/09/24 17:05 Total Bilirubin 0.6 mg/dL (0.15-1.2) 03/10/24 04:17 AST 17 U/L (0-40) 03/10/24 04:17 ALT 13 U/L (0-41) 03/10/24 04:17 Alkaline Phosphatase 110 U/L (40-130) 03/10/24 04:17 Troponin T 5th Gen ng/L 46 ng/L (0-15) H 03/10/24 04:17 Total Protein 6.5 g/dL (6.6-8.7) L 03/10/24 04:17 Albumin 3.9 g/dL (3.5-5.2) 03/10/24 04:17 Globulin 2.6 g/dL (1.3-4.6) 03/10/24 04:17 Triglycerides 143 mg/dL (0-150) 03/10/24 04:17 Cholesterol 76 mg/dL (0-200) 03/10/24 04:17 LDL Cholesterol, Calc 22 mg/dL (50-129) L 03/10/24 04:17 HDL Cholesterol 25 mg/dL (60-100) L 03/10/24 04:17 LDL/HDL Ratio 0.88 RATIO (0.00-3.22) 03/10/24 04:17 Cholesterol/HDL Ratio 3.04 mg/dL (1.0-5.00) 03/10/24 04:17 Vitamin B12 461 pg/mL (232-1245) 03/09/24 17:05 25-OH Vitamin D Total 6 ng/mL (30-100) L 03/10/24 04:17 Folate 5.2 ng/mL (4.5-32.2) 03/10/24 04:17 Procalcitonin 0.09 ng/mL (0-0.5) 03/10/24 04:17 TSH 2.78 uIU/mL (0.27-4.20) 03/09/24 17:05 Urine Color Yellow (Yellow) 03/09/24 17:56 Urine Appearance Clear (CLEAR) 03/09/24 17:56 Urine pH 5 (5-7) 03/09/24 17:56 Ur Specific [place] 1.010 (1.005-1.030) 03/09/24 17:56 Urine Protein Neg (Negative) 03/09/24 17:56 Urine Glucose (UA) Norm (Normal) 03/09/24 17:56 Urine Ketones Negative (Negative) 03/09/24 17:56 Urine Blood Neg (Negative) 03/09/24 17:56 Urine Nitrate Negative (Negative) 03/09/24 17:56 Urine Bilirubin Neg (Negative) 03/09/24 17:56 Urine Urobilinogen Norm mg/dL (Negative) 03/09/24 17:56 Ur Leukocyte Esterase Negative (Negative) 03/09/24 17:56 Salicylates < 0.3 mg/dL (3-10) L 03/09/24 17:05 Urine Opiates Screen Positive ng/mL (Negative) H 03/09/24 20:21 Acetaminophen < 5.0 ug/mL (10-30) L 03/09/24 17:05 Ur Barbiturates Screen Negative ng/mL (Negative) 03/09/24 20:21 Ur Phencyclidine Scrn Negative ng/mL (Negative) 03/09/24 20:21 Ur Amphetamines Screen Negative ng/mL (Negative) 03/09/24 20:21 U Benzodiazepines Scrn Negative ng/mL (Negative) 03/09/24 20:21 Urine Cocaine Screen Negative ng/mL (Negative) 03/09/24 20:21 U Marijuana (THC) Screen Negative ng/mL (Negative) 03/09/24 20:21 Ethyl Alcohol < 10 mg/dL (0-10) 03/09/24 17:05 Serum Ketones Negative (Negative) 03/09/24 17:05 Adenovirus (PCR) Not detected (NOT DETECT) 03/09/24 20:21 C. pneumoniae DNA (PCR) Not detected (NOT DETECT) 03/09/24 20:21 C. difficile (PCR) Negative (Negative) 03/10/24 13:05 Coronavirus 229E (PCR) Not detected (NOT DETECT) 03/09/24 20:21 Human Metapneumovir PCR Not detected (NOT DETECT) 03/09/24 20:21 Influenza A (H1) PCR Not detected (NOT DETECT) 03/09/24 20:21 Influ A (H1/09) PCR Not detected (NOT DETECT) 03/09/24 20:21 Influenza A (H3) PCR Not detected (NOT DETECT) 03/09/24 20:21 Influenza Type A (PCR) Not detected (NOT DETECT) 03/09/24 20:21 Influenza Type B (PCR) Not detected (NOT DETECT) 03/09/24 20:21 M. pneumoniae (PCR) Not detected (NOT DETECT) 03/09/24 20:21 Parainfluenza 1 (PCR) Not detected (NOT DETECT) 03/09/24 20:21 Parainfluenza 2 (PCR) Not detected (NOT DETECT) 03/09/24 20:21 Parainfluenza 3 (PCR) Not detected (NOT DETECT) 03/09/24 20:21 Parainfluenza 4 (PCR) Not detected (NOT DETECT) 03/09/24 20:21 RSV Type A (PCR) Not detected (NOT DETECT) 03/09/24 20:21 RSV Type B (PCR) Not detected (NOT DETECT) 03/09/24 20:21 Entero/Rhino (PCR) Not detected (NOT DETECT) 03/09/24 20:21 SARS-CoV-2 (PCR) Not detected (NOT DETECT) 03/09/24 20:21 Vitals Last Vital Signs Temp 98.7 F 03/12/24 12:59 Pulse 62 03/12/24 12:59 Resp 18 03/12/24 12:59 BP 154/78 03/12/24 12:59 Pulse Ox 96 03/12/24 12:59 O2 Del Method Room Air 03/12/24 12:34 Discharge Plan Discharge Patient Disposition: Home Health Service Condition: Stable Prescriptions: New magnesium L-threonate 48 mg magnesium (667 mg) capsule 48 mg PO DAILY Qty: 90 0RF calcium carbonate-vitamin D3 600 mg-62.5 mcg (2,500 unit) capsule 2 cap PO DAILY Qty: 112 0RF cefdinir 300 mg capsule 300 mg PO BID Qty: 10 0RF azithromycin 250 mg tablet 250 mg PO DAILY Qty: 5 0RF Continued Narcan 4 mg/actuation spray,non-aerosol 1 spray INTRANASAL .COMPLEX Rx Instructions: INTRA NASAL NEEDED FOR OVERDOSE pantoprazole [Protonix] 40 mg tablet,delayed release (DR/EC) 40 mg PO BID Qty: 60 5RF metformin 1,000 mg tablet 1,000 mg PO BID 30 Days Qty: 60 1RF albuterol sulfate [ProAir HFA] 90 mcg/actuation HFA aerosol inhaler 1 - 2 puff INHALATION Q6H PRN (Reason: shortness of breath or wheezing) allopurinol 300 mg tablet 300 mg PO DAILY clopidogrel [Plavix] 75 mg tablet 75 mg PO DAILY Qty: 30 1RF aspirin 81 mg Tablet,Delayed Release (Dr/Ec) 81 mg PO DAILY Qty: 90 0RF carvedilol [Coreg] 12.5 mg tablet 12.5 mg PO BID atorvastatin 20 mg tablet 20 mg PO DAILY nitroglycerin [Nitrostat] 0.4 mg Tablet, Sublingual 0.4 mg SUBLINGUAL Q5M PRN (Reason: Chest Pain) Rx Instructions: do not exceed 3 doses per episode isosorbide mononitrate 60 mg tablet extended release 24 hr 120 mg PO DAILY hydrocodone-acetaminophen 10-325 mg tablet 1 tab PO Q6H PRN (Reason: Pain) furosemide 40 mg tablet 40 mg PO BID ziprasidone HCl 20 mg capsule 20 mg PO BID tizanidine 4 mg tablet 4 mg PO Q6H PRN (Reason: Pain) pregabalin 200 mg capsule 200 mg PO Q8H Discharge Orders: Discharge Order (Routine); Ordered 03/12/24 Ordered By: Phil Pérez Referrals: [facility] [Provider Group] (Tremor, question of possibly Parkinson's versus Parkinson's plus We have notified your physician's clinic of the need for a follow-up appointment to be scheduled. If you have not heard from them within the next 2 business days, please call them directly. ) Galindo Carson DO [Primary Care Provider] - 03/15/24 12:40 pm ([phone]) Patient Instructions: Opioid Safety Activity Restrictions/Additional Instructions: Please follow-up with your primary provider for reassessment of low calcium and low magnesium. Continue supplements at home. If you change your mind about rehabilitation at snf facility, please contact case management or your primary provider's office. Discussed with your primary doctor consideration of referral for MRI for assessment of possible mild past stroke. Please follow-up with neurology for additional assessment of tremor and consideration of causes including possibly Parkinson's disease. Reviewed antibiotic course for pneumonia, in case of worsening or new concerning symptoms seek medical attention immediately. In case of worsening or new concerning symptoms seek medical attention immediately. Discharge Attestations Time Spent in Discharge Care*: greater than 30 min Status at Discharge: Cognitive status at discharge: mildly impaired cognition , Behavioral status at discharge: cooperative and can be uncooperative , Quality Metrics Clinical Quality Measures [ No reported AMI, CVA or VTE this stay] Coding Level of Care Code 72909 Total time (in minutes) for Discharge: 55 Diagnoses Pneumonia J18.9 Coarse tremors G25.2 Generalized weakness R53.1 Altered mental status, unspecified altered mental status type R41.82 Altered mental status type: unspecified
== END 2024-03-12 13:13 | disposition hospice, home (50) | DRG 194 ==
LOC: ER 19:33 → MEDSURG 20:28
PROVIDERS: Family Medicine; Student in an Organized Health Care Education/Training Program; Admitting Provider Student in an Organized Health Care Education/Training Program; Emergency Provider Emergency Medicine; PCP Family Medicine; Visit Provider Internal Medicine
DX: J18.9 Pneumonia, unspecified organism (principal); G93.40 Encephalopathy, unspecified; R25.1 Tremor, unspecified; E83.51 Hypocalcemia; E83.42 Hypomagnesemia; Z79.02 Long term (current) use of antithrombotics/antiplatelets; Z79.82 Long term (current) use of aspirin; Z79.84 Long term (current) use of oral hypoglycemic drugs; I25.10 Atherosclerotic heart disease of native coronary artery without angina pectoris; Z95.5 Presence of coronary angioplasty implant and graft; E11.9 Type 2 diabetes mellitus without complications; E78.5 Hyperlipidemia, unspecified; Z87.891 Personal history of nicotine dependence
CPT/HCPCS: 36415; 70450; 71045; 80048; 80053; 80061; 80306; 80307; 81003; 82009; 82306; 82607; 82746; 83036; 83540; 83550; 83605; 83735; 84100; 84145; 84443; 84484; 85025; 87040; 87077; 87150; 87186; 87205; 87486; 87493; 87581; 87633; 92523; 92610; 93005; 93306; 93880; 96365; 96372; 97162; 97165; 97535; 99285; J0612; J0696; J1644; J1956; J3475; J3490; J7030; Q0144